=== PATIENT | female | born 1970 | race Caucasian/White ===

== ENCOUNTER → 2020-03-03 09:11 | Outpatient (BNVA) | payer OTHER, SELFPAY | PROVIDERS: PCP Internal Medicine; Referring Provider Internal Medicine; Visit Provider Physician Assistant | DX: K21.9 Gastro-esophageal reflux disease without esophagitis (principal); K76.0 Fatty (change of) liver, not elsewhere classified | CPT/HCPCS: 99213 ==

== ENCOUNTER 2020-03-04 13:16 | Outpatient (REF) | payer OTHER, SELFPAY ==
--- NOTE | 2020-03-04 | US_ITS ---
EXAMINATION: US DIAGNOSTIC ULTRASOUND BREAST, LEFT CLINICAL INFORMATION: Pain. COMPARISON: Mammography of same day and studies dating back to May 16, 2011. TECHNIQUE: Ultrasound of the breast is performed with real-time arevalo scale imaging and color Doppler. FINDINGS: Targeted left breast ultrasound at region of left breast pain did not demonstrate any abnormal cystic or solid mass. No region of abnormal distal sound shadowing was appreciated. Results are discussed with the patient at time of visit. IMPRESSION: No specific mammographic or ultrasound findings to suggest malignancy. Clinical follow-up for pain. ASSESSMENT: BI-RADS 1: Negative RECOMMENDATION: Routine annual mammography screening due in 12 months. This patient's information was entered into a reminder system with a target due date for their next mammogram.
--- NOTE | 2020-03-04 | MM_ITS ---
EXAMINATION: MM DIAGNOSTIC DIGITAL BREAST TOMOSYNTHESIS, BILATERAL Targeted left breast ultrasound. CLINICAL INFORMATION: Left breast pain which comes and goes for 3 months The lifetime risk of breast cancer based on the Tyrer-Cuzick Model is 14.5%. COMPARISON: Mammography: July 16, 2018 and studies dating back to May 16, 2011 TECHNIQUE: Digital breast tomosynthesis is performed in both the craniocaudal and mediolateral oblique views along with computer-aided detection (CAD). Synthesized 2D images are generated from the tomosynthesis. Targeted left breast ultrasound FINDINGS: There are scattered areas of fibroglandular density (ACR BI-RADS breast composition Category b). There are no significant masses, abnormal calcifications, or other abnormalities. Targeted left breast ultrasound at region of left breast pain did not demonstrate any abnormal cystic or solid mass. No region of abnormal distal sound shadowing was appreciated. Results are discussed with the patient at time of visit. IMPRESSION: No specific mammographic or ultrasound findings to suggest malignancy. Clinical follow-up for pain. ASSESSMENT: BI-RADS 1: Negative RECOMMENDATION: Routine annual mammography screening due in 12 months. This patient's information was entered into a reminder system with a target due date for their next mammogram.
== END 2020-03-04 13:17 | disposition home or self-care (01) ==
LOC: HO.MAMMO 13:16
PROVIDERS: Visit Provider Nurse Practitioner Family
DX: N64.4 Mastodynia (principal)
CPT/HCPCS: 76642; 77062; 77066

== ENCOUNTER 2020-03-30 10:15 | Outpatient (REF) | payer OTHER, SELFPAY ==
--- NOTE | 2020-03-30 10:19 | US_ITS ---
EXAMINATION: US COMPLETE ABDOMEN WITH LIVER ELASTOGRAPHY CLINICAL INFORMATION: Fatty liver COMPARISON: 05/28/2018 TECHNIQUE: Real-time imaging of the abdominal viscera. Noninvasive ultrasound liver fibrosis assessment is performed using Ashley ElastPQ point quantification shear wave elastography (pSWE) with a 5 MHz transducer. Multiple elastography samples are obtained. FINDINGS: PANCREAS: Normal. The visualized pancreatic head and body are normal in appearance. The remainder of the pancreas is obscured from visualization by the overlying bowel gas. ABDOMINAL AORTA: The proximal, middle, and distal aortic segments are normal in caliber. INFERIOR VENA CAVA: Visualized portions are normal. LIVER: Diffuse increased echogenicity of the parenchyma. No focal lesion or intrahepatic biliary duct dilatation. The right lobe measures 15.9 cm in length. The left lobe measures 11.1 cm in length. Hepatopedal flow in the main portal vein. Shear wave elastography provides a median stiffness of 1.15 m/s (reference: normal median stiffness is 0.81 - 1.22 m/s). The IQR/median stiffness to assess sampling precision is 0.09 (reference: optimal IQR/median stiffness is under 0.3). GALLBLADDER: Normal. The gallbladder is physiologically distended without evidence of stones, sludge, polyps, wall thickening or pericholecystic fluid. COMMON BILE DUCT: Normal in caliber measuring 0.3 cm in diameter. RIGHT KIDNEY: Normal. No hydronephrosis. No renal calculi or focal parenchymal lesions. The kidney measures 10.3 cm in maximum dimension. LEFT KIDNEY: Normal. No hydronephrosis. No renal calculi or focal parenchymal lesions. The kidney measures 9.9 cm in maximum dimension. SPLEEN: Normal. The spleen measures 10.8 cm in maximum dimension. FREE FLUID: None. US/US abdomen comp w elastography IMPRESSION: 1. . There is generalized increase in hepatic echotexture, consistent with fatty infiltration or hepatocellular disease. Please correlate clinically. No focal hepatic mass or intrahepatic biliary duct dilatation is seen. 2. Elastography: Metavir score F0, within normal range.
== END 2020-03-30 10:16 | disposition home or self-care (01) ==
LOC: HO.US 10:15
PROVIDERS: PCP Internal Medicine; Visit Provider Physician Assistant
DX: K76.0 Fatty (change of) liver, not elsewhere classified (principal)
CPT/HCPCS: 76705; 76981

== ENCOUNTER 2020-04-04 15:40 | Emergency (ER) | payer OTHER, SELFPAY ==
[2020-04-04 15:55] VITALS: BP 152/88; BP 160/90; PULSE 82; PULSE 90; RESP 17; TEMP 36.7; O2SAT 99; BMI 34.2
--- NOTE | 2020-04-04 16:33 | CT_ITS ---
EXAMINATION: CT HEAD WITHOUT CONTRAST CLINICAL INFORMATION: Dizziness. COMPARISON: CT head 07/15/2019 TECHNIQUE: Contiguous axial imaging was performed from the skull base to vertex without intravenous administration of contrast. Coronal and sagittal reformatted images are performed at CT scanner This CT examination was performed using dose optimization techniques as appropriate, variously including the following: *Automated exposure control *Adjustment of mA and/or kV according to patient size (this includes techniques or standardized protocols for targeted exams where dose is matched to indication/reason for exam; i.e. extremities or head) *Use of iterative reconstruction technique DLP: 623 mGy-cm FINDINGS: There is no evidence of acute intracranial hemorrhage or territorial infarction. No abnormal mass effect or midline shift is seen. Koehler to white matter differentiation is well preserved. No extra-axial fluid collections are identified. The ventricles are normal in size. There is no abnormal attenuation within the brain parenchyma. The osseous structures and soft tissues are normal. The mastoid air cells and visualized portions of the paranasal sinuses are well aerated. CT/CT head/brain wo con IMPRESSION: No acute intracranial pathology.
--- NOTE | 2020-04-04 16:36 | ED.DIZZY ---
HPI - Dizziness General Chief Complaint: Dizziness Stated Complaint: dizness Time Seen by Provider: 04/04/20 16:19 Source: patient Mode of arrival: ambulatory Limitations: no limitations History of Present Illness HPI Narrative: With chronic dizziness anxiety stress sleep apnea complaining of dizziness for last 2 months. in the past she been here also for dizziness and had a CT scan of the head on 07/09 which was negative has seen the neurologist 2 months ago for migraine and seen her is her PCP 3 times in last 1 month for same complaint per patient patient gets dizziness more when she sleeps has to wake up from the sleep because of dizziness and she gets better when she walks around patient taking lorazepam for anxiety and says that she is not anxious anymore no nausea no vomiting no palpitation. Patient also complaining of headache which is chronic MD elicited complaint: dizziness Description: sense of movement and room spinning Related Data Home Medications Medication Instructions Recorded Confirmed pantoprazole 40 mg tablet,delayed 40 mg PO DAILY 03/03/20 04/04/20 release cyclobenzaprine 10 mg tablet 10 mg PO TID 03/11/20 04/04/20 pravastatin 20 mg tablet 20 mg PO DAILY 03/11/20 04/04/20 Previous Rx's Medication Instructions Recorded lorazepam 1 mg tablet 1 mg PO BID PRN 90 Days #180 tab 02/22/20 sennosides 8.6 mg capsule 8.6 mg PO BEDTIME PRN #30 cap 03/01/20 Allergies Allergy/AdvReac Type Severity Reaction Status Date / Time oxycodone [From PERCOCET] Allergy Intermediate VOMITING, Unverified 02/04/20 15:33 N/V codeine [Codeine] Allergy Mild HIVES Unverified 02/04/20 15:33 atorvastatin Allergy Unknown Headaches Verified 12/07/19 00:00 bupropion [From WELLBUTRIN] Allergy Unknown PALPITATION Unverified 02/04/20 15:33 S morphine [MORPHINE] Allergy Unknown NIGHTMARES Unverified 02/04/20 15:33 naproxen [NAPROXEN] Allergy Unknown RASH Unverified 02/04/20 15:33 sertraline Allergy Unknown Verified 12/07/19 00:00 simvastatin Allergy Unknown Verified 12/07/19 00:00 zolpidem [ZOLPIDEM] Allergy Unknown PALPITATION Unverified 02/04/20 15:33 S Codeine Phosphate Allergy Unknown rash Uncoded 12/08/19 00:00 Codeine Sulfate Allergy Unknown Rash Uncoded 12/07/19 00:00 Review of Systems Review of Systems: REVIEW OF SYSTEMS: Pertinent positives and negatives are stated above in the history. GEN: no fevers, chills, fatigue HEENT: no nasal congestion, sore throat, ear pain NEURO: no focal weakness PULM: no cough, shortness of breath CV: no chest pain, palpitations, LE edema ABD: no abdominal pain, nausea, vomiting, diarrhea : no dysuria, urgency, frequency SKIN: no rash ROS otherwise negative x 10 Neurologic: Reports Abnormal speech present [facility] Past Medical History Medical History Acid reflux Anxiety and depression NAFLD (nonalcoholic fatty liver disease) Obesity (BMI 30-39.9) Surgical History History of colonoscopy Hx of endoscopy Family History Family History Father Hx of colon cancer, stage III Mother Hx of heat stroke Social History Social History Alcohol intake: never Smoking Status: Never smoker Advance Directives: No Advance Directives Information Provided: Yes Physical Exam Vital Signs: Vital Signs: Last Vital Signs Temp 98.1 F 04/04/20 15:55 Pulse 82 04/04/20 15:55 Resp 17 04/04/20 15:55 BP 152/88 H 04/04/20 15:55 Pulse Ox 99 04/04/20 15:55 Body Mass Index 34.2 Const: General: cooperative, healthy appearing, comfortable, no acute distress and anxious Nutritional Appearance: average body habitus Orientation/consciousness: oriented to person, oriented to place and oriented to time HENMT: Head: Yes normal to inspection Ears: hearing grossly normal bilaterally Mouth: Normal oral and palatal mucosa present Eyes: General: appearance normal, both eyes and all related structures Pupils: Equal, round and reactive pupils present EOM: EOMs intact bilaterally, no movement deficit and No Nystagmus present Resp: Effort & Inspection: normal respiratory effort Auscultation: clear to auscultation bilaterally Cardio: Rate: regular rate Rhythm: regular rhythm Heart sounds: S1 normal heart sound present and S2 normal heart sound present GI: Inspection: Yes normal to inspection Palpation (GI): Soft to palpation, Firmness to palpation present (GI) and nontender Neuro: General: oriented to person, oriented to place and oriented to time Cranial nerves: Yes CN's II-XII intact bilaterally, Yes Equal, round and reactive pupils present and No Nystagmus present Speech: Abnormal speech present Gait exam (Neuro): Normal gait present Motor exam (neuro): 5/5 motor strength present throughout Coordination: [id number] test normal, does not sway with eyes open, Romberg test negative and Normal rapid alternating movements of the distal upper extremity present (Neuro) Romberg Test: Negative Course Course Course Narrative: patient with nonspecific dizziness CT scan negative labs are normal anxiety effect is also related. Patient had a neurologist Dr. More will follow-up with him will continue lorazepam and meclizine for now MDM - Dizziness Lab Data Result diagrams: 04/04/20 16:47 04/04/20 16:47 Labs: Lab Results 04/04/20 04/04/20 Range/Units 16:47 16:47 WBC 8.6 (4.8-10.8) X10*3/uL RBC 4.90 (4.20-5.50) X10*6/uL Hgb 13.3 (12.0-16.0) g/dl Hct 40.6 (37-47) % MCV 82.9 (80-98) fL MCH 27.1 (27.0-33.0) pg MCHC 32.8 (31.0-35.0) g/dl RDW 14.3 (11.0-16.0) % Plt Count 375 (160-400) X10*3/uL MPV 9.0 L (9.4-12.3) fL Immature Gran % (Auto) 0.4 (0.0-0.4) % Neut % (Auto) 53.4 (45-73) % Lymph % (Auto) 34.7 (20-40) % Monona % (Auto) 8.5 (2-11) % Eos % (Auto) 2.5 (0-4) % Baso % (Auto) 0.5 (0-2) % Lymph # (Auto) 3.0 (1.2-4.9) X10*3/uL Monona # (Auto) 0.7 (0.1-1.2) X10*3/uL Eos # (Auto) 0.2 (0.0-0.4) X10*3/uL Baso # (Auto) 0.0 (0.0-0.2) X10*3/uL Abs Immat Gran (auto) 0.03 (0.00-0.03) X10*3/uL Absolute Neuts (auto) 4.6 (2.0-8.3) X10*3/uL Absolute Nucleated RBC 0.000 (0.0-0.012) X10*3/uL Nucleated RBC % (auto) 0.0 (0.0-0.2) /100WBC Sodium 141 (135-145) mmol/L Potassium 3.7 (3.3-5.1) mmol/l Chloride 104 (96-108) mmol/L Carbon Dioxide 27 (22-29) mmol/L Anion Gap 14 (12-20) BUN 12 (9-16) mg/dL Creatinine 0.81 (0.5-1.4) mg/dL Estim Creat Clear Calc 79.8 Estimated GFR > 60 Random Glucose 100 (60-115) mg/dL Calcium 10.0 (8.4-10.2) mg/dL Magnesium 2.1 (1.6-2.6) mg/dL Discharge Plan Discharge Prescriptions: No Action lorazepam 1 mg tablet 1 mg PO BID PRN (Reason: anxiety) 90 Days Qty: 180 RF: 0 senna 8.6 mg capsule 8.6 mg PO BEDTIME PRN (Reason: constipation) Qty: 30 RF: 2 cyclobenzaprine 10 mg tablet 10 mg PO TID RF: 0 pravastatin 20 mg tablet 20 mg PO DAILY RF: 0 pantoprazole 40 mg tablet,delayed release (DR/EC) 40 mg PO DAILY RF: 0
[2020-04-04 16:52] LABS: MANUAL DIFF FLAG NO
[2020-04-04 16:54] LABS: Basophils Percent Auto 0.5 % (0-2); Eosinophils Absolute Auto 0.2 X10*3/uL (0.0-0.4); Eosinophils Percent Auto 2.5 % (0-4); Hematocrit 40.6 % (37-47); Hemoglobin 13.3 g/dl (12.0-16.0); Imm Gran Abs Auto 0.03 X10*3/uL (0.00-0.03); Imm Gran Pct Auto 0.4 % (0.0-0.4); Lymphocytes Percent Auto 34.7 % (20-40); Mean Corpuscular HGB Conc 32.8 g/dl (31.0-35.0); Mean Corpuscular Hemoglobin 27.1 pg (27.0-33.0); Mean Corpuscular Volume 82.9 fL (80-98); Monocytes Absolute Auto 0.7 X10*3/uL (0.1-1.2); Monocytes Percent Auto 8.5 % (2-11); Neutrophils Absolute Auto 4.6 X10*3/uL (2.0-8.3); Neutrophils Percent Auto 53.4 % (45-73); Platelet Count 375 X10*3/uL (160-400); Red Cell Distribution Width 14.3 % (11.0-16.0); White Blood Count 8.6 X10*3/uL (4.8-10.8)
[2020-04-04] MEDS: LORazepam 2 MG/ML VIAL 1 MG IVPUSH (17:09)
[2020-04-04] MEDS: diphenhydrAMINE HCL 50 MG/ML VIAL 25 MG IVPUSH (17:09)
--- NOTE | 2020-04-04 17:13 | PC.NURSE ---
patient medicated per order
[2020-04-04 17:18] LABS: Anion Gap 14 (12-20); Blood Urea Nitrogen 12 mg/dL (9-16); Carbon Dioxide 27 mmol/L (22-29); Chloride 104 mmol/L (96-108); Creatinine Clr Calc Pharmacy 79.8; Estimated Glomerular Filt Rate > 60; Glucose Random 100 mg/dL (60-115); Magnesium 2.1 mg/dL (1.6-2.6); Potassium 3.7 mmol/l (3.3-5.1); Sodium 141 mmol/L (135-145)
[2020-04-04 19:20] VITALS: BP 151/81; PULSE 81
[2020-04-04 19:22] VITALS: BP 149/89; PULSE 77
[2020-04-04 19:23] VITALS: BP 142/88; PULSE 87
[2020-04-04 19:26] VITALS: BP 142/88; PULSE 87; RESP 16; TEMP 36.6; O2SAT 97
== END 2020-04-04 19:55 | disposition home or self-care (01) ==
PROVIDERS: Emergency Provider Internal Medicine; PCP Internal Medicine
DX: R42 Dizziness and giddiness (principal); Z79.899 Other long term (current) drug therapy
CPT/HCPCS: 36415; 70450; 80048; 83735; 85025; 96374; 96375; 99284; J1200; J2060

== ENCOUNTER 2020-04-21 08:02 | Outpatient (RCR) | payer OTHER, SELFPAY ==
--- NOTE | 2020-04-22 16:04 | MHC.PT.EP ---
[facility] [place] Office [place] Office [place] Office [address] Michelle Peterson [address] [phone] F: [phone] F: [phone] F: [phone] F: [phone] Physical Therapy Plan of Care Date of Evaluation: 04/21/20 Date of Surgery: Diagnosis: dizziness Assessment: Pt was positive for right PC -BPPV. Particle repositioning was performed on her and he was negative during reassessment. Pt had increased anxiety during treatment that I managed with increased education and time as needed. Pt felt less dizzy upon standing and she was able to walk without imbalance upon leaving. Frequency and Duration: The patient will be seen 2 Short Term Goals: 1.Pt to be negative for nystagmus in all diagnostic positions for BPPV to facilitate improved functional movements. [employer] Goals: 1. For the patient to be negative for nystagmus or reports of vertigo in all diagnostic positions bilaterally to resolution of BPPV in 4 weeks. 2. For the patient to be able to functionally move in all planes and directions without provocation of dizziness to show return to PLOF. -For the patient to be educated on symptoms and indications to return to therapy when needed in 4 weeks. Treatment Plan: Modalities to reduce pain, spasms and effusion. Manual therapy to restore motion and function. Therapeutic exercise to improve strength and flexibility. Neuromuscular re-education for posture and balance. Therapeutic activities to return to functional activities of daily living. Please sign and return to therapist. Thank you for your referral.
--- NOTE | 2020-06-06 11:34 | MHC.PT.DC ---
[facility] [place] Office [place] Office [place] Office [address] [phone] F: [phone] F: [phone] F: [phone] F: [phone] Physical Therapy Discharge Report Diagnosis: dizziness Date of Surgery: Date of Evaluation: 04/21/20 Date of Discharge: 06/06/20 Treatments to Date: 1 Cancellations to Date: 0 No Shows to Date: 0 Discharge Status: Discharge Summary: Pt was + for right PC-BPPV. CRM x 2 reps for right side. Pt was negative upon reassessment. She did not return for her f/u visits. Electronically signed by: Kassidy Jon PT, DPT Please sign and return to therapist. Thank you for your referral.
== END 2020-06-06 11:35 | disposition other institution (70) ==
LOC: HO.PT 08:02
PROVIDERS: PCP Internal Medicine; Visit Provider Internal Medicine
DX: R42 Dizziness and giddiness (principal)
CPT/HCPCS: 95992; 97162; 97535

== ENCOUNTER 2020-06-13 10:09 | Outpatient (REF) | payer OTHER, SELFPAY | END 2020-06-13 10:10 | disposition home or self-care (01) | LOC: HO.LAB 10:09 | PROVIDERS: Visit Provider Nurse Practitioner Family | DX: J34.89 Other specified disorders of nose and nasal sinuses (principal); J40 Bronchitis, not specified as acute or chronic; Z20.822 Contact with and (suspected) exposure to COVID-19 | CPT/HCPCS: 36415; U0003 ==

== ENCOUNTER → 2020-06-14 11:12 | Outpatient (BNVA) | payer OTHER, SELFPAY | PROVIDERS: PCP Internal Medicine; Visit Provider Physician Assistant ==

== ENCOUNTER 2020-06-27 07:29 | Outpatient (REF) | payer OTHER, SELFPAY ==
[2020-06-27 08:04] LABS: MANUAL DIFF FLAG NO
[2020-06-27 08:14] LABS: Basophils Percent Auto 0.4 % (0-2); Eosinophils Absolute Auto 0.4 X10*3/uL (0.0-0.4); Eosinophils Percent Auto 3.7 % (0-4); Hematocrit 42.5 % (37-47); Hemoglobin 13.6 g/dl (12.0-16.0); Imm Gran Abs Auto 0.05 X10*3/uL (0.00-0.03); Imm Gran Pct Auto 0.5 % (0.0-0.4); Lymphocytes Absolute Auto 3.8 X10*3/uL (1.2-4.9); Lymphocytes Percent Auto 40.4 % (20-40); Mean Corpuscular Hemoglobin 26.4 pg (27.0-33.0); Mean Corpuscular Volume 82.4 fL (80-98); Monocytes Absolute Auto 0.7 X10*3/uL (0.1-1.2); Monocytes Percent Auto 7.1 % (2-11); Neutrophils Absolute Auto 4.5 X10*3/uL (2.0-8.3); Neutrophils Percent Auto 47.9 % (45-73); Platelet Count 404 X10*3/uL (160-400); Red Blood Count 5.16 X10*6/uL (4.20-5.50); Red Cell Distribution Width 13.9 % (11.0-16.0); White Blood Count 9.5 X10*3/uL (4.8-10.8)
[2020-06-27 08:21] LABS: Color Urine YELLOW; Glucose Urine UA NEG (NEG); Leukocyte Esterase Urine 2+ (NEG); Nitrite Urine NEG (NEG); PH 5.5 (5.0-8.0); Specific Gravity - Urine >= 1.030 (1.005-1.025); Urine Blood TRACE (NEG); Urine Ketones NEG (NEG); Urine Protein NEG (NEG-TRACE)
[2020-06-27 08:22] LABS: Appearance Urine HAZY
[2020-06-27 08:44] LABS: Alanine Aminotransferase 75 U/L (0-31); Albumin Level 4.3 g/dL (3.5-5.0); Alkaline Phosphatase 71 U/L (39-117); Anion Gap 14 (12-20); Aspartate Amino Transferase 42 U/L (5-31); Bilirubin Total 0.5 mg/dL (0.0-1.0); Blood Urea Nitrogen 15 mg/dL (9-16); Calcium 9.7 mg/dL (8.4-10.2); Carbon Dioxide 25 mmol/L (22-29); Chloride 106 mmol/L (96-108); Estimated Glomerular Filt Rate > 60; Glucose Random 100 mg/dL (60-115); Potassium 4.4 mmol/L (3.3-5.1); Sodium 141 mmol/L (135-145); Total Protein 7.5 g/dL (6.5-8.0)
[2020-06-27 09:00] LABS: Free T4 (Free Thyroxine) 0.85 ng/dL (0.71-1.85); Thyroid Stimulating Hormone 4.59 uIU/mL (0.32-4.0)
[2020-06-27 09:02] LABS: Bacteria Urine 2+ /LPF; Mucus Urine 1+ /LPF; RBC Urine 0 /HPF (0); Squamous Epithelial Cell Urine 2+ /LPF
== END 2020-06-27 07:30 | disposition home or self-care (01) ==
LOC: HO.LAB 07:29
PROVIDERS: PCP Internal Medicine; Referring Provider Internal Medicine; Visit Provider Physician Assistant
DX: R42 Dizziness and giddiness (principal)
CPT/HCPCS: 36415; 80053; 81001; 84439; 84443; 85025

== ENCOUNTER 2020-10-24 10:36 | Outpatient (REF) | payer MEDICARE, MEDICAID, SELFPAY ==
[2020-10-24 11:20] LABS: MANUAL DIFF FLAG NO
[2020-10-24 11:38] LABS: Basophils Percent Auto 0.5 % (0-2); Eosinophils Absolute Auto 0.3 X10*3/uL (0.0-0.4); Eosinophils Percent Auto 3.7 % (0-4); Hemoglobin 13.4 g/dl (12.0-16.0); Imm Gran Abs Auto 0.02 X10*3/uL (0.00-0.03); Imm Gran Pct Auto 0.2 % (0.0-0.4); Lymphocytes Absolute Auto 2.9 X10*3/uL (1.2-4.9); Mean Corpuscular HGB Conc 31.9 g/dl (31.0-35.0); Mean Corpuscular Hemoglobin 26.4 pg (27.0-33.0); Mean Corpuscular Volume 82.7 fL (80-98); Mean Platelet Volume 9.2 fL (9.4-12.3); Monocytes Absolute Auto 0.6 X10*3/uL (0.1-1.2); Monocytes Percent Auto 6.9 % (2-11); Neutrophils Absolute Auto 4.3 X10*3/uL (2.0-8.3); Neutrophils Percent Auto 52.7 % (45-73); Platelet Count 391 X10*3/uL (160-400); Red Blood Count 5.08 X10*6/uL (4.20-5.50); Red Cell Distribution Width 14.3 % (11.0-16.0); White Blood Count 8.2 X10*3/uL (4.8-10.8)
[2020-10-24 11:49] LABS: Glucose Urine UA NEG (NEG); Leukocyte Esterase Urine NEG (NEG); Nitrite Urine NEG (NEG); Specific Gravity - Urine 1.025 (1.005-1.025); Urine Blood NEG (NEG); Urine Ketones NEG (NEG); Urine Protein NEG (NEG-TRACE)
[2020-10-24 11:56] LABS: Appearance Urine CLEAR; Color Urine YELLOW
[2020-10-24 12:00] LABS: Mucus Urine TRACE /LPF; RBC Urine 0-2 /HPF (0); Squamous Epithelial Cell Urine TRACE /LPF; WBC Urine 0-2 /HPF (0-4)
[2020-10-24 12:07] LABS: Alanine Aminotransferase 33 U/L (0-31); Albumin Level 4.4 g/dL (3.5-5.0); Alkaline Phosphatase 77 U/L (39-117); Anion Gap 13 (12-20); Aspartate Amino Transferase 25 U/L (5-31); Bilirubin Total 0.7 mg/dL (0.0-1.0); Blood Urea Nitrogen 17 mg/dL (9-16); Calcium 9.9 mg/dL (8.4-10.2); Carbon Dioxide 24 mmol/L (22-29); Chloride 106 mmol/L (96-108); Cholesterol 178 mg/dL; Estimated Glomerular Filt Rate > 60; Glucose Random 101 mg/dL (60-115); HDL Cholesterol 40 mg/dL; LDL Cholesterol Calculated 97 mg/dl; Potassium 4.3 mmol/L (3.3-5.1); Sodium 139 mmol/L (135-145); Total Protein 7.5 g/dL (6.5-8.0); Triglycerides 207 mg/dL
[2020-10-24 12:09] LABS: Free T4 (Free Thyroxine) 0.85 ng/dL (0.71-1.85); Thyroid Stimulating Hormone 1.71 uIU/mL (0.32-4.0)
[2020-10-24 13:14] LABS: Estimated Average Glucose 117 mg/dL; Hemoglobin A1c % 5.7 %
[2020-10-25 22:02] LABS: Insulin Level Total 23.2 uIU/mL
== END 2020-10-24 10:37 | disposition home or self-care (01) ==
LOC: HO.LAB 10:36
PROVIDERS: Physician Assistant; PCP Internal Medicine; Visit Provider Internal Medicine
DX: R79.89 Other specified abnormal findings of blood chemistry (principal); R42 Dizziness and giddiness; K76.0 Fatty (change of) liver, not elsewhere classified
CPT/HCPCS: 36415; 80053; 80061; 81001; 83036; 83525; 84439; 84443; 85025

== ENCOUNTER → 2020-11-02 10:42 | Outpatient (BNVA) | payer MEDICARE, MEDICAID, SELFPAY | PROVIDERS: PCP Internal Medicine; Visit Provider Physician Assistant | CPT/HCPCS: Q3014 ==

== ENCOUNTER 2020-12-26 10:56 | Outpatient (REF) | payer MEDICARE, MEDICAID, SELFPAY ==
[2020-12-26 13:32] LABS: Glucose Urine UA NEG (NEG); Leukocyte Esterase Urine 1+ (NEG); Nitrite Urine NEG (NEG); UACC Culture Trigger YES; Urine Blood TRACE (NEG); Urine Ketones NEG (NEG); Urine Protein NEG (NEG-TRACE)
[2020-12-26 13:38] LABS: Appearance Urine CLEAR; Color Urine YELLOW
[2020-12-26 13:59] LABS: RBC Urine 0-2 /HPF (0); Renal Epithelial Cells Urine TRACE /LPF
== END 2020-12-26 10:57 | disposition home or self-care (01) ==
LOC: HO.LAB 10:56
PROVIDERS: PCP Internal Medicine; Visit Provider Internal Medicine
DX: M79.671 Pain in right foot (principal)
CPT/HCPCS: 81001; 87086

== ENCOUNTER → 2021-01-11 09:18 | Outpatient (BNVA) | payer MEDICARE, MEDICAID, SELFPAY | PROVIDERS: PCP Internal Medicine; Visit Provider Physician Assistant | DX: Z13.89 Encounter for screening for other disorder (principal) | CPT/HCPCS: Q3014 ==

== ENCOUNTER 2021-03-02 08:00 | Outpatient (RCR) | payer MEDICARE, MEDICAID, SELFPAY | END 2021-07-17 11:41 | disposition home or self-care (01) | LOC: HO.PT 08:00 | PROVIDERS: PCP Internal Medicine; Visit Provider Internal Medicine | DX: R42 Dizziness and giddiness (principal) | CPT/HCPCS: 97161 ==

== ENCOUNTER 2021-03-20 07:53 | Outpatient (REF) | payer MEDICARE, MEDICAID, SELFPAY ==
--- NOTE | ~2021-03-20 | MM_ITS ---
EXAMINATION: MM SCREENING DIGITAL BREAST TOMOSYNTHESIS, BILATERAL CLINICAL INFORMATION: Screening. Asymptomatic. The lifetime risk of breast cancer based on the Tyrer-Cuzick Model is 16%. COMPARISON: Mammography: 03/04/2020, 07/16/2018, 06/03/2017, 05/30/2016 TECHNIQUE: Digital breast tomosynthesis is performed in both the craniocaudal and mediolateral oblique views along with computer-aided detection (CAD). Synthesized 2D images are generated from the tomosynthesis. FINDINGS: There are scattered areas of fibroglandular density (ACR BI-RADS breast composition Category b). There are no significant masses, abnormal calcifications, or other abnormalities. Parenchymal pattern is similar to prior studies. Minor global parenchymal asymmetry upper outer right breast is stable. Similarly, stromal markings mid outer left breast on CC view are stable from prior study exams. No interval developing density or architectural changes. The axilla and skin contours are unremarkable. MM/MM tomosynthesis screening BI IMPRESSION: No significant changes from prior studies. ASSESSMENT: BI-RADS 2: Benign RECOMMENDATION: Routine annual mammography screening. This patient's information was entered into a reminder system with a target due date for their next mammogram.
== END 2021-03-20 07:54 | disposition home or self-care (01) ==
LOC: HO.MAMMO 07:53
PROVIDERS: Visit Provider Internal Medicine
DX: Z12.31 Encounter for screening mammogram for malignant neoplasm of breast (principal)
CPT/HCPCS: 77063; 77067

== ENCOUNTER 2021-03-24 09:38 | Outpatient (REF) | payer MEDICARE, MEDICAID, SELFPAY ==
[2021-03-24 09:49] LABS: MANUAL DIFF FLAG NO
[2021-03-24 10:07] LABS: Basophils Percent Auto 0.4 % (0-2); Eosinophils Absolute Auto 0.2 X10*3/uL (0.0-0.4); Eosinophils Percent Auto 1.8 % (0-4); Hematocrit 43.4 % (37.0-47.0); Imm Gran Abs Auto 0.05 X10*3/uL (0.00-0.03); Imm Gran Pct Auto 0.5 % (0.0-0.4); Lymphocytes Absolute Auto 3.1 X10*3/uL (1.2-4.9); Lymphocytes Percent Auto 32.4 % (20-40); Mean Corpuscular HGB Conc 32.3 g/dl (31.0-35.0); Mean Corpuscular Hemoglobin 27.2 pg (27.0-33.0); Mean Corpuscular Volume 84.3 fL (80.0-98.0); Mean Platelet Volume 8.8 fL (9.4-12.3); Monocytes Absolute Auto 0.7 X10*3/uL (0.1-1.2); Monocytes Percent Auto 7.2 % (2-11); Neutrophils Absolute Auto 5.4 x10*3/uL (2.0-8.3); Neutrophils Percent Auto 57.7 % (45-73); Platelet Count 390 X10*3/uL (160-400); Red Blood Count 5.15 X10*6/uL (4.20-5.50); Red Cell Distribution Width 14.2 % (11.0-16.0); White Blood Count 9.4 X10*3/uL (4.8-10.8)
[2021-03-24 10:33] LABS: Alanine Aminotransferase 35 U/L (0-31); Albumin Level 4.6 g/dL (3.5-5.0); Alkaline Phosphatase 77 U/L (39-117); Anion Gap 13 (12-20); Aspartate Amino Transferase 23 U/L (5-31); Bilirubin Total 0.7 mg/dL (0.0-1.0); Blood Urea Nitrogen 14 mg/dL (9-16); Calcium 10.5 mg/dL (8.4-10.2); Carbon Dioxide 30 mmol/L (22-29); Chloride 102 mmol/L (96-108); Estimated Glomerular Filt Rate 58; Glucose Fasting 102 mg/dL (60-99); Potassium 4.4 mmol/L (3.3-5.1); Sodium 141 mmol/L (135-145); Total Protein 7.7 g/dL (6.5-8.0)
[2021-03-24 10:35] LABS: Appearance Urine CLEAR; Color Urine YELLOW; Glucose Urine UA NEG (NEG); Leukocyte Esterase Urine NEG (NEG); Nitrite Urine NEG (NEG); Specific Gravity - Urine 1.015 (1.005-1.025); UACC Culture Trigger NO; Urine Blood TRACE (NEG); Urine Ketones NEG (NEG); Urine Protein NEG (NEG-TRACE)
[2021-03-24 10:52] LABS: TSH reflex Free T4 1.87 uIU/mL (0.32-4.0)
[2021-03-24 11:01] LABS: WBC Urine 0 /HPF (0-4)
[2021-03-24 11:02] LABS: Mucus Urine TRACE /LPF; Squamous Epithelial Cell Urine TRACE /LPF
== END 2021-03-24 09:39 | disposition home or self-care (01) ==
LOC: HO.LAB 09:38
PROVIDERS: PCP Internal Medicine; Visit Provider Nurse Practitioner Family
DX: E78.00 Pure hypercholesterolemia, unspecified (principal); I10 Essential (primary) hypertension; R42 Dizziness and giddiness
CPT/HCPCS: 36415; 80053; 81001; 84443; 85025

== ENCOUNTER → 2021-04-20 08:26 | Outpatient (BNVA) | payer MEDICARE, MEDICAID, SELFPAY | PROVIDERS: PCP Internal Medicine; Visit Provider Nurse Practitioner | DX: Z13.89 Encounter for screening for other disorder (principal) | CPT/HCPCS: Q3014 ==

== ENCOUNTER 2021-04-27 14:17 | Outpatient (REF) | payer MEDICARE, MEDICAID, SELFPAY | END 2021-04-27 14:18 | disposition home or self-care (01) | LOC: HO.HMGCX 14:17 | PROVIDERS: Visit Provider Nurse Practitioner | DX: Z13.89 Encounter for screening for other disorder (principal) ==

== ENCOUNTER 2021-05-09 17:49 | Outpatient (REF) | payer MEDICARE, MEDICAID, SELFPAY ==
[2021-05-09 18:45] LABS: Influenza A PCR NEGATIVE (Negative); Influenza B PCR NEGATIVE (Negative); Resp Syncy Virus RNA Qual PCR NEGATIVE (Negative); SARS COV2 PCR INHOUSE POSITIVE (Negative)
== END 2021-05-09 17:50 | disposition home or self-care (01) ==
LOC: HO.LNP 17:49
PROVIDERS: Visit Provider Internal Medicine
DX: Z20.822 Contact with and (suspected) exposure to COVID-19 (principal); R43.9 Unspecified disturbances of smell and taste
CPT/HCPCS: 0241U

== ENCOUNTER 2021-05-31 15:54 | Outpatient (REF) | payer MEDICARE, MEDICAID, SELFPAY ==
--- NOTE | ~2021-05-31 | XR_ITS ---
EXAMINATION: XR CHEST CLINICAL INFORMATION: Covid infection COMPARISON: Previous chest x-ray November 2019 TECHNIQUE: 2 views of the chest were obtained. FINDINGS: The cardiac and mediastinal contours are stable. There is minimal linear scarring or chronic subsegmental atelectasis at the left lung base similar to previous exam. The lungs are otherwise clear. No evidence of pneumonia is seen. There is no pleural effusion or pneumothorax. There are mild degenerative changes of the spine and curvature of the lower thoracic and upper lumbar spine to the right. XR/XR chest 2V IMPRESSION: No evidence for acute disease in the chest.
== END 2021-05-31 15:55 | disposition home or self-care (01) ==
LOC: HO.HMGCX 15:54
PROVIDERS: PCP Internal Medicine; Visit Provider Internal Medicine
DX: U07.1 COVID-19 (principal)
CPT/HCPCS: 71046

== ENCOUNTER 2021-06-27 08:20 | Outpatient (REF) | payer MEDICARE, MEDICAID, SELFPAY ==
[2021-06-27 08:55] LABS: MANUAL DIFF FLAG NO
[2021-06-27 09:35] LABS: Appearance Urine CLEAR; Color Urine YELLOW; Glucose Urine UA NEG (NEG); Leukocyte Esterase Urine NEG (NEG); Nitrite Urine NEG (NEG); PH 5.5 (5.0-8.0); Specific Gravity - Urine >= 1.030 (1.005-1.025); UACC Culture Trigger NO; Urine Blood TRACE (NEG); Urine Ketones NEG (NEG); Urine Protein NEG (NEG-TRACE)
[2021-06-27 09:38] LABS: Basophils Absolute Auto 0.1 X10*3/uL (0.0-0.2); Basophils Percent Auto 0.8 % (0-2); Eosinophils Absolute Auto 0.3 X10*3/uL (0.0-0.4); Eosinophils Percent Auto 3.9 % (0-4); Hemoglobin 13.2 g/dl (12.0-16.0); Imm Gran Abs Auto 0.02 X10*3/uL (0.00-0.03); Imm Gran Pct Auto 0.3 % (0.0-0.4); Lymphocytes Percent Auto 38.1 % (20-40); Mean Corpuscular HGB Conc 32.2 g/dl (31.0-35.0); Mean Corpuscular Hemoglobin 26.6 pg (27.0-33.0); Mean Corpuscular Volume 82.7 fL (80.0-98.0); Mean Platelet Volume 9.2 fL (9.4-12.3); Monocytes Absolute Auto 0.7 X10*3/uL (0.1-1.2); Monocytes Percent Auto 8.6 % (2-11); Neutrophils Absolute Auto 3.8 x10*3/uL (2.0-8.3); Neutrophils Percent Auto 48.3 % (45-73); Platelet Count 385 X10*3/uL (160-400); Red Blood Count 4.96 X10*6/uL (4.20-5.50); Red Cell Distribution Width 14.4 % (11.0-16.0); White Blood Count 7.8 X10*3/uL (4.8-10.8)
[2021-06-27 09:42] LABS: Estimated Average Glucose 114 mg/dL; Hemoglobin A1c % 5.6 %
[2021-06-27 09:56] LABS: RBC Urine 0-2 /HPF (0); WBC Urine 0 /HPF (0-4)
[2021-06-27 09:57] LABS: Mucus Urine TRACE /LPF
[2021-06-27 10:03] LABS: Alanine Aminotransferase 35 U/L (0-31); Albumin Level 4.4 g/dL (3.5-5.0); Alkaline Phosphatase 66 U/L (39-117); Anion Gap 12 (12-20); Aspartate Amino Transferase 24 U/L (5-31); Bilirubin Total 0.6 mg/dL (0.0-1.0); Blood Urea Nitrogen 15 mg/dL (9-16); Calcium 9.8 mg/dL (8.4-10.2); Carbon Dioxide 27 mmol/L (22-29); Chloride 105 mmol/L (96-108); Cholesterol 176 mg/dL; Estimated Glomerular Filt Rate > 60; Glucose Random 97 mg/dL (60-115); HDL Cholesterol 37 mg/dL; LDL Cholesterol Calculated 90 mg/dl; Potassium 4.2 mmol/L (3.3-5.1); Sodium 140 mmol/L (135-145); Total Protein 7.4 g/dL (6.5-8.0); Triglycerides 246 mg/dL
[2021-06-27 10:30] LABS: Free T4 (Free Thyroxine) 0.89 ng/dL (0.71-1.85); Thyroid Stimulating Hormone 2.88 uIU/mL (0.32-4.0); Vitamin D 25-OH Total 26.3 ng/mL (>30)
[2021-06-28 21:08] LABS: Folate 13.2 ng/mL (> or = 4.0); Vitamin B12 330 pg/mL (200-900)
== END 2021-06-27 08:21 | disposition home or self-care (01) ==
LOC: HO.LAB 08:20
PROVIDERS: Absent Provider Nurse Practitioner; PCP Internal Medicine; Visit Provider Internal Medicine
DX: E78.00 Pure hypercholesterolemia, unspecified (principal); R73.01 Impaired fasting glucose; M79.671 Pain in right foot
CPT/HCPCS: 36415; 80053; 80061; 81001; 82306; 82607; 82746; 83036; 84439; 84443; 85025

== ENCOUNTER 2021-07-03 09:17 | Outpatient (REF) | payer MEDICARE, MEDICAID, SELFPAY | END 2021-07-03 09:18 | disposition home or self-care (01) | LOC: HO.LNP 09:17 | PROVIDERS: Visit Provider Nurse Practitioner | DX: Z13.89 Encounter for screening for other disorder (principal) | CPT/HCPCS: 87338 ==

== ENCOUNTER 2021-07-03 09:50 | Outpatient (REF) | payer MEDICARE, MEDICAID, SELFPAY ==
--- NOTE | ~2021-07-03 | XR_ITS ---
EXAMINATION: 1. RADIOGRAPHS LUMBAR SPINE 2. RADIOGRAPHS RIGHT KNEE CLINICAL INFORMATION: Low back and right knee pain COMPARISON: Right knee x-rays 03/07/[address] abdomen pelvis 08/27/2017 TECHNIQUE: 3 views of the lumbar spine and 4 views of the right knee were obtained. FINDINGS: Lumbar spine: 5 nonrib-bearing lumbar vertebral bodies are visualized. There is mild dextroscoliosis of the lumbar spine centered at L3, possibly positional. Also noted is minimal anterolisthesis of L5 on S1. Patient is status post posterior fusion of L5 on S1 with intravertebral disc spacer. There is no evidence of hardware failure. Lumbar vertebral body heights are maintained. Mild narrowing of the T12/L1 and L1/L2 disc space heights. Right knee: No fracture or dislocation. No suprapatellar joint effusion. Joint spaces are relatively well-maintained. No significant degenerative changes. No focal soft tissue swelling of the anterior knee. XR/XR lumbar spine 2-3V IMPRESSION: -Stable postsurgical changes of the lumbar spine. No compression deformity. -Unremarkable radiographs of the right knee.
--- NOTE | ~2021-07-03 | XR_ITS ---
EXAMINATION: 1. RADIOGRAPHS LUMBAR SPINE 2. RADIOGRAPHS RIGHT KNEE CLINICAL INFORMATION: Low back and right knee pain COMPARISON: Right knee x-rays 03/07/[address] abdomen pelvis 08/27/2017 TECHNIQUE: 3 views of the lumbar spine and 4 views of the right knee were obtained. FINDINGS: Lumbar spine: 5 nonrib-bearing lumbar vertebral bodies are visualized. There is mild dextroscoliosis of the lumbar spine centered at L3, possibly positional. Also noted is minimal anterolisthesis of L5 on S1. Patient is status post posterior fusion of L5 on S1 with intravertebral disc spacer. There is no evidence of hardware failure. Lumbar vertebral body heights are maintained. Mild narrowing of the T12/L1 and L1/L2 disc space heights. Right knee: No fracture or dislocation. No suprapatellar joint effusion. Joint spaces are relatively well-maintained. No significant degenerative changes. No focal soft tissue swelling of the anterior knee. XR/XR knee RT 2V IMPRESSION: -Stable postsurgical changes of the lumbar spine. No compression deformity. -Unremarkable radiographs of the right knee.
== END 2021-07-03 09:51 | disposition home or self-care (01) ==
LOC: HO.XRAY 09:50
PROVIDERS: PCP Internal Medicine; Visit Provider Internal Medicine
DX: M25.561 Pain in right knee (principal); M54.50 Low back pain, unspecified
CPT/HCPCS: 72100; 73560; 87338

== ENCOUNTER → 2021-09-12 12:11 | Outpatient (BNVA) | payer MEDICARE, MEDICAID, SELFPAY | PROVIDERS: PCP Internal Medicine; Visit Provider Physician Assistant | DX: Z13.89 Encounter for screening for other disorder (principal) | CPT/HCPCS: Q3014 ==

== ENCOUNTER 2021-10-10 11:26 | Outpatient (REF) | payer MEDICARE, MEDICAID, SELFPAY ==
[2021-10-10 12:03] LABS: MANUAL DIFF FLAG NO
[2021-10-10 12:54] LABS: Basophils Percent Auto 0.4 % (0-2); Eosinophils Absolute Auto 0.1 X10*3/uL (0.0-0.4); Eosinophils Percent Auto 1.8 % (0-4); Hematocrit 43.5 % (37.0-47.0); Hemoglobin 13.8 g/dl (12.0-16.0); Imm Gran Abs Auto 0.03 X10*3/uL (0.00-0.03); Imm Gran Pct Auto 0.4 % (0.0-0.4); Lymphocytes Absolute Auto 2.6 X10*3/uL (1.2-4.9); Lymphocytes Percent Auto 36.3 % (20-40); Mean Corpuscular HGB Conc 31.7 g/dl (31.0-35.0); Mean Corpuscular Hemoglobin 26.9 pg (27.0-33.0); Mean Corpuscular Volume 84.8 fL (80.0-98.0); Monocytes Absolute Auto 0.6 X10*3/uL (0.1-1.2); Monocytes Percent Auto 7.9 % (2-11); Neutrophils Absolute Auto 3.9 x10*3/uL (2.0-8.3); Neutrophils Percent Auto 53.2 % (45-73); Platelet Count 389 X10*3/uL (160-400); Red Blood Count 5.13 X10*6/uL (4.20-5.50); White Blood Count 7.3 X10*3/uL (4.8-10.8)
[2021-10-10 13:14] LABS: Estimated Average Glucose 114 mg/dL; Hemoglobin A1c % 5.6 %
[2021-10-10 13:23] LABS: Appearance Urine CLEAR; Color Urine YELLOW; Glucose Urine UA NEG (NEG); Leukocyte Esterase Urine NEG (NEG); Nitrite Urine NEG (NEG); UACC Culture Trigger NO; Urine Blood TRACE (NEG); Urine Ketones NEG (NEG); Urine Protein NEG (NEG-TRACE)
[2021-10-10 13:48] LABS: RBC Urine 0-2 /HPF (0); WBC Urine 0 /HPF (0-4)
[2021-10-10 13:49] LABS: Thyroid Stimulating Hormone 1.73 uIU/mL (0.32-4.0); Vitamin D 25-OH Total 52.2 ng/mL (>30)
[2021-10-10 13:55] LABS: Vitamin B12 298 pg/mL (200-900)
[2021-10-10 13:57] LABS: Alanine Aminotransferase 33 U/L (0-31); Albumin Level 4.1 g/dL (3.5-5.0); Alkaline Phosphatase 67 U/L (39-117); Anion Gap 14 (12-20); Aspartate Amino Transferase 21 U/L (5-31); Bilirubin Total 0.4 mg/dL (0.0-1.0); Blood Urea Nitrogen 12 mg/dL (9-16); Calcium 9.9 mg/dL (8.4-10.2); Carbon Dioxide 26 mmol/L (22-29); Chloride 107 mmol/L (96-108); Cholesterol 195 mg/dL; Estimated Glomerular Filt Rate > 60; Glucose Random 91 mg/dL (60-115); HDL Cholesterol 47 mg/dL; LDL Cholesterol Calculated 113 mg/dl; Potassium 4.5 mmol/L (3.3-5.1); Sodium 142 mmol/L (135-145); Total Protein 7.3 g/dL (6.5-8.0); Triglycerides 177 mg/dL
== END 2021-10-10 11:27 | disposition home or self-care (01) ==
LOC: HO.LAB 11:26
PROVIDERS: PCP Internal Medicine; Visit Provider Internal Medicine
DX: Z13.89 Encounter for screening for other disorder (principal)
CPT/HCPCS: 36415; 80053; 80061; 81001; 81003; 82306; 82607; 82746; 83036; 84439; 84443; 85025

== ENCOUNTER 2021-10-10 12:12 | Emergency (ER) | payer MEDICARE, MEDICAID, SELFPAY ==
--- NOTE | 2021-10-10 12:20 | ECG_ITS ---
Test Reason : CHEST PAIN Blood Pressure : / mmHG Vent. Rate : 083 BPM Atrial Rate : 083 BPM P-R Int : 144 ms QRS Dur : 074 ms QT Int : 372 ms P-R-T Axes : 035 -08 023 degrees QTc Int : 437 ms Normal sinus rhythm Normal ECG When compared with ECG of 15-JUL-2019 13:00, No significant change was found Referred By: Generic ED Physician Electronically Signed By:Galindo Hdz
== END 2021-10-10 14:34 | disposition left against medical advice (07) ==
PROVIDERS: Emergency Provider Emergency Medicine; PCP Internal Medicine
DX: R07.9 Chest pain, unspecified (principal)
CPT/HCPCS: 36415; 80053; 80061; 81001; 82306; 82607; 82746; 83036; 84439; 84443; 85025; 93005; 99283

== ENCOUNTER 2021-10-11 04:55 | Emergency (ER) | payer MEDICARE, MEDICAID, SELFPAY ==
--- NOTE | ~2021-10-11 | XR_ITS ---
EXAMINATION: XR CHEST CLINICAL INFORMATION: Chest pain COMPARISON: 05/31/2021 TECHNIQUE: Frontal view of the chest was obtained. FINDINGS: Lung volumes are symmetric. Minimal streaky left basilar opacity favors atelectasis. No additional consolidation is seen. No evidence of pneumothorax, pleural effusion, or pulmonary edema. The cardiomediastinal contour is unremarkable. No acute osseous findings are seen. XR/XR chest 1V IMPRESSION: Linear left basilar opacity favoring atelectasis.
[2021-10-11 05:10] VITALS: BP 156/89; PULSE 92; RESP 22; TEMP 36.8; O2SAT 99; BMI 32.1
[2021-10-11] MEDS: LORazepam 1 MG TABLET PO (05:25)
[2021-10-11 05:42] LABS: Basophils Percent Auto 0.4 % (0-2); Eosinophils Absolute Auto 0.2 X10*3/uL (0.0-0.4); Eosinophils Percent Auto 1.7 % (0-4); Hematocrit 42.1 % (37.0-47.0); Hemoglobin 13.5 g/dl (12.0-16.0); Imm Gran Abs Auto 0.03 X10*3/uL (0.00-0.03); Imm Gran Pct Auto 0.3 % (0.0-0.4); Lymphocytes Absolute Auto 4.1 X10*3/uL (1.2-4.9); Lymphocytes Percent Auto 42.7 % (20-40); MANUAL DIFF FLAG SCAN; Mean Corpuscular HGB Conc 32.1 g/dl (31.0-35.0); Mean Corpuscular Hemoglobin 26.7 pg (27.0-33.0); Mean Corpuscular Volume 83.4 fL (80.0-98.0); Mean Platelet Volume 9.6 fL (9.4-12.3); Monocytes Absolute Auto 0.9 X10*3/uL (0.1-1.2); Monocytes Percent Auto 9.7 % (2-11); Neutrophils Absolute Auto 4.3 x10*3/uL (2.0-8.3); Neutrophils Percent Auto 45.2 % (45-73); PLT CLUMP 1; Red Blood Count 5.05 X10*6/uL (4.20-5.50); Red Cell Distribution Width 14.9 % (11.0-16.0); SCAN SMEAR FLAG 1
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
[2021-10-11 05:58] LABS: Troponin-I High Sensitivity < 3.5 ng/L (<3.5-17.0)
[2021-10-11 05:59] LABS: White Blood Count 9.5 X10*3/uL (4.8-10.8)
[2021-10-11 06:00] LABS: Platelet Count 366 X10*3/uL (160-400); SLIDE REVIEW VERIFIED
[2021-10-11 06:20] LABS: Anion Gap 13 (12-20); Blood Urea Nitrogen 17 mg/dL (9-16); Calcium 9.8 mg/dL (8.4-10.2); Carbon Dioxide 26 mmol/L (22-29); Chloride 106 mmol/L (96-108); Creatinine Clr Calc Pharmacy 74.5; Estimated Glomerular Filt Rate > 60; Glucose Random 88 mg/dL (60-115); Potassium 3.8 mmol/L (3.3-5.1); Sodium 141 mmol/L (135-145)
== END 2021-10-11 06:42 | disposition home or self-care (01) ==
PROVIDERS: Emergency Provider Emergency Medicine; PCP Internal Medicine
DX: H83.03 Labyrinthitis, bilateral (principal); G44.209 Tension-type headache, unspecified, not intractable; H92.03 Otalgia, bilateral; R07.89 Other chest pain; F17.210 Nicotine dependence, cigarettes, uncomplicated; Z71.6 Tobacco abuse counseling; Z79.899 Other long term (current) drug therapy; Z73.3 Stress, not elsewhere classified; Z60.9 Problem related to social environment, unspecified
CPT/HCPCS: 36415; 71045; 80048; 83735; 84484; 85025; 99283; 99284

== ENCOUNTER 2021-10-30 15:38 | Outpatient (REF) | payer MEDICARE, MEDICAID, SELFPAY ==
[2021-10-30 16:01] LABS: Appearance Urine CLEAR; Color Urine YELLOW; Glucose Urine UA NEG (NEG); Leukocyte Esterase Urine TRACE (NEG); Nitrite Urine NEG (NEG); PH 5.5 (5.0-8.0); Specific Gravity - Urine >= 1.030 (1.005-1.025); UACC Culture Trigger NO; Urine Blood 1+ (NEG); Urine Ketones 5 MG/DL (NEG); Urine Protein NEG (NEG-TRACE)
[2021-10-30 16:13] LABS: WBC Urine 0-2 /HPF (0-4)
[2021-10-30 16:14] LABS: RBC Urine 0-2 /HPF (0); Squamous Epithelial Cell Urine TRACE /LPF
== END 2021-10-30 15:39 | disposition home or self-care (01) ==
LOC: HO.LAB 15:38
PROVIDERS: PCP Internal Medicine; Visit Provider Internal Medicine
DX: R30.0 Dysuria (principal)
CPT/HCPCS: 81001; 81003

== ENCOUNTER → 2021-12-12 10:33 | Outpatient (BNVA) | payer MEDICARE, MEDICAID, SELFPAY | PROVIDERS: PCP Internal Medicine; Visit Provider Physician Assistant | DX: J35.8 Other chronic diseases of tonsils and adenoids (principal); K58.9 Irritable bowel syndrome, unspecified | CPT/HCPCS: Q3014 ==

== ENCOUNTER 2021-12-18 12:28 | Outpatient (REF) | payer MEDICARE, MEDICAID, SELFPAY ==
[2021-12-18 12:48] LABS: MANUAL DIFF FLAG NO
[2021-12-18 13:25] LABS: Basophils Percent Auto 0.5 % (0-2); Eosinophils Absolute Auto 0.3 X10*3/uL (0.0-0.4); Eosinophils Percent Auto 3.2 % (0-4); Hematocrit 43.4 % (37.0-47.0); Imm Gran Abs Auto 0.01 X10*3/uL (0.00-0.03); Imm Gran Pct Auto 0.1 % (0.0-0.4); Lymphocytes Absolute Auto 2.8 X10*3/uL (1.2-4.9); Lymphocytes Percent Auto 36.1 % (20-40); Mean Corpuscular HGB Conc 32.3 g/dl (31.0-35.0); Mean Corpuscular Hemoglobin 26.8 pg (27.0-33.0); Mean Corpuscular Volume 83.1 fL (80.0-98.0); Mean Platelet Volume 9.3 fL (9.4-12.3); Monocytes Absolute Auto 0.6 X10*3/uL (0.1-1.2); Monocytes Percent Auto 8.3 % (2-11); Neutrophils Percent Auto 51.8 % (45-73); Platelet Count 401 X10*3/uL (160-400); Red Blood Count 5.22 X10*6/uL (4.20-5.50); White Blood Count 7.8 X10*3/uL (4.8-10.8)
[2021-12-18 13:28] LABS: Estimated Average Glucose 111 mg/dL; Hemoglobin A1c % 5.5 %
[2021-12-18 13:39] LABS: Alanine Aminotransferase 46 U/L (0-31); Albumin Level 4.7 g/dL (3.5-5.0); Alkaline Phosphatase 68 U/L (39-117); Anion Gap 16 (12-20); Aspartate Amino Transferase 36 U/L (5-31); Bilirubin Total 0.7 mg/dL (0.0-1.0); Blood Urea Nitrogen 13 mg/dL (9-16); Carbon Dioxide 25 mmol/L (22-29); Chloride 105 mmol/L (96-108); Cholesterol 203 mg/dL; Estimated Glomerular Filt Rate > 60; Glucose Random 104 mg/dL (60-115); HDL Cholesterol 42 mg/dL; LDL Cholesterol Calculated 109 mg/dl; Potassium 4.5 mmol/L (3.3-5.1); Sodium 141 mmol/L (135-145); Triglycerides 260 mg/dL
[2021-12-18 14:04] LABS: Free T4 (Free Thyroxine) 0.89 ng/dL (0.71-1.85); Vitamin D 25-OH Total 50.8 ng/mL (>30)
[2021-12-18 14:13] LABS: Folate 17.7 ng/mL (> or = 4.0); Vitamin B12 438 pg/mL (200-900)
[2021-12-18 14:54] LABS: Appearance Urine HAZY; Color Urine YELLOW; Glucose Urine UA NEG (NEG); Leukocyte Esterase Urine NEG (NEG); Nitrite Urine NEG (NEG); Specific Gravity - Urine >= 1.030 (1.005-1.025); UACC Culture Trigger NO; Urine Blood TRACE (NEG); Urine Ketones NEG (NEG); Urine Protein NEG (NEG-TRACE)
[2021-12-18 15:02] LABS: Bacteria Urine 1+ /LPF; Mucus Urine 1+ /LPF; RBC Urine 0-2 /HPF (0); Squamous Epithelial Cell Urine 1+ /LPF; WBC Urine 0 /HPF (0-4)
== END 2021-12-18 12:29 | disposition home or self-care (01) ==
LOC: HO.LAB 12:28
PROVIDERS: Internal Medicine; PCP Internal Medicine; Visit Provider Internal Medicine
DX: R30.0 Dysuria (principal); E78.00 Pure hypercholesterolemia, unspecified; R79.89 Other specified abnormal findings of blood chemistry; I10 Essential (primary) hypertension; R73.01 Impaired fasting glucose
CPT/HCPCS: 36415; 80053; 80061; 81001; 82306; 82607; 82746; 83036; 84439; 84443; 85025

== ENCOUNTER 2022-01-24 15:53 | Outpatient (REF) | payer MEDICARE, MEDICAID, SELFPAY ==
--- NOTE | ~2022-01-24 | US_ITS ---
EXAMINATION: US RETROPERITONEAL LIMITED (RENAL ONLY) CLINICAL INFORMATION: Hematuria, unspecified. COMPARISON: Ultrasound abdomen with elastography 03/30/2020. Ultrasound abdomen 05/28/2019. CT abdomen and pelvis 08/27/2017. TECHNIQUE: Real-time imaging of the kidneys. FINDINGS: RIGHT KIDNEY: 10.5 x 4.7 x 4.9 cm (SAG x AP x TRV). The kidney is normal in size, contour, and echogenicity. Renal cortical thickness is normal. No calculi or focal parenchymal lesions. No hydronephrosis. LEFT KIDNEY: 10.3 x 5.4 x 4.1 cm (SAG x AP x TRV). The kidney is normal in size, contour, and echogenicity. Renal cortical thickness is normal. No calculi or focal parenchymal lesions. No hydronephrosis. US/US renal BI IMPRESSION: Unremarkable renal ultrasound.
== END 2022-01-24 15:54 | disposition home or self-care (01) ==
LOC: HO.US 15:53
PROVIDERS: Visit Provider Internal Medicine
DX: R31.9 Hematuria, unspecified (principal)
CPT/HCPCS: 76775

== ENCOUNTER 2022-03-22 08:03 | Outpatient (REF) | payer OTHER, SELFPAY ==
--- NOTE | ~2022-03-22 | MM_ITS ---
EXAMINATION: MM SCREENING DIGITAL BREAST TOMOSYNTHESIS, BILATERAL CLINICAL INFORMATION: Screening. Asymptomatic. COMPARISON: Mammography: 03/20/2021, 03/04/2020, 07/16/2018, 06/03/2017 TECHNIQUE: Digital breast tomosynthesis is performed in both the craniocaudal and mediolateral oblique views along with computer-aided detection (CAD). Synthesized 2D images are generated from the tomosynthesis. FINDINGS: There are scattered areas of fibroglandular density (ACR BI-RADS breast composition Category b). Parenchymal pattern is similar to prior exams and there is no developing density or interval significant mass or architectural abnormality or abnormal calcifications. Scattered minor asymmetries are stable. The axilla and skin contours are unremarkable. No significant changes. MM/MM tomosynthesis screening BI IMPRESSION: No mammographic evidence of malignancy. ASSESSMENT: BI-RADS 2: Benign RECOMMENDATION: Routine annual mammography screening. This patient's information was entered into a reminder system with a target due date for their next mammogram.
== END 2022-03-22 08:04 | disposition home or self-care (01) ==
LOC: HO.MAMMO 08:03
PROVIDERS: PCP Internal Medicine; Visit Provider Internal Medicine
DX: Z12.31 Encounter for screening mammogram for malignant neoplasm of breast (principal)
CPT/HCPCS: 77063; 77067

== ENCOUNTER 2022-05-11 10:50 | Emergency (ER) | payer OTHER, SELFPAY ==
--- NOTE | 2022-05-11 | ECG_ITS ---
Test Reason : chest tightness Blood Pressure : / mmHG Vent. Rate : 093 BPM Atrial Rate : 093 BPM P-R Int : 150 ms QRS Dur : 076 ms QT Int : 354 ms P-R-T Axes : 043 017 040 degrees QTc Int : 440 ms Normal sinus rhythm Normal ECG When compared with ECG of 11-OCT-2021 05:01, No significant change was found Referred By: Generic ED Physician Electronically Signed By:Galindo Hdz
[2022-05-11 10:56] VITALS: BP 166/103; PULSE 95; RESP 18; TEMP 36.7; O2SAT 98; BMI 31.7
[2022-05-11 11:17] LABS: MANUAL DIFF FLAG NO
[2022-05-11 11:25] LABS: Basophils Percent Auto 0.4 % (0-2); Eosinophils Absolute Auto 0.2 X10*3/uL (0.0-0.4); Eosinophils Percent Auto 2.2 % (0-4); Hematocrit 42.9 % (37.0-47.0); Hemoglobin 13.6 g/dl (12.0-16.0); Imm Gran Abs Auto 0.03 X10*3/uL (0.00-0.03); Imm Gran Pct Auto 0.3 % (0.0-0.4); Lymphocytes Absolute Auto 2.7 X10*3/uL (1.2-4.9); Lymphocytes Percent Auto 26.7 % (20-40); Mean Corpuscular HGB Conc 31.7 g/dl (31.0-35.0); Mean Corpuscular Hemoglobin 26.1 pg (27.0-33.0); Mean Corpuscular Volume 82.3 fL (80.0-98.0); Mean Platelet Volume 9.1 fL (9.4-12.3); Monocytes Absolute Auto 0.7 X10*3/uL (0.1-1.2); Monocytes Percent Auto 6.6 % (2-11); Neutrophils Absolute Auto 6.3 x10*3/uL (2.0-8.3); Neutrophils Percent Auto 63.8 % (45-73); Platelet Count 382 X10*3/uL (160-400); Red Blood Count 5.21 X10*6/uL (4.20-5.50); Red Cell Distribution Width 14.6 % (11.0-16.0)
--- NOTE | 2022-05-11 11:32 | ED.GENADULT ---
HPI - General Adult General Chief complaint: General Medical Stated complaint: Multiple complaints Time Seen by Provider: 05/11/22 11:32 Source: patient Mode of arrival: ambulatory Limitations: no limitations History of Present Illness HPI narrative: 51-year-old female with history asthma, obesity, JACK, HLD, lumbar degenerative disc disease, HTN, allergic rhinitis, vertigo and constipation who presents to the ER for evaluation of acute onset of dizziness, chest tightness, dry mouth and not feeling right that started about an hour ago when she was in the shower. She states last night she was up worried about her 17 yo son who has multiple behavior issues. Police were involved and he ended up coming home at midnight. This morning he punched holes in the askew before going to school. Patient reports after he went to school she took a shower and started feeling dizzy with sensation the room was spinning. She had rapid breathing, feeling of heaviness in both of her arms and a dry mouth. She states her entire chest was tight. She came to the ER for evaluation and had ongoing symptoms. She took her prescribed meclizine and then vomited shortly after. MD complaint: dizzniess, chest tightness Onset (ago): hour(s) (1) Location: head, mouth, left, right and upper extremity Radiation: non-radiation Severity: severe Relieving factors: rest Exacerbating factors: movement Associated symptoms: chest pain, headaches and nausea/vomiting Treatments prior to arrival: none Related Data Home Medications Medication Instructions Recorded Confirmed lancets 28 gauge #100 ea 05/05/20 02/02/22 blood-glucose meter #1 ea 06/13/20 02/02/22 ondansetron HCl 4 mg tablet 4 mg PO Q6H 09/13/21 02/02/22 budesonide 32 mcg/actuation nasal 2 spray intranasal DAILY 03/01/22 spray Previous Rx's Medication Instructions Recorded blood sugar diagnostic #100 ea 06/13/20 meclizine 25 mg tablet 25 mg PO TID PRN dizziness 10 days 01/25/21 #30 tabs pantoprazole 40 mg tablet,delayed 40 mg PO BID 30 days #60 tabs 04/20/21 release Shower Chair #1 ea 07/03/21 phenazopyridine 100 mg tablet 100 mg PO TID PRN pain 2 days #6 09/21/21 (Pyridium) tabs pravastatin 20 mg tablet 20 mg PO DAILY #90 tabs 10/02/21 sennosides 8.6 mg tablet (senna) 17.2 mg PO BEDTIME for 12/27/21 constipation #60 tabs famotidine 40 mg tablet 40 mg PO DAILY #30 tabs 03/01/22 simethicone 125 mg chewable tablet 125 mg PO TID-QID PRN abdominal 03/01/22 (Gas Relief (simethicone)) distention #90 tabs lorazepam 1 mg tablet 1 mg PO DAILY 30 days #30 tabs 03/12/22 cyclobenzaprine 10 mg tablet 10 mg PO BID #90 tabs 04/01/22 meclizine 25 mg tablet 25 mg PO BID PRN dizziness #30 tabs 05/11/22 Allergies Allergy/AdvReac Type Severity Reaction Status Date / Time oxycodone [From PERCOCET] Allergy Intermediate VOMITING, Verified 03/01/22 11:08 N/V codeine [Codeine] Allergy Mild HIVES Verified 03/01/22 11:08 atorvastatin Allergy Unknown Headaches Verified 03/01/22 11:08 bupropion [From WELLBUTRIN] Allergy Unknown PALPITATION Verified 03/01/22 11:08 S morphine [MORPHINE] Allergy Unknown NIGHTMARES Verified 03/01/22 11:08 naproxen [NAPROXEN] Allergy Unknown RASH Verified 03/01/22 11:08 sertraline Allergy Unknown Unknown Verified 03/01/22 11:08 simvastatin Allergy Unknown Unknown Verified 03/01/22 11:08 zolpidem [ZOLPIDEM] Allergy Unknown PALPITATION Verified 03/01/22 11:08 S Review of Systems Review of Systems: Constitutional: No Fever, No Chills ENT/Mouth: No sore throat, No Rhinorrhea, No Swallowing Difficulty Eyes: No Eye Pain, No Swelling, No Redness Cardiovascular: +Chest Pain, No SOB, No Orthopnea, No Edema Respiratory: No Cough, No Sputum, No Wheezing, No dyspnea Gastrointestinal: + Nausea, + Vomiting, No Diarrhea, No abdominal Pain, No Hematochezia, No Melena Genitourinary: No Dysuria, No Urinary Frequency, No Hematuria Musculoskeletal: No joint pain, No Myalgias Skin: No Skin Lesions, No rash Neuro: No Weakness, No Numbness, + Dizziness, +Headache Psych: + Anxiety/Panic, No Depression Heme/Lymph: No Bruising, No Lymphadenopathy Endocrine: No Polyuria, No Polydipsia [facility] Past Medical History Medical History Abdominal pain Asthma Dysuria Fall Fatty liver Genital herpes GERD (gastroesophageal reflux disease) History of gestational diabetes Hypercholesterolemia Hypertension IBS (irritable bowel syndrome) Insomnia Lumbar degenerative disc disease NAFLD (nonalcoholic fatty liver disease) Nausea and vomiting Obesity (BMI 30-39.9) Obstructive sleep apnea Otitis media Upper respiratory tract infection Uterine cancer Vitamin D deficiency Surgical History History of colonoscopy History of lumbar surgery History of total abdominal hysterectomy and bilateral salpingo-oophorectomy History of tubal ligation Hx of endoscopy Family History Family History Father Hx of colon cancer, stage III Stomach cancer Mother Hx of heat stroke Acute CVA (cerebrovascular accident) Hypertension Diabetes Maternal Grandmother Breast cancer Stroke Maternal Grandfather CVD (cardiovascular disease) Myocardial infarction Son In good health Sister No problems noted. Sister No problems noted. Sister No problems noted. Brother No problems noted. Brother No problems noted. Social History Social History Housing: Apartment Alcohol intake: never Patient Tobacco Use Status: Former Tobacco user Tobacco use type: Cigarette Years Smoked: 2002 quit e-Cigarette/Vaping Use: Never Used Second Hand Smoke Exposure: No Advance Directives: No Advance Directives Information Provided: No service: No Current occupational status: disabled Current occupational exposures/hazards: No Cognitive needs: No Hearing needs: No Vision needs: No Physical Exam ED Vital Signs: Vital Signs - 24 hr 05/11/22 10:56 Temperature 98.1 F Pulse Rate 95 Respiratory Rate 18 Blood Pressure 166/103 H Pulse Oximetry 98 Oxygen Delivery Method Room Air BMI result Body Mass Index 31.7 Appearance: Alert. Oriented X3. No acute distress. Eyes: Pupils equal, round and reactive to light. EOMI, no nystagmus. ENT: Pharynx normal. Neck: Normal inspection. Neck supple. CVS: Normal heart rate and rhythm. Pulses normal. Respiratory: No respiratory distress. Breath sounds normal. Abdomen: Soft and nontender. +BS x4 Skin: Skin warm and dry. Normal skin color. Normal skin turgor. No rashes. Extremities: No lower extremity edema. Neuro: Oriented X 3. No motor deficit. No sensory deficit. Normal speech and cognition. CN II-XII intact. Normal finger to nose and heel to soria bilaterally. Course Course Course Narrative: 51 yo female with history of HLD, HTN, IBS w/ constipation, chronic back pain, vertigo, JACK on CPAP, GERD, asthma and obesity presenting with dizziness, chest tightness, nausea, vomiting - VSS on arrival and exam is unremarkable. Nonfocal neuo exam. She was having a panic attack in triage. Most likely anxiety related but will r/o cardiac etiology and check EKG, labs. Will medicate with zofran, meclizine, ativan and reassess. Reevaluation(s) Reevaluation #1: Patient's lab workup was unremarkable. EKG without ischemic changes. Troponin less than 3.5. Viral swab negative. Chest x-ray clear. Patient awoken from sleep and states she feels 100% back to normal and much better. Her dizziness is resolved. She has no chest pain. This is most likely combination of acute vertigo as well as acute anxiety do to her to her significant life stressors. Comfortable discharge home with meclizine refill. She will follow-up with Dr. Hernandez and her psychiatrist for further management of her anxiety. Stable for discharge home. Patient agrees with plan all questions were answered. Medications Administered Discontinued Medications Generic Name Dose Route Start Last Admin Trade Name Jacqui PRN Reason Stop Dose Admin Lorazepam 1 mg 05/11/22 11:40 05/11/22 12:08 Lorazepam 1 Mg Tablet PO 05/11/22 11:41 1 mg ONCE ONE Administration Meclizine HCl 25 mg 05/11/22 11:40 05/11/22 12:07 Meclizine Hcl 25 Mg Tablet PO 05/11/22 11:41 25 mg ONCE ONE Administration Ondansetron HCl 4 mg 05/11/22 11:40 05/11/22 12:07 Ondansetron Odt 4 Mg Tab.Yi TRANSLINGU 05/11/22 11:41 4 mg ONCE ONE Administration Medical Decision Making Lab Data Result Diagrams: 05/11/22 11:08 05/11/22 11:08 Labs: Lab Results 05/11/22 05/11/22 05/11/22 Range/Units 11:08 11:08 11:08 WBC 10.0 (4.8-10.8) X10*3/uL RBC 5.21 (4.20-5.50) X10*6/uL Hgb 13.6 (12.0-16.0) g/dl Hct 42.9 (37.0-47.0) % MCV 82.3 (80.0-98.0) fL MCH 26.1 L (27.0-33.0) pg MCHC 31.7 (31.0-35.0) g/dl RDW 14.6 (11.0-16.0) % Plt Count 382 (160-400) X10*3/uL MPV 9.1 L (9.4-12.3) fL Immature Gran % (Auto) 0.3 (0.0-0.4) % Neut % (Auto) 63.8 (45-73) % Lymph % (Auto) 26.7 (20-40) % Bollinger % (Auto) 6.6 (2-11) % Eos % (Auto) 2.2 (0-4) % Baso % (Auto) 0.4 (0-2) % Lymph # (Auto) 2.7 (1.2-4.9) X10*3/uL Bollinger # (Auto) 0.7 (0.1-1.2) X10*3/uL Eos # (Auto) 0.2 (0.0-0.4) X10*3/uL Baso # (Auto) 0.0 (0.0-0.2) X10*3/uL Abs Immat Gran (auto) 0.03 (0.00-0.03) X10*3/uL Absolute Neuts (auto) 6.3 (2.0-8.3) x10*3/uL Absolute Nucleated RBC 0.000 (0.0-0.012) X10*3/uL Nucleated RBC % (auto) 0.0 (0.0-0.2) /100WBC Sodium 142 (135-145) mmol/L Potassium 3.9 (3.3-5.1) mmol/L Chloride 106 (96-108) mmol/L Carbon Dioxide 24 (22-29) mmol/L Anion Gap 16 (12-20) BUN 16 (9-16) mg/dL Creatinine 0.85 (0.5-1.4) mg/dL Estim Creat Clear Calc 71.5 Estimated GFR > 60 Random Glucose 130 H (60-115) mg/dL Calcium 10.0 (8.4-10.2) mg/dL Total Bilirubin 0.6 (0.0-1.0) mg/dL AST 34 H (5-31) U/L ALT 49 H (0-31) U/L Alkaline Phosphatase 75 (39-117) U/L Troponin I High Sens < 3.5 (<3.5-17.0) ng/L Total Protein 7.5 (6.5-8.0) g/dL Albumin 4.5 (3.5-5.0) g/dL Influenza Type A (PCR) (Negative) Influenza Type B (PCR) (Negative) RSV RNA Qual (PCR) (Negative) SARS-CoV-2 RNA (RT-PCR) (Negative) 05/11/22 Range/Units 12:16 WBC (4.8-10.8) X10*3/uL RBC (4.20-5.50) X10*6/uL Hgb (12.0-16.0) g/dl Hct (37.0-47.0) % MCV (80.0-98.0) fL MCH (27.0-33.0) pg MCHC (31.0-35.0) g/dl RDW (11.0-16.0) % Plt Count (160-400) X10*3/uL MPV (9.4-12.3) fL Immature Gran % (Auto) (0.0-0.4) % Neut % (Auto) (45-73) % Lymph % (Auto) (20-40) % Bollinger % (Auto) (2-11) % Eos % (Auto) (0-4) % Baso % (Auto) (0-2) % Lymph # (Auto) (1.2-4.9) X10*3/uL Bollinger # (Auto) (0.1-1.2) X10*3/uL Eos # (Auto) (0.0-0.4) X10*3/uL Baso # (Auto) (0.0-0.2) X10*3/uL Abs Immat Gran (auto) (0.00-0.03) X10*3/uL Absolute Neuts (auto) (2.0-8.3) x10*3/uL Absolute Nucleated RBC (0.0-0.012) X10*3/uL Nucleated RBC % (auto) (0.0-0.2) /100WBC Sodium (135-145) mmol/L Potassium (3.3-5.1) mmol/L Chloride (96-108) mmol/L Carbon Dioxide (22-29) mmol/L Anion Gap (12-20) BUN (9-16) mg/dL Creatinine (0.5-1.4) mg/dL Estim Creat Clear Calc Estimated GFR Random Glucose (60-115) mg/dL Calcium (8.4-10.2) mg/dL Total Bilirubin (0.0-1.0) mg/dL AST (5-31) U/L ALT (0-31) U/L Alkaline Phosphatase (39-117) U/L Troponin I High Sens (<3.5-17.0) ng/L Total Protein (6.5-8.0) g/dL Albumin (3.5-5.0) g/dL Influenza Type A (PCR) NEGATIVE (Negative) Influenza Type B (PCR) NEGATIVE (Negative) RSV RNA Qual (PCR) NEGATIVE (Negative) SARS-CoV-2 RNA (RT-PCR) NEGATIVE (Negative) Discharge Plan Discharge Clinical Impression: Vertigo, Acute anxiety Patient Disposition: Home, Self-Care Instructions: Vertigo (ED), Anxiety (ED) Additional Instructions: Your lab workup, EKG and imaging today were normal. Take the prescribed medication as needed for vertigo. Recommend following up with Dr. Hernandez & your psychiatrist for further management of your anxiety. If you develop new or worsening symptoms call 911 or come back to the ER for further evaluation. Prescriptions: New meclizine 25 mg tablet 25 mg PO BID PRN (Reason: dizziness) Qty: 30 0RF No Action (DME) blood sugar diagnostic Strip See Rx Instructions .ROUTE .MEDSUPPLY Qty: 100 0RF Rx Instructions: As directed check BS QD meclizine 25 mg tablet 25 mg PO TID PRN (Reason: dizziness) 10 Days Qty: 30 0RF pravastatin 20 mg tablet 20 mg PO DAILY Qty: 90 2RF sennosides [senna] 8.6 mg tablet 17.2 mg PO BEDTIME Qty: 60 6RF lorazepam 1 mg tablet 1 mg PO DAILY 30 Days Qty: 30 2RF cyclobenzaprine 10 mg tablet 10 mg PO BID Qty: 90 0RF (DME) lancets 28 gauge misc See Rx Instructions topical .MEDSUPPLY Qty: 100 Rx Instructions: As directed (DME) blood-glucose meter Kit See Rx Instructions .ROUTE DAILY Qty: 1 Rx Instructions: As directed (DME) Shower Chair Misc See Rx Instructions .Route Qty: 1 0RF Rx Instructions: As directed ondansetron HCl 4 mg tablet 4 mg PO Q6H phenazopyridine [Pyridium] 100 mg tablet 100 mg PO TID PRN (Reason: pain) 2 Days Qty: 6 0RF budesonide 32 mcg/actuation spray,non-aerosol 2 spray intranasal DAILY simethicone [Gas Relief (simethicone)] 125 mg tablet,chewable 125 mg PO TID-QID PRN (Reason: abdominal distention) Qty: 90 2RF famotidine 40 mg tablet 40 mg PO DAILY Qty: 30 5RF pantoprazole 40 mg tablet,delayed release (DR/EC) 40 mg PO BID 30 Days Qty: 60 11RF Referrals: Po,Coreen Fisher MD [Primary Care Provider] -
[2022-05-11 11:46] LABS: Alanine Aminotransferase 49 U/L (0-31); Albumin Level 4.5 g/dL (3.5-5.0); Alkaline Phosphatase 75 U/L (39-117); Anion Gap 16 (12-20); Aspartate Amino Transferase 34 U/L (5-31); Bilirubin Total 0.6 mg/dL (0.0-1.0); Blood Urea Nitrogen 16 mg/dL (9-16); Carbon Dioxide 24 mmol/L (22-29); Chloride 106 mmol/L (96-108); Creatinine Clr Calc Pharmacy 71.5; Estimated Glomerular Filt Rate > 60; Glucose Random 130 mg/dL (60-115); Potassium 3.9 mmol/L (3.3-5.1); Sodium 142 mmol/L (135-145); Total Protein 7.5 g/dL (6.5-8.0)
[2022-05-11 12:04] LABS: Troponin-I High Sensitivity < 3.5 ng/L (<3.5-17.0)
[2022-05-11] MEDS: Meclizine HCl 25 MG TABLET PO (12:07)
[2022-05-11] MEDS: Ondansetron ODT 4 MG TAB.RAPDIS TRANSLINGU (12:07)
[2022-05-11] MEDS: LORazepam 1 MG TABLET PO (12:08)
[2022-05-11 13:07] LABS: Influenza A PCR NEGATIVE (Negative); Influenza B PCR NEGATIVE (Negative); Resp Syncy Virus RNA Qual PCR NEGATIVE (Negative); SARS COV2 PCR INHOUSE NEGATIVE (Negative)
== END 2022-05-11 13:45 | disposition home or self-care (01) ==
PROVIDERS: Physician Assistant; Emergency Provider Student in an Organized Health Care Education/Training Program; PCP Internal Medicine
DX: R07.89 Other chest pain (principal); F41.1 Generalized anxiety disorder; F43.0 Acute stress reaction; I10 Essential (primary) hypertension; R42 Dizziness and giddiness; R51.9 Headache, unspecified; R11.2 Nausea with vomiting, unspecified; Z20.822 Contact with and (suspected) exposure to COVID-19; Z79.899 Other long term (current) drug therapy; Z87.891 Personal history of nicotine dependence
CPT/HCPCS: 0241U; 36415; 71045; 80053; 84484; 85025; 93005; 99282; 99283

== ENCOUNTER 2022-05-28 06:47 | Outpatient (REF) | payer OTHER, SELFPAY ==
[2022-05-28 07:32] LABS: Urine Cytology See Pathology rpt
[2022-05-28 08:16] LABS: Alanine Aminotransferase 44 U/L (0-31); Albumin Level 4.2 g/dL (3.5-5.0); Alkaline Phosphatase 80 U/L (39-117); Anion Gap 14 (12-20); Aspartate Amino Transferase 32 U/L (5-31); Bilirubin Total 0.4 mg/dL (0.0-1.0); Blood Urea Nitrogen 20 mg/dL (9-16); Calcium 9.7 mg/dL (8.4-10.2); Carbon Dioxide 24 mmol/L (22-29); Chloride 108 mmol/L (96-108); Cholesterol 155 mg/dL; Estimated Glomerular Filt Rate > 60; Glucose Random 103 mg/dL (60-115); HDL Cholesterol 36 mg/dL; LDL Cholesterol Calculated 88 mg/dl; Potassium 4.3 mmol/L (3.3-5.1); Sodium 142 mmol/L (135-145); Total Protein 7.2 g/dL (6.5-8.0); Triglycerides 158 mg/dL
[2022-05-28 08:17] LABS: Estimated Average Glucose 117 mg/dL; Hemoglobin A1C 131.8967 umol/L; Hemoglobin A1c % 5.7 %
[2022-05-28 08:33] LABS: Thyroid Stimulating Hormone 3.79 uIU/mL (0.32-4.0)
== END 2022-05-28 06:48 | disposition home or self-care (01) ==
LOC: HO.LAB 06:47
PROVIDERS: PCP Internal Medicine; Visit Provider Internal Medicine
DX: R30.0 Dysuria (principal); R73.01 Impaired fasting glucose; E78.00 Pure hypercholesterolemia, unspecified
CPT/HCPCS: 36415; 80053; 80061; 83036; 84443; 88112

== ENCOUNTER → 2022-05-31 09:41 | Outpatient (BNVA) | payer OTHER, SELFPAY | PROVIDERS: PCP Internal Medicine; Visit Provider Physician Assistant | DX: K21.9 Gastro-esophageal reflux disease without esophagitis (principal); Z80.0 Family history of malignant neoplasm of digestive organs | CPT/HCPCS: Q3014 ==

== ENCOUNTER 2022-07-23 11:19 | Outpatient (REF) | payer OTHER, SELFPAY ==
[2022-07-23 12:19] LABS: Appearance Urine Clear; Color Urine Yellow; Glucose Urine UA Negative (Negative); Leukocyte Esterase Urine Negative (Negative); Nitrite Urine Negative (Negative); PH 6.5 (5.0-9.0); Specific Gravity - Urine 1.015 (1.005-1.025); Urine Blood Negative (Negative); Urine Ketones Negative (Negative); Urine Protein Negative (Neg-Trace)
== END 2022-07-23 11:20 | disposition home or self-care (01) ==
LOC: HO.LAB 11:19
PROVIDERS: PCP Internal Medicine; Visit Provider Internal Medicine
DX: R31.9 Hematuria, unspecified (principal)
CPT/HCPCS: 81003

== ENCOUNTER → 2022-07-25 07:31 | Outpatient (REF) | payer OTHER, SELFPAY ==
--- NOTE | ~2022-07-25 | NM_ITS ---
EXAMINATION: RADIONUCLIDE SOLID FOOD GASTRIC EMPTYING 4-HOUR STUDY CLINICAL INFORMATION: Gastroesophageal reflux disease without esophagitis. COMPARISON: A previous solid food gastric emptying study dated 08/29/2017 is available for comparison. TECHNIQUE: A standard meal consisting of 4 oz of Egg Beaters brand equivalent tagged with 1.0 mCi Tc-99m Sulfur Colloid, 8 oz water and 2 slices of toast with jelly was administered orally to the patient. Images were obtained using a dual head gamma camera in the anterior and posterior projections over of the stomach immediately post ingestion and at hourly intervals up to 4 hours post ingestion. The anterior and posterior counts at each time interval were averaged using the geometric mean and expressed as percentage of the immediate post ingestion counts. FINDINGS: There is good visualization of activity in the stomach immediately post ingestion. As the study progresses, there is particular clearance of activity from the stomach and visualization of progressively increasing small bowel activity. However, at the end of the study there is mild abnormal retention of activity in the stomach at 4 hours. Retention in the stomach at each time interval was: 1 hour 77% (normal 37%-90%) 2 hours 62% (normal 30%-60%) 3 hours 36% 4 hours 14% (normal 0%-10%) Compared to the previous study dated 08/29/2017, gastric emptying is significantly slower on the current study. Previously the gastric retention cyst were 1 hour-56%, 2 hours-40%, 3 hours-15%, 4 hours-3%. NM/NM gastric emptying study IMPRESSION: Abnormal study. There is mild abnormal retention of solid food in the stomach at 4 hours. Although mild, this is a significant change from the prior study.
== END ==
LOC: HO.NUCMED 07:31
PROVIDERS: PCP Internal Medicine; Visit Provider Physician Assistant
DX: K21.9 Gastro-esophageal reflux disease without esophagitis (principal)
CPT/HCPCS: 78264; A9541

== ENCOUNTER → 2022-08-27 09:12 | Outpatient (REF) | payer OTHER, SELFPAY ==
--- NOTE | 2022-08-27 09:17 | HM_ITS ---
* Total monitoring time 3 days. * Underlying rhythm is sinus. Average ventricular rate 102/Min. Range 78 to 127/Min. * About 54% of the time, rate > 100/Min. * Isolated PVC but otherwise no arrhythmias. * No significant pauses or AV blocks. * Patient marker used twice, in association with sinus. No diary events. MTDD
== END ==
LOC: HO.CARD 09:12
PROVIDERS: Visit Provider Internal Medicine
DX: R00.2 Palpitations (principal)
CPT/HCPCS: 93242

== ENCOUNTER 2022-08-27 11:02 | Outpatient (REF) | payer OTHER, SELFPAY ==
--- NOTE | ~2022-08-27 | XR_ITS ---
EXAMINATION: XR FOOT, RIGHT CLINICAL INFORMATION: Pain status-post fall 2 days prior. COMPARISON: Radiographs dated 06/01/2019. TECHNIQUE: AP, lateral, and oblique views of the right foot. FINDINGS: Bony alignment and mineralization are normal. No fracture, dislocation or left ankle joint effusion is seen. Boehler's angle is normal. There are moderate posterior and large plantar calcaneal spurs. Mild bunion formation is seen of the first metatarsal head. There is no focal soft tissue swelling, gas or foreign body. XR/XR foot RT 2V IMPRESSION: 1. No right ankle fracture, dislocation or joint effusion is seen. 2. There is mild bunion formation. 3. There are calcaneal spurs, as detailed.
== END 2022-08-27 11:03 | disposition home or self-care (01) ==
LOC: HO.XRAY 11:02
PROVIDERS: PCP Internal Medicine; Visit Provider Nurse Practitioner Family
DX: M79.671 Pain in right foot (principal)
CPT/HCPCS: 73620

== ENCOUNTER 2022-11-05 03:48 | Emergency (ER) | payer OTHER, SELFPAY ==
[2022-11-05 03:57] VITALS: BP 148/94; PULSE 85; RESP 16; TEMP 36.8; O2SAT 99; BMI 32.6
[2022-11-05 04:03] VITALS: BP 148/94; PULSE 88; RESP 16; TEMP 36.8; O2SAT 96
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
[2022-11-05] MEDS: Cyclobenzaprine HCl 10 MG TABLET PO (05:47)
[2022-11-05] MEDS: Morphine Sulfate Immed Release 15 MG TABLET PO (05:47)
[2022-11-05] MEDS: Lidocaine HCl 1 % MPF 5 ML VIAL INFILTRATI ×2 (05:48→05:49)
== END 2022-11-05 06:03 | disposition home or self-care (01) ==
PROVIDERS: Emergency Provider Emergency Medicine Emergency Medical Services; PCP Internal Medicine
DX: S13.4XXA Sprain of ligaments of cervical spine, initial encounter (principal); S46.811A Strain of other muscles, fascia and tendons at shoulder and upper arm level, right arm, initial encounter; R51.9 Headache, unspecified; M54.2 Cervicalgia; V49.3XXA Car occupant (driver) (passenger) injured in unspecified nontraffic accident, initial encounter; Y93.9 Activity, unspecified; Y92.410 Unspecified street and highway as the place of occurrence of the external cause; Y99.9 Unspecified external cause status; Z87.891 Personal history of nicotine dependence
CPT/HCPCS: 99284

== ENCOUNTER 2023-01-18 08:48 | Outpatient (AMB) | payer OTHER, SELFPAY ==
--- NOTE | 2023-01-18 08:52 | MHC.OFFWIV ---
Intake Vital Signs 01/18/23 08:54 Height 5 ft 1 in Weight 175 lb BMI 33.1 BP 130/80 Blood Pressure Location Lt brachial Position Sitting Pulse 74 Pulse Source Pulse Oximeter Temp 97.3 F Temp Source Temporal Artery Scan Pulse Oximetry (%) 98 Oxygen Delivery Method Room Air Intake Visit Reasons: EP Face/Ears hurt (masked) Intake Note: Patient here for face and ears hurt. She states this happens every year around january. she has pressure in her face. Patient Tobacco Use Status: Former Tobacco user Allergies oxycodone [From PERCOCET] Allergy (Intermediate, Verified 01/18/23 09:26) VOMITING, N/V codeine [Codeine] Allergy (Mild, Verified 01/18/23 09:26) HIVES atorvastatin Allergy (Unknown, Verified 01/18/23 09:26) Headaches bupropion [From WELLBUTRIN] Allergy (Unknown, Verified 01/18/23 09:26) PALPITATIONS morphine [MORPHINE] Allergy (Unknown, Verified 01/18/23 09:26) NIGHTMARES naproxen [NAPROXEN] Allergy (Unknown, Verified 01/18/23 09:26) RASH sertraline Allergy (Unknown, Verified 01/18/23 09:26) Unknown simvastatin Allergy (Unknown, Verified 01/18/23 09:26) Unknown zolpidem [ZOLPIDEM] Allergy (Unknown, Verified 01/18/23 09:26) PALPITATIONS Medication List - Last Reconciled 01/18/23 by Semaj Sumner MD bisacodyl (Dulcolax (bisacodyl)) 10 mg (2 x 5 mg) PO ONCE 1 day blood sugar diagnostic As directed check BS QD blood-glucose meter As directed cyclobenzaprine 10 mg PO BID hydrocortisone 2.5% (Proctosol HC) 1 appl [place] BEDTIME PRN lancets As directed lorazepam 1 mg PO DAILY 30 days meclizine 25 mg PO BID PRN pantoprazole 40 mg (2 x 20 mg) PO DAILY 30 days polyethylene glycol 3350 (Miralax) 238 grams PO ONCE 1 day polymyxin B sulf-trimethoprim 10,000 unit- 1 mg/mL (Polytrim) 1 drp ophthalmic (eye) Q3H 7 days pravastatin 20 mg PO DAILY sennosides (senna) 17.2 mg (2 x 8.6 mg) PO BEDTIME Shower Chair As directed Do you need a note to return to daycare/school/sports/work: No HPI EP Face/Ears hurt (masked) HPI Details Patient presents for a sick visit. Reporting symptoms of sinus congestion, sore throat and difficulty swallowing. Low-grade fever. No family member is sick. No recent travel. Patient reports symptoms of malaise and fatigue. [facility] Medical History (Updated 01/18/23 @ 09:28 by Semaj Sumner MD) Abdominal pain Asthma Dysuria Fall Fatty liver Genital herpes GERD (gastroesophageal reflux disease) History of gestational diabetes Hypercholesterolemia Hypertension IBS (irritable bowel syndrome) Insomnia Lumbar degenerative disc disease NAFLD (nonalcoholic fatty liver disease) Nausea and vomiting Obesity (BMI 30-39.9) Obstructive sleep apnea Otitis media Upper respiratory tract infection Uterine cancer Vitamin D deficiency Surgical History History of colonoscopy History of lumbar surgery History of total abdominal hysterectomy and bilateral salpingo-oophorectomy History of tubal ligation Hx of endoscopy Family History Father Hx of colon cancer, stage III Stomach cancer Mother Hx of heat stroke Acute CVA (cerebrovascular accident) Hypertension Diabetes Maternal Grandmother Breast cancer Stroke Maternal Grandfather CVD (cardiovascular disease) Myocardial infarction Son In good health Sister No problems noted. Sister No problems noted. Sister No problems noted. Brother No problems noted. Brother No problems noted. Social History Housing: Apartment Alcohol intake: never Patient Tobacco Use Status: Former Tobacco user Tobacco use type: Cigarette Years Smoked: 2002 quit e-Cigarette/Vaping Use: Never Used Second Hand Smoke Exposure: No service: No Current occupational status: disabled Current occupational exposures/hazards: No Cognitive needs: No Hearing needs: No Vision needs: No Physical Exam Vital Signs: Last Vital Signs Temp 97.3 F 01/18/23 08:54 Pulse 74 01/18/23 08:54 BP 130/80 01/18/23 08:54 Pulse Ox 98 01/18/23 08:54 Oxygen Delivery Method Room Air 01/18/23 08:54 BMI result Body Mass Index 33.1 Const General: cooperative and healthy appearing Nutritional Appearance: well nourished Orientation/consciousness: patient oriented x3 Limitations: no limitations HEENT Head: Yes normal to inspection Eyes General: appearance normal, both eyes and all related structures Neck Neck: Yes normal visual inspection Chest Chest palpation & inspection: normal palpation of entire chest wall Resp Effort & Inspection: normal respiratory effort Neuro General: patient oriented x3 Assessment & Plan Assessment & Plan (1) Upper respiratory tract infection: Code(s): J06.9 - Acute upper respiratory infection, unspecified Plan: Antibiotics ordered. Increase fluid intake. Tylenol for aches and pains. If symptoms worsen, follow-up here for a recheck. Coding Level of Care Code Est Pt Level 3 (02817) Diagnoses Upper respiratory tract infection J06.9
[2023-01-18 08:54] VITALS: BP 130/80; PULSE 74; TEMP 36.3; O2SAT 98; BMI 33.1
== END 2023-01-18 09:31 | disposition home or self-care (01) ==
PROVIDERS: PCP Internal Medicine; Visit Provider Internal Medicine
DX: J06.9 Acute upper respiratory infection, unspecified (principal)
CPT/HCPCS: 99213

== ENCOUNTER 2023-02-13 08:09 | Emergency (ER) | payer OTHER, SELFPAY ==
--- NOTE | ~2023-02-13 | CT_ITS ---
EXAMINATION: CT HEAD WITHOUT CONTRAST CLINICAL INFORMATION: Dizziness. COMPARISON: CT head 04/04/2020. TECHNIQUE: Contiguous axial imaging was performed from the skull base to vertex without intravenous administration of contrast. This CT examination was performed using dose optimization techniques as appropriate, variously including the following: *Automated exposure control *Adjustment of mA and/or kV according to patient size (this includes techniques or standardized protocols for targeted exams where dose is matched to indication/reason for exam; i.e. extremities or head) *Use of iterative reconstruction technique DLP: 626 mGy-cm FINDINGS: There is no acute intracranial hemorrhage or abnormal extra-axial collection. No intracranial mass effect or midline shift. Lateral and third ventricles are normal. No hydrocephalus. Koehler-white matter differentiation is grossly preserved and there is no evidence of acute territorial infarct. The calvarium and skull base are intact. Mastoid air cells and middle ear cavities are well-aerated. There are a few retention cysts are partially visualized within both maxillary sinuses. Globes and orbits are grossly symmetric. CT/CT head/brain wo IV con IMPRESSION: Unremarkable CT scan of the head. No evidence of acute territorial infarct or hemorrhage.
--- NOTE | ~2023-02-13 | XR_ITS ---
EXAMINATION: XR CHEST CLINICAL INFORMATION: Dizziness COMPARISON: 05/11/2022 TECHNIQUE: Frontal view of the chest was obtained. FINDINGS: No significant abnormality is noted involving the heart, lungs, mediastinum, bony thorax or soft tissues. A small area of scarring is present at the left lung base, unchanged. XR/XR chest 1V IMPRESSION: No acute intrathoracic disease.
[2023-02-13 08:22] VITALS: BP 139/79; PULSE 75; RESP 16; TEMP 36.8; O2SAT 98; BMI 31.7
--- NOTE | 2023-02-13 09:28 | ECG_ITS ---
Test Reason : dizziness Blood Pressure : / mmHG Vent. Rate : 066 BPM Atrial Rate : 066 BPM P-R Int : 158 ms QRS Dur : 072 ms QT Int : 398 ms P-R-T Axes : 039 004 017 degrees QTc Int : 417 ms Normal sinus rhythm Septal infarct , age undetermined Abnormal ECG When compared with ECG of 11-MAY-2022 11:00, Septal infarct is now Present Referred By: Jorge Pickens Electronically Signed By:CAITLYN MURRAY
--- NOTE | 2023-02-13 09:34 | ED.DIZZY ---
HPI - Dizziness General Chief Complaint: Dizziness Stated Complaint: Woke Up Dizzy Time Seen by Provider: 02/13/23 09:18 Source: patient Mode of arrival: ambulatory Limitations: no limitations History of Present Illness HPI Narrative: 52-year-old female with history of chronic vertigo and dizziness, patient takes medication for peripheral vertigo that it did not work well came in today having severe dizziness and being unsteady on her gait with nausea and vomiting. patient had a previous neurology evaluation for similar symptoms. Declined any weakness, numbness, blurry vision, or speech problem. Related Data Home Medications Medication Instructions Recorded Confirmed lancets 28 gauge #100 ea 05/05/20 11/14/22 blood-glucose meter #1 ea 06/13/20 11/14/22 Previous Rx's Medication Instructions Recorded blood sugar diagnostic #100 ea 06/13/20 Shower Chair #1 ea 07/03/21 meclizine 25 mg tablet 25 mg PO BID PRN dizziness #30 tabs 05/11/22 bisacodyl 5 mg tablet,delayed 10 mg (2 x 5 mg) PO ONCE 05/31/22 release (Dulcolax (bisacodyl)) colonoscopy prep 1 day #2 tabs polyethylene glycol 3350 17 238 g PO ONCE 1 day #238 grams 05/31/22 gram/dose oral powder (Miralax) hydrocortisone 2.5 % topical cream 1 appl NM BEDTIME PRN hemorrhoids 08/13/22 with perineal applicator #30 grams (Proctosol HC) polymyxin B sulfate 10,000 1 drp ophthalmic (eye) Q3H 7 days 08/20/22 unit-trimethoprim 1 mg/mL eye #10 mL drops (Polytrim) sennosides 8.6 mg tablet (senna) 17.2 mg (2 x 8.6 mg) PO BEDTIME 08/31/22 for constipation #60 tabs lorazepam 1 mg tablet 1 mg PO DAILY 30 days #30 tabs 01/04/23 azithromycin 250 mg tablet See Rx Instructions PO .COMPLEX #6 01/18/23 tabs fluticasone propionate 50 1 spray intranasal DAILY #9.9 mL 01/18/23 mcg/actuation nasal spray,suspension (Flonase Allergy Relief) cyclobenzaprine 10 mg tablet 10 mg PO BID #90 tabs 01/31/23 pantoprazole 20 mg tablet,delayed 40 mg (2 x 20 mg) PO DAILY #120 01/31/23 release tabs pravastatin 20 mg tablet 20 mg PO DAILY #90 tabs 01/31/23 Allergies Allergy/AdvReac Type Severity Reaction Status Date / Time oxycodone [From PERCOCET] Allergy Intermediate VOMITING, Verified 02/13/23 08:21 N/V codeine [Codeine] Allergy Mild HIVES Verified 02/13/23 08:21 atorvastatin Allergy Unknown Headaches Verified 02/13/23 08:21 bupropion [From WELLBUTRIN] Allergy Unknown PALPITATION Verified 02/13/23 08:21 S morphine [MORPHINE] Allergy Unknown NIGHTMARES Verified 02/13/23 08:21 naproxen [NAPROXEN] Allergy Unknown RASH Verified 02/13/23 08:21 sertraline Allergy Unknown Unknown Verified 02/13/23 08:21 simvastatin Allergy Unknown Unknown Verified 02/13/23 08:21 zolpidem [ZOLPIDEM] Allergy Unknown PALPITATION Verified 02/13/23 08:21 S Review of Systems Review of Systems: All other systems are reviewed and are negative Constitutional: Reports as per HPI and Reports no additional constitutional complaints Eyes: Reports as per HPI and Reports no additional eye complaints Reports system reviewed and no additional complaints, except as documented Cardiovascular: Reports as per HPI and Reports no additional cardiovascular complaints Respiratory: Reports as per HPI and Reports no additional respiratory complaints Gastrointestinal: Reports as per HPI and Reports no additional gastrointestinal complaints Genitourinary: Reports no additional female genitourinary complaints Musculoskeletal: Reports no additional musculoskeletal complaints Skin/Breast: Reports system reviewed and no additional complaints, except as docu Psychiatric: Reports no additional psychiatric complaints Endocrine: Reports no additional endocrine complaints Hematologic/Lymphatic: Reports no additional hematologic/lymphatic complaints Allergic/Immunologic: Reports no additional allergic/immunologic complaints Reports system reviewed and no additional complaints, except as documented and Reports Abnormal speech present [facility] Past Medical History Medical History Dysuria Upper respiratory tract infection Nausea and vomiting Abdominal pain Fall Otitis media IBS (irritable bowel syndrome) Uterine cancer History of gestational diabetes Genital herpes Hypercholesterolemia Obstructive sleep apnea Vitamin D deficiency Lumbar degenerative disc disease Hypertension Insomnia Fatty liver GERD (gastroesophageal reflux disease) Asthma Obesity (BMI 30-39.9) NAFLD (nonalcoholic fatty liver disease) Surgical History History of lumbar surgery History of total abdominal hysterectomy and bilateral salpingo-oophorectomy History of tubal ligation Hx of endoscopy History of colonoscopy Family History Family History Father Hx of colon cancer, stage III Stomach cancer Mother Hx of heat stroke Acute CVA (cerebrovascular accident) Hypertension Diabetes Maternal Grandmother Breast cancer Stroke Maternal Grandfather CVD (cardiovascular disease) Myocardial infarction Son In good health Sister No problems noted. Sister No problems noted. Sister No problems noted. Brother No problems noted. Brother No problems noted. Social History Social History Housing: Apartment Alcohol intake: never Patient Tobacco Use Status: Former Tobacco user Tobacco use type: Cigarette Years Smoked: 2002 quit Smoked in Last 30 Days: No e-Cigarette/Vaping Use: Never Used Second Hand Smoke Exposure: No Use of substances other than those prescribed or required for medical reasons: No Advance Directives: No Patient : No service: No Current occupational status: disabled Current occupational exposures/hazards: No Cognitive needs: No Hearing needs: No Vision needs: No Physical Exam Vital Signs: Vital Signs: Last Vital Signs Temp 98.2 F 02/13/23 08:22 Pulse 68 02/13/23 10:41 Resp 14 02/13/23 10:00 BP 150/93 H 02/13/23 10:41 Pulse Ox 98 02/13/23 08:22 O2 Del Method Room Air 02/13/23 08:22 BMI result Body Mass Index 31.7 Vital signs have been reviewed and appear to be correct. Blood pressure elevated. Heart rate normal. Respiratory rate normal. Temperature normal. Oxygen saturation normal. Appearance: Alert. Oriented X3. No acute distress. Head: Normal external exam. Normocephalic. Atraumatic. No Vogel signs noted. No raccoon eyes noted Eyes: PERRLA. EOMI. Conjunctiva and sclera normal. Eyelids normal. ENT: TM's Normal. Pharynx normal. Uvula midline. Moist mucous membranes. No trismus noted. No drooling noted. No muffled voice noted. Neck: Normal inspection. Neck supple. FROM. No adenopathy. Thyroid Normal. No meningeal signs. No neck mass noted. CVS: Normal heart rate and rhythm. Heart sound normal. No murmurs noted. Pulses normal throughout. Respiratory: No respiratory distress. Painless inspiration. Breath sounds normal. No wheezes/rales/rhonchi noted. Chest nontender. No accessory muscle usage noted or decreased air movement noted. Abdomen: Soft and nontender. Bowel sounds normal in all 4 quadrants. No distention noted. No organomegaly noted. No visible injury noted. Back: No CVA tenderness. Full range of motion noted. Skin: Skin warm and dry. Normal skin color. Normal skin turgor. No rashes/lesions/lacerations noted. Extremities: No lower extremity edema. Extremities exhibit normal range of motion. Extremities nontender. Neuro: Oriented X 3. Cranial nerve exam: II-XII are grossly intact No motor deficit. No sensory deficit. Reflexes normal. Course Course Course Narrative: A 52-year-old female was chronic peripheral vertigo came in with vertigo and feeling dizzy. patient feels better after was given meclizine/Zofran /Ativan. Will discharge the patient to follow-up with PCP/ neurology. Patient is aware of the elevated LFTs patient has been told she has a fatty liver. Medications Administered Discontinued Medications Generic Name Dose Route Start Last Admin Trade Name Freq PRN Reason Stop Dose Admin Sodium Chloride 1,000 mls @ 999 mls/hr 02/13/23 09:27 02/13/23 10:52 Ns IV 02/13/23 10:27 Infused .Q1H1M ONE Infusion Lorazepam 0.5 mg 02/13/23 09:32 02/13/23 10:00 Lorazepam 0.5 Mg Tablet PO 02/13/23 09:33 0.5 mg ONCE ONE Administration Meclizine HCl 25 mg 02/13/23 09:32 02/13/23 10:08 Meclizine Hcl 25 Mg Tablet PO 02/13/23 09:33 Not Given ONCE ONE Ondansetron HCl 4 mg 02/13/23 10:42 02/13/23 10:49 Ondansetron Hcl 4 Mg/2 Ml Vial IVPUSH 02/13/23 10:43 4 mg ONCE ONE Administration Medical Decision Making Differential Diagnosis Differential Diagnoses: The differential diagnosis associated with the presentation includes ( peripheral vertigo, central vertigo, electrolyte abnormality, severe anemia, dehydration.) Admission/Observation Consideration of admission/observation: Escalation of care including admission/observation considered Lab Data MDM Lab Attestation statement: I reviewed the patient's lab results. 02/13/23 09:54 02/13/23 09:54 Labs: Lab Results 02/13/23 02/13/23 Range/Units 09:54 10:03 WBC 7.3 (4.8-10.8) X10*3/uL RBC 5.47 (4.20-5.50) X10*6/uL Hgb 14.4 (12.0-16.0) g/dl Hct 46.0 (37.0-47.0) % MCV 84.1 (80.0-98.0) fL MCH 26.3 L (27.0-33.0) pg MCHC 31.3 (31.0-35.0) g/dl RDW 13.9 (11.0-16.0) % Plt Count 388 (160-400) X10*3/uL MPV 9.2 L (9.4-12.3) fL Immature Gran % (Auto) 0.5 H (0.0-0.4) % Neut % (Auto) 59.6 (45-73) % Lymph % (Auto) 29.5 (20-40) % Crosby % (Auto) 7.3 (2-11) % Eos % (Auto) 2.3 (0-4) % Baso % (Auto) 0.8 (0-2) % Lymph # (Auto) 2.2 (1.2-4.9) X10*3/uL Crosby # (Auto) 0.5 (0.1-1.2) X10*3/uL Eos # (Auto) 0.2 (0.0-0.4) X10*3/uL Baso # (Auto) 0.1 (0.0-0.2) X10*3/uL Abs Immat Gran (auto) 0.04 H (0.00-0.03) X10*3/uL Absolute Neuts (auto) 4.4 (2.0-8.3) x10*3/uL Absolute Nucleated RBC 0.000 (0.0-0.012) X10*3/uL Nucleated RBC % (auto) 0.0 (0.0-0.2) /100WBC Sodium 140 (135-145) mmol/L Potassium 4.3 (3.3-5.1) mmol/L Chloride 106 (96-108) mmol/L Carbon Dioxide 26 (22-29) mmol/L Anion Gap 12 (12-20) BUN 11 (9-16) mg/dL Creatinine 0.80 (0.5-1.4) mg/dL Estim Creat Clear Calc 75.1 Estimated GFR > 60 Random Glucose 101 (60-115) mg/dL Calcium 10.3 H D (8.4-10.2) mg/dL Total Bilirubin 0.5 (0.0-1.0) mg/dL Direct Bilirubin 0.1 (0.0-0.5) mg/dL AST 57 H (5-31) U/L ALT 76 H (0-31) U/L Alkaline Phosphatase 87 (39-117) U/L Troponin I High Sens < 2.7 (<3.5-17.0) ng/L B-Natriuretic Peptide < 10 (<100) pg/mL Total Protein 8.0 (6.5-8.0) g/dL Albumin 4.4 (3.5-5.0) g/dL Lipase 19 (8-78) U/L Urine Color Yellow Urine Appearance Clear Urine pH 5.5 (5.0-9.0) Ur Specific [place] 1.010 (1.005-1.025) Urine Protein Negative (Neg-Trace) mg/dL Urine Glucose (UA) Negative (Negative) mg/dL Urine Ketones Negative (Negative) mg/dL Urine Blood Negative (Negative) Urine Nitrite Negative (Negative) Ur Leukocyte Esterase Negative (Negative) Independent Interpretation I performed an independent interpretation of an: EKG ( Normal sinus rhythm at 66 beats per minutes, normal axis deviation, normal intervals, no ST-T changes.), Plain X-Ray ( Chest: No acute intrathoracic disease.) and CT Scan ( Head: No acute intracranial bleed.) Radiology Impression Discussion of test interpretation with radiology: I have reviewed the radiologist's reading. Chronic Conditions Patient?s care impacted by: Other ( Chronic vertigo) Discharge Plan Discharge Clinical Impression: Benign paroxysmal positional vertigo, Elevated LFTs Patient Disposition: Home, Self-Care Instructions: Vertigo (ED) Prescriptions: No Action (DME) blood sugar diagnostic Strip See Rx Instructions .ROUTE .MEDSUPPLY Qty: 100 0RF Rx Instructions: As directed check BS QD hydrocortisone [Proctosol HC] 2.5 % cream with perineal applicator 1 appl NM BEDTIME PRN (Reason: hemorrhoids) Qty: 30 3RF polymyxin B sulf-trimethoprim [Polytrim] 10,000 unit- 1 mg/mL drops 1 drp ophthalmic (eye) Q3H 7 Days Qty: 10 0RF Rx Instructions: while awake; do not exceed 6 doses in 24 hours sennosides [senna] 8.6 mg tablet 17.2 mg PO BEDTIME Qty: 60 6RF lorazepam 1 mg tablet 1 mg PO DAILY 30 Days Qty: 30 0RF pantoprazole 20 mg tablet,delayed release (DR/EC) 40 mg PO DAILY Qty: 120 0RF pravastatin 20 mg tablet 20 mg PO DAILY Qty: 90 2RF cyclobenzaprine 10 mg tablet 10 mg PO BID Qty: 90 0RF meclizine 25 mg tablet 25 mg PO BID PRN (Reason: dizziness) Qty: 30 0RF (DME) lancets 28 gauge misc See Rx Instructions topical .MEDSUPPLY Qty: 100 Rx Instructions: As directed (DME) blood-glucose meter Kit See Rx Instructions .ROUTE DAILY Qty: 1 Rx Instructions: As directed (DME) Shower Chair Misc See Rx Instructions .Route Qty: 1 0RF Rx Instructions: As directed azithromycin 250 mg tablet See Rx Instructions PO .COMPLEX Qty: 6 0RF Rx Instructions: take 500 mg today (day 1), then 250 mg for 4 days (days 2-5) PO fluticasone propionate [Flonase Allergy Relief] 50 mcg/actuation spray,suspension 1 spray intranasal DAILY Qty: 9.9 1RF Rx Instructions: administer into each nostril bisacodyl [Dulcolax (bisacodyl)] 5 mg tablet,delayed release (DR/EC) 10 mg PO ONCE 1 Days Qty: 2 0RF Rx Instructions: Take 2 tablets by mouth at 12:00pm the day before your procedure. polyethylene glycol 3350 [Miralax] 17 gram/dose powder 238 g PO ONCE 1 Days Qty: 238 0RF Rx Instructions: Take as directed by mouth the day before your procedure. Referrals: Coreen Hernandez MD [Primary Care Provider] -
[2023-02-13] MEDS: 0.9 % Sodium Chloride 1,000 ML 999 ML IV (09:56)
[2023-02-13 10:00] VITALS: BP 150/93; PULSE 68; RESP 14
[2023-02-13] MEDS: LORazepam 0.5 MG TABLET PO (10:00)
[2023-02-13 10:03] LABS: MANUAL DIFF FLAG NO
[2023-02-13 10:08] LABS: Basophils Absolute Auto 0.1 X10*3/uL (0.0-0.2); Basophils Percent Auto 0.8 % (0-2); Eosinophils Absolute Auto 0.2 X10*3/uL (0.0-0.4); Eosinophils Percent Auto 2.3 % (0-4); Hemoglobin 14.4 g/dl (12.0-16.0); Imm Gran Abs Auto 0.04 X10*3/uL (0.00-0.03); Imm Gran Pct Auto 0.5 % (0.0-0.4); Lymphocytes Absolute Auto 2.2 X10*3/uL (1.2-4.9); Lymphocytes Percent Auto 29.5 % (20-40); Mean Corpuscular HGB Conc 31.3 g/dl (31.0-35.0); Mean Corpuscular Hemoglobin 26.3 pg (27.0-33.0); Mean Corpuscular Volume 84.1 fL (80.0-98.0); Mean Platelet Volume 9.2 fL (9.4-12.3); Monocytes Absolute Auto 0.5 X10*3/uL (0.1-1.2); Monocytes Percent Auto 7.3 % (2-11); Neutrophils Absolute Auto 4.4 x10*3/uL (2.0-8.3); Neutrophils Percent Auto 59.6 % (45-73); Platelet Count 388 X10*3/uL (160-400); Red Blood Count 5.47 X10*6/uL (4.20-5.50); Red Cell Distribution Width 13.9 % (11.0-16.0); White Blood Count 7.3 X10*3/uL (4.8-10.8)
[2023-02-13 10:12] LABS: Appearance Urine Clear; Color Urine Yellow; Glucose Urine UA Negative (Negative); Leukocyte Esterase Urine Negative (Negative); Nitrite Urine Negative (Negative); PH 5.5 (5.0-9.0); Urine Blood Negative (Negative); Urine Ketones Negative (Negative); Urine Protein Negative (Neg-Trace)
[2023-02-13 10:19] LABS: Alanine Aminotransferase 76 U/L (0-31); Albumin Level 4.4 g/dL (3.5-5.0); Alkaline Phosphatase 87 U/L (39-117); Anion Gap 12 (12-20); Aspartate Amino Transferase 57 U/L (5-31); Bilirubin Direct 0.1 mg/dL (0.0-0.5); Bilirubin Total 0.5 mg/dL (0.0-1.0); Blood Urea Nitrogen 11 mg/dL (9-16); Calcium 10.3 mg/dL (8.4-10.2); Carbon Dioxide 26 mmol/L (22-29); Chloride 106 mmol/L (96-108); Creatinine Clr Calc Pharmacy 75.1; Estimated Glomerular Filt Rate > 60; Glucose Random 101 mg/dL (60-115); Lipase 19 U/L (8-78); Potassium 4.3 mmol/L (3.3-5.1); Sodium 140 mmol/L (135-145)
[2023-02-13 10:24] LABS: B Type Natriuretic Peptide < 10 pg/mL (<100)
[2023-02-13 10:37] VITALS: BP 154/96; PULSE 72
[2023-02-13 10:39] VITALS: BP 145/97; PULSE 68
[2023-02-13 10:41] VITALS: BP 150/93; PULSE 68
[2023-02-13 10:41] LABS: Troponin-I High Sensitivity < 2.7 ng/L (<3.5-17.0)
[2023-02-13] MEDS: ondansetron HCL 4 MG/2 ML VIAL IVPUSH (10:49)
[2023-02-13] MEDS: LORazepam 1 MG TABLET PO (12:10)
[2023-02-13] MEDS: Meclizine HCl 25 MG TABLET PO (12:10)
--- NOTE | 2023-02-13 12:12 | PC.NURSE ---
On ambulating to exit pt became dizzy and nearly fell while getting up from toilet. pt brought back to room for re-eval.
--- NOTE | 2023-02-13 13:00 | PC.NURSE ---
Pt able to ambulate safely, educated by regarding changing positions slowly. assisted to vehicle for dc.
== END 2023-02-13 13:01 | disposition home or self-care (01) ==
PROVIDERS: Emergency Provider Emergency Medicine; PCP Internal Medicine
DX: H81.13 Benign paroxysmal vertigo, bilateral (principal); R94.31 Abnormal electrocardiogram [ECG] [EKG]; R11.2 Nausea with vomiting, unspecified; R26.81 Unsteadiness on feet; R79.89 Other specified abnormal findings of blood chemistry; R06.02 Shortness of breath; Z79.899 Other long term (current) drug therapy; Z87.891 Personal history of nicotine dependence
CPT/HCPCS: 36415; 70450; 71045; 80048; 80076; 81003; 83690; 83880; 84484; 85025; 93005; 96361; 96374; 99284; 99285; J2405

== ENCOUNTER 2023-02-20 09:59 | Outpatient (AMB) | payer OTHER, SELFPAY ==
--- NOTE | 2023-02-20 10:05 | A.OFFPC_ITS ---
Vital Signs 02/20/23 10:08 Height 5 ft 1 in Weight 176 lb BMI 33.3 BP 102/68 Blood Pressure Location Lt brachial Position Sitting Pulse 78 Pulse Source Pulse Oximeter Pulse Oximetry (%) 98 Oxygen Delivery Method Room Air Int[place] [facility] [place] Intake Note: Patient is here to follow-up after a visit the [place] [facility]23 Lead [employer] Developer Required: No Toaster Element Repairer: Not Required per policy Accompanied by: Self / Same As Patient Allergies oxycodone [From PERCOCET] Allergy (Intermediate, Verified 02/20/23 10:07) VOMITING, N/V codeine [Codeine] Allergy (Mild, Verified 02/20/23 10:07) HIVES atorvastatin Allergy (Unknown, Verified 02/20/23 10:07) Headaches bupropion [From WELLBUTRIN] Allergy (Unknown, Verified 02/20/23 10:07) PALPITATIONS morphine [MORPHINE] Allergy (Unknown, Verified 02/20/23 10:07) NIGHTMARES naproxen [NAPROXEN] Allergy (Unknown, Verified 02/20/23 10:07) RASH sertraline Allergy (Unknown, Verified 02/20/23 10:07) Unknown simvastatin Allergy (Unknown, Verified 02/20/23 10:07) Unknown zolpidem [ZOLPIDEM] Allergy (Unknown, Verified 02/20/23 10:07) PALPITATIONS Tobacco use date assessed: 02/20/23 Dental Screening Dental Screen Date: 02/20/23 Did you have a dental visit in the last 12 months?: Yes Did you have a dental problem in the last 6 months where you did not have access to dental care?: No Was dental information given to patient?: Patient has dentist [place] [facility] [place] HPI Details 52-year-old obese female with asthma fat ty liver coming in for follow- up. Last seen in October 2022. Patient's colonoscopy is due. Review of the notes patient was in the hospital last month for dizziness CT scan negative. woke up dizzy, colon 04/2023 [facility] Medical History (Updated 02/20/23 @ 10:49 by Coreen Hernandez MD) Vertigo Dysuria Upper respiratory tract infection Nausea and vomiting Abdominal pain Fall Otitis media IBS (irritable bowel syndrome) Uterine cancer History of gestational diabetes Genital herpes Hypercholesterolemia Obstructive sleep apnea Vitamin D deficiency Lumbar degenerative disc disease Hypertension Insomnia Fatty liver GERD (gastroesophageal reflux disease) Asthma Obesity (BMI 30-39.9) NAFLD (nonalcoholic fatty liver disease) Surgical History History of lumbar surgery History of total abdominal hysterectomy and bilateral salpingo-oophorectomy History of tubal ligation Hx of endoscopy History of colonoscopy Family History Father Hx of colon cancer, stage III Stomach cancer Mother Hx of heat stroke Acute CVA (cerebrovascular accident) Hypertension Diabetes Maternal Grandmother Breast cancer Stroke Maternal Grandfather CVD (cardiovascular disease) Myocardial infarction Son In good health Sister No problems noted. Sister No problems noted. Sister No problems noted. Brother No problems noted. Brother No problems noted. Social History Housing: Apartment Alcohol intake: never Patient Tobacco Use Status: Former Tobacco user Tobacco use type: Cigarette Years Smoked: 2002 quit e-Cigarette/Vaping Use: Never Used Second Hand Smoke Exposure: No service: No Current occupational status: disabled Current occupational exposures/hazards: No Cognitive needs: No Hearing needs: No Vision needs: No Questionnaire Thrive Questionnaire Date Thrive assessed: 08/27/22 ELDA-7 AMB Questionnaire ELDA-7 Date ELDA - 7 assessed: 08/27/22 Source: Developed by Drs. Miki Koo, Monica Childers, Chris Watt and colleagues, with an educational adrien from [employer]. Physical exam (Primary Care) Vital Signs: Last Vital Signs Pulse 78 02/20/23 10:08 BP 102/68 02/20/23 10:08 Pulse Ox 98 02/20/23 10:08 Oxygen Delivery Method Room Air 02/20/23 10:08 BMI result Body Mass Index 33.3 Tobacco/Smoking Status: Tobacco use Status Tobacco use date assessed 02/20/23 02/20/23 10:20 Patient Tobacco Use Status Former Tobacco user 02/20/23 10:20 Tobacco use type Cigarette 02/20/23 10:20 e-Cigarette/Vaping Use Never Used 02/20/23 10:20 Thrive Assessment: Date of Thrive Assessment Date Thrive assessed 08/27/22 02/20/23 10:20 Const General: alert; No acute distress Eyes Conjunctivae: conjunctivae normal Resp Auscultation: clear to auscultation bilaterally Cardio Rate: regular rate Rhythm: regular rhythm GI Inspection: Yes normal to inspection Extrem General: Yes normal to inspection and No edema Office Procedures Flu Questionnaire Does the patient have a severe egg allergy?: No Does the patient have severe life threatening allergies?: No Does the patient have a fever or illness today?: No Has the patient ever had Guillain-[place] Syndrome?: No Has the patient ever had any past reaction to a flu shot?: No Immunizations flu vacc [id number] 6mos up(PF) 60 mcg(15 mcgx4)/0.5 mL IM syringe Performing Provider: Coreen Hernandez MD Performing Location[facility] Administered by: BRUNA Astorga on 02/20/23 10:22 Dose Route Admin Location Dispensed Lot Number Expiration Date NDC Compensation And Benefits Analyst 0.5 mL IM Left Deltoid 0.5 mL [id number] 11/17/23 01410-549-15 [employer] VIS Given Date VIS Provided VIS Publication Date 02/20/23 Single Vaccine 20 Eligibility Eligibility Date Funding Source Not [facility] Eligible 02/20/23 Private Assessment and Plan Assessment & Plan (1) Obstructive sleep apnea: Comment: cannot tolerate CPAP 06/2021 Code(s): G47.33 - Obstructive sleep apnea (adult) (pediatric) Plan: Discussed importance of treating obstructive sleep apnea (2) Obesity (BMI 30-39.9): Code(s): E66.9 - Obesity, unspecified Plan: Diet and exercise (3) NAFLD (nonalcoholic fatty liver disease): Comment: avoid weight gain, good cholesterol and glucose control Code(s): K76.0 - Fatty (change of) liver, not elsewhere classified Plan: Low-fat diet and exercise (4) Asthma: Code(s): J45.909 - Unspecified asthma, uncomplicated Qualifiers: Asthma severity: mild Asthma persistence: intermittent Asthma complication type: uncomplicated Qualified Code(s): J45.20 - Mild intermittent asthma, uncomplicated Plan: Stable with no inhalers (5) Hypercholesterolemia: Code(s): E78.00 - Pure hypercholesterolemia, unspecified Plan: Avoid fried foods, chicken skin, eggs, butter margarine, pastries and meat. Be it pork or beef they have a lot of cholesterol LDL goal of less than 130 and triglyceride of less than 150 patient is on pravastatin 20 mg once a day (6) Generalized anxiety disorder: Comment: conselling [place] every Saturday (01/2022) Code(s): F41.1 - Generalized anxiety disorder Plan: Continue with counseling and therapy (7) Family history of colon cancer: Comment: Father colon cancer-age un certain Code(s): Z80.0 - Family history of malignant neoplasm of digestive organs Plan: Reminded about colonoscopy (8) GERD (gastroesophageal reflux disease): Comment: Pantoprazole 40 mg QAM- avoid culprits, dietary modification give trial to sucralfate Code(s): K21.9 - Gastro-esophageal reflux disease without esophagitis Qualifiers: Esophagitis presence: without esophagitis Qualified Code(s): K21.9 - Gastro-esophageal reflux disease without esophagitis Plan: Avoid the foods that causes that usually spicy foods, tomato products, juices, coffee, soda and foods that your sensitive to. After eating do not lie down, allow 3-4 hours before in lie down. And keep the head of bed above 30 degrees to avoid the acid from going up. (9) Vertigo: Code(s): R42 - Dizziness and giddiness (10) Vision changes: Code(s): H53.9 - Unspecified visual disturbance (11) Popping of both ears: Code(s): H93.8X3 - Other specified disorders of ear, bilateral Orders: Orders Influenza [id number] Immunization Today Z23 - Encounter for immunization PT Evaluation and Treatment Today R42 - Dizziness and giddiness Referrals Ear/Nose/Throat Referral H93.8X3 - Other specified disorders of ear, bilateral Ophthalmology Referral H53.9 - Unspecified visual disturbance Sleep Medicine Referral G47.33 - Obstructive sleep apnea (adult) (pediatric) Medications: Discontinued azithromycin Discontinued Reason: Ancillary Entered New Order take 500 mg today (day 1), then 250 mg for 4 days (days 2-5) PO 6 tabs 0RF Coding Level of Care Code Est Pt Level 4 (44273) Diagnoses Obstructive sleep apnea G47.33 Obesity (BMI 30-39.9) E66.9 NAFLD (nonalcoholic fatty liver disease) K76.0 Mild intermittent asthma without complication J45.20 Asthma severity: mild Asthma persistence: intermittent Asthma complication type: uncomplicated Hypercholesterolemia E78.00 Generalized anxiety disorder F41.1 Family history of colon cancer Z80.0 Gastroesophageal reflux disease without esophagitis K21.9 Esophagitis presence: without esophagitis Vertigo R42 Vision changes H53.9 Popping of both ears H93.8X3
[2023-02-20 10:08] VITALS: BP 102/68; PULSE 78; O2SAT 98; BMI 33.3
== END 2023-02-20 11:01 | disposition home or self-care (01) ==
PROVIDERS: PCP Internal Medicine; Visit Provider Internal Medicine
DX: G47.33 Obstructive sleep apnea (adult) (pediatric) (principal); E66.9 Obesity, unspecified; Z68.33 Body mass index [BMI] 33.0-33.9, adult; K76.0 Fatty (change of) liver, not elsewhere classified; Z23 Encounter for immunization; J45.20 Mild intermittent asthma, uncomplicated; E78.00 Pure hypercholesterolemia, unspecified; F41.1 Generalized anxiety disorder; Z80.0 Family history of malignant neoplasm of digestive organs; K21.9 Gastro-esophageal reflux disease without esophagitis; R42 Dizziness and giddiness; H93.8X3 Other specified disorders of ear, bilateral
CPT/HCPCS: 90471; 90686; 99214

== ENCOUNTER 2023-03-28 07:45 | Outpatient (REF) | payer OTHER, SELFPAY | END 2023-03-28 07:46 | disposition home or self-care (01) | LOC: HO.MAMMO 07:45 | PROVIDERS: PCP Internal Medicine; Visit Provider Internal Medicine | DX: Z12.31 Encounter for screening mammogram for malignant neoplasm of breast (principal) | CPT/HCPCS: 77063; 77067 ==

== ENCOUNTER → 2023-03-28 08:00 | Outpatient (BNV) | payer OTHER, SELFPAY | PROVIDERS: PCP Internal Medicine; Visit Provider Radiology Diagnostic Radiology | DX: Z12.31 Encounter for screening mammogram for malignant neoplasm of breast (principal) | CPT/HCPCS: 77063; 77067 ==

== ENCOUNTER 2023-04-05 06:21 | Outpatient (REF) | payer OTHER, SELFPAY ==
[2023-04-05 06:34] LABS: MANUAL DIFF FLAG NO
[2023-04-05 07:30] LABS: Basophils Absolute Auto 0.1 X10*3/uL (0.0-0.2); Basophils Percent Auto 0.5 % (0-2); Eosinophils Absolute Auto 0.3 X10*3/uL (0.0-0.4); Eosinophils Percent Auto 3.4 % (0-4); Hemoglobin 13.9 g/dl (12.0-16.0); Imm Gran Abs Auto 0.05 X10*3/uL (0.00-0.03); Imm Gran Pct Auto 0.5 % (0.0-0.4); Lymphocytes Absolute Auto 3.4 X10*3/uL (1.2-4.9); Lymphocytes Percent Auto 36.4 % (20-40); Mean Corpuscular HGB Conc 32.3 g/dl (31.0-35.0); Mean Corpuscular Hemoglobin 26.6 pg (27.0-33.0); Mean Corpuscular Volume 82.2 fL (80.0-98.0); Monocytes Absolute Auto 0.8 X10*3/uL (0.1-1.2); Monocytes Percent Auto 8.9 % (2-11); Neutrophils Absolute Auto 4.8 x10*3/uL (2.0-8.3); Neutrophils Percent Auto 50.3 % (45-73); Platelet Count 370 X10*3/uL (160-400); Red Blood Count 5.23 X10*6/uL (4.20-5.50); Red Cell Distribution Width 14.2 % (11.0-16.0); White Blood Count 9.5 X10*3/uL (4.8-10.8)
[2023-04-05 07:53] LABS: Estimated Average Glucose 120 mg/dL; Hemoglobin A1c % 5.8 % (<6.0)
[2023-04-05 08:09] LABS: Alanine Aminotransferase 73 U/L (0-31); Albumin Level 4.3 g/dL (3.5-5.0); Alkaline Phosphatase 83 U/L (39-117); Anion Gap 10 (12-20); Aspartate Amino Transferase 46 U/L (5-31); Bilirubin Total 0.5 mg/dL (0.0-1.0); Blood Urea Nitrogen 17 mg/dL (9-16); Calcium 9.8 mg/dL (8.4-10.2); Carbon Dioxide 29 mmol/L (22-29); Chloride 105 mmol/L (96-108); Cholesterol 189 mg/dL (<200); Estimated Glomerular Filt Rate > 60; Glucose Random 101 mg/dL (60-115); HDL Cholesterol 37 mg/dL (>40); LDL Cholesterol Calculated 115 mg/dL (<100); Potassium 3.8 mmol/L (3.3-5.1); Sodium 140 mmol/L (135-145); Total Protein 7.8 g/dL (6.5-8.0); Triglycerides 188 mg/dL (<150)
[2023-04-05 08:26] LABS: Free T4 (Free Thyroxine) 0.81 ng/dL (0.71-1.85); Thyroid Stimulating Hormone 3.65 uIU/mL (0.32-4.0); Vitamin D 25-OH Total 41.9 ng/mL (>30)
[2023-04-05 08:31] LABS: Folate 12.5 ng/mL (> or = 4.0); Vitamin B12 397 pg/mL (200-900)
== END 2023-04-05 06:22 | disposition home or self-care (01) ==
LOC: HO.LAB 06:21
PROVIDERS: PCP Internal Medicine; Visit Provider Internal Medicine
DX: R73.01 Impaired fasting glucose (principal); E78.00 Pure hypercholesterolemia, unspecified; E55.9 Vitamin D deficiency, unspecified
CPT/HCPCS: 36415; 80053; 80061; 82306; 82607; 82746; 83036; 84439; 84443; 85025

== ENCOUNTER 2023-04-19 07:56 | Day surgery (SDC) | payer OTHER, SELFPAY ==
--- NOTE | 2023-04-18 09:57 | HO.ANESPROP2 ---
Documented by User: Shalonda Xiong NP 04/18/23 10:04 HPI - Anesthesia Eval Consult details Narrative: 52yo F for Upper Endoscopy and Colonoscopy [facility] Active Problems Active Problems: All Active Problems (Updated 02/20/23 @ 10:49 by Coreen Hernandez MD) Popping of both ears (Acute) Vision changes (Acute) Upper respiratory tract infection (Acute) Nasal congestion (Acute) Palpitations (Acute) Family history of colon cancer (Acute) Hematuria (Acute) Sinusitis (Acute) Dysuria (Acute) Tonsillar calculus (Acute) Gastroenteritis and colitis, viral (Acute) Knee pain, right (Acute) Low back pain (Acute) Fall (Acute) Annual physical exam (Acute) COVID-19 virus infection (Acute) IBS (irritable bowel syndrome) (Acute) Constipation (Acute) Generalized anxiety disorder (Acute) Dizziness (Acute) Allergic rhinitis (Acute) Impaired fasting glucose (Acute) COVID-19 virus infection (Acute) TSH elevation (Acute) Lumbar degenerative disc disease (Acute) Hypercholesterolemia (Acute) Obstructive sleep apnea (Acute) Hypertension (Acute) GERD (gastroesophageal reflux disease) (Acute) Asthma (Acute) Obesity (BMI 30-39.9) (Acute) NAFLD (nonalcoholic fatty liver disease) (Acute) Past Medical History Medical History Vertigo Dysuria Upper respiratory tract infection Nausea and vomiting Abdominal pain Fall Otitis media IBS (irritable bowel syndrome) Uterine cancer History of gestational diabetes Genital herpes Hypercholesterolemia Obstructive sleep apnea Vitamin D deficiency Lumbar degenerative disc disease Hypertension Insomnia Fatty liver GERD (gastroesophageal reflux disease) Asthma Obesity (BMI 30-39.9) NAFLD (nonalcoholic fatty liver disease) Family History Family History Father Hx of colon cancer, stage III Stomach cancer Mother Hx of heat stroke Acute CVA (cerebrovascular accident) Hypertension Diabetes Maternal Grandmother Breast cancer Stroke Maternal Grandfather CVD (cardiovascular disease) Myocardial infarction Son In good health Sister No problems noted. Sister No problems noted. Sister No problems noted. Brother No problems noted. Brother No problems noted. Surgical History Surgical History History of lumbar surgery History of total abdominal hysterectomy and bilateral salpingo-oophorectomy History of tubal ligation Hx of endoscopy History of colonoscopy Social History Social History Housing: Apartment Alcohol intake: never Patient Tobacco Use Status: Former Tobacco user Quit Date: 20 years ago Tobacco use type: Cigarette Years Smoked: 2002 quit e-Cigarette/Vaping Use: Never Used Second Hand Smoke Exposure: No Use of substances other than those prescribed or required for medical reasons: No Are you DNR?: No Advance Directives: No Advance Directives Information Provided: Yes service: No Current occupational status: disabled Current occupational exposures/hazards: No Cognitive needs: No Hearing needs: No Vision needs: No Meds Allergies Allergy/AdvReac Type Severity Reaction Status Date / Time oxycodone [From PERCOCET] Allergy Intermediate VOMITING, Verified 04/19/23 08:20 N/V codeine [Codeine] Allergy Mild HIVES Verified 04/19/23 08:20 atorvastatin Allergy Unknown Headaches Verified 04/19/23 08:20 bupropion [From WELLBUTRIN] Allergy Unknown PALPITATION Verified 04/19/23 08:20 S morphine [MORPHINE] Allergy Unknown NIGHTMARES Verified 04/19/23 08:20 naproxen [NAPROXEN] Allergy Unknown RASH Verified 04/19/23 08:20 sertraline Allergy Unknown Unknown Verified 04/19/23 08:20 simvastatin Allergy Unknown Unknown Verified 04/19/23 08:20 zolpidem [ZOLPIDEM] Allergy Unknown PALPITATION Verified 04/19/23 08:20 S Home Medications Medication Instructions Recorded Confirmed Last Taken Type lancets 28 gauge #100 ea 05/05/20 11/14/22 Unknown History blood-glucose meter #1 ea 06/13/20 11/14/22 Unknown History Exam Pertinent Lab Results Pertinent Lab Results: Laboratory Tests 04/05/23 06:33 WBC 9.5 Hgb 13.9 Hct 43.0 Plt Count 370 Sodium 140 Potassium 3.8 Chloride 105 Carbon Dioxide 29 BUN 17 H Creatinine 0.82 Assessment and Plan Assessment Anesthesia Assessment: Chart Reviewed Documented by User: Tere Bradshaw MD 04/19/23 08:28 [facility] Past Medical History Medical History Vertigo Dysuria Upper respiratory tract infection Nausea and vomiting Abdominal pain Fall Otitis media IBS (irritable bowel syndrome) Uterine cancer History of gestational diabetes Genital herpes Hypercholesterolemia Obstructive sleep apnea Vitamin D deficiency Lumbar degenerative disc disease Hypertension Insomnia Fatty liver GERD (gastroesophageal reflux disease) Asthma Obesity (BMI 30-39.9) NAFLD (nonalcoholic fatty liver disease) Family History Family History Father Hx of colon cancer, stage III Stomach cancer Mother Hx of heat stroke Acute CVA (cerebrovascular accident) Hypertension Diabetes Maternal Grandmother Breast cancer Stroke Maternal Grandfather CVD (cardiovascular disease) Myocardial infarction Son In good health Sister No problems noted. Sister No problems noted. Sister No problems noted. Brother No problems noted. Brother No problems noted. Family history of problems with anesthesia: No Surgical History Surgical History History of lumbar surgery History of total abdominal hysterectomy and bilateral salpingo-oophorectomy History of tubal ligation Hx of endoscopy History of colonoscopy History of Problems with Anesthesia: No Social History Social History Housing: Apartment Alcohol intake: never Patient Tobacco Use Status: Former Tobacco user Quit Date: 20 years ago Tobacco use type: Cigarette Years Smoked: 2002 quit e-Cigarette/Vaping Use: Never Used Second Hand Smoke Exposure: No Use of substances other than those prescribed or required for medical reasons: No Are you DNR?: No Advance Directives: No Advance Directives Information Provided: Yes service: No Current occupational status: disabled Current occupational exposures/hazards: No Cognitive needs: No Hearing needs: No Vision needs: No Meds Allergies Allergy/AdvReac Type Severity Reaction Status Date / Time oxycodone [From PERCOCET] Allergy Intermediate VOMITING, Verified 04/19/23 08:20 N/V codeine [Codeine] Allergy Mild HIVES Verified 04/19/23 08:20 atorvastatin Allergy Unknown Headaches Verified 04/19/23 08:20 bupropion [From WELLBUTRIN] Allergy Unknown PALPITATION Verified 04/19/23 08:20 S morphine [MORPHINE] Allergy Unknown NIGHTMARES Verified 04/19/23 08:20 naproxen [NAPROXEN] Allergy Unknown RASH Verified 04/19/23 08:20 sertraline Allergy Unknown Unknown Verified 04/19/23 08:20 simvastatin Allergy Unknown Unknown Verified 04/19/23 08:20 zolpidem [ZOLPIDEM] Allergy Unknown PALPITATION Verified 04/19/23 08:20 S Home Medications Medication Instructions Recorded Confirmed Last Taken Type lancets 28 gauge #100 ea 05/05/20 11/14/22 Unknown History blood-glucose meter #1 ea 06/13/20 11/14/22 Unknown History Exam Airway Mallampati Class: II TM Dist: >3cm Neck ROM: Full Heart: rrr Lungs: cta Assessment and Plan Assessment Anesthesia Assessment: Anesthesia Plan Discussed Final Anesthetic Review Family History of Problems with Anesthesia: No History of Problems with Anesthesia: No NPO: Yes ASA Class: II Final Preanesthetic Review: No Changes in Pt Med Stat, Meds/Allgs Chart Reviewed and Consent Obtained/Reviewed Patient Risk: Intermediate Procedure Risk: Intermediate Anesthetic Plan Anesthetic Plan: MAC: Disposition: Standard PACU
--- NOTE | 2023-04-19 07:49 | MHC.SHP ---
Pre-Procedural Eval Section A Date of Service: 04/19/23 The patient is an INPATIENT: No The History & Physical has been completed within 30 days and I have reviewed it.: No Section B Chief Complaint: GERD, Family history of malignant neoplasm Relevant Family History (Specify if Yes): Yes Relevant Social History: Tobacco Use (Former smoker) Present Medications: see Short Stay Collaborative assessment Medical History: Significant History (Asthma Dysuria Fall Fatty liver Genital herpes GERD (gastroesophageal reflux disease) History of gestational diabetes Hypercholesterolemia Hypertension IBS (irritable bowel syndrome) Insomnia Lumbar degenerative disc disease NAFLD (nonalcoholic fatty liver disease) Nausea and vomiting Obesity (BMI 3) History of Previous Operations: Relevant previous surgery/procedure and date(s) (History of colonoscopy History of lumbar surgery History of total abdominal hysterectomy and bilateral salpingo-oophorectomy History of tubal ligation Hx of endoscopy) Allergies: Allergies Allergy/AdvReac Type Severity Reaction Status Date / Time oxycodone [From PERCOCET] Allergy Intermediate VOMITING, Verified 02/20/23 10:07 N/V codeine [Codeine] Allergy Mild HIVES Verified 02/20/23 10:07 atorvastatin Allergy Unknown Headaches Verified 02/20/23 10:07 bupropion [From WELLBUTRIN] Allergy Unknown PALPITATION Verified 02/20/23 10:07 S morphine [MORPHINE] Allergy Unknown NIGHTMARES Verified 02/20/23 10:07 naproxen [NAPROXEN] Allergy Unknown RASH Verified 02/20/23 10:07 sertraline Allergy Unknown Unknown Verified 02/20/23 10:07 simvastatin Allergy Unknown Unknown Verified 02/20/23 10:07 zolpidem [ZOLPIDEM] Allergy Unknown PALPITATION Verified 02/20/23 10:07 S Review of Systems Sugical H&P ROS: Negative: Constitution, Cardiovascular, Respiratory and Gastrointestinal Exam Surgical H&P Exam: Normal: Heart, Normal: Lungs, Normal: Extremities and Normal: Abdomen Plan Diagnosis/Plan: Unchanged I have reviewed the history and physical and performed a pertinent physical examination on my patient. No changes have occurred unless specified. Time Spent With Patient Time: Total time managing care of this patient today ____ minutes.
[2023-04-19 08:04] VITALS: BMI 33.5
[2023-04-19 08:28] VITALS: BP 151/99; PULSE 90; RESP 16; TEMP 35.8; O2SAT 96
[2023-04-19] MEDS: Lactated Ringers 1,000 ML 100 ML IVCONT (08:30)
[2023-04-19] MEDS: Scopolamine 1.5 MG PATCH.TD.3 EAR-BEHIND (08:32)
--- NOTE | 2023-04-19 09:28 | W.PM.OPN ---
Operative Note Operative Note Date of Service: 04/19/23 Narrative: FLEXIBLE TRANSORAL UPPER GASTROINTESTINAL ENDOSCOPY WITH BIOPSIES AND COLONOSCOPY TILL CECUM WITH BIOPSIES Pre-op diagnosis: screening, family hx of colon cancer, GERD, nausea Post-op diagnosis: GERD, hiatal hernia, gastric polyps, gastritis? melanosis coli, diverticulosis and hemorrhoids Endoscopist:? Aurora Cruz MD Anesthesia:?MAC UPPER ENDOSCOPY Consent: Indications for the procedure and potential complications of bleeding, perforation, reaction to medications and missed diagnosis were discussed with the patient and informed consent was obtained. Instrument: Olympus GIF H 190 mid size upper endoscope Monitoring: Vital signs and clinical assessment, continuous EKG monitoring, Pulse oximetry, Carbon Dioxide monitoring and blood pressure monitoring were done throughout the procedure. Procedure: The patient was placed in the left lateral decubitis position and pre-procedure medications were administered and a bite block was placed. The endoscope was inserted into the mouth and advanced under direct vision to the third part of duodenum. A careful inspection was made as the upper endoscope was withdrawn including a retroflexed examination of the proximal stomach; Findings and interventions are described below. Findings: Larynx: Normal Esophagus: GE junction at 33 cms, small hiatal hernia 33 to 35 cms. No esophagitis or Mahmood's. Stomach: Multiple 1-2 cms benign appearing polyps in the gastric body - biopsied. Mild gastric erythema. Biopsies were obtained. Grade 3 flap valve on retroflexed examination of the cardia. Duodenum: Normal bulb and descending duodenum. Biopsies were obtained from 3rd part of duodenum to check for celiac sprue Intervention: Biopsies as noted above COLONOSCOPY PROCEDURE NOTE Consent: Indications for the procedure and potential complications of bleeding, perforation, reaction to medications and missed diagnosis were discussed with the patient and informed consent was obtained. Instrument: Olympus PCF H 190 L variable stiffness pediatric colonoscope Monitoring: Vital signs and clinical assessment, intermittent blood pressure monitoring, continuous EKG monitoring, Pulse oximetry and Carbon Dioxide monitoring were done throughout the procedure. Colon withdrawl time was 15 minutes. Procedure: The patient was placed in the left lateral decubitis position and pre-procedure medications were administered. After a digital rectal examination of the ano-rectum, the video colonoscope was inserted into the rectum and advanced through the colon to the cecum. The colonoscope was slowly withdrawn in a retrograde panoramic fashion and the colon mucosa was carefully examined including a retroflexed view of the rectum. Findings and interventions are described below. Procedure Difficulty: : Without difficulty Findings: Terminal Ileum: Not evaluated Cecum: Normal Ascending Colon: A 12-15 mm non bleeding AVM in the proximal AC. Mild melanosis coli throughout the entire colon - random biopsies obtained from the right colon Transverse Colon: Mild melanosis coli throughout the entire colon Descending Colon: Mild melanosis coli throughout the entire colon Sigmoid Colon: Mild melanosis coli throughout the entire colon. Moderate diverticulosis Rectum: Normal Ano-rectum: Moderate internal hemorrhoids Colon preparation: Good after some irrigation Impression and Post Procedure Diagnosis: Endoscopy Findings: ESOPHAGUS: Small hiatal hernia STOMACH: Gastritis and multiple gastric polyps DUODENUM: Normal - biopsies were obtained to check for celiac sprue Colonoscopy Findings: No polyps were detected Moderate diverticulosis seen in the sigmoid colon Moderate hemorrhoids on retroflexed exam. Plan: Await pathology results Patient has an appointment on 04/29/23 in the GI Clinic with JUNITO Hand. Repeat Colonoscopy in 5 years due to positive family history. Above findings were reviewed with the patient and Hiatal hernia, Gastric Polyps and diverticulosis handouts were given in the discharge area
[2023-04-19 10:20] VITALS: BP 129/81; PULSE 84; RESP 16; TEMP 36.3; O2SAT 97
[2023-04-19 10:35] VITALS: BP 132/85; PULSE 70; RESP 18; O2SAT 96
[2023-04-19 10:50] VITALS: BP 140/83; PULSE 63; RESP 19; TEMP 36.3; O2SAT 99
== END 2023-04-19 11:20 | disposition home or self-care (01) ==
PROVIDERS: PCP Internal Medicine; Visit Provider Internal Medicine Gastroenterology
PROC: (CPT 45380; principal; 2023-04-19 09:30)
DX: Z12.11 Encounter for screening for malignant neoplasm of colon (principal); Z80.0 Family history of malignant neoplasm of digestive organs; K63.89 Other specified diseases of intestine; K57.30 Diverticulosis of large intestine without perforation or abscess without bleeding; K64.8 Other hemorrhoids; K55.20 Angiodysplasia of colon without hemorrhage; K58.9 Irritable bowel syndrome, unspecified; K21.9 Gastro-esophageal reflux disease without esophagitis; K31.7 Polyp of stomach and duodenum; K29.70 Gastritis, unspecified, without bleeding; K44.9 Diaphragmatic hernia without obstruction or gangrene; K76.0 Fatty (change of) liver, not elsewhere classified; J45.909 Unspecified asthma, uncomplicated; R30.0 Dysuria; A60.00 Herpesviral infection of urogenital system, unspecified; Z85.42 Personal history of malignant neoplasm of other parts of uterus; I10 Essential (primary) hypertension; Z79.899 Other long term (current) drug therapy; E78.00 Pure hypercholesterolemia, unspecified; Z88.5 Allergy status to narcotic agent; Z88.8 Allergy status to other drugs, medicaments and biological substances; Z87.891 Personal history of nicotine dependence
CPT/HCPCS: 45380; 43239; 88305; 88342; J2405; J2704

== ENCOUNTER → 2023-04-19 07:56 | Outpatient (BNV) | payer OTHER, SELFPAY | PROVIDERS: PCP Internal Medicine; Visit Provider Internal Medicine Gastroenterology | DX: Z12.11 Encounter for screening for malignant neoplasm of colon (principal); Z80.0 Family history of malignant neoplasm of digestive organs; K63.89 Other specified diseases of intestine; K57.30 Diverticulosis of large intestine without perforation or abscess without bleeding; K21.9 Gastro-esophageal reflux disease without esophagitis; K31.7 Polyp of stomach and duodenum; K29.70 Gastritis, unspecified, without bleeding | CPT/HCPCS: 43239; 45380 ==

== ENCOUNTER 2023-04-30 09:03 | Outpatient (AMB) | payer OTHER, SELFPAY ==
--- NOTE | 2023-04-30 10:06 | AM.OFFWIN_ITS ---
Intake Vital Signs 04/30/23 10:14 Height 5 ft 1 in Weight 78.018 kg BMI 32.5 BP 142/80 H Blood Pressure Location Rt brachial Position Sitting Pulse 100 Pulse Source Pulse Oximeter Temp 97.9 F Temp Source Temporal Artery Scan Pulse Oximetry (%) 98 Oxygen Delivery Method Room Air Intake Visit Reasons: EST/fevers and congestion [phone] Intake Note: Pt is here today c/o fever, chest congestion x1day Patient Tobacco Use Status: Former Tobacco user Quit Date: 20 years ago Allergies oxycodone [From PERCOCET] Allergy (Intermediate, Verified 04/30/23 10:06) VOMITING, N/V codeine [Codeine] Allergy (Mild, Verified 04/30/23 10:06) HIVES atorvastatin Allergy (Unknown, Verified 04/30/23 10:06) Headaches bupropion [From WELLBUTRIN] Allergy (Unknown, Verified 04/30/23 10:06) PALPITATIONS morphine [MORPHINE] Allergy (Unknown, Verified 04/30/23 10:06) NIGHTMARES naproxen [NAPROXEN] Allergy (Unknown, Verified 04/30/23 10:06) RASH sertraline Allergy (Unknown, Verified 04/30/23 10:06) Unknown simvastatin Allergy (Unknown, Verified 04/30/23 10:06) Unknown zolpidem [ZOLPIDEM] Allergy (Unknown, Verified 04/30/23 10:06) PALPITATIONS Do you need a note to return to daycare/school/sports/work: No HPI HPI Comments History of Present Illness Details 52 -year-old female who presents with f atigue, malaise, myalgias, cough, subjective fevers and chills that started saturday .? No known sick contacts.? Denies chest pain, shortness of breath, nausea, vomiting, abdominal pain, headache vision change, dizziness, weakness, changes in bowel or urinary habits Physical exam benign History and physical exam concerning for viral illness versus bronchitis versus flu versus COVID versus RSV.? Unlikely pneumonia, ACS, dissection, pulmonary embolism, acute respiratory distress Plan at this time viral testing will discharge patient home with supportive measures.? Educated patient on diagnosis and treatment plan, answered all question, patient verbalizes understanding.? At this time patient will be discharged home, advised to return with new or worsening symptoms.? Educated on worrisome signs and symptoms and when to return.? At this time I feel comfortable discharge home. [facility] Medical History Vertigo Dysuria Upper respiratory tract infection Nausea and vomiting Abdominal pain Fall Otitis media IBS (irritable bowel syndrome) Uterine cancer History of gestational diabetes Genital herpes Hypercholesterolemia Obstructive sleep apnea Vitamin D deficiency Lumbar degenerative disc disease Hypertension Insomnia Fatty liver GERD (gastroesophageal reflux disease) Asthma Obesity (BMI 30-39.9) NAFLD (nonalcoholic fatty liver disease) Surgical History History of esophagogastroduodenoscopy (EGD) History of lumbar surgery History of total abdominal hysterectomy and bilateral salpingo-oophorectomy History of tubal ligation Hx of endoscopy History of colonoscopy Family History Father Hx of colon cancer, stage III Stomach cancer Mother Hx of heat stroke Acute CVA (cerebrovascular accident) Hypertension Diabetes Maternal Grandmother Breast cancer Stroke Maternal Grandfather CVD (cardiovascular disease) Myocardial infarction Son In good health Sister No problems noted. Sister No problems noted. Sister No problems noted. Brother No problems noted. Brother No problems noted. Social History Housing: Apartment Alcohol intake: never Patient Tobacco Use Status: Former Tobacco user Quit Date: 20 years ago Tobacco use type: Cigarette Years Smoked: 2002 quit e-Cigarette/Vaping Use: Never Used Second Hand Smoke Exposure: No service: No Current occupational status: disabled Current occupational exposures/hazards: No Cognitive needs: No Hearing needs: No Vision needs: No Review of Systems Const Details: Constitutional : No Weight loss, + Fever, + Chills, + Fatigue, + Malaise ENT/Mouth : No sore throat, No Rhinorrhea Eyes: No Eye Pain, No Swelling, No Redness Cardiovascular : No Chest Pain, No SOB, No Dyspnea on Exertion, No Orthopnea, No Edema, No Palpitations Respiratory : + Cough, No Sputum, No Wheezing Gastrointestinal : No Nausea, No Vomiting, No Diarrhea, No Constipation, No abdominal Pain, No Hematochezia, No Melena Genitourinary : No Dysuria, No Urinary Frequency, No Hematuria, Musculoskeletal : No joint pain, + Myalgias, No Joint Swelling Skin : No Skin Lesions, No rash Neuro : No Weakness, No Numbness, No Dizziness, No Headache Psych : No Anxiety/Panic, No Depression All other systems reviewed and are negative All systems reviewed & are unremarkable except as noted in HPI and below Physical Exam Vital Signs: Last Vital Signs Temp 97.9 F 04/30/23 10:14 Pulse 100 04/30/23 10:14 BP 142/80 H 04/30/23 10:14 Pulse Ox 98 04/30/23 10:14 Oxygen Delivery Method Room Air 04/30/23 10:14 BMI result Body Mass Index 32.5 vss Appearance: Alert.? Oriented X3.? No acute distress.? Head: Normocephalic, atraumatic, no step-offs or deformities Eyes: Pupils equal, round and reactive to light.? Neck: Normal inspection.? Neck supple.? CVS: Normal heart rate and rhythm.? Pulses normal.? Respiratory: No respiratory distress.? Breath sounds normal.? Abdomen: Soft and nontender.? Skin: Skin warm and dry.? Normal skin color.? Normal skin turgor.? Extremities: No lower extremity edema.? No calf ttp. 5/5 strength to bilateral upper and lower extremities Neuro: Oriented X 3.? No motor deficit.? No sensory deficit. CN 2-12 intact Assessment & Plan Assessment & Plan (1) Viral illness: Code(s): B34.9 - Viral infection, unspecified Plan Take your medications as prescribed. If you were prescribed antibiotics today, it is important that you take your medication to their entirety, do not skip any doses, do not finish them early. Follow-up with your primary care provider this week. Return to the emergency department with new or worsening symptoms. Such as fevers, chills, chest pain, shortness of breath, nausea, vomiting, dizziness, headache, vision changes, lethargy In case of emergency call 911 Orders: Orders SARS-CoV2/FLU/RSV Today B34.9 - Viral infection, unspecified Medications: New albuterol sulfate 2.5 mg (0.5 mL) inhalation Q6H PRN 20 mL 0RF shortness of breath or wheezing albuterol sulfate 90 mcg/actuation 2 puffs inhalation Q6H PRN 6.7 grams 0RF shortness of breath or wheezing prednisone 40 mg (2 x 20 mg) PO DAILY 10 tabs 0RF 5 days Coding Level of Care Code Est Pt Level 3 (83486) Diagnoses Viral illness B34.9
[2023-04-30 10:14] VITALS: BP 142/80; PULSE 100; TEMP 36.6; O2SAT 98; BMI 32.5
== END 2023-04-30 10:39 | disposition home or self-care (01) ==
PROVIDERS: PCP Internal Medicine; Visit Provider Physician Assistant
DX: B34.9 Viral infection, unspecified (principal)
CPT/HCPCS: 99213

== ENCOUNTER 2023-04-30 10:45 | Outpatient (REF) | payer OTHER, SELFPAY ==
[2023-04-30 16:11] LABS: Influenza A PCR NEGATIVE (Negative); Influenza B PCR NEGATIVE (Negative); Resp Syncy Virus RNA Qual PCR NEGATIVE (Negative); SARS COV2 PCR INHOUSE NEGATIVE (Negative)
== END 2023-04-30 10:46 | disposition home or self-care (01) ==
LOC: HO.LAB 10:45
PROVIDERS: Visit Provider Physician Assistant
DX: B34.9 Viral infection, unspecified (principal); Z20.822 Contact with and (suspected) exposure to COVID-19
CPT/HCPCS: 0241U

== ENCOUNTER 2023-05-08 11:52 | Outpatient (AMB) | payer OTHER, SELFPAY ==
--- NOTE | 2023-05-08 13:06 | AM.OFFWIN_ITS ---
Intake Vital Signs 05/08/23 13:14 Height 5 ft 1 in Weight 182 lb 6 oz BMI 34.5 BP 130/80 Blood Pressure Location Lt brachial Position Sitting Pulse 82 Pulse Source Pulse Oximeter Temp 97.2 F Temp Source Temporal Artery Scan Pulse Oximetry (%) 98 Oxygen Delivery Method Room Air Intake Visit Reasons: EP sinus pain cough not sleeping [id number] Intake Note: Pt is here c/o sinus congestion, bad cough and trouble sleeping. Pt states she was evaluated one week ago and has only gotten worse. Patient Tobacco Use Status: Former Tobacco user Quit Date: 20 years ago Allergies oxycodone [From PERCOCET] Allergy (Intermediate, Verified 05/08/23 13:15) VOMITING, N/V codeine [Codeine] Allergy (Mild, Verified 05/08/23 13:15) HIVES atorvastatin Allergy (Unknown, Verified 05/08/23 13:15) Headaches bupropion [From WELLBUTRIN] Allergy (Unknown, Verified 05/08/23 13:15) PALPITATIONS morphine [MORPHINE] Allergy (Unknown, Verified 05/08/23 13:15) NIGHTMARES naproxen [NAPROXEN] Allergy (Unknown, Verified 05/08/23 13:15) RASH sertraline Allergy (Unknown, Verified 05/08/23 13:15) Unknown simvastatin Allergy (Unknown, Verified 05/08/23 13:15) Unknown zolpidem [ZOLPIDEM] Allergy (Unknown, Verified 05/08/23 13:15) PALPITATIONS Do you need a note to return to daycare/school/sports/work: No HPI HPI Comments History of Present Illness Details Patient is a 52-year-old female in today for sick visit. She reports symptoms of bilateral ear pain, sinus tenderness, cough, and headache. She was last seen in the walk-in 8 days prior to arrival. She had similar symptoms was given prednisone and albuterol inhaler but states that her ear pain and sinus tenderness only got worse. Denies dizziness, chest pain, shortness a breath, nausea, vomiting, or diarrhea. [facility] Medical History Vertigo Dysuria Upper respiratory tract infection Nausea and vomiting Abdominal pain Fall Otitis media IBS (irritable bowel syndrome) Uterine cancer History of gestational diabetes Genital herpes Hypercholesterolemia Obstructive sleep apnea Vitamin D deficiency Lumbar degenerative disc disease Hypertension Insomnia Fatty liver GERD (gastroesophageal reflux disease) Asthma Obesity (BMI 30-39.9) NAFLD (nonalcoholic fatty liver disease) Surgical History History of esophagogastroduodenoscopy (EGD) History of lumbar surgery History of total abdominal hysterectomy and bilateral salpingo-oophorectomy History of tubal ligation Hx of endoscopy History of colonoscopy Family History Father Hx of colon cancer, stage III Stomach cancer Mother Hx of heat stroke Acute CVA (cerebrovascular accident) Hypertension Diabetes Maternal Grandmother Breast cancer Stroke Maternal Grandfather CVD (cardiovascular disease) Myocardial infarction Son In good health Sister No problems noted. Sister No problems noted. Sister No problems noted. Brother No problems noted. Brother No problems noted. Social History Housing: Apartment Alcohol intake: never Patient Tobacco Use Status: Former Tobacco user Quit Date: 20 years ago Tobacco use type: Cigarette Years Smoked: 2002 quit e-Cigarette/Vaping Use: Never Used Second Hand Smoke Exposure: No service: No Current occupational status: disabled Current occupational exposures/hazards: No Cognitive needs: No Hearing needs: No Vision needs: No Review of Systems Const Details: Constitutional : No Weight loss, No Fever, No Chills, No Fatigue, No Malaise ENT/Mouth : Admits bilateral ear pain. Admits sinus tenderness. Eyes: No Eye Pain, No Swelling, No Redness Cardiovascular : No Chest Pain, No SOB, No Dyspnea on Exertion, No Orthopnea, No Edema, No Palpitations Respiratory : Admits Cough, Admits green Sputum, No Wheezing Gastrointestinal : No Nausea, No Vomiting, No Diarrhea, No Constipation, No abdominal Pain, No Hematochezia, No Melena Neuro : No Weakness, No Numbness, No Dizziness, No Headache Psych : No Anxiety/Panic, No Depression All other systems reviewed and are negative Physical Exam Vital Signs: Last Vital Signs Temp 97.2 F 05/08/23 13:14 Pulse 82 05/08/23 13:14 BP 130/80 05/08/23 13:14 Pulse Ox 98 05/08/23 13:14 Oxygen Delivery Method Room Air 05/08/23 13:14 BMI result Body Mass Index 34.5 Vital signs have been reviewed and are stable. Const Other: Appearance: Alert.? Oriented X3.? No acute distress.? Head: Normocephalic, atraumatic, no step-offs or deformities Eyes: Pupils equal, round and reactive to light.? ENT: Sinus tenderness. Erythema and effusion of the right TM. Left TM clear, intact, and pearly arevalo. No mastoid tenderness. Neck: Normal inspection.? Neck supple.?Full ROM CVS: Normal heart rate and rhythm.? Pulses normal.? Respiratory: No respiratory distress.? Breath sounds normal.? Neuro: Oriented X 3.? No motor deficit.? No sensory deficit. CN 2-12 intact Results Reviewed Results Reviewed: Will call patient with swab results. Assessment & Plan Assessment & Plan (1) Otitis media of left ear: Comment: Patient will be given Augmentin to be take as directed. Patient has been educated on the side effects of this medication how to take it properly. Patient has been educated on signs of worsening symptoms and when to report back to the walk-in or when to report back to the emergency room. Patient states she is agreeable to this plan Code(s): H66.92 - Otitis media, unspecified, left ear Qualifiers: Otitis media type: unspecified Qualified Code(s): H66.92 - Otitis media, unspecified, left ear Plan Patient will be given Augmentin to be taken as directed. Orders: Orders SARS-CoV2/FLU/RSV Today J06.9 - Acute upper respiratory infection, unspecified Medications: New amoxicillin-pot clavulanate 875-125 mg 1 tab PO Q12H 20 tabs 0RF Patient Instructions: Take your medications as prescribed. If you were prescribed antibiotics today, it is important that you take your medication to their entirety, do not skip any doses, do not finish them early. Follow-up with your primary care provider this week. Return to the emergency department with new or worsening symptoms. Such as fevers, chills, chest pain, shortness of breath, nausea, vomiting, dizziness, headache, vision changes, lethargy In case of emergency call 911 Coding Level of Care Code Est Pt Level 3 (97362) Diagnoses Left otitis media, unspecified otitis media type H66.92 Otitis media type: unspecified Time Spent (min) 20
[2023-05-08 13:14] VITALS: BP 130/80; PULSE 82; TEMP 36.2; O2SAT 98; BMI 34.5
== END 2023-05-08 14:16 | disposition home or self-care (01) ==
PROVIDERS: PCP Internal Medicine; Visit Provider Nurse Practitioner Primary Care
DX: H66.92 Otitis media, unspecified, left ear (principal)
CPT/HCPCS: 99213

== ENCOUNTER 2023-05-08 18:32 | Outpatient (REF) | payer OTHER, SELFPAY ==
[2023-05-08 19:29] LABS: Influenza A PCR NEGATIVE (Negative); Influenza B PCR NEGATIVE (Negative); Resp Syncy Virus RNA Qual PCR NEGATIVE (Negative); SARS COV2 PCR INHOUSE NEGATIVE (Negative)
== END 2023-05-08 18:33 | disposition home or self-care (01) ==
LOC: HO.HMGCLNP 18:32
PROVIDERS: Visit Provider Nurse Practitioner Primary Care
DX: J06.9 Acute upper respiratory infection, unspecified (principal); Z11.52 Encounter for screening for COVID-19
CPT/HCPCS: 0241U

== ENCOUNTER 2023-05-30 10:06 | Outpatient (AMB) | payer OTHER, SELFPAY ==
--- NOTE | 2023-05-30 10:13 | MHC.OFFVIS ---
Intake Vital Signs 05/30/23 10:15 Height 5 ft Weight 183 lb BMI 35.7 BP 138/68 Blood Pressure Location Lt brachial Pulse 72 Pulse Source Pulse Oximeter Pulse Oximetry (%) 98 Oxygen Delivery Method Room Air Intake Visit Reasons: [id number] Allergies oxycodone [From PERCOCET] Allergy (Intermediate, Verified 05/30/23 10:17) VOMITING, N/V codeine [Codeine] Allergy (Mild, Verified 05/30/23 10:17) HIVES atorvastatin Allergy (Unknown, Verified 05/30/23 10:17) Headaches bupropion [From WELLBUTRIN] Allergy (Unknown, Verified 05/30/23 10:17) PALPITATIONS morphine [MORPHINE] Allergy (Unknown, Verified 05/30/23 10:17) NIGHTMARES naproxen [NAPROXEN] Allergy (Unknown, Verified 05/30/23 10:17) RASH sertraline Allergy (Unknown, Verified 05/30/23 10:17) Unknown simvastatin Allergy (Unknown, Verified 05/30/23 10:17) Unknown zolpidem [ZOLPIDEM] Allergy (Unknown, Verified 05/30/23 10:17) PALPITATIONS HPI HPI Comments History of Present Illness Details 52 y/o female patient for new in-person visit for sleep consultation. 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 She tried CPAP but had anxiety and could not use it consistently. She tired different mask, but not tolerated. Pt reports non refreshing sleep, tosses and turns, and wake up daily AM headache. Pt report being tired all day and dozing off. Pt wants to try CPAP again. Sleep questionnaire: Have you ever been diagnosed with a sleep disorder? Yes, JACK. Have you ever had a sleep study in the past? Yes, in lab sleep study. Have you ever been treated for a sleep disorder? Yes with CPAP. Do you take medications for a sleep disorder? Ativan. Do you snore? Yes. Do you wake up gasping at night? No. Do you have episodes of apneas? Yes. If yes, are they witnessed? Yes. Do you have episodes of nocturnal chest pain or dyspnea? Yes. Do you have difficulty initiating sleep? Yes. Do you have difficulty maintaining sleep? Yes. Do you wake up tired? Yes. Do you have headaches upon awakening? Yes. Do you wake up with dry mouth or throat? Yes. Do you have GERD? Yes. Do you have nocturia? Yes. Do you have nocturnal leg cramps? No. Do you have symptoms of restless legs? No. Do you act out your dreams? No. Sleep hygiene questionnaire: What is your usual sleep routine? Usual bedtime is at 11:30 pm; Usual wake up time is at 6 am. Do you take naps? No.Yes. Is your sleep environment cool, dark, and quiet? Yes. Do you exercise? Yes, twice a week. PT. Do you take caffeine or other stimulants? Sometimes. Do you use electronics in bed? Yes. What is your work schedule? N/A. Hypersomnolence questionnaire: Do you have daytime tiredness or fatigue? Yes. Do you easily fall asleep when inactive? Yes. Have you ever had episodes of sudden weakness? No. Have you ever had episodes of sudden weakness associated with strong emotions? No. PFSH Medical History Vertigo Dysuria Upper respiratory tract infection Nausea and vomiting Abdominal pain Fall Otitis media IBS (irritable bowel syndrome) Uterine cancer History of gestational diabetes Genital herpes Hypercholesterolemia Obstructive sleep apnea Vitamin D deficiency Lumbar degenerative disc disease Hypertension Insomnia Fatty liver GERD (gastroesophageal reflux disease) Asthma Obesity (BMI 30-39.9) NAFLD (nonalcoholic fatty liver disease) Surgical History History of esophagogastroduodenoscopy (EGD) History of lumbar surgery History of total abdominal hysterectomy and bilateral salpingo-oophorectomy History of tubal ligation Hx of endoscopy History of colonoscopy Family History Father Hx of colon cancer, stage III Stomach cancer Mother Hx of heat stroke Acute CVA (cerebrovascular accident) Hypertension Diabetes Maternal Grandmother Breast cancer Stroke Maternal Grandfather CVD (cardiovascular disease) Myocardial infarction Son In good health Sister No problems noted. Sister No problems noted. Sister No problems noted. Brother No problems noted. Brother No problems noted. Social History Housing: Apartment Alcohol intake: never Patient Tobacco Use Status: Former Tobacco user Quit Date: 20 years ago Tobacco use type: Cigarette Years Smoked: 2002 quit e-Cigarette/Vaping Use: Never Used Second Hand Smoke Exposure: No service: No Current occupational status: disabled Current occupational exposures/hazards: No Cognitive needs: No Hearing needs: No Vision needs: No Review of Systems Const All systems reviewed & are unremarkable except as noted in HPI and below Physical Exam Vital Signs: Last Vital Signs Pulse 72 05/30/23 10:15 BP 138/68 05/30/23 10:15 Pulse Ox 98 05/30/23 10:15 Oxygen Delivery Method Room Air 05/30/23 10:15 BMI result Body Mass Index 35.7 Const General: cooperative and tired appearing Nutritional Appearance: obese Orientation/consciousness: patient oriented x3 Neck Neck: Yes full ROM and Yes supple Resp Effort & Inspection: normal respiratory effort and able to speak in complete sentences Neuro General: patient oriented x3, gait normal and moves all extremities Cranial nerves: Yes CN's II-XII intact bilaterally Cognition (Neuro): normal cognition Motor exam (neuro): 5/5 motor strength present throughout Psych Appearance: grossly normal Mental Status: mental status grossly normal Speech and movement: Normal speech and movement present Affect: Anxious affect present Attitude: cooperative Assessment & Plan Assessment & Plan (1) Obstructive sleep apnea: Comment: cannot tolerate CPAP 06/2021 Code(s): G47.33 - Obstructive sleep apnea (adult) (pediatric) (2) Obesity (BMI 30-39.9): Code(s): E66.9 - Obesity, unspecified (3) Snoring: Code(s): R06.83 - Snoring Plan Pt is advised to undergo in lab sleep study to assess for sleep apnea. Pt had several home sleep study done, but they were inconclusive. Will f/u with pt after study to discuss results and appropriate treatment options. Wt reduction advised. Pt to call with any worsening concerns or questions. Orders: Orders RT PSG in-lab sleep study 05/30/23 E66.9 - Obesity, unspecified, G47.33 - Obstructive sleep apnea (adult) (pediatric), I10 - Essential (primary) hypertension Coding Level of Care Code New Pt Level 3 (49768) Diagnoses Obstructive sleep apnea G47.33 Obesity (BMI 30-39.9) E66.9 Snoring R06.83
[2023-05-30 10:15] VITALS: BP 138/68; PULSE 72; O2SAT 98; BMI 35.7
== END 2023-05-30 11:23 | disposition home or self-care (01) ==
PROVIDERS: PCP Internal Medicine; Visit Provider Nurse Practitioner Family
DX: G47.33 Obstructive sleep apnea (adult) (pediatric) (principal); E66.9 Obesity, unspecified; R06.83 Snoring
CPT/HCPCS: 99203

== ENCOUNTER → 2023-05-30 10:06 | Outpatient (BNVA) | payer OTHER, SELFPAY | PROVIDERS: PCP Internal Medicine; Visit Provider Nurse Practitioner Family | DX: G47.33 Obstructive sleep apnea (adult) (pediatric) (principal); R06.83 Snoring; E66.9 Obesity, unspecified; Z68.35 Body mass index [BMI] 35.0-35.9, adult | CPT/HCPCS: 99202 ==

== ENCOUNTER → 2023-06-23 20:30 | Outpatient (REF) | payer OTHER, SELFPAY | LOC: HO.SL 20:30 | PROVIDERS: PCP Internal Medicine; Visit Provider Nurse Practitioner Family | DX: G47.33 Obstructive sleep apnea (adult) (pediatric) (principal); E66.9 Obesity, unspecified | CPT/HCPCS: 95810 ==

== ENCOUNTER → 2023-06-23 22:03 | Outpatient (BNV) | payer OTHER, SELFPAY | PROVIDERS: PCP Internal Medicine; Visit Provider Internal Medicine | DX: G47.33 Obstructive sleep apnea (adult) (pediatric) (principal) | CPT/HCPCS: 95810 ==

== ENCOUNTER 2023-07-16 11:35 | Outpatient (REF) | payer OTHER, SELFPAY ==
[2023-07-16 12:11] LABS: Basophils Percent Auto 0.5 % (0-2); Eosinophils Absolute Auto 0.1 X10*3/uL (0.0-0.4); Eosinophils Percent Auto 1.6 % (0-4); Hematocrit 43.6 % (37.0-47.0); Hemoglobin 14.1 g/dl (12.0-16.0); Imm Gran Abs Auto 0.04 X10*3/uL (0.00-0.03); Imm Gran Pct Auto 0.5 % (0.0-0.4); Lymphocytes Absolute Auto 2.7 X10*3/uL (1.2-4.9); Lymphocytes Percent Auto 32.5 % (20-40); MANUAL DIFF FLAG NO; Mean Corpuscular HGB Conc 32.3 g/dl (31.0-35.0); Mean Corpuscular Hemoglobin 26.3 pg (27.0-33.0); Mean Corpuscular Volume 81.3 fL (80.0-98.0); Mean Platelet Volume 8.9 fL (9.4-12.3); Monocytes Absolute Auto 0.8 X10*3/uL (0.1-1.2); Monocytes Percent Auto 9.3 % (2-11); Neutrophils Absolute Auto 4.5 x10*3/uL (2.0-8.3); Neutrophils Percent Auto 55.6 % (45-73); Platelet Count 360 X10*3/uL (160-400); Red Blood Count 5.36 X10*6/uL (4.20-5.50); Red Cell Distribution Width 14.5 % (11.0-16.0); White Blood Count 8.2 X10*3/uL (4.8-10.8)
[2023-07-16 12:57] LABS: Alanine Aminotransferase 94 U/L (0-31); Albumin Level 4.6 g/dL (3.5-5.0); Alkaline Phosphatase 90 U/L (39-117); Anion Gap 10 (12-20); Aspartate Amino Transferase 68 U/L (5-31); Bilirubin Total 0.6 mg/dL (0.0-1.0); Blood Urea Nitrogen 15 mg/dL (9-16); Calcium 10.2 mg/dL (8.4-10.2); Carbon Dioxide 28 mmol/L (22-29); Chloride 106 mmol/L (96-108); Cholesterol 182 mg/dL (<200); Estimated Glomerular Filt Rate > 60; Glucose Random 102 mg/dL (60-115); HDL Cholesterol 41 mg/dL (>40); LDL Cholesterol Calculated 116 mg/dL (<100); Potassium 4.2 mmol/L (3.3-5.1); Sodium 140 mmol/L (135-145); Total Protein 8.1 g/dL (6.5-8.0); Triglycerides 125 mg/dL (<150)
[2023-07-16 13:12] LABS: Thyroid Stimulating Hormone 1.52 uIU/mL (0.32-4.0)
== END 2023-07-16 11:36 | disposition home or self-care (01) ==
LOC: HO.LAB 11:35
PROVIDERS: PCP Internal Medicine; Visit Provider Internal Medicine
DX: E78.00 Pure hypercholesterolemia, unspecified (principal)
CPT/HCPCS: 36415; 80053; 80061; 84443; 85025

== ENCOUNTER 2023-07-23 08:31 | Outpatient (AMB) | payer OTHER, SELFPAY ==
[2023-07-23 08:32] VITALS: BP 132/78; PULSE 83; O2SAT 100; BMI 35.5
--- NOTE | 2023-07-23 08:32 | A.OFFPC_ITS ---
Vital Signs 07/23/23 08:32 Height 5 ft Weight 182 lb BMI 35.5 BP 132/78 Blood Pressure Location Lt brachial Position Sitting Pulse 83 Pulse Source Pulse Oximeter Temp Source Skin Pulse Oximetry (%) 100 Oxygen Delivery Method Room Air Intake Visit Reasons: PE Intake Note: Patient is here today for a physical. 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 Allergies oxycodone [From PERCOCET] Allergy (Intermediate, Verified 07/23/23 08:32) VOMITING, N/V codeine [Codeine] Allergy (Mild, Verified 07/23/23 08:32) HIVES atorvastatin Allergy (Unknown, Verified 07/23/23 08:32) Headaches bupropion [From WELLBUTRIN] Allergy (Unknown, Verified 07/23/23 08:32) PALPITATIONS morphine [MORPHINE] Allergy (Unknown, Verified 07/23/23 08:32) NIGHTMARES naproxen [NAPROXEN] Allergy (Unknown, Verified 07/23/23 08:32) RASH sertraline Allergy (Unknown, Verified 07/23/23 08:32) Unknown simvastatin Allergy (Unknown, Verified 07/23/23 08:32) Unknown zolpidem [ZOLPIDEM] Allergy (Unknown, Verified 07/23/23 08:32) PALPITATIONS Medication List - Last Reconciled 07/23/23 by Coreen Hernandez MD albuterol sulfate 2.5 mg (0.5 mL) inhalation Q6H PRN albuterol sulfate 90 mcg/actuation 2 puffs inhalation Q6H PRN blood sugar diagnostic As directed check BS QD blood-glucose meter As directed cyclobenzaprine 10 mg PO BID fluticasone propionate 50 mcg/actuation (Flonase Allergy Relief) 1 spray intranasal DAILY lancets As directed lorazepam 1 mg PO DAILY 30 days nebulizers (Aeroneb Go Nebulizer) As directed pantoprazole 40 mg PO BID pravastatin 20 mg PO DAILY sennosides (senna) 17.2 mg (2 x 8.6 mg) PO BEDTIME Shower Chair As directed Tobacco use date assessed: 07/23/23 Dental Screening Dental Screen Date: 07/23/23 Did you have a dental visit in the last 12 months?: Yes Did you have a dental problem in the last 6 months where you did not have access to dental care?: No Was dental information given to patient?: Patient has dentist HPI PE HPI Details 52-year-old obese female with multiple m edical problems obstructive sleep apnea fatty liver asthma hypercholesterolemia generalized anxiety disorder GERD last seen in February 2023. Patient is here for physical exam for EGD and colonoscopy(5 years) patient is up-to-date April 2023 mammogram is up-to-date March 2023. Patient has been follow-up with Neurology for the sleep apnea testing showing mild obstructive sleep apnea 06/23/2023 AHI of 6.2. Patient was also seen in the [facility]gent [facility] for sinus pain diagnosis of otitis media left ear. April 2023 fevers and congestion diagnosis of viral illness [facility] Medical History Vertigo Dysuria Upper respiratory tract infection Nausea and vomiting Abdominal pain Fall Otitis media IBS (irritable bowel syndrome) Uterine cancer History of gestational diabetes Genital herpes Hypercholesterolemia Obstructive sleep apnea Vitamin D deficiency Lumbar degenerative disc disease Hypertension Insomnia Fatty liver GERD (gastroesophageal reflux disease) Asthma Obesity (BMI 30-39.9) NAFLD (nonalcoholic fatty liver disease) Surgical History History of esophagogastroduodenoscopy (EGD) History of lumbar surgery History of total abdominal hysterectomy and bilateral salpingo-oophorectomy History of tubal ligation Hx of endoscopy History of colonoscopy Family History Father Hx of colon cancer, stage III Stomach cancer Mother Hx of heat stroke Acute CVA (cerebrovascular accident) Hypertension Diabetes Maternal Grandmother Breast cancer Stroke Maternal Grandfather CVD (cardiovascular disease) Myocardial infarction Son In good health Sister No problems noted. Sister No problems noted. Sister No problems noted. Brother No problems noted. Brother No problems noted. Social History (Updated 07/23/23 @ 09:17 by Coreen Hernandez MD) Housing: Apartment Alcohol intake: never Patient Tobacco Use Status: Former Tobacco user Quit Date: 20 years ago Tobacco use type: Cigarette Years Smoked: 2002 quit CBD oil e-Cigarette/Vaping Use: Never Used Second Hand Smoke Exposure: No service: No Current occupational status: disabled Current occupational exposures/hazards: No Cognitive needs: No Hearing needs: No Vision needs: No Questionnaire PHQ-9 Over the last 2 weeks, how often have you been bothered by any of the following problems? 1. Little interest or pleasure in doing things: nearly every day 2. Feeling down, depressed, or hopeless: nearly every day 3. Trouble falling or staying asleep, or sleeping too much: nearly every day 4. Feeling tired or having little energy: nearly every day 5. Poor appetite or overeating: nearly every day 6. Feeling bad about yourself - or that you are a failure or have let yourself or your family down: several days 7. Trouble concentrating on things, such as reading the newspaper or watching television: not at all 8. Moving or speaking so slowly that other people could have noticed. Or the opposite - being so fidgety or restless that you have been moving around a lot more than usual: several days 9. Thoughts that you would be better off or of hurting yourself in some way: not at all Total score: 17 Depression Screening Interpretation: Positive Depression Screening Done: Yes Source: Developed by Drs. Miki Koo, Monica Childers, Chris Watt and colleagues, with an educational adrien from [employer]. Thrive Questionnaire Date Thrive assessed: 08/27/22 AUDIT C Alcohol Use Questionnaire (AUDIT-C) 1. How often do you have a drink containing alcohol?: Never Total Score: 0 ELDA-7 AMB Questionnaire ELDA-7 Date ELDA - 7 assessed: 07/23/23 Feeling nervous, anxious, or on edge: 1 = Several days Not being able to stop or control worryin = Several days Worrying too much about different things: 1 = Several days Trouble relaxin = Several days Being so restless that it is hard to sit still: 1 = Several days Becoming easily annoyed or irritable: 1 = Several days Feeling afraid as if something awful might happen: 0 = Not at all Total ELDA-7 score (0-4 normal; 5-9 mild; 10-14 moderate; 15-21 severe): 6 Source: Developed by Drs. Miki Koo, Monica Childers, Chris Watt and colleagues, with an educational adiren from [employer]. Review of Systems Const Denies poor appetite and Denies weakness Eyes Denies no additional complaints ENT Reports Normal hearing present, Denies dizziness, Denies nasal congestion, Denies tinnitus and Denies sore throat Card Denies chest pain, Denies syncope, Denies rapid heart rate and Denies dyspnea Resp Denies cough and Denies dyspnea GI Denies change in stool character, Reports constipation, Denies diarrhea, Denies nausea and Denies vomiting Denies urinary frequency, Denies difficulty voiding and Denies dysuria Neuro Reports Normal hearing present, Denies confusion, Denies dizziness, Denies syncope and Denies weakness Psych Denies confusion Physical exam (Primary Care) Vital Signs: Last Vital Signs Pulse 83 07/23/23 08:32 BP 132/78 07/23/23 08:32 Pulse Ox 100 07/23/23 08:32 Oxygen Delivery Method Room Air 07/23/23 08:32 BMI result Body Mass Index 35.5 Tobacco/Smoking Status: Tobacco use Status Tobacco use date assessed 07/23/23 07/23/23 08:33 Patient Tobacco Use Status Former Tobacco user 07/23/23 08:32 Tobacco use type Cigarette 07/23/23 08:32 e-Cigarette/Vaping Use Never Used 07/23/23 08:32 PHQ-9: PHQ-9 Score PHQ-9: Total score 17 07/23/23 08:52 Depression Screening Interpretation: Positive Thrive Assessment: Date of Thrive Assessment Date Thrive assessed 08/27/22 07/23/23 08:32 Const General: No confusion Orientation/consciousness: No confusion HENMT Head: Yes normocephalic Ears: external ears normal and TM's normal bilaterally Face and sinus: Yes normal facial exam Mouth: moist mucous membranes Throat: Yes tonsils normal Eyes Conjunctivae: conjunctivae normal Pupils: Equal, round and reactive pupils present and Pupil accommodation reflex normal Direct Ophthalmoscopy: normal light reflex Neck Neck: No lymphadenopathy Thyroid: Thyroid normal Chest Chest palpation & inspection: normal inspection of the chest Resp Effort & Inspection: normal respiratory effort and no audible wheezes Auscultation: clear to auscultation bilaterally, no crackles, no wheezes and lung sounds not diminished Cardio Rate: regular rate Rhythm: regular rhythm Peripheral pulses: radial pulses present and dorsalis pedis present GI Palpation (GI): no masses Auscultation: normal bowel sounds and normoactive bowel sounds Rectal Exam - Female: deferred Skin General skin exam: no rashes or lesions noted Rashes: no rashes Neuro General: No confusion Cranial nerves: Yes Equal, round and reactive pupils present and Yes Normal hearing present Cognition (Neuro): normal cognition Gait exam (Neuro): Normal gait present Motor exam (neuro): 5/5 motor strength present throughout Deep tendon reflexes (DTR's): Right brachioradialis reflex intensity grade: 2+, Left brachioradialis reflex intensity grade: 2+, Right patellar reflex intensity grade: 2+ and Left patellar reflex intensity grade: 2+ Extrem General: No edema Assessment and Plan Assessment & Plan (1) Annual physical exam: Code(s): Z00.00 - Encounter for general adult medical examination without abnormal findings (2) GERD (gastroesophageal reflux disease): Comment: Pantoprazole 40 mg QAM- avoid culprits, dietary modification give trial to sucralfate Code(s): K21.9 - Gastro-esophageal reflux disease without esophagitis Qualifiers: Esophagitis presence: without esophagitis Qualified Code(s): K21.9 - Gastro-esophageal reflux disease without esophagitis Plan: Avoid the foods that causes that usually spicy foods, tomato products, juices, coffee, soda and foods that your sensitive to. After eating do not lie down, allow 3-4 hours before in lie down. And keep the head of bed above 30 degrees to avoid the acid from going up. (3) NAFLD (nonalcoholic fatty liver disease): Comment: avoid weight gain, good cholesterol and glucose control Code(s): K76.0 - Fatty (change of) liver, not elsewhere classified Plan: Low-fat diet and exercise (4) Obesity (BMI 30-39.9): Code(s): E66.9 - Obesity, unspecified Plan: Diet and exercise (5) Asthma: Code(s): J45.909 - Unspecified asthma, uncomplicated Qualifiers: Asthma severity: mild Asthma persistence: intermittent Asthma complication type: uncomplicated Qualified Code(s): J45.20 - Mild intermittent asthma, uncomplicated Plan: Continue with the inhaler as needed (6) Lumbar degenerative disc disease: Code(s): M51.36 - Other intervertebral disc degeneration, lumbar region Plan: Keep active (7) Generalized anxiety disorder: Comment: conselling [place] every Saturday (01/2022) Code(s): F41.1 - Generalized anxiety disorder Plan: Continue with counseling and therapy (8) Impaired fasting glucose: Code(s): R73.01 - Impaired fasting glucose Plan: Decrease the amount of carbohydrate intake, pasta, bread, rice and potatoes are all sugar and that is aside from all the sweet stuff, remember that fruits are good but they are Sweet also. (9) Skin tag: Comment: neck, L axilla, abdomen Code(s): L91.8 - Other hypertrophic disorders of the skin Plan: Multiple areas left axilla right chest neck area, upper abdominal area. Referral to dermatology done. Discussed also with the patient an [id number] product from Dr. Lopez's Orders: Orders Comprehensive Met. Panel 6 Months K21.9 - Gastro-esophageal reflux disease without esophagitis Hemoglobin A1c 6 Months K21.9 - Gastro-esophageal reflux disease without esophagitis Referrals Dermatology Referral L91.8 - Other hypertrophic disorders of the skin Coding Level of Care Code Est Pt Prev Care 40-64y(81880) Diagnoses Annual physical exam Z00.00 Gastroesophageal reflux disease without esophagitis K21.9 Esophagitis presence: without esophagitis NAFLD (nonalcoholic fatty liver disease) K76.0 Obesity (BMI 30-39.9) E66.9 Mild intermittent asthma without complication J45.20 Asthma severity: mild Asthma persistence: intermittent Asthma complication type: uncomplicated Lumbar degenerative disc disease M51.36 Generalized anxiety disorder F41.1 Impaired fasting glucose R73.01 Skin tag L91.8
== END 2023-07-23 09:36 | disposition home or self-care (01) ==
PROVIDERS: Visit Provider Internal Medicine
DX: Z00.00 Encounter for general adult medical examination without abnormal findings (principal); K21.9 Gastro-esophageal reflux disease without esophagitis; E66.9 Obesity, unspecified; Z68.35 Body mass index [BMI] 35.0-35.9, adult; K76.0 Fatty (change of) liver, not elsewhere classified; J45.20 Mild intermittent asthma, uncomplicated; M51.36 Other intervertebral disc degeneration, lumbar region; F41.1 Generalized anxiety disorder; R73.01 Impaired fasting glucose; L91.8 Other hypertrophic disorders of the skin
CPT/HCPCS: 99396

== ENCOUNTER 2023-07-30 04:51 | Emergency (ER) | payer OTHER, SELFPAY ==
[2023-07-30 05:12] VITALS: BP 147/97; PULSE 90; RESP 20; TEMP 36.6; O2SAT 96; BMI 34.0
--- NOTE | 2023-07-30 06:35 | ED.BACK ---
HPI - Back Pain/Injury General Chief Complaint: Back Pain/Injury Stated Complaint: back pain Time Seen by Provider: 07/30/23 05:31 Source: patient Mode of arrival: ambulatory History of Present Illness HPI Narrative: 52-year-old female who presents with chronic back pain that is worsened since she moved her mattress but denies any saddle anesthesia or bowel or bladder dysfunction and denies any weakness into either lower extremity. She also denies any history of IVDA and denies any fevers or chills. Related Data Home Medications Medication Instructions Recorded Confirmed lancets 28 gauge #100 ea 05/05/20 07/23/23 blood-glucose meter #1 ea 06/13/20 07/23/23 pantoprazole 20 mg tablet,delayed 40 mg PO BID 07/23/23 release Previous Rx's Medication Instructions Recorded blood sugar diagnostic #100 ea 06/13/20 Shower Chair #1 ea 07/03/21 fluticasone propionate 50 1 spray intranasal DAILY #9.9 mL 01/18/23 mcg/actuation nasal spray,suspension (Flonase Allergy Relief) pravastatin 20 mg tablet 20 mg PO DAILY #90 tabs 01/31/23 sennosides 8.6 mg tablet (senna) 17.2 mg (2 x 8.6 mg) PO BEDTIME 03/21/23 for constipation #60 tabs albuterol sulfate 5 mg/mL(0.5 %) 2.5 mg (0.5 mL) inhalation Q6H PRN 04/30/23 solution for nebulization shortness of breath or wheezing #20 mL albuterol sulfate 90 mcg/actuation 2 puff inhalation Q6H PRN 04/30/23 aerosol inhaler shortness of breath or wheezing #6.7 grams nebulizers (Aeroneb Go Nebulizer) #1 ea 04/30/23 lorazepam 1 mg tablet 1 mg PO DAILY 30 days #30 tabs 06/04/23 cyclobenzaprine 10 mg tablet 10 mg PO BID #90 tabs 06/10/23 Allergies Allergy/AdvReac Type Severity Reaction Status Date / Time oxycodone [From PERCOCET] Allergy Intermediate VOMITING, Verified 07/30/23 05:12 N/V codeine [Codeine] Allergy Mild HIVES Verified 07/30/23 05:12 atorvastatin Allergy Unknown Headaches Verified 07/30/23 05:12 bupropion [From WELLBUTRIN] Allergy Unknown PALPITATION Verified 07/30/23 05:12 S morphine [MORPHINE] Allergy Unknown NIGHTMARES Verified 07/30/23 05:12 naproxen [NAPROXEN] Allergy Unknown RASH Verified 07/30/23 05:12 sertraline Allergy Unknown Unknown Verified 07/30/23 05:12 simvastatin Allergy Unknown Unknown Verified 07/30/23 05:12 zolpidem [ZOLPIDEM] Allergy Unknown PALPITATION Verified 07/30/23 05:12 S Review of Systems Review of Systems: Pertinent positives and negatives as stated in HPI [facility] Past Medical History Source: nursing notes reviewed Medical History Vertigo Dysuria Upper respiratory tract infection Nausea and vomiting Abdominal pain Fall Otitis media IBS (irritable bowel syndrome) Uterine cancer History of gestational diabetes Genital herpes Hypercholesterolemia Obstructive sleep apnea Vitamin D deficiency Lumbar degenerative disc disease Hypertension Insomnia Fatty liver GERD (gastroesophageal reflux disease) Asthma Obesity (BMI 30-39.9) NAFLD (nonalcoholic fatty liver disease) Surgical History History of esophagogastroduodenoscopy (EGD) History of lumbar surgery History of total abdominal hysterectomy and bilateral salpingo-oophorectomy History of tubal ligation Hx of endoscopy History of colonoscopy Family History Family History Father Hx of colon cancer, stage III Stomach cancer Mother Hx of heat stroke Acute CVA (cerebrovascular accident) Hypertension Diabetes Maternal Grandmother Breast cancer Stroke Maternal Grandfather CVD (cardiovascular disease) Myocardial infarction Son In good health Sister No problems noted. Sister No problems noted. Sister No problems noted. Brother No problems noted. Brother No problems noted. Social History Social History Housing: Apartment Alcohol intake: never Patient Tobacco Use Status: Former Tobacco user Quit Date: 20 years ago Tobacco use type: Cigarette Years Smoked: 2002 quit CBD oil e-Cigarette/Vaping Use: Never Used Second Hand Smoke Exposure: No Advance Directives: No Advance Directives Information Provided: No service: No Current occupational status: disabled Current occupational exposures/hazards: No Cognitive needs: No Hearing needs: No Vision needs: No Physical Exam Vital Signs: Vital Signs: Last Vital Signs Temp 97.9 F 07/30/23 05:12 Pulse 90 07/30/23 05:12 Resp 20 07/30/23 05:12 BP 147/97 H 07/30/23 05:12 Pulse Ox 96 07/30/23 05:12 O2 Del Method Room Air 07/30/23 05:12 BMI result Body Mass Index 34.0 VITAL SIGNS: Reviewed. GENERAL: Well developed, well nourished, in no acute distress. HEAD: Normocephalic/atraumatic EYES: PERRLA, EOMI LUNGS: Normal breath sounds. No adventitious sounds or accessory muscle use. SpO2<96> CARDIOVASCULAR: Regular rate and rhythm without noted murmurs ABDOMEN: Soft, non-tender, non-distended with bowel sounds. MUSCULOSKELETAL: No tenderness, deformities, or effusions noted on gross inspection. EXTREMITIES: No cyanosis, clubbing or edema. SKIN: Inspection of the skin reveals no rashes NEUROLOGIC: Alert and oriented x 4. Strength and sensation to light touch were grossly intact x 4. Medical Decision Making Medical Decision Making MDM Narrative: 52-year-old female with chronic back pain and likely exacerbation, there are no current concerns for urinary tract infection/spinal infection/cauda equina. Patient provided with combination analgesics as well as lidocaine patch, she understands that she will need to follow-up with her primary care doctor to discuss Differential Diagnosis Differential Diagnoses: The differential diagnosis associated with the presentation includes Please see the discussion above Admission/Observation Consideration of admission/observation: Escalation of care including admission/observation considered Please see the discussion above Discharge Plan Discharge Clinical Impression: Acute exacerbation of chronic low back pain Patient Disposition: Home, Self-Care Instructions: Back Pain (ED), Lower Back Exercises (ED), Non-pharmacological Pain Management Therapies for Adults (ED) Additional Instructions: 1. Resume all home medications as prescribed. 2. Tylenol 1000 mg, orally, every 6 hours as needed for pain control. Do not exceed 4000 mg within 24 hours. 3. Ibuprofen 400 mg, orally with milk or food, every 6 hours as needed for pain control. 4. I recommend either lidocaine patch to the area of maximal tenderness or possibly topical Voltaren (diclofenac 0.5%). Return to the ER for any worsening symptoms. Prescriptions: No Action (DME) blood sugar diagnostic Strip See Rx Instructions .ROUTE .MEDSUPPLY Qty: 100 0RF Rx Instructions: As directed check BS QD pravastatin 20 mg tablet 20 mg PO DAILY Qty: 90 2RF sennosides [senna] 8.6 mg tablet 17.2 mg PO BEDTIME Qty: 60 6RF (DME) nebulizers [Aeroneb Go Nebulizer] Misc See Rx Instructions .Route Qty: 1 0RF Rx Instructions: As directed lorazepam 1 mg tablet 1 mg PO DAILY 30 Days Qty: 30 1RF cyclobenzaprine 10 mg tablet 10 mg PO BID Qty: 90 0RF (DME) lancets 28 gauge misc See Rx Instructions topical .MEDSUPPLY Qty: 100 Rx Instructions: As directed (DME) blood-glucose meter Kit See Rx Instructions .ROUTE DAILY Qty: 1 Rx Instructions: As directed (DME) Shower Chair Misc See Rx Instructions .Route Qty: 1 0RF Rx Instructions: As directed pantoprazole 20 mg tablet,delayed release (DR/EC) 40 mg PO BID fluticasone propionate [Flonase Allergy Relief] 50 mcg/actuation spray,suspension 1 spray intranasal DAILY Qty: 9.9 1RF Rx Instructions: administer into each nostril albuterol sulfate 90 mcg/actuation HFA aerosol inhaler 2 puff inhalation Q6H PRN (Reason: shortness of breath or wheezing) Qty: 6.7 0RF albuterol sulfate 5 mg/mL solution for nebulization 2.5 mg inhalation Q6H PRN (Reason: shortness of breath or wheezing) Qty: 20 0RF Referrals: Po,Coreen Fisher MD [Primary Care Provider] -
[2023-07-30 06:49] VITALS: BP 138/96; PULSE 93; RESP 14; TEMP 36.4; O2SAT 97
[2023-07-30 06:49] LABS: Appearance Urine Clear; Color Urine Yellow; Glucose Urine UA Negative (Negative); Leukocyte Esterase Urine Negative (Negative); Nitrite Urine Negative (Negative); PH 5.5 (5.0-9.0); Specific Gravity - Urine 1.025 (1.005-1.025); Urine Blood Negative (Negative); Urine Ketones Negative (Negative); Urine Protein Negative (Neg-Trace)
[2023-07-30] MEDS: Acetaminophen 325 MG TABLET 975 MG PO (06:50)
[2023-07-30] MEDS: Lidocaine 4 % Patch ADH..PATCH 1 PATCH TRANSDERMA (06:50)
[2023-07-30] MEDS: Ibuprofen 400 MG TABLET PO (06:50)
== END 2023-07-30 06:54 | disposition home or self-care (01) ==
PROVIDERS: Emergency Provider Student in an Organized Health Care Education/Training Program; PCP Internal Medicine
DX: M54.50 Low back pain, unspecified (principal); Z79.899 Other long term (current) drug therapy; Z87.891 Personal history of nicotine dependence
CPT/HCPCS: 81003; 99283; 99284

== ENCOUNTER 2023-07-31 13:54 | Emergency (ER) | payer OTHER, SELFPAY ==
--- NOTE | ~2023-07-31 | CT_ITS ---
EXAMINATION: CT LUMBAR SPINE WITHOUT CONTRAST CLINICAL INFORMATION: Pain. Injury. COMPARISON: Previous x-ray June 2021. TECHNIQUE: Axial images through the lumbar spine without contrast. Sagittal and coronal reconstructions on the technologist's workstation were performed. This CT examination was performed using dose optimization techniques as appropriate, variously including the following: *Automated exposure control. *Adjustment of mA and/or kV according to patient size (this includes techniques or standardized protocols for targeted exams where dose is matched to indication/reason for exam; i.e. extremities or head). *Use of iterative reconstruction technique. DLP; 527 mGy-cm FINDINGS: There are postsurgical changes at L5-S1 with posterior fusion hardware and interbody disc spacer. Surgical hardware appears unchanged and intact. There is mild 5 mm anterior subluxation of L5 with respect to S1 that is stable. No fracture or dislocation. Mild degenerative spondylosis and disc space narrowing at T12-L1 and L1-L2. At T12-L1 and L1-L2, there is no disc herniation, protrusion or bulge. At L2-L3, there is mild diffuse disc bulge. No disc herniation. At L3-L4, there is diffuse disc bulge. No disc herniation. At L4-L5, there is diffuse disc bulge. No disc herniation. Paraspinal soft tissues are unremarkable. CT/CT lumbar spine wo IV con IMPRESSION: No fracture is seen. Stable postsurgical changes at L5-S1.
[2023-07-31 14:23] VITALS: BP 186/116; PULSE 119; RESP 18; TEMP 35.8; O2SAT 96; BMI 34.0
--- NOTE | 2023-07-31 14:27 | ED_ITS ---
HPI - Back Pain/Injury General Chief Complaint: Back Pain/Injury Stated Complaint: Back Pain No Injury Time Seen by Provider: 07/31/23 14:58 Source: patient Mode of arrival: ambulatory Limitations: no limitations History of Present Illness HPI Narrative: Patient is a 52 year old assigned female at with a history of chronic back pain presenting to the emergency department today with back pain. Patient states that on 07/30/2023 she was moving going down her stairs when she almost stepped on her cat, tried to move and slipped, grabbing on to the rail and crashing onto her buttocks. Patient states the twisting motion has caused her back to spasm significantly. Patient denies any head strike, loss of consciousness, dizziness, lightheadedness, abdominal pain, nausea, vomiting, fever, chills, blurry vision, double vision, loss of vision, chest pain, difficulty breathing, shortness of breath, night sweats, pain with urination, increased urinary frequency, increased urinary urgency, blood in her urine or stool, syncope or a near syncopal episode, bowel incontinence, bladder incontinence, bowel retention, bladder retention, or any other complaints at this time. MD elicited complaint: back pain Pertinent past history: prior back pain and back surgery Onset (ago): day(s) (1) Timing: constant Similar Symptoms Previously: Yes Quality: spasming Location: lumbar spine and sacrum Exacerbating factors: movement Relieving factors: immobilization Context: turning/twisting and fall Associated symptoms: denies other symptoms Work related injury: No Related Data Home Medications Medication Instructions Recorded Confirmed lancets 28 gauge #100 ea 05/05/20 07/23/23 blood-glucose meter #1 ea 06/13/20 07/23/23 pantoprazole 20 mg tablet,delayed 40 mg PO BID 07/23/23 release Previous Rx's Medication Instructions Recorded blood sugar diagnostic #100 ea 06/13/20 Shower Chair #1 ea 07/03/21 fluticasone propionate 50 1 spray intranasal DAILY #9.9 mL 01/18/23 mcg/actuation nasal spray,suspension (Flonase Allergy Relief) pravastatin 20 mg tablet 20 mg PO DAILY #90 tabs 01/31/23 sennosides 8.6 mg tablet (senna) 17.2 mg (2 x 8.6 mg) PO BEDTIME 03/21/23 for constipation #60 tabs albuterol sulfate 5 mg/mL(0.5 %) 2.5 mg (0.5 mL) inhalation Q6H PRN 04/30/23 solution for nebulization shortness of breath or wheezing #20 mL albuterol sulfate 90 mcg/actuation 2 puff inhalation Q6H PRN 04/30/23 aerosol inhaler shortness of breath or wheezing #6.7 grams nebulizers (Aeroneb Go Nebulizer) #1 ea 04/30/23 lorazepam 1 mg tablet 1 mg PO DAILY 30 days #30 tabs 06/04/23 cyclobenzaprine 10 mg tablet 10 mg PO BID #90 tabs 06/10/23 cyclobenzaprine 5 mg tablet 5 mg PO TID PRN muscle spasm 7 07/31/23 days #21 tabs Allergies Allergy/AdvReac Type Severity Reaction Status Date / Time oxycodone [From PERCOCET] Allergy Intermediate VOMITING, Verified 07/30/23 05:12 N/V codeine [Codeine] Allergy Mild HIVES Verified 07/30/23 05:12 atorvastatin Allergy Unknown Headaches Verified 07/30/23 05:12 bupropion [From WELLBUTRIN] Allergy Unknown PALPITATION Verified 07/30/23 05:12 S morphine [MORPHINE] Allergy Unknown NIGHTMARES Verified 07/30/23 05:12 naproxen [NAPROXEN] Allergy Unknown RASH Verified 07/30/23 05:12 sertraline Allergy Unknown Unknown Verified 07/30/23 05:12 simvastatin Allergy Unknown Unknown Verified 07/30/23 05:12 zolpidem [ZOLPIDEM] Allergy Unknown PALPITATION Verified 07/30/23 05:12 S Review of Systems 2 Constitutional: Constitutional: Reports no additional constitutional complaints, Denies chills, Denies fever(s) and Denies night sweats Eyes: Eyes: Reports no additional eye complaints, Denies blurry vision, Denies change in vision, Denies diplopia, Denies eye discharge, Denies loss of vision and Denies eye pain ENT: Denies dizziness Cardiovascular: Cardiovascular: Reports no additional cardiovascular complaints, Denies chest pain, Denies lightheadedness, Denies Loss of Consciousness and Denies dyspnea Respiratory: Respiratory: Reports no additional respiratory complaints and Denies dyspnea Gastrointestinal: Gastrointestinal: Reports no additional gastrointestinal complaints, Denies abdominal pain, Denies melena, Denies hematochezia, Denies change in bowel habits and Denies change in stool character Genitourinary: Genitourinary: Denies hematuria, Denies urinary frequency, Denies dysuria, Denies urinary incontinence, Denies urinary hesitancy and Denies urinary urgency Musculoskeletal: Musculoskeletal: Reports no additional musculoskeletal complaints, Reports back pain, Denies numbness and Denies tingling Neurologic: Denies dizziness, Denies loss of vision, Denies numbness and Denies tingling Psychiatric: Psychiatric: Reports no additional psychiatric complaints Endocrine: Endocrine: Reports no additional endocrine complaints Hematologic/Lymphatic: Hematologic/Lymphatic: Reports no additional hematologic/lymphatic complaints Allergic/Immunologic: Allergic/Immunologic: Reports no additional allergic/immunologic complaints FOR[facility]LY [facility] Past Medical History Attestation statement: The following information was validated with the patient. Source: old records reviewed and nursing notes reviewed Medical History Vertigo Dysuria Upper respiratory tract infection Nausea and vomiting Abdominal pain Fall Otitis media IBS (irritable bowel syndrome) Uterine cancer History of gestational diabetes Genital herpes Hypercholesterolemia Obstructive sleep apnea Vitamin D deficiency Lumbar degenerative disc disease Hypertension Insomnia Fatty liver GERD (gastroesophageal reflux disease) Asthma Obesity (BMI 30-39.9) NAFLD (nonalcoholic fatty liver disease) Surgical History History of esophagogastroduodenoscopy (EGD) History of lumbar surgery History of total abdominal hysterectomy and bilateral salpingo-oophorectomy History of tubal ligation Hx of endoscopy History of colonoscopy Family History Family History Father Hx of colon cancer, stage III Stomach cancer Mother Hx of heat stroke Acute CVA (cerebrovascular accident) Hypertension Diabetes Maternal Grandmother Breast cancer Stroke Maternal Grandfather CVD (cardiovascular disease) Myocardial infarction Son In good health Sister No problems noted. Sister No problems noted. Sister No problems noted. Brother No problems noted. Brother No problems noted. Social History Social History Housing: Apartment Alcohol intake: never Patient Tobacco Use Status: Former Tobacco user Quit Date: 20 years ago Tobacco use type: Cigarette Years Smoked: 2002 quit CBD oil Smoked in Last 30 Days: No e-Cigarette/Vaping Use: Never Used Second Hand Smoke Exposure: No Use of substances other than those prescribed or required for medical reasons: No Advance Directives: No Advance Directives Information Provided: No Patient : No service: No Current occupational status: disabled Current occupational exposures/hazards: No Cognitive needs: No Hearing needs: No Vision needs: No Physical Exam 2 Vital Signs: Vital Signs: Last Vital Signs Temp 96.4 F L 07/31/23 14:23 Pulse 94 07/31/23 20:34 Resp 17 07/31/23 20:34 BP 151/89 H 07/31/23 20:34 Pulse Ox 100 07/31/23 20:34 O2 Del Method Room Air 07/31/23 20:34 BMI result Body Mass Index 34.0 Const: General: cooperative, no acute distress, alert and awake Nutritional Appearance: well nourished Orientation/consciousness: patient oriented x3 Limitations: no limitations HEENT: Head: Yes normal to inspection and Yes atraumatic Ears: hearing grossly normal bilaterally and external ears normal General nose exam: Normal external nose present, no nasal discharge noted and no epistaxis Face and sinus: Yes normal facial exam, No abrasion and No laceration Mouth: Normal oral and palatal mucosa present, no drooling and no muffled voice Eyes: General: appearance normal, both eyes and all related structures P eriorbital: periorbital findings normal Eyelids: Yes eyelids normal C onjunctivae: conjunctivae normal Pupils: Equal, round and reactive pupils present EOM: EOMs intact bilaterally Neck: Neck: Yes normal visual inspection, Yes full ROM and Yes no lymphadenopathy Chest: Chest palpation & inspection: normal inspection of the chest Resp: Effort & Inspection: normal respiratory effort and able to speak in complete sentences GI: Inspection: Yes normal to inspection : General: Yes no CVA tenderness Back/Spine/Pelvis: Back: no CVA tenderness Cervical Spine: normal cervical lordosis and cervical ROM normal Thoracic/Lumbar Spine: thoraco-lumbar ROM normal Neuro: General: patient oriented x3 and moves all extremities Cranial nerves: Yes Equal, round and reactive pupils present Cognition (Neuro): n ormal cognition Motor exam (neuro): 5/5 motor strength present throughout Sensory Exam: Normal double simultaneous stimulation for sensation C oordination: [id number] test normal Extrem: General: Yes normal to inspection, Yes full ROM and Yes capillary refill normal Psych: Appearance: grossly normal Mental Status: mental status grossly normal Affect: normal affect Attitude: cooperative Thought process: N ormal thought process present Thought content: Normal thought content present Insight: Good insight present (Psych) Course Course Course Narrative: Patient was going down stairs yesterday and slipped and had a near fall and caught the railing and twisted her back and has mid back pain She was seen yesterday and was diagnosed with a strain of the back She says today she has tingling in her legs and is having trouble urinating Postvoid residual and urinalysis are ordered This is rapid medical exam done in triage pending full evaluation and dispo by ER provider Medications Administered Discontinued Medications Generic Name Dose Route Start Last Admin Trade Name Clayq PRN Reason Stop Dose Admin Hydromorphone HCl 0.5 mg 07/31/23 15:02 07/31/23 15:33 Hydromorphone Hcl 0.5 Mg/0.5 Ml Syringe IVPUSH 07/31/23 15:03 0.5 mg ONCE ONE Administration Protocol Lorazepam 2 mg 07/31/23 17:14 07/31/23 17:24 Lorazepam 2 Mg/Ml Vial IVPUSH 07/31/23 17:15 2 mg ONCE ONE Administration Metoclopramide HCl 10 mg 07/31/23 16:08 07/31/23 16:16 Metoclopramide Hcl 10 Mg/2 Ml Vial IVPUSH 07/31/23 16:09 10 mg ONCE ONE Administration Ondansetron HCl 4 mg 07/31/23 15:01 07/31/23 15:33 Ondansetron Hcl 4 Mg/2 Ml Vial IVPUSH 07/31/23 15:02 4 mg ONCE ONE Administration Medical Decision Making Medical Decision Making [facility] Narrative: Patient is a 52 year old assigned female at with a history of back pain presenting to the emergency department today with acute back pain. Patient's physical exam was unremarkable. Patient's blood work was unremarkable. Patient's urine showed no acute process. Patient's lumbar CT showed no acute process. I explained my physical exam findings as well as all test results to the patient. I answered all questions asked by the patient. Patient received IV pain medication which she stated helped her symptoms significantly. I stressed the importance of the patient taking her medication as prescribed. I stressed the importance of the patient following up with her primary care provider. I stressed the importance of the patient returning to the emergency department immediately if her symptoms were to worsen or if she were to develop any dizziness, shortness of breath, difficulty breathing, chest pain, blurry vision, loss of vision, nausea, vomiting, abdominal pain, fever, chills, back pain, or any other complaints. Patient verbalized agreement and understanding with this treatment plan and discharge. Differential Diagnosis Differential Diagnoses: The differential diagnosis associated with the presentation includes Lumbar strain Lumbar pain Compression fracture Back strain Back sprain Admission/Observation Consideration of admission/observation: Escalation of care including admission/observation considered Patient would have been admitted to the hospital had her work up had any findings where hospital admission was appropriate and her clinical presentation warranted hospital admission. Lab Data MDM Lab Attestation statement: I reviewed the patient's lab results. My interpretation of these studies and their corresponding values is that they are grossly normal. 07/31/23 15:29 07/31/23 15:28 Labs: Lab Results 07/31/23 07/31/23 07/31/23 Range/Units 15:28 15:29 18:12 WBC 8.0 (4.8-10.8) X10*3/uL RBC 5.49 (4.20-5.50) X10*6/uL Hgb 14.8 (12.0-16.0) g/dl Hct 44.9 (37.0-47.0) % MCV 81.8 (80.0-98.0) fL MCH 27.0 (27.0-33.0) pg MCHC 33.0 (31.0-35.0) g/dl RDW 14.2 (11.0-16.0) % Plt Count 369 (160-400) X10*3/uL MPV 9.1 L (9.4-12.3) fL Immature Gran % (Auto) 0.5 H (0.0-0.4) % Neut % (Auto) 64.2 (45-73) % Lymph % (Auto) 24.4 (20-40) % Warren % (Auto) 8.4 (2-11) % Eos % (Auto) 2.1 (0-4) % Baso % (Auto) 0.4 (0-2) % Lymph # (Auto) 1.9 (1.2-4.9) X10*3/uL Warren # (Auto) 0.7 (0.1-1.2) X10*3/uL Eos # (Auto) 0.2 (0.0-0.4) X10*3/uL Baso # (Auto) 0.0 (0.0-0.2) X10*3/uL Abs Immat Gran (auto) 0.04 H (0.00-0.03) X10*3/uL Absolute Neuts (auto) 5.1 (2.0-8.3) x10*3/uL Absolute Nucleated RBC 0.000 (0.0-0.012) X10*3/uL Nucleated RBC % (auto) 0.0 (0.0-0.2) /100WBC Sodium 140 (135-145) mmol/L Potassium 3.9 (3.3-5.1) mmol/L Chloride 107 (96-108) mmol/L Carbon Dioxide 26 (22-29) mmol/L Anion Gap 11 L (12-20) BUN 14 (9-16) mg/dL Creatinine 0.79 (0.5-1.4) mg/dL Estim Creat Clear Calc 78.8 Estimated GFR > 60 Random Glucose 155 H (60-115) mg/dL Calcium 10.1 (8.4-10.2) mg/dL Total Bilirubin 0.5 (0.0-1.0) mg/dL AST 66 H (5-31) U/L ALT 92 H (0-31) U/L Alkaline Phosphatase 93 (39-117) U/L Total Protein 8.0 (6.5-8.0) g/dL Albumin 4.4 (3.5-5.0) g/dL Urine Color Yellow Urine Appearance Clear Urine pH 5.5 (5.0-9.0) Ur Specific [place] 1.020 (1.005-1.025) Urine Protein Negative (Neg-Trace) mg/dL Urine Glucose (UA) Negative (Negative) mg/dL Urine Ketones Negative (Negative) mg/dL Urine Blood Negative (Negative) Urine Nitrite Negative (Negative) Ur Leukocyte Esterase Negative (Negative) Urine Test NEGATIVE (NEGATIVE) Independent Interpretation I performed an independent interpretation of an: CT Scan Interpretation: My interpretation is in agreement with the radiologist's impression of this imaging study. - EXAMINATION: CT LUMBAR SPINE WITHOUT CONTRAST CLINICAL INFORMATION: Pain. Injury. COMPARISON: Previous x-ray June 2021. TECHNIQUE: Axial images through the lumbar spine without contrast. Sagittal and coronal reconstructions on the technologist's workstation were performed. This CT examination was performed using dose optimization techniques as appropriate, variously including the following: *Automated exposure control. *Adjustment of mA and/or kV according to patient size (this includes techniques or standardized protocols for targeted exams where dose is matched to indication/reason for exam; i.e. extremities or head). *Use of iterative reconstruction technique. DLP; 527 mGy-cm FINDINGS: There are postsurgical changes at L5-S1 with posterior fusion hardware and interbody disc spacer. Surgical hardware appears unchanged and intact. There is mild 5 mm anterior subluxation of L5 with respect to S1 that is stable. No fracture or dislocation. Mild degenerative spondylosis and disc space narrowing at T12-L1 and L1-L2. At T12-L1 and L1-L2, there is no disc herniation, protrusion or bulge. At L2-L3, there is mild diffuse disc bulge. No disc herniation. At L3-L4, there is diffuse disc bulge. No disc herniation. At L4-L5, there is diffuse disc bulge. No disc herniation. Paraspinal soft tissues are unremarkable. CT/CT lumbar spine wo IV con IMPRESSION: No fracture is seen. Stable postsurgical changes at L5-S1. Dictated By: Sydnee Rodriguez MD Signed By: Electronically signed by Sydnee Rodriguez MD 07/31/231950 Radiology Impression Discussion of test interpretation with radiology: I have reviewed the radiologist's reading. Prescription Management I considered prescription management with: Pain Medication (patient prescribed pain medication) Critical Care Time Critical Care Time Critical Care Time: Yes Total Critical Care Time: 126 Attestation: I spent 126 minutes of Critical Care Time with this patient. This does not include time spent on separately reported billable procedures. Discharge Plan Discharge Clinical Impression: Back pain Patient Disposition: Home, Self-Care Instructions: Acute Low Back Pain (ED) Additional Instructions: Follow up with your primary care provider. Return to the emergency department immediately if your symptoms worsen or if you develop any dizziness, shortness of breath, difficulty breathing, chest pain, blurry vision, loss of vision, nausea, vomiting, abdominal pain, fever, chills, back pain, or any other complaints. Prescriptions: New cyclobenzaprine 5 mg tablet 5 mg PO TID PRN (Reason: muscle spasm) 7 Days Qty: 21 0RF No Action (DME) blood sugar diagnostic Strip See Rx Instructions .ROUTE .MEDSUPPLY Qty: 100 0RF Rx Instructions: As directed check BS QD pravastatin 20 mg tablet 20 mg PO DAILY Qty: 90 2RF sennosides [senna] 8.6 mg tablet 17.2 mg PO BEDTIME Qty: 60 6RF (DME) nebulizers [Aeroneb Go Nebulizer] Misc See Rx Instructions .Route Qty: 1 0RF Rx Instructions: As directed lorazepam 1 mg tablet 1 mg PO DAILY 30 Days Qty: 30 1RF cyclobenzaprine 10 mg tablet 10 mg PO BID Qty: 90 0RF (DME) lancets 28 gauge misc See Rx Instructions topical .MEDSUPPLY Qty: 100 Rx Instructions: As directed (DME) blood-glucose meter Kit See Rx Instructions .ROUTE DAILY Qty: 1 Rx Instructions: As directed (DME) Shower Chair Misc See Rx Instructions .Route Qty: 1 0RF Rx Instructions: As directed pantoprazole 20 mg tablet,delayed release (DR/EC) 40 mg PO BID fluticasone propionate [Flonase Allergy Relief] 50 mcg/actuation spray,suspension 1 spray intranasal DAILY Qty: 9.9 1RF Rx Instructions: administer into each nostril albuterol sulfate 90 mcg/actuation HFA aerosol inhaler 2 puff inhalation Q6H PRN (Reason: shortness of breath or wheezing) Qty: 6.7 0RF albuterol sulfate 5 mg/mL solution for nebulization 2.5 mg inhalation Q6H PRN (Reason: shortness of breath or wheezing) Qty: 20 0RF Referrals: [facility] [Provider Group] (Call to establish and follow up with a pain specialist.) Croeen Hernandez MD [Primary Care Provider] - Interventions: ED Discharge Assessment Last Done: 07/31/23 20:36 Discharge Date/Time: 07/31/23 20:37 Print Language: Macedonian
[2023-07-31] MEDS: HYDROmorphone HCl 0.5 MG/0.5 ML SYRINGE IVPUSH (15:33)
[2023-07-31] MEDS: ondansetron HCL 4 MG/2 ML VIAL IVPUSH (15:33)
[2023-07-31 15:36] LABS: MANUAL DIFF FLAG NO
[2023-07-31 15:38] LABS: Basophils Percent Auto 0.4 % (0-2); Eosinophils Absolute Auto 0.2 X10*3/uL (0.0-0.4); Eosinophils Percent Auto 2.1 % (0-4); Hematocrit 44.9 % (37.0-47.0); Hemoglobin 14.8 g/dl (12.0-16.0); Imm Gran Abs Auto 0.04 X10*3/uL (0.00-0.03); Imm Gran Pct Auto 0.5 % (0.0-0.4); Lymphocytes Absolute Auto 1.9 X10*3/uL (1.2-4.9); Lymphocytes Percent Auto 24.4 % (20-40); Mean Corpuscular Volume 81.8 fL (80.0-98.0); Mean Platelet Volume 9.1 fL (9.4-12.3); Monocytes Absolute Auto 0.7 X10*3/uL (0.1-1.2); Monocytes Percent Auto 8.4 % (2-11); Neutrophils Absolute Auto 5.1 x10*3/uL (2.0-8.3); Neutrophils Percent Auto 64.2 % (45-73); Platelet Count 369 X10*3/uL (160-400); Red Blood Count 5.49 X10*6/uL (4.20-5.50); Red Cell Distribution Width 14.2 % (11.0-16.0)
[2023-07-31 15:54] LABS: Alanine Aminotransferase 92 U/L (0-31); Albumin Level 4.4 g/dL (3.5-5.0); Alkaline Phosphatase 93 U/L (39-117); Anion Gap 11 (12-20); Aspartate Amino Transferase 66 U/L (5-31); Bilirubin Total 0.5 mg/dL (0.0-1.0); Blood Urea Nitrogen 14 mg/dL (9-16); Calcium 10.1 mg/dL (8.4-10.2); Carbon Dioxide 26 mmol/L (22-29); Chloride 107 mmol/L (96-108); Creatinine Clr Calc Pharmacy 78.8; Estimated Glomerular Filt Rate > 60; Glucose Random 155 mg/dL (60-115); Potassium 3.9 mmol/L (3.3-5.1); Sodium 140 mmol/L (135-145)
--- NOTE | 2023-07-31 16:08 | PC.NURSE ---
Patient vomited x1 after pain medication administration, provider aware
[2023-07-31] MEDS: Metoclopramide HCl 10 MG/2 ML VIAL IVPUSH (16:16)
[2023-07-31] MEDS: LORazepam 2 MG/ML VIAL IVPUSH (17:24)
[2023-07-31 18:22] LABS: Appearance Urine Clear; Color Urine Yellow; Glucose Urine UA Negative (Negative); Leukocyte Esterase Urine Negative (Negative); Nitrite Urine Negative (Negative); PH 5.5 (5.0-9.0); Urine Blood Negative (Negative); Urine Ketones Negative (Negative); Urine Protein Negative (Neg-Trace)
[2023-07-31 18:25] LABS: UPreg QC Valid YES; Urine Pregnancy NEGATIVE (NEGATIVE)
[2023-07-31 20:34] VITALS: BP 151/89; PULSE 94; RESP 17; O2SAT 100
== END 2023-07-31 20:37 | disposition home or self-care (01) ==
PROVIDERS: Physician Assistant Medical; Emergency Provider Emergency Medicine Emergency Medical Services; PCP Internal Medicine
DX: S39.92XA Unspecified injury of lower back, initial encounter (principal); M54.50 Low back pain, unspecified; R30.0 Dysuria; W10.9XXA Fall (on) (from) unspecified stairs and steps, initial encounter; Y93.9 Activity, unspecified; Y92.9 Unspecified place or not applicable; Y99.8 Other external cause status; Z79.899 Other long term (current) drug therapy
CPT/HCPCS: 36415; 51798; 72132; 80053; 81003; 81025; 85025; 96374; 96375; 99284; J1170; J2060; J2405; J2765

== ENCOUNTER 2023-09-23 21:28 | Emergency (ER) | payer OTHER, SELFPAY ==
--- NOTE | 2023-09-23 | ECG_ITS ---
Test Reason : CHEST PAIN Blood Pressure : / mmHG Vent. Rate : 087 BPM Atrial Rate : 087 BPM P-R Int : 154 ms QRS Dur : 074 ms QT Int : 358 ms P-R-T Axes : 033 -06 017 degrees QTc Int : 430 ms Normal sinus rhythm Normal ECG When compared with ECG of 13-FEB-2023 10:32, Criteria for Septal infarct are no longer Present Referred By: Generic ED Physician Electronically Signed By:Galindo Hdz
--- NOTE | ~2023-09-23 | CT_ITS ---
EXAMINATION: CT HEAD WITHOUT CONTRAST CLINICAL INFORMATION: Headache. COMPARISON: CT head 02/13/2023. TECHNIQUE: Contiguous axial imaging was performed from the skull base to vertex without intravenous administration of contrast. This CT examination was performed using dose optimization techniques as appropriate, variously including the following: *Automated exposure control *Adjustment of mA and/or kV according to patient size (this includes techniques or standardized protocols for targeted exams where dose is matched to indication/reason for exam; i.e. extremities or head) *Use of iterative reconstruction technique DLP: 556 mGy-cm FINDINGS: There is no evidence of acute intracranial hemorrhage or edematous territorial infarction. A few foci of hypoattenuation in the periventricular and deep white matter are consistent with mild microangiopathy. Koehler-white matter differentiation is preserved. The ventricles are normal in size and configuration. No evidence for obstructive hydrocephalus. No abnormal mass effect or midline shift. No extra-axial fluid collections. No acute soft tissue or osseous abnormalities. The mastoid air cells and paranasal sinuses are clear. CT/CT head/brain wo IV con IMPRESSION: No evidence of acute intracranial hemorrhage or edematous territorial infarction.
--- NOTE | ~2023-09-23 | XR_ITS ---
EXAMINATION: XR CHEST CLINICAL INFORMATION: Pain. COMPARISON: Chest x-ray February 13, 2023 TECHNIQUE: Frontal view of the chest was obtained. 2218 hours FINDINGS: Small peripheral linear scarring at left lung base unchanged since prior study. No acute airspace disease. No pulmonary vascular congestion. No pleural effusion. Heart size is normal. Cardiac and mediastinal contours are normal XR/XR chest 1V IMPRESSION: No acute abnormality of chest.
[2023-09-23 21:41] VITALS: BP 147/97; PULSE 88; RESP 20; TEMP 37.1; O2SAT 95
[2023-09-23 21:42] VITALS: BP 134/82; PULSE 96; O2SAT 96
[2023-09-23 21:44] VITALS: BMI 30.6
--- NOTE | 2023-09-23 21:59 | ED_ITS ---
HPI - Chest Pain General Chief Complaint: Chest Pain Stated Complaint: cp/ 1 nitro 324 aspirin Time Seen by Provider: 09/23/23 21:50 Source: patient, EMS and old records reviewed Mode of arrival: EMS Limitations: no limitations History of Present Illness HPI narrative: 53 yo female with PMH of palpitations, IBS, HLD, HTN, GERD, JACK, obesity here with c/o having increased stress and anxiety all day today woke up with headache on R side of head no trauma no thinners associated n/v and photophobia headache worsened throughout the day with peak pain at 2pm it now does feel better. At 2pm developed chest pain after the vomiting and then started to feel dizzy and anxious with palpitations. EMS gave aspirin and nitro did not fully relieve symptoms MD complaint: chest pain (headache) Onset (ago): hour(s) (several woke up around 8am) Timing of current episode: other (improving) Prior episodes: Yes Onset: during rest Pain location: substernal Pain radiation: none Severity: moderate Quality: tightness Relieving factors: nothing Exacerbating factors: stress Context: other (started after headache and vomiting) Associated symptoms: nausea and vomiting Treatment prior to arrival: aspirin and nitroglycerin Related Data Home Medications ?Medication ?Instructions ?Recorded ?Confirmed lancets 28 gauge #100 ea 05/05/20 07/23/23 blood-glucose meter #1 ea 06/13/20 07/23/23 pantoprazole 20 mg tablet,delayed 40 mg PO BID 07/23/23 release Previous Rx's ?Medication ?Instructions ?Recorded blood sugar diagnostic #100 ea 06/13/20 Shower Chair #1 ea 07/03/21 fluticasone propionate 50 1 spray intranasal DAILY #9.9 mL 01/18/23 mcg/actuation nasal spray,suspension (Flonase Allergy Relief) pravastatin 20 mg tablet 20 mg PO DAILY #90 tabs 01/31/23 sennosides 8.6 mg tablet (senna) 17.2 mg (2 x 8.6 mg) PO BEDTIME 03/21/23 for constipation #60 tabs albuterol sulfate 5 mg/mL(0.5 %) 2.5 mg (0.5 mL) inhalation Q6H PRN 04/30/23 solution for nebulization shortness of breath or wheezing #20 mL albuterol sulfate 90 mcg/actuation 2 puff inhalation Q6H PRN 04/30/23 aerosol inhaler shortness of breath or wheezing #6.7 grams nebulizers (Aeroneb Go Nebulizer) #1 ea 04/30/23 cyclobenzaprine 5 mg tablet 5 mg PO TID PRN muscle spasm 7 07/31/23 days #21 tabs cyclobenzaprine 10 mg tablet 10 mg PO BID #90 tabs 08/26/23 lorazepam 1 mg tablet 1 mg PO DAILY 30 days #30 tabs 08/26/23 Allergies Allergy/AdvReac Type Severity Reaction Status Date / Time oxycodone [From PERCOCET] Allergy Intermediate VOMITING, Verified 09/23/23 21:48 N/V codeine [Codeine] Allergy Mild HIVES Verified 09/23/23 21:48 atorvastatin Allergy Unknown Headaches Verified 09/23/23 21:48 bupropion [From WELLBUTRIN] Allergy Unknown PALPITATION Verified 09/23/23 21:48 S morphine [MORPHINE] Allergy Unknown NIGHTMARES Verified 09/23/23 21:48 naproxen [NAPROXEN] Allergy Unknown RASH Verified 09/23/23 21:48 sertraline Allergy Unknown Unknown Verified 09/23/23 21:48 simvastatin Allergy Unknown Unknown Verified 09/23/23 21:48 zolpidem [ZOLPIDEM] Allergy Unknown PALPITATION Verified 09/23/23 21:48 S Review of Systems 2 Review of Systems: Constitutional : No Fever, No Chills, No Fatigue ENT/Mouth : No sore throat, No Rhinorrhea Eyes: No Eye Pain, No Swelling, No Redness Cardiovascular : pos Chest Pain, No SOB, No Dyspnea on Exertion Respiratory : No Cough, No Sputum Gastrointestinal : pos Nausea, pos Vomiting, No Diarrhea, No abdominal Pain Genitourinary : No Dysuria, No Urinary Frequency, No Hematuria, Musculoskeletal : No joint pain, No Myalgias, No Joint Swelling Skin : No Skin Lesions, No rash Neuro : No Weakness, No Numbness, pos Dizziness, positive Headache Psych : pos Anxiety/Panic, No Depression Heme/Lymph: No Bruising, No Bleeding,No Lymphadenopathy Endocrine : No Polyuria, No Polydipsia All other systems reviewed and are negative [facility] Past Medical History Attestation statement: The following information was validated with the patient. Source: old records reviewed Medical History Vertigo Dysuria Upper respiratory tract infection Nausea and vomiting Abdominal pain Fall Otitis media IBS (irritable bowel syndrome) Uterine cancer History of gestational diabetes Genital herpes Hypercholesterolemia Obstructive sleep apnea Vitamin D deficiency Lumbar degenerative disc disease Hypertension Insomnia Fatty liver GERD (gastroesophageal reflux disease) Asthma Obesity (BMI 30-39.9) NAFLD (nonalcoholic fatty liver disease) Surgical History History of esophagogastroduodenoscopy (EGD) History of lumbar surgery History of total abdominal hysterectomy and bilateral salpingo-oophorectomy History of tubal ligation Hx of endoscopy History of colonoscopy Family History Family History Father Hx of colon cancer, stage III Stomach cancer Mother Hx of heat stroke Acute CVA (cerebrovascular accident) Hypertension Diabetes Maternal Grandmother Breast cancer Stroke Maternal Grandfather CVD (cardiovascular disease) Myocardial infarction Son In good health Sister No problems noted. Sister No problems noted. Sister No problems noted. Brother No problems noted. Brother No problems noted. Social History Social History Housing: Apartment Alcohol intake: never Patient Tobacco Use Status: Former Tobacco user Quit Date: 20 years ago Tobacco use type: Cigarette Years Smoked: 2002 quit CBD oil e-Cigarette/Vaping Use: Never Used Second Hand Smoke Exposure: No Advance Directives: No Advance Directives Information Provided: No service: No Current occupational status: disabled Current occupational exposures/hazards: No Cognitive needs: No Hearing needs: No Vision needs: No Physical Exam 2 Vital Signs: Vital Signs: Last Vital Signs Temp 98.7 F 09/23/23 21:41 Pulse 88 09/23/23 21:41 Resp 20 09/23/23 21:41 BP 147/97 H 09/23/23 21:41 Pulse Ox 95 09/23/23 21:41 O2 Del Method Room Air 09/23/23 21:41 BMI result Body Mass Index 30.6 Appearance: Alert. Oriented X3. No acute distress. Eyes: Pupils equal, round and reactive to light. ENT: Pharynx normal. Neck: Normal inspection. Neck supple. no meningeal signs CVS: Normal heart rate and rhythm. Pulses normal. Respiratory: No respiratory distress. Breath sounds normal. Abdomen: Soft and nontender. Skin: Skin warm and dry. Normal skin color. Normal skin turgor. Extremities: No lower extremity edema. No calf ttp Neuro: Oriented X 3. No motor deficit. No sensory deficit. no deficits. Medications Administered Discontinued Medications Generic Name Dose Route Start Last Admin Trade Name Jacqui PRN Reason Stop Dose Admin Sodium Chloride 1,000 mls @ 999 mls/hr 09/23/23 22:07 09/23/23 22:30 Ns IV 09/23/23 23:07 999 mls/hr .Q1H1M ONE Administration Lorazepam 1 mg 09/23/23 22:07 09/23/23 22:30 Lorazepam 2 Mg/Ml Vial IVPUSH 09/23/23 22:08 1 mg STAT STA Administration Medical Decision Making Medical Decision Making [facility] Narrative: 53 yo female with PMH of palpitations, IBS, HLD, HTN, GERD, JACK, obesity here with c/o headache that was gradual in onset and took 6 hours to maximal intensity without focal deficits but had associated n/v and photophobia doubt SAH or [employer] infection no fevers or meningeal signs. Also c/o chest pain after vomiting - at this time labs, trop x 1 as pain present x 6 hours, CT head for mass, IVF and IV ativan for anxiety/symptoms seems atypical for ACS started after vomiting. Seems possibly migraine and stress induced symptoms along with MSK pain. Hsa no hypoxia, tachycardia, signs of DVT to suggest VTE - no travel or procedures Differential Diagnosis Differential Diagnoses: The differential diagnosis associated with the presentation includes atypical chest pain, headaches, migraine Admission/Observation Consideration of admission/observation: Escalation of care including admission/observation considered work up negative EKG nonischemic trop flat, feels better stable for DC Lab Data [facility] Lab Attestation statement: I reviewed the patient's lab results. 09/23/23 22:04 09/23/23 22:04 Labs: Lab Results 09/23/23 Range/Units 22:04 WBC 10.7 (4.8-10.8) X10*3/uL RBC 5.04 (4.20-5.50) X10*6/uL Hgb 13.7 (12.0-16.0) g/dl Hct 41.0 (37.0-47.0) % MCV 81.3 (80.0-98.0) fL MCH 27.2 (27.0-33.0) pg MCHC 33.4 (31.0-35.0) g/dl RDW 14.4 (11.0-16.0) % Plt Count 357 (160-400) X10*3/uL MPV 8.9 L (9.4-12.3) fL Immature Gran % (Auto) 0.3 (0.0-0.4) % Neut % (Auto) 51.7 (45-73) % Lymph % (Auto) 36.7 (20-40) % [place] % (Auto) 8.0 (2-11) % Eos % (Auto) 2.7 (0-4) % Baso % (Auto) 0.6 (0-2) % Lymph # (Auto) 3.9 (1.2-4.9) X10*3/uL [place] # (Auto) 0.9 (0.1-1.2) X10*3/uL Eos # (Auto) 0.3 (0.0-0.4) X10*3/uL Baso # (Auto) 0.1 (0.0-0.2) X10*3/uL Abs Immat Gran (auto) 0.03 (0.00-0.03) X10*3/uL Absolute Neuts (auto) 5.5 (2.0-8.3) x10*3/uL Absolute Nucleated RBC 0.000 (0.0-0.012) X10*3/uL Nucleated RBC % (auto) 0.0 (0.0-0.2) /100WBC Sodium 142 (135-145) mmol/L Potassium 3.8 (3.3-5.1) mmol/L Chloride 105 (96-108) mmol/L Carbon Dioxide 25 (22-29) mmol/L Anion Gap 16 (12-20) BUN 15 (9-16) mg/dL Creatinine 0.80 (0.5-1.4) mg/dL Estim Creat Clear Calc 72.8 Estimated GFR > 60 Random Glucose 104 (60-115) mg/dL Calcium 10.1 (8.4-10.2) mg/dL Troponin I High Sens < 2.7 (<3.5-17.0) ng/L Independent Interpretation I performed an independent interpretation of an: EKG, Plain X-Ray (normal ) and CT Scan (no mass, no ICH) Interpretation: Rate: 87 Rhythm: NSR Saxe: left Normal P waves. Normal FRIDA. Normal QRS complex. ST T wave : no MARICRUZ, inverted t waves V1-V2 qTC: 430 prior studies: no acute ischemia The study has been interpreted contemporaneously by me. . Radiology Impression Discussion of test interpretation with radiology: I have reviewed the radiologist's reading. Independent Historian Clinical information obtained from an independent historian. History obtained from or confirmed by: EMS External Record Review External record reviewed: Office record Prescription Management I considered prescription management with: Other Discharge Plan Discharge Clinical Impression: Atypical chest pain, Acute headache Patient Disposition: Home, Self-Care Instructions: Acute Headache (ED), Chest Pain (ED) Additional Instructions: chest xray normal, CT head normal labs reassuring - EKG reassuring take it easy tomorrow, rest and stay hydrated return for any worsening symptoms or concerns follow up with your doctor Prescriptions: No Action (DME) blood sugar diagnostic Strip See Rx Instructions .ROUTE .MEDSUPPLY Qty: 100 0RF Rx Instructions: As directed check BS QD pravastatin 20 mg tablet 20 mg PO DAILY Qty: 90 2RF sennosides [senna] 8.6 mg tablet 17.2 mg PO BEDTIME Qty: 60 6RF (DME) nebulizers [Aeroneb Go Nebulizer] Misc See Rx Instructions .Route Qty: 1 0RF Rx Instructions: As directed lorazepam 1 mg tablet 1 mg PO DAILY 30 Days Qty: 30 0RF cyclobenzaprine 10 mg tablet 10 mg PO BID Qty: 90 0RF cyclobenzaprine 5 mg tablet 5 mg PO TID PRN (Reason: muscle spasm) 7 Days Qty: 21 0RF (DME) lancets 28 gauge misc See Rx Instructions topical .MEDSUPPLY Qty: 100 Rx Instructions: As directed (DME) blood-glucose meter Kit See Rx Instructions .ROUTE DAILY Qty: 1 Rx Instructions: As directed (DME) Shower Chair Misc See Rx Instructions .Route Qty: 1 0RF Rx Instructions: As directed pantoprazole 20 mg tablet,delayed release (DR/EC) 40 mg PO BID fluticasone propionate [Flonase Allergy Relief] 50 mcg/actuation spray,suspension 1 spray intranasal DAILY Qty: 9.9 1RF Rx Instructions: administer into each nostril albuterol sulfate 90 mcg/actuation HFA aerosol inhaler 2 puff inhalation Q6H PRN (Reason: shortness of breath or wheezing) Qty: 6.7 0RF albuterol sulfate 5 mg/mL solution for nebulization 2.5 mg inhalation Q6H PRN (Reason: shortness of breath or wheezing) Qty: 20 0RF Stand Alone Forms: Work/School Release Print Language: Greek
[2023-09-23 22:00] VITALS: BP 140/95; PULSE 87; RESP 20; TEMP 37.1; O2SAT 98
[2023-09-23 22:11] LABS: MANUAL DIFF FLAG NO
[2023-09-23 22:13] LABS: Basophils Absolute Auto 0.1 X10*3/uL (0.0-0.2); Basophils Percent Auto 0.6 % (0-2); Eosinophils Absolute Auto 0.3 X10*3/uL (0.0-0.4); Eosinophils Percent Auto 2.7 % (0-4); Hemoglobin 13.7 g/dl (12.0-16.0); Imm Gran Abs Auto 0.03 X10*3/uL (0.00-0.03); Imm Gran Pct Auto 0.3 % (0.0-0.4); Lymphocytes Absolute Auto 3.9 X10*3/uL (1.2-4.9); Lymphocytes Percent Auto 36.7 % (20-40); Mean Corpuscular HGB Conc 33.4 g/dl (31.0-35.0); Mean Corpuscular Hemoglobin 27.2 pg (27.0-33.0); Mean Corpuscular Volume 81.3 fL (80.0-98.0); Mean Platelet Volume 8.9 fL (9.4-12.3); Monocytes Absolute Auto 0.9 X10*3/uL (0.1-1.2); Neutrophils Absolute Auto 5.5 x10*3/uL (2.0-8.3); Neutrophils Percent Auto 51.7 % (45-73); Platelet Count 357 X10*3/uL (160-400); Red Blood Count 5.04 X10*6/uL (4.20-5.50); Red Cell Distribution Width 14.4 % (11.0-16.0); White Blood Count 10.7 X10*3/uL (4.8-10.8)
[2023-09-23 22:24] LABS: Anion Gap 16 (12-20); Blood Urea Nitrogen 15 mg/dL (9-16); Calcium 10.1 mg/dL (8.4-10.2); Carbon Dioxide 25 mmol/L (22-29); Chloride 105 mmol/L (96-108); Creatinine Clr Calc Pharmacy 72.8; Estimated Glomerular Filt Rate > 60; Glucose Random 104 mg/dL (60-115); Potassium 3.8 mmol/L (3.3-5.1); Sodium 142 mmol/L (135-145)
[2023-09-23] MEDS: 0.9 % Sodium Chloride 1,000 ML 999 ML IV (22:30)
[2023-09-23] MEDS: LORazepam 2 MG/ML VIAL 1 MG IVPUSH (22:30)
[2023-09-23 22:33] LABS: Troponin-I High Sensitivity < 2.7 ng/L (<3.5-17.0)
[2023-09-24] VITALS: BP 142/90; PULSE 87; RESP 20; TEMP 37.1; O2SAT 98
[2023-09-24 00:26] VITALS: BP 142/90; PULSE 87; RESP 20; TEMP 37.1; O2SAT 98
== END 2023-09-24 00:27 | disposition home or self-care (01) ==
PROVIDERS: Emergency Provider Emergency Medicine; PCP Internal Medicine
DX: R51.9 Headache, unspecified (principal); R07.89 Other chest pain; F41.9 Anxiety disorder, unspecified; F43.9 Reaction to severe stress, unspecified; I10 Essential (primary) hypertension; R11.10 Vomiting, unspecified; R42 Dizziness and giddiness; R00.2 Palpitations; K21.9 Gastro-esophageal reflux disease without esophagitis; Z79.899 Other long term (current) drug therapy
CPT/HCPCS: 36415; 70450; 71045; 80048; 84484; 85025; 93005; 96361; 96374; 99284; 99285; J2060

== ENCOUNTER → 2023-09-23 21:34 | Outpatient (BNV) | payer OTHER, SELFPAY | PROVIDERS: Emergency Provider Emergency Medicine; PCP Internal Medicine; Visit Provider Internal Medicine Cardiovascular Disease | DX: R07.9 Chest pain, unspecified (principal) | CPT/HCPCS: 93010 ==

== ENCOUNTER 2023-09-26 13:12 | Outpatient (AMB) | payer OTHER, SELFPAY ==
--- NOTE | 2023-09-26 13:12 | MHC.PC.OV ---
Intake Visit Reasons: High BP Allergies oxycodone [From PERCOCET] Allergy (Intermediate, Verified 09/26/23 13:13) VOMITING, N/V codeine [Codeine] Allergy (Mild, Verified 09/26/23 13:13) HIVES atorvastatin Allergy (Unknown, Verified 09/26/23 13:13) Headaches bupropion [From WELLBUTRIN] Allergy (Unknown, Verified 09/26/23 13:13) PALPITATIONS morphine [MORPHINE] Allergy (Unknown, Verified 09/26/23 13:13) NIGHTMARES naproxen [NAPROXEN] Allergy (Unknown, Verified 09/26/23 13:13) RASH sertraline Allergy (Unknown, Verified 09/26/23 13:13) Unknown simvastatin Allergy (Unknown, Verified 09/26/23 13:13) Unknown zolpidem [ZOLPIDEM] Allergy (Unknown, Verified 09/26/23 13:13) PALPITATIONS Tobacco use date assessed: 07/23/23 Dental Screening Dental Screen Date: 07/23/23 HPI High BP HPI Details 53-year-old obese female with fatty liver asthma lumbar degenerative disc disease generalized anxiety disorder impaired glucose tolerance coming in for follow-up through Telehealth last seen in July 2023. Recently in the ER September 2023 having headaches noted to have an elevated blood pressure advised to follow-up. [facility]LY [facility] Medical History Vertigo Dysuria Upper respiratory tract infection Nausea and vomiting Abdominal pain Fall Otitis media IBS (irritable bowel syndrome) Uterine cancer History of gestational diabetes Genital herpes Hypercholesterolemia Obstructive sleep apnea Vitamin D deficiency Lumbar degenerative disc disease Hypertension Insomnia Fatty liver GERD (gastroesophageal reflux disease) Asthma Obesity (BMI 30-39.9) NAFLD (nonalcoholic fatty liver disease) Surgical History History of esophagogastroduodenoscopy (EGD) History of lumbar surgery History of total abdominal hysterectomy and bilateral salpingo-oophorectomy History of tubal ligation Hx of endoscopy History of colonoscopy Family History Father Hx of colon cancer, stage III Stomach cancer Mother Hx of heat stroke Acute CVA (cerebrovascular accident) Hypertension Diabetes Maternal Grandmother Breast cancer Stroke Maternal Grandfather CVD (cardiovascular disease) Myocardial infarction Son In good health Sister No problems noted. Sister No problems noted. Sister No problems noted. Brother No problems noted. Brother No problems noted. Social History Housing: Apartment Alcohol intake: never Patient Tobacco Use Status: Former Tobacco user Quit Date: 20 years ago Tobacco use type: Cigarette Years Smoked: 2002 quit CBD oil e-Cigarette/Vaping Use: Never Used Second Hand Smoke Exposure: No service: No Current occupational status: disabled Current occupational exposures/hazards: No Cognitive needs: No Hearing needs: No Vision needs: No Questionnaire PHQ-9 Over the last 2 weeks, how often have you been bothered by any of the following problems? 1. Little interest or pleasure in doing things: nearly every day 2. Feeling down, depressed, or hopeless: nearly every day 3. Trouble falling or staying asleep, or sleeping too much: nearly every day 4. Feeling tired or having little energy: nearly every day 5. Poor appetite or overeating: nearly every day 6. Feeling bad about yourself - or that you are a failure or have let yourself or your family down: several days 7. Trouble concentrating on things, such as reading the newspaper or watching television: not at all 8. Moving or speaking so slowly that other people could have noticed. Or the opposite - being so fidgety or restless that you have been moving around a lot more than usual: several days 9. Thoughts that you would be better off or of hurting yourself in some way: not at all Total score: 17 Depression Screening Interpretation: Positive Depression Screening Done: Yes Source: Developed by Drs. Miki Koo, Monica Childers, Chris Watt and colleagues, with an educational adrien from [employer]. Thrive Questionnaire Date Thrive assessed: 09/26/23 I am a: Patient What is your living situation today?: I have a steady place to live Within the past 12 months, did the food you bought not last and you didn't have the money to get more?: Never true Within the past 12 months, did you worry whether your food would run out before you got money to buy more?: Never true Do you have trouble paying for medicines?: No Do you have trouble getting transportation to medical appointments?: No Do you have trouble paying your heating and electricity bill?: No Do you have trouble taking care of your child, family member or friend?: No Do you have trouble with day-to-day activities such as bathing, preparing meals, shopping, managing finances, etc.?: No Are you currently unemployed and looking for a job?: No Are you interested in more education?: No Currently or been in a relationship where the following occur: no concerns reported THRIVE Score: 0 AUDIT C Alcohol Use Questionnaire (AUDIT-C) 1. How often do you have a drink containing alcohol?: Never Total Score: 0 ELDA-7 AMB Questionnaire ELDA-7 Date ELDA - 7 assessed: 09/26/23 Feeling nervous, anxious, or on edge: 3 = Nearly every day Not being able to stop or control worryin = Nearly every day Worrying too much about different things: 3 = Nearly every day Trouble relaxin = Nearly every day Being so restless that it is hard to sit still: 3 = Nearly every day Becoming easily annoyed or irritable: 3 = Nearly every day Feeling afraid as if something awful might happen: 3 = Nearly every day Total ELDA-7 score (0-4 normal; 5-9 mild; 10-14 moderate; 15-21 severe): 21 Source: Developed by Drs. Miki Koo, Monica Childers, Chris Watt and colleagues, with an educational adrien from [employer]. Physical exam (Primary Care) Tobacco/Smoking Status: Tobacco use Status Tobacco use date assessed 07/23/23 09/26/23 13:14 Patient Tobacco Use Status Former Tobacco user 09/26/23 13:14 Tobacco use type Cigarette 09/26/23 13:14 e-Cigarette/Vaping Use Never Used 09/26/23 13:14 PHQ-9: PHQ-9 Score PHQ-9: Total score 17 09/26/23 13:14 Depression Screening Interpretation: Positive Thrive Assessment: Date of Thrive Assessment Date Thrive assessed 09/26/23 09/26/23 13:14 Currently or been in a relationship where the following occur: no concerns reported Telehealth Telehealth Location of provider rendering services: practice address Location of patient: address on file Patient Identification confirmed using: Name, : Yes Telehealth method: voice only Patient verbally consented to treatment: Yes Patient verbally consented to billing insurance company: Yes Patient informed of any privacy concerns related to visit: Yes Minutes spent on Phone/Video with Pt.: 20 Assessment and Plan Assessment & Plan (1) Hypertension: Code(s): I10 - Essential (primary) hypertension Plan: Advised patient to monitor the blood pressure 2 to 3 times a week and each time to sit down for about 3-5 minutes before getting the blood pressure and record this. Advised low-salt diet/low-sodium diet try her best to lose the weight eat healthy and keep active. Bring the list to the scheduled appointment and decide on treatment or not. (2) Generalized anxiety disorder: Comment: conselling [place] every Saturday (01/2022) Code(s): F41.1 - Generalized anxiety disorder Plan: Patient is having counseling and therapy presently Coding Level of Care Code Tele Est Pt Level 3 (53361) Diagnoses Hypertension I10 Generalized anxiety disorder F41.1
== END 2023-09-26 16:11 | disposition home or self-care (01) ==
LOC: HO.HMGH 13:12
PROVIDERS: PCP Internal Medicine; Visit Provider Internal Medicine
DX: I10 Essential (primary) hypertension (principal); F41.1 Generalized anxiety disorder
CPT/HCPCS: 99442

== ENCOUNTER 2023-10-25 09:06 | Outpatient (REF) | payer OTHER, SELFPAY ==
[2023-10-25 09:57] LABS: Estimated Average Glucose 123 mg/dL; Hemoglobin A1c % 5.9 % (<6.0)
[2023-10-25 10:27] LABS: Alanine Aminotransferase 74 U/L (0-31); Albumin Level 3.8 g/dL (3.5-5.0); Alkaline Phosphatase 67 U/L (39-117); Anion Gap 11 (12-20); Aspartate Amino Transferase 58 U/L (5-31); Bilirubin Total 0.5 mg/dL (0.0-1.0); Blood Urea Nitrogen 13 mg/dL (9-16); Calcium 9.5 mg/dL (8.4-10.2); Carbon Dioxide 26 mmol/L (22-29); Chloride 109 mmol/L (96-108); Estimated Glomerular Filt Rate > 60; Glucose Random 124 mg/dL (60-115); Potassium 3.9 mmol/L (3.3-5.1); Sodium 142 mmol/L (135-145); Total Protein 6.6 g/dL (6.5-8.0)
== END 2023-10-25 09:07 | disposition home or self-care (01) ==
LOC: HO.LAB 09:06
PROVIDERS: PCP Internal Medicine; Visit Provider Internal Medicine
DX: K21.9 Gastro-esophageal reflux disease without esophagitis (principal)
CPT/HCPCS: 36415; 80053; 83036

== ENCOUNTER 2023-10-25 09:27 | Outpatient (AMB) | payer OTHER, SELFPAY ==
--- NOTE | 2023-10-25 09:35 | MHC.PC.OV ---
Vital Signs 10/25/23 09:36 Height 5 ft 1 in Weight 183 lb BMI 34.6 BP 130/78 Blood Pressure Location Lt brachial Position Sitting Pulse 83 Pulse Source Pulse Oximeter Pulse Oximetry (%) 82 L Oxygen Delivery Method Room Air Intake Visit Reasons: [facility] [place] [place] High Blood Pressure Allergies oxycodone [From PERCOCET] Allergy (Intermediate, Verified 10/25/23 09:36) VOMITING, N/V codeine [Codeine] Allergy (Mild, Verified 10/25/23 09:36) HIVES atorvastatin Allergy (Unknown, Verified 10/25/23 09:36) Headaches bupropion [From WELLBUTRIN] Allergy (Unknown, Verified 10/25/23 09:36) PALPITATIONS morphine [MORPHINE] Allergy (Unknown, Verified 10/25/23 09:36) NIGHTMARES naproxen [NAPROXEN] Allergy (Unknown, Verified 10/25/23 09:36) RASH sertraline Allergy (Unknown, Verified 10/25/23 09:36) Unknown simvastatin Allergy (Unknown, Verified 10/25/23 09:36) Unknown zolpidem [ZOLPIDEM] Allergy (Unknown, Verified 10/25/23 09:36) PALPITATIONS Tobacco use date assessed: 07/23/23 Dental Screening Dental Screen Date: 07/23/23 HPI [facility] [place] [place] High Blood Pressure HPI Details 53-year-old obese female with a history of fatty liver GERD hypertension obstructive sleep apnea hypercholesterolemia impaired glucose tolerance generalized anxiety disorder lumbar degenerative disc disease coming in for follow-up. Last seen last month coming in for follow-up.. fall 3 weeks and had R 3rd finger locking up O2 sat 98 PFSH Medical History (Updated 10/25/23 @ 09:54 by Coreen Hernandez MD) Hypertension Vertigo Dysuria Upper respiratory tract infection Nausea and vomiting Abdominal pain Fall Otitis media IBS (irritable bowel syndrome) Uterine cancer History of gestational diabetes Genital herpes Hypercholesterolemia Obstructive sleep apnea Vitamin D deficiency Lumbar degenerative disc disease Hypertension Insomnia Fatty liver GERD (gastroesophageal reflux disease) Asthma Obesity (BMI 30-39.9) NAFLD (nonalcoholic fatty liver disease) Surgical History History of esophagogastroduodenoscopy (EGD) History of lumbar surgery History of total abdominal hysterectomy and bilateral salpingo-oophorectomy History of tubal ligation Hx of endoscopy History of colonoscopy Family History Father Hx of colon cancer, stage III Stomach cancer Mother Hx of heat stroke Acute CVA (cerebrovascular accident) Hypertension Diabetes Maternal Grandmother Breast cancer Stroke Maternal Grandfather CVD (cardiovascular disease) Myocardial infarction Son In good health Sister No problems noted. Sister No problems noted. Sister No problems noted. Brother No problems noted. Brother No problems noted. Social History Housing: Apartment Alcohol intake: never Patient Tobacco Use Status: Former Tobacco user Tobacco use type: Cigarette Years Smoked: 2002 quit CBD oil e-Cigarette/Vaping Use: Never Used Second Hand Smoke Exposure: No service: No Current occupational status: disabled Current occupational exposures/hazards: No Cognitive needs: No Hearing needs: No Vision needs: No Questionnaire PHQ-9 Over the last 2 weeks, how often have you been bothered by any of the following problems? 1. Little interest or pleasure in doing things: nearly every day 2. Feeling down, depressed, or hopeless: nearly every day 3. Trouble falling or staying asleep, or sleeping too much: nearly every day 4. Feeling tired or having little energy: nearly every day 5. Poor appetite or overeating: nearly every day 6. Feeling bad about yourself - or that you are a failure or have let yourself or your family down: several days 7. Trouble concentrating on things, such as reading the newspaper or watching television: not at all 8. Moving or speaking so slowly that other people could have noticed. Or the opposite - being so fidgety or restless that you have been moving around a lot more than usual: several days 9. Thoughts that you would be better off or of hurting yourself in some way: not at all Total score: 17 Depression Screening Interpretation: Positive Depression Screening Done: Yes Source: Developed by Drs. Miki Koo, Monica Childers, Chris Watt and colleagues, with an educational adrien from [employer]. Thrive Questionnaire Date Thrive assessed: 09/26/23 AUDIT C Alcohol Use Questionnaire (AUDIT-C) 1. How often do you have a drink containing alcohol?: Never Total Score: 0 ELDA-7 AMB Questionnaire ELDA-7 Date ELDA - 7 assessed: 09/26/23 Source: Developed by DrsXimena Koo, Monica Childers, Chris Watt and colleagues, with an educational adrien from [employer]. Physical exam (Primary Care) Vital Signs: Last Vital Signs Pulse 83 10/25/23 09:36 BP 130/78 10/25/23 09:36 Pulse Ox 82 L 10/25/23 09:36 Oxygen Delivery Method Room Air 10/25/23 09:36 BMI result Body Mass Index 34.6 Tobacco/Smoking Status: Tobacco use Status Tobacco use date assessed 07/23/23 10/25/23 09:43 Patient Tobacco Use Status Former Tobacco user 10/25/23 09:43 Tobacco use type Cigarette 10/25/23 09:43 e-Cigarette/Vaping Use Never Used 10/25/23 09:43 PHQ-9: PHQ-9 Score PHQ-9: Total score 17 10/25/23 09:50 Depression Screening Interpretation: Positive Thrive Assessment: Date of Thrive Assessment Date Thrive assessed 09/26/23 10/25/23 09:43 Const General: alert; No acute distress Eyes Conjunctivae: conjunctivae normal Resp Auscultation: clear to auscultation bilaterally Cardio Rate: regular rate Rhythm: regular rhythm GI Inspection: Yes normal to inspection Extrem General: Yes normal to inspection and No edema Assessment and Plan Assessment & Plan (1) Obesity (BMI 30-39.9): Code(s): E66.9 - Obesity, unspecified Plan: Diet and exercise (2) Hypertension: Comment: Echocardiogram normal 65-70% January 2019 Code(s): I10 - Essential (primary) hypertension Qualifiers: Hypertension type: essential hypertension Qualified Code(s): I10 - Essential (primary) hypertension Plan: Patient has been monitoring blood pressure at home. BP hjas been good at home with no med (3) Obstructive sleep apnea: Comment: cannot tolerate CPAP 06/2021 Code(s): G47.33 - Obstructive sleep apnea (adult) (pediatric) Plan: Discussed importance of having sleep apnea treated referral to sleep Medicine (4) Trigger finger of right hand: Code(s): M65.30 - Trigger finger, unspecified finger Plan: referral to ortho and splint placed (5) Impaired fasting glucose: Code(s): R73.01 - Impaired fasting glucose Plan: Decrease the amount of carbohydrate intake, pasta, bread, rice and potatoes are all sugar and that is aside from all the sweet stuff, remember that fruits are good but they are Sweet also. Noted hemoglobin A1c to be rising Orders: Referrals Orthopedics Referral M65.30 - Trigger finger, unspecified finger Sleep Medicine Referral G47.33 - Obstructive sleep apnea (adult) (pediatric) Coding Level of Care Code Est Pt Level 4 (31323) Complex EM visit Add On G2211 Diagnoses Obesity (BMI 30-39.9) E66.9 Essential hypertension I10 Hypertension type: essential hypertension Obstructive sleep apnea G47.33 Trigger finger of right hand M65.30 Impaired fasting glucose R73.01
[2023-10-25 09:36] VITALS: BP 130/78; PULSE 83; O2SAT 82; BMI 34.6
== END 2023-10-25 10:05 | disposition home or self-care (01) ==
PROVIDERS: PCP Internal Medicine; Visit Provider Internal Medicine
DX: I10 Essential (primary) hypertension (principal); E66.9 Obesity, unspecified; Z68.34 Body mass index [BMI] 34.0-34.9, adult; G47.33 Obstructive sleep apnea (adult) (pediatric); R73.01 Impaired fasting glucose
CPT/HCPCS: 99214; G2211

== ENCOUNTER 2023-12-07 20:06 | Emergency (ER) | payer OTHER, SELFPAY ==
--- NOTE | 2023-12-07 20:09 | ED_ITS ---
HPI - General Adult General Chief complaint: General Medical Stated complaint: sore throat/fever Time Seen by Provider: 12/07/23 20:41 Source: patient Mode of arrival: ambulatory Limitations: no limitations History of Present Illness ED Provider: Yael Remy PA-C HPI narrative: Patient is a 53 year old assigned female at with a history of ELDA and IBS presenting to the emergency department today with a sore throat, fever, bilateral ear pain, and headaches. Patient states that over the last 2 days she has felt generally unwell with a sore throat, bilateral ear pain, fevers, and headaches. Patient denies any dizziness, lightheadedness, abdominal pain, nausea, vomiting, chills, blurry vision, double vision, loss of vision, chest pain, difficulty breathing, shortness of breath, back pain, night sweats, pain with urination, increased urinary frequency, increased urinary urgency, blood in her urine or stool, syncope or a near syncopal episode, recent trauma or falls, bowel incontinence, bladder incontinence, or any other complaints at this time. Onset (ago): day(s) (2) Location: head Severity: mild Severity scale (1-10): 4 Relieving factors: none Exacerbating factors: none Associated symptoms: fever/chills and headaches Treatments prior to arrival: none Related Data Home Medications ?Medication ?Instructions ?Recorded ?Confirmed lancets 28 gauge #100 ea 05/05/20 12/18/23 blood-glucose meter #1 ea 06/13/20 12/18/23 pantoprazole 20 mg tablet,delayed 40 mg PO BID 07/23/23 12/18/23 release Previous Rx's ?Medication ?Instructions ?Recorded blood sugar diagnostic #100 ea 06/13/20 Shower Chair #1 ea 07/03/21 fluticasone propionate 50 1 spray intranasal DAILY #9.9 mL 01/18/23 mcg/actuation nasal spray,suspension (Flonase Allergy Relief) albuterol sulfate 5 mg/mL(0.5 %) 2.5 mg (0.5 mL) inhalation Q6H PRN 04/30/23 solution for nebulization shortness of breath or wheezing #20 mL nebulizers (Aeroneb Go Nebulizer) #1 ea 04/30/23 cyclobenzaprine 5 mg tablet 5 mg PO TID PRN muscle spasm 7 07/31/23 days #21 tabs cyclobenzaprine 10 mg tablet 10 mg PO BID #90 tabs 10/02/23 pravastatin 20 mg tablet 20 mg PO DAILY #90 tabs 10/02/23 sennosides 8.6 mg tablet (senna) 17.2 mg (2 x 8.6 mg) PO BEDTIME 10/03/23 for constipation #60 tabs blood pressure monitor (Blood #1 ea 10/09/23 Pressure Kit) lorazepam 1 mg tablet 1 mg PO DAILY 30 days #30 tabs 12/10/23 albuterol sulfate 90 mcg/actuation 2 puff inhalation Q6H PRN 12/18/23 aerosol inhaler shortness of breath or wheezing #6.7 grams cetirizine 10 mg tablet 10 mg PO DAILY #30 tabs 12/18/23 Allergies Allergy/AdvReac Type Severity Reaction Status Date / Time oxycodone [From PERCOCET] Allergy Intermediate VOMITING, Verified 12/07/23 20:13 N/V codeine [Codeine] Allergy Mild HIVES Verified 12/07/23 20:13 atorvastatin Allergy Unknown Headaches Verified 12/07/23 20:13 bupropion [From WELLBUTRIN] Allergy Unknown PALPITATION Verified 12/07/23 20:13 S morphine [MORPHINE] Allergy Unknown NIGHTMARES Verified 12/07/23 20:13 naproxen [NAPROXEN] Allergy Unknown RASH Verified 12/07/23 20:13 sertraline Allergy Unknown Unknown Verified 12/07/23 20:13 simvastatin Allergy Unknown Unknown Verified 12/07/23 20:13 zolpidem [ZOLPIDEM] Allergy Unknown PALPITATION Verified 12/07/23 20:13 S Review of Systems Constitutional: Constitutional: Reports no additional constitutional complaints, Denies chills, Reports fever(s), Reports headache(s) and Denies night sweats Eyes: Eyes: Reports no additional eye complaints, Denies blurry vision, Denies change in vision, Denies diplopia, Denies eye discharge, Denies loss of vision and Denies eye pain ENT: Denies dizziness, Reports headache(s) and Reports sore throat Cardiovascular: Cardiovascular: Reports no additional cardiovascular complaints, Denies chest pain, Denies lightheadedness, Denies Loss of Consciousness and Denies dyspnea Respiratory: Respiratory: Reports no additional respiratory complaints and Denies dyspnea Gastrointestinal: Gastrointestinal: Reports no additional gastrointestinal complaints, Denies abdominal pain, Denies melena, Denies hematochezia, Denies change in bowel habits and Denies change in stool character Genitourinary: Genitourinary: Denies hematuria, Denies urinary frequency, Denies dysuria, Denies urinary incontinence, Denies urinary hesitancy and Denies urinary urgency Musculoskeletal: Musculoskeletal: Reports no additional musculoskeletal complaints, Denies numbness and Denies tingling Neurologic: Denies dizziness, Reports headache(s), Denies loss of vision, Denies numbness and Denies tingling Psychiatric: Psychiatric: Reports no additional psychiatric complaints Endocrine: Endocrine: Reports no additional endocrine complaints Hematologic/Lymphatic: Hematologic/Lymphatic: Reports no additional hematologic/lymphatic complaints Allergic/Immunologic: Allergic/Immunologic: Reports no additional allergic/immunologic complaints [facility] Past Medical History Attestation statement: The following information was validated with the patient. Source: old records reviewed and nursing notes reviewed Medical History Hypertension Vertigo Dysuria Upper respiratory tract infection Nausea and vomiting Abdominal pain Fall Otitis media IBS (irritable bowel syndrome) Uterine cancer History of gestational diabetes Genital herpes Hypercholesterolemia Obstructive sleep apnea Vitamin D deficiency Lumbar degenerative disc disease Hypertension Insomnia Fatty liver GERD (gastroesophageal reflux disease) Asthma Obesity (BMI 30-39.9) NAFLD (nonalcoholic fatty liver disease) Surgical History History of esophagogastroduodenoscopy (EGD) History of lumbar surgery History of total abdominal hysterectomy and bilateral salpingo-oophorectomy History of tubal ligation Hx of endoscopy History of colonoscopy Family History Family History Father Hx of colon cancer, stage III Stomach cancer Mother Hx of heat stroke Acute CVA (cerebrovascular accident) Hypertension Diabetes Maternal Grandmother Breast cancer Stroke Maternal Grandfather CVD (cardiovascular disease) Myocardial infarction Son In good health Sister No problems noted. Sister No problems noted. Sister No problems noted. Brother No problems noted. Brother No problems noted. Social History Social History Housing: Apartment Alcohol intake: never Patient Tobacco Use Status: Former Tobacco user Tobacco use type: Cigarette Years Smoked: 2002 quit CBD oil e-Cigarette/Vaping Use: Never Used Second Hand Smoke Exposure: No service: No Current occupational status: disabled Current occupational exposures/hazards: No Cognitive needs: No Hearing needs: No Vision needs: No Physical Exam ED Vital Signs: Vital Signs - 24 hr 12/07/23 20:10 Temperature 98.8 F Pulse Rate 114 H Respiratory Rate 18 Blood Pressure 152/93 H Pulse Oximetry 99 Oxygen Delivery Method Room Air BMI result Body Mass Index 34.2 Const General: cooperative, no acute distress, alert and awake Nutritional Appearance: well nourished Orientation/consciousness: patient oriented x3 Limitations: no limitations HENMT Head: Yes normal to inspection and Yes atraumatic Ears: hearing grossly normal bilaterally and external ears normal General nose exam: Normal external nose present, no nasal discharge noted and no epistaxis Face and sinus: Yes normal facial exam, No abrasion and No laceration Mouth: Normal oral and palatal mucosa present, no drooling and no muffled voice Eyes General: appearance normal, both eyes and all related structures Periorbital: periorbital findings normal Eyelids: Yes eyelids normal Conjunctivae: conjunctivae normal Pupils: Equal, round and reactive pupils present EOM: EOMs intact bilaterally Neck Neck: Yes normal visual inspection, Yes full ROM and Yes no lymphadenopathy Chest Chest palpation & inspection: normal inspection of the chest Resp Effort & Inspection: normal respiratory effort and able to speak in complete sentences GI Inspection: Yes normal to inspection Neuro General: patient oriented x3 and moves all extremities Cranial nerves: Yes Equal, round and reactive pupils present Cognition (Neuro): normal cognition Extrem General: Yes normal to inspection, Yes full ROM and Yes capillary refill normal Psych Appearance: grossly normal Mental Status: mental status grossly normal Affect: normal affect Attitude: cooperative Thought process: Normal thought process present Thought content: Normal thought content present Insight: Good insight present (Psych) Course Course Course Narrative: RME performed by Yael Remy PA-C. Patient is a 53 year old assigned female at presenting to the emergency department with a sore throat. Detailed physical exam and review of systems are deferred to the welt edge rounder. Swabs ordered. Patient placed back in the waiting room pending room availability and results. Medical Decision Making Medical Decision Making MDM Narrative: Patient is a 53 year old assigned female at with a history of ELDA and IBS presenting to the emergency department today with a sore throat, fevers, headache, and bilateral ear pain. Patient's physical exam was unremarkable. Patient's strep test was positive. I explained my physical exam findings as well as all test results to the patient. I answered all questions asked by the patient. I stressed the importance of the patient taking her medication as directed (either prescribed or as the over the counter packaging recommends). I stressed the importance of the patient following up with her primary care provider. I stressed the importance of the patient returning to the emergency department immediately if her symptoms were to worsen or if she were to develop any dizziness, shortness of breath, difficulty breathing, chest pain, blurry vision, loss of vision, nausea, vomiting, abdominal pain, fever, chills, back pain, or any other complaints. Patient verbalized agreement and understanding with this treatment plan and discharge. Differential Diagnosis Differential Diagnoses: The differential diagnosis associated with the presentation includes Strep pharyngitis COVID-19 Influenza RSV Admission/Observation Consideration of admission/observation: Escalation of care including admission/observation considered Patient would have been admitted to the hospital had her work up had any findings where hospital admission was appropriate and her clinical presentation warranted hospital admission. Lab Data [facility] Lab Attestation statement: I reviewed the patient's lab results. My interpretation of these results are in the [facility] Rationale portion of this note. Labs: Lab Results 12/07/23 Range/Units 20:19 Influenza Type A (PCR) NEGATIVE (Negative) Influenza Type B (PCR) NEGATIVE (Negative) RSV RNA Qual (PCR) NEGATIVE (Negative) SARS-CoV-2 RNA (RT-PCR) NEGATIVE (Negative) S. pyogenes GrpA LAKISHA Positive A (Negative) Prescription Management I considered prescription management with: Antibiotic (patient prescribed an antibiotic for strep pharyngitis) Discharge Plan Discharge Clinical Impression: Strep pharyngitis Patient Disposition: Home, Self-Care Instructions: Strep Throat (DC) Additional Instructions: Follow up with your primary care provider. Return to the emergency department immediately if your symptoms worsen or if you develop any dizziness, shortness of breath, difficulty breathing, chest pain, blurry vision, loss of vision, nausea, vomiting, abdominal pain, fever, chills, back pain, or any other complaints. Please see the information below about our Patient Portal. If you are not yet enrolled in the [facility] Patient Portal, you will receive an enrollment email invitation following your visit to any [facility] care setting. You may also self-enroll in the Patient Portal by visiting our website: [email or web address] The following information is required to access the Patient Portal: - Your [facility] Medical Record Number - Your personal home email address (must match what is in your electronic medical record, Registration staff can assist with this) - Name - Date of Capabilities of the Patient Portal: - Message some providers - View upcoming appointments - Access your health summary, medical history, and visit history - View current conditions and allergies - View procedure and lab results - View your medications, including guidelines, side effects, and precautions - Complete pre-appointment questionnaires requested by your provider - Ready summary reports of your office visits and procedures To access the Patient Portal Mobile [employer], follow these directions: - Search Interactive [employer] Software in the [employer] Store or [employer] Store - Download the [employer] - Search for [facility] - Enter your login/password Prescriptions: No Action (DME) blood sugar diagnostic Strip See Rx Instructions .ROUTE .MEDSUPPLY Qty: 100 0RF Rx Instructions: As directed check BS QD (DME) nebulizers [Aeroneb Go Nebulizer] Misc See Rx Instructions .Route Qty: 1 0RF Rx Instructions: As directed pravastatin 20 mg tablet 20 mg PO DAILY Qty: 90 2RF cyclobenzaprine 10 mg tablet 10 mg PO BID Qty: 90 0RF sennosides [senna] 8.6 mg tablet 17.2 mg PO BEDTIME Qty: 60 6RF (DME) blood pressure monitor [Blood Pressure Kit] Kit See Rx Instructions .ROUTE .MEDSUPPLY Qty: 1 0RF Rx Instructions: As directed lorazepam 1 mg tablet 1 mg PO DAILY 30 Days Qty: 30 0RF cyclobenzaprine 5 mg tablet 5 mg PO TID PRN (Reason: muscle spasm) 7 Days Qty: 21 0RF (DME) lancets 28 gauge misc See Rx Instructions topical .MEDSUPPLY Qty: 100 Rx Instructions: As directed (DME) blood-glucose meter Kit See Rx Instructions .ROUTE DAILY Qty: 1 Rx Instructions: As directed (DME) Shower Chair Misc See Rx Instructions .Route Qty: 1 0RF Rx Instructions: As directed cetirizine 10 mg tablet 10 mg PO DAILY Qty: 30 2RF albuterol sulfate 90 mcg/actuation HFA aerosol inhaler 2 puff inhalation Q6H PRN (Reason: shortness of breath or wheezing) Qty: 6.7 0RF pantoprazole 20 mg tablet,delayed release (DR/EC) 40 mg PO BID fluticasone propionate [Flonase Allergy Relief] 50 mcg/actuation spray,suspension 1 spray intranasal DAILY Qty: 9.9 1RF Rx Instructions: administer into each nostril albuterol sulfate 5 mg/mL solution for nebulization 2.5 mg inhalation Q6H PRN (Reason: shortness of breath or wheezing) Qty: 20 0RF Referrals: Po,Coreen Fisher MD [Primary Care Provider] - Stand Alone Forms: Work/School Release Interventions: ED Discharge Assessment Last Done: 12/07/23 20:48 Discharge Date/Time: 12/07/23 20:49 Print Language: Lithuanian
[2023-12-07 20:10] VITALS: BP 152/93; PULSE 114; RESP 18; TEMP 37.1; O2SAT 99; BMI 34.2
[2023-12-07 20:29] LABS: IDNOW Serial# 58CA691E; Strep A Nucleic Acid Positive (Negative)
[2023-12-07 20:47] VITALS: BP 154/94; PULSE 121; RESP 16; TEMP 36.7; O2SAT 97
[2023-12-07 20:48] VITALS: BP 154/94; PULSE 121; RESP 16; TEMP 36.7; O2SAT 97
[2023-12-07 21:06] LABS: Influenza A PCR NEGATIVE (Negative); Influenza B PCR NEGATIVE (Negative); Resp Syncy Virus RNA Qual PCR NEGATIVE (Negative); SARS COV2 PCR INHOUSE NEGATIVE (Negative)
== END 2023-12-07 20:49 | disposition home or self-care (01) ==
PROVIDERS: Physician Assistant Medical; Emergency Provider Emergency Medicine; PCP Internal Medicine
DX: J02.0 Streptococcal pharyngitis (principal); Z03.818 Encounter for observation for suspected exposure to other biological agents ruled out; J45.909 Unspecified asthma, uncomplicated; I10 Essential (primary) hypertension; E78.00 Pure hypercholesterolemia, unspecified; Z79.02 Long term (current) use of antithrombotics/antiplatelets; Z79.899 Other long term (current) drug therapy
CPT/HCPCS: 0241U; 87651; 99283

== ENCOUNTER 2023-12-17 14:28 | Outpatient (REF) | payer OTHER, SELFPAY ==
--- NOTE | ~2023-12-17 | XR_ITS ---
EXAMINATION: XR CHEST CLINICAL INFORMATION: Cough. COMPARISON: 09/23/2023, 05/31/2021. TECHNIQUE: 2 views of the chest were obtained. FINDINGS: There is no gross pneumothorax. Lung volumes are low. Heart size is normal. Redemonstration of linear left basilar opacities likely representing scar/subsegmental atelectasis. No pleural effusion. No new focal consolidation to suggest pneumonia. XR/XR chest 2V IMPRESSION: Redemonstration of linear left basilar opacities likely representing scar/subsegmental atelectasis. No new focal consolidation to suggest pneumonia.
== END 2023-12-17 14:29 | disposition home or self-care (01) ==
LOC: HO.XRAY 14:28
PROVIDERS: PCP Internal Medicine
DX: R05.9 Cough, unspecified (principal)
CPT/HCPCS: 71046

== ENCOUNTER 2023-12-18 14:34 | Outpatient (AMB) | payer OTHER, SELFPAY ==
--- NOTE | 2023-12-18 14:37 | A.OFFPC_ITS ---
Vital Signs 12/18/23 14:38 Height 5 ft 1 in Weight 179 lb 0.8 oz BMI 33.8 BP 124/76 Blood Pressure Location Lt brachial Position Sitting Pulse 89 Pulse Source Pulse Oximeter Pulse Oximetry (%) 97 Oxygen Delivery Method Room Air Intake Visit Reasons: [facility] 7.21 Migraines Intake Note: Patient is here for hospital discharge follow up. Patient was discharged from [facility] on 12/08/23 Allergies oxycodone [From PERCOCET] Allergy (Intermediate, Verified 12/07/23 20:13) VOMITING, N/V codeine [Codeine] Allergy (Mild, Verified 12/07/23 20:13) HIVES atorvastatin Allergy (Unknown, Verified 12/07/23 20:13) Headaches bupropion [From WELLBUTRIN] Allergy (Unknown, Verified 12/07/23 20:13) PALPITATIONS morphine [MORPHINE] Allergy (Unknown, Verified 12/07/23 20:13) NIGHTMARES naproxen [NAPROXEN] Allergy (Unknown, Verified 12/07/23 20:13) RASH sertraline Allergy (Unknown, Verified 12/07/23 20:13) Unknown simvastatin Allergy (Unknown, Verified 12/07/23 20:13) Unknown zolpidem [ZOLPIDEM] Allergy (Unknown, Verified 12/07/23 20:13) PALPITATIONS Medication List - Last Reconciled 12/18/23 by Louise Rico PA-C albuterol sulfate 2.5 mg (0.5 mL) inhalation Q6H PRN albuterol sulfate 90 mcg/actuation 2 puffs inhalation Q6H PRN blood pressure monitor (Blood Pressure Kit) As directed blood sugar diagnostic As directed check BS QD blood-glucose meter As directed cyclobenzaprine 5 mg PO TID PRN 7 days cyclobenzaprine 10 mg PO BID fluticasone propionate 50 mcg/actuation (Flonase Allergy Relief) 1 spray intranasal DAILY lancets As directed lorazepam 1 mg PO DAILY 30 days nebulizers (Aeroneb Go Nebulizer) As directed pantoprazole 40 mg PO BID pravastatin 20 mg PO DAILY sennosides (senna) 17.2 mg (2 x 8.6 mg) PO BEDTIME Shower Chair As directed Tobacco use date assessed: 07/23/23 Dental Screening Dental Screen Date: 07/23/23 HPI [facility] 7.21 Migraines HPI Details 53-year-old female with past medical his tory of nonalcoholic fatty liver disease, asthma, GERD, hypertension, obstructive sleep apnea, hypercholesterolemia, impaired glucose tolerance, generalized anxiety disorder, and IBS last seen by Dr. Hernandez 10/2023 coming in for hospital follow up.? In review of the notes, patient was seen in [facility] ED 12/07/2023 for sore throat was found to have strep and treated with antibiotics. Patient recently tested positive for COVID and more recently for strep and treated with penicillin antibiotics outpatient. The patient states her symptoms have resolved at this time however she is still having intermittent shortness of breath, head pressure, and generalized joint pains. [facility] Medical History (Updated 12/16/23 @ 12:22 by Louise Rico PA-C) Hypertension Vertigo Dysuria Upper respiratory tract infection Nausea and vomiting Abdominal pain Fall Otitis media IBS (irritable bowel syndrome) Uterine cancer History of gestational diabetes Genital herpes Hypercholesterolemia Obstructive sleep apnea Vitamin D deficiency Lumbar degenerative disc disease Hypertension Insomnia Fatty liver GERD (gastroesophageal reflux disease) Asthma Obesity (BMI 30-39.9) NAFLD (nonalcoholic fatty liver disease) Surgical History History of esophagogastroduodenoscopy (EGD) History of lumbar surgery History of total abdominal hysterectomy and bilateral salpingo-oophorectomy History of tubal ligation Hx of endoscopy History of colonoscopy Family History Father Hx of colon cancer, stage III Stomach cancer Mother Hx of heat stroke Acute CVA (cerebrovascular accident) Hypertension Diabetes Maternal Grandmother Breast cancer Stroke Maternal Grandfather CVD (cardiovascular disease) Myocardial infarction Son In good health Sister No problems noted. Sister No problems noted. Sister No problems noted. Brother No problems noted. Brother No problems noted. Social History Housing: Apartment Alcohol intake: never Patient Tobacco Use Status: Former Tobacco user Tobacco use type: Cigarette Years Smoked: 2002 quit CBD oil e-Cigarette/Vaping Use: Never Used Second Hand Smoke Exposure: No service: No Current occupational status: disabled Current occupational exposures/hazards: No Cognitive needs: No Hearing needs: No Vision needs: No Questionnaire Thrive Questionnaire Date Thrive assessed: 09/26/23 ELDA-7 AMB Questionnaire ELDA-7 Date ELDA - 7 assessed: 09/26/23 Source: Developed by Drs. Miki Koo, Monica Childers, Chris Watt and colleagues, with an educational adrien from [employer]. Review of Systems Const Denies body aches, Denies chills, Denies fever(s), Denies headache(s) and Denies poor appetite Eyes Reports no additional complaints ENT Reports as per HPI, Denies dysphagia, Denies dizziness, Denies headache(s) and Denies odynophagia Card Denies chest pain, Denies syncope, Denies edema, Denies irregular heart rhythm, Denies lightheadedness and Denies dyspnea Resp Denies cough and Denies dyspnea GI Denies abdominal pain, Denies constipation, Denies dysphagia, Denies diarrhea, Denies nausea, Denies odynophagia and Denies vomiting Reports no additional complaints Musc Reports as per HPI and Denies abnormal gait Skin/Breast Reports system reviewed and no additional complaints, except as documented Neuro Denies abnormal gait, Denies dizziness, Denies syncope and Denies headache(s) Psych Reports no additional complaints Physical exam (Primary Care) Vital Signs: Last Vital Signs Pulse 89 12/18/23 14:38 BP 124/76 12/18/23 14:38 Pulse Ox 97 12/18/23 14:38 Oxygen Delivery Method Room Air 12/18/23 14:38 BMI result Body Mass Index 33.8 Tobacco/Smoking Status: Tobacco use Status Tobacco use date assessed 07/23/23 12/18/23 14:37 Patient Tobacco Use Status Former Tobacco user 12/18/23 14:37 Tobacco use type Cigarette 12/18/23 14:37 e-Cigarette/Vaping Use Never Used 12/18/23 14:37 Thrive Assessment: Date of Thrive Assessment Date Thrive assessed 09/26/23 12/18/23 14:37 Const General: cooperative, healthy appearing, comfortable and no acute distress Orientation/consciousness: patient oriented x3 HENMT Other: Clear drainage back of the throat consistent with postnasal drip Head: Yes normocephalic Ears: hearing grossly normal bilaterally, TM's normal bilaterally and EAC's normal General nose exam: Normal external nose present Face and sinus: Yes normal facial exam and Yes sinuses nontender Mouth: Normal oral and palatal mucosa present Throat: Yes tonsils normal Eyes General: appearance normal, both eyes and all related structures Conjunctivae: conjunctivae normal Neck Neck: Yes full ROM and Yes no lymphadenopathy Resp Effort & Inspection: normal respiratory effort Auscultation: clear to auscultation bilaterally, no crackles, no rales, no rhonchi and no wheezes Cardio Rate: regular rate Rhythm: regular rhythm Skin General skin exam: no rashes or lesions noted Neuro General: patient oriented x3 Gait exam (Neuro): Normal gait present Extrem General: Yes normal to inspection, Yes full ROM and No edema Psych Affect: normal affect Attitude: cooperative Insight: Good insight present (Psych) Judgement: Good judgement present (Psych) Assessment and Plan Assessment & Plan (1) Upper respiratory tract infection: Code(s): J06.9 - Acute upper respiratory infection, unspecified Plan: Patient recently was diagnosed COVID and is continuing to have intermittent shortness of breath. I have personally reviewed the chest x-ray and in my opinion does not look like there is any acute processes. We will wait for Radiology over-read for official diagnosis. At this time remaining symptoms appear allergic in origin. Begin taking Zyrtec daily, Flonase daily, and continue with albuterol inhaler as needed. Follow up if symptoms persist or worsen. (2) Strep pharyngitis: Code(s): J02.0 - Streptococcal pharyngitis Plan: Patient was treated with penicillin outpatient successfully with resolution of symptoms. No evidence of acute infection on exam today. Plan This note was constructed using voice recognition software. While every effort has been made to ensure accuracy and real estate firm manager, still areas may have been included sometimes these areas may affect the content or meeting of the given symptoms. Total time spent caring for the patient today was 30 minutes. This includes time spent before the visit reviewing the chart, time spent during the visit, and time spent after the visit and documentation. Medications: New cetirizine 10 mg PO DAILY 30 tabs 2RF Refilled albuterol sulfate 90 mcg/actuation 2 puffs inhalation Q6H PRN 6.7 grams 0RF shortness of breath or wheezing Coding Level of Care Code Est Pt Level 4 (76164) Diagnoses Upper respiratory tract infection J06.9 Strep pharyngitis J02.0
[2023-12-18 14:38] VITALS: BP 124/76; PULSE 89; O2SAT 97; BMI 33.8
== END 2023-12-18 15:08 | disposition home or self-care (01) ==
PROVIDERS: PCP Internal Medicine
DX: J06.9 Acute upper respiratory infection, unspecified (principal)
CPT/HCPCS: 99214

== ENCOUNTER 2023-12-24 09:49 | Outpatient (AMB) | payer OTHER, SELFPAY ==
--- NOTE | 2023-12-24 09:52 | A.OFFVIS_ITS ---
Vital Signs 12/24/23 09:57 Height 5 ft 1 in Weight 179 lb BMI 33.8 Handedness Right Intake Visit Reasons: N/P RT MF locking Intake Note: Shante is a 53 year old right hand dominant female who presents today as a new patient for a evaluation of her right MF locking, DOI 2 months ago. Patient reports reports she almost stepped on her cat but she feel down the stairs, she tried to grab for a railing but wasn't able to. No EMG done. Patient reports symptoms has been going on for about 2 months. She states that her finger locks all the time through out the day. Her symptoms are worse when she is griping her cup or her broom. Denies numbness and tingling. Allergies oxycodone [From PERCOCET] Allergy (Intermediate, Verified 12/24/23 09:56) VOMITING, N/V codeine [Codeine] Allergy (Mild, Verified 12/24/23 09:56) HIVES atorvastatin Allergy (Unknown, Verified 12/24/23 09:56) Headaches bupropion [From WELLBUTRIN] Allergy (Unknown, Verified 12/24/23 09:56) PALPITATIONS morphine [MORPHINE] Allergy (Unknown, Verified 12/24/23 09:56) NIGHTMARES naproxen [NAPROXEN] Allergy (Unknown, Verified 12/24/23 09:56) RASH sertraline Allergy (Unknown, Verified 12/24/23 09:56) Unknown simvastatin Allergy (Unknown, Verified 12/24/23 09:56) Unknown zolpidem [ZOLPIDEM] Allergy (Unknown, Verified 12/24/23 09:56) PALPITATIONS HPI HPI N/P RT MF locking: Details: 53-year-old right hand dominant female who presents in the office today, as a new patient, for an evaluation of right middle finger locking. ? ? While in the office today, the patient reports injuring her right middle finger two months ago, in 11/10. She reports she injured herself when she almost stepped on her cat and fell going down the stairs. She states she tried to grab the rail but was unable too. She claims her right middle finger locks throughout the day and her symptoms worsen when gripping a cup or broom. She denies numbness or tingling. ? ? Patient has an allergy history, as follows:? -Oxycodone; vomiting? -Codeine; hives? -Atorvastatin; headaches? -Bupropion; palpitations? -Morphine; nightmares? -Naproxen; rash? -Sertraline; unknown? -Simvastatin; unknown? -Zolpidem; palpitations? ? Patient is currently taking, as follows:? -Albuterol sulfate 90 mcg-actuation 2 puffs inhalation Q6H PRN? -Cetirizine 10 mg PO daily? -Cyclobenzaprine 10 mg PO BID? -Fluticasone propionate 50 mcg/actuation 1 spray intranasal daily? -Lorazepam 1 mg PO daily? -Pantoprazole 40 mg PO BID? -Pravastatin 20 mg PO daily? -Sennosides 17.2 mg PO bedtime? ? Patient has a medical history, as follows:? -IBS? -Generalized anxiety disorder? -Hypercholesterolemia? -JACK? -Hypertension? -GERD? -Asthma? -NAFLD (nonalcoholic fatty liver disease)? -Veritgo? -Dysuria? -Uterine cancer; Dr. White 2011? -Insomnia? ? Patient has a surgical history, as follows:? -Hx of esophagogastroduodenoscopy (EGD); 03/2023 [facility]? -Hx?of lumbar surgery; 08/2016 spondylolisthesis with lumbar decompression ? -Hx?of total abdominal hysterectomy and bilateral salpingo-oophorectomy; 05/05/2012 for uterine cancer? -Hx of tubal ligation; 2009? -Hx of endoscopy? -Hx?of colonoscopy; @[facility] [place]? ? Patient has a social history, as follows:? -Former smoker? PFSH Medical History Hypertension Vertigo Dysuria Upper respiratory tract infection Nausea and vomiting Abdominal pain Fall Otitis media IBS (irritable bowel syndrome) Uterine cancer History of gestational diabetes Genital herpes Hypercholesterolemia Obstructive sleep apnea Vitamin D deficiency Lumbar degenerative disc disease Hypertension Insomnia Fatty liver GERD (gastroesophageal reflux disease) Asthma Obesity (BMI 30-39.9) NAFLD (nonalcoholic fatty liver disease) Surgical History History of esophagogastroduodenoscopy (EGD) History of lumbar surgery History of total abdominal hysterectomy and bilateral salpingo-oophorectomy History of tubal ligation Hx of endoscopy History of colonoscopy Family History Father Hx of colon cancer, stage III Stomach cancer Mother Hx of heat stroke Acute CVA (cerebrovascular accident) Hypertension Diabetes Maternal Grandmother Breast cancer Stroke Maternal Grandfather CVD (cardiovascular disease) Myocardial infarction Son In good health Sister No problems noted. Sister No problems noted. Sister No problems noted. Brother No problems noted. Brother No problems noted. Social History Housing: Apartment Alcohol intake: never Patient Tobacco Use Status: Former Tobacco user Tobacco use type: Cigarette Years Smoked: 2002 quit CBD oil e-Cigarette/Vaping Use: Never Used Second Hand Smoke Exposure: No service: No Current occupational status: disabled Current occupational exposures/hazards: No Cognitive needs: No Hearing needs: No Vision needs: No Review of Systems Const All systems reviewed & are unremarkable except as noted in HPI and below Physical Exam Vital Signs: BMI result Body Mass Index 33.8 Const General: cooperative and no acute distress Orientation/consciousness: patient oriented x3 HEENT Head: Yes normal to inspection, Yes normocephalic and Yes atraumatic Eyes General: appearance normal, both eyes and all related structures Neck Neck: Yes normal visual inspection and Yes no lymphadenopathy Resp Effort & Inspection: normal respiratory effort and able to speak in complete sentences Cardio Rate: regular rate Peripheral pulses: Peripheral pulses 2+ throughout GI Inspection: Yes normal to inspection Palpation (GI): Soft to palpation Skin General skin exam: no rashes or lesions noted Neuro General: patient oriented x3 Extrem Other: Right hand: Normal to inspection. No ecchymosis, erythema, or edema. Tenderness to palpation over the A1 brittny. Able to perform full finger flexion, extension, abduction, adduction, finger cross, okay sign, and thumbs up without deficit. Able to make a closed fist. Active catching of the right middle finger. Sensation intact. Capillary refill is brisk. Radial pulse intact.?? Psych Mental Status: mental status grossly normal Assessment & Plan Assessment & Plan (1) Trigger finger, right middle finger: Code(s): M65.331 - Trigger finger, right middle finger Category: Medical Plan Ms. Rashid is a 53-year-old right hand dominant female who presents in the office today, as a new patient, for an evaluation of right middle finger locking. ? ? While in the office today, the patient reports injuring her right middle finger two months ago, in 11/10. She reports she injured herself when she almost stepped on her cat and fell going down the stairs. She states she tried to grab the rail but was unable too. She claims her right middle finger locks throughout the day and her symptoms worsen when gripping a cup or broom. She denies numbness or tingling. ? ? Patient has an allergy history, as follows:? -Oxycodone; vomiting? -Codeine; hives? -Atorvastatin; headaches? -Bupropion; palpitations? -Morphine; nightmares? -Naproxen; rash? -Sertraline; unknown? -Simvastatin; unknown? -Zolpidem; palpitations? ? Patient is currently taking, as follows:? -Albuterol sulfate 90 mcg-actuation 2 puffs inhalation Q6H PRN? -Cetirizine 10 mg PO daily? -Cyclobenzaprine 10 mg PO BID? -Fluticasone propionate 50 mcg/actuation 1 spray intranasal daily? -Lorazepam 1 mg PO daily? -Pantoprazole 40 mg PO BID? -Pravastatin 20 mg PO daily? -Sennosides 17.2 mg PO bedtime? ? Patient has a medical history, as follows:? -IBS? -Generalized anxiety disorder? -Hypercholesterolemia? -JACK? -Hypertension? -GERD? -Asthma? -NAFLD (nonalcoholic fatty liver disease)? -Veritgo? -Dysuria? -Uterine cancer; Dr. White 2011? -Insomnia? ? Patient has a surgical history, as follows:? -Hx of esophagogastroduodenoscopy (EGD); 03/2023 [facility]? -Hx?of lumbar surgery; 08/2016 spondylolisthesis with lumbar decompression ? -Hx?of total abdominal hysterectomy and bilateral salpingo-oophorectomy; 05/05/2012 for uterine cancer? -Hx of tubal ligation; 2009? -Hx of endoscopy? -Hx?of colonoscopy; @[facility] 20[place]? ? Patient has a social history, as follows:? -Former smoker? ? The patient?s information was given to the director medical surgical while in the office today. ? ? I discussed in detail the procedure and what to expect pre and post operatively. We discussed the risks, benefits, alternatives to the surgery and the rehabilitation course. The risks include infection, bleeding, nerve injury, ongoing pain, swelling, and stiffness, perioperative risk of injury to bones and soft tissues, and blood clots.?? ? I have answered all questions and with their understanding they have consented to move forward with a right middle finger, trigger finger release to be performed by Dr. Venus Mcintyre.? ? Follow-up will be at the post operative appointment, or sooner if needed.? Patient Instructions: Scribed by Mari Alba medical billing coder, for Marycruz Nguyen PA-C on 12/24/2023 at 10:06 am, EST.? Coding Level of Care Code New Pt Level 4 (88816) Diagnoses Trigger finger, right middle finger M65.331
[2023-12-24 09:57] VITALS: BMI 33.8
== END 2023-12-24 10:14 | disposition home or self-care (01) ==
PROVIDERS: PCP Internal Medicine; Visit Provider Physician Assistant
DX: M65.331 Trigger finger, right middle finger (principal)
CPT/HCPCS: 99204

== ENCOUNTER → 2023-12-24 09:49 | Outpatient (BNVA) | payer OTHER, SELFPAY | PROVIDERS: PCP Internal Medicine; Visit Provider Physician Assistant | DX: M65.331 Trigger finger, right middle finger (principal) | CPT/HCPCS: 99202 ==

== ENCOUNTER 2024-01-14 14:16 | Outpatient (AMB) | payer OTHER, MEDICAID, SELFPAY ==
[2024-01-14 14:23] VITALS: BP 144/84; PULSE 99; O2SAT 95; BMI 33.8
--- NOTE | 2024-01-14 14:23 | A.OFFPC_ITS ---
Vital Signs 01/14/24 14:23 Height 5 ft 1 in Weight 179 lb BMI 33.8 BP 144/84 H Blood Pressure Location Lt brachial Position Sitting Pulse 99 Pulse Source Pulse Oximeter Pulse Oximetry (%) 95 Oxygen Delivery Method Room Air Intake Visit Reasons: [facility] 12/30 kidney stone Spectral Scientist Required: No Accompanied by: Self / Same As Patient Allergies oxycodone [From PERCOCET] Allergy (Intermediate, Verified 01/14/24 14:25) VOMITING, N/V codeine [Codeine] Allergy (Mild, Verified 01/14/24 14:25) HIVES atorvastatin Allergy (Unknown, Verified 01/14/24 14:25) Headaches bupropion [From WELLBUTRIN] Allergy (Unknown, Verified 01/14/24 14:25) PALPITATIONS morphine [MORPHINE] Allergy (Unknown, Verified 01/14/24 14:25) NIGHTMARES naproxen [NAPROXEN] Allergy (Unknown, Verified 01/14/24 14:25) RASH sertraline Allergy (Unknown, Verified 01/14/24 14:25) Unknown simvastatin Allergy (Unknown, Verified 01/14/24 14:25) Unknown zolpidem [ZOLPIDEM] Allergy (Unknown, Verified 01/14/24 14:25) PALPITATIONS Medication List - Last Reconciled 01/14/24 by Louise Rico PA-C albuterol sulfate 2.5 mg (0.5 mL) inhalation Q6H PRN albuterol sulfate 90 mcg/actuation 2 puffs inhalation Q6H PRN blood pressure monitor (Blood Pressure Kit) As directed blood sugar diagnostic As directed check BS QD blood-glucose meter As directed cetirizine 10 mg PO DAILY cyclobenzaprine 5 mg PO TID PRN 7 days cyclobenzaprine 10 mg PO BID fluticasone propionate 50 mcg/actuation (Flonase Allergy Relief) 1 spray intranasal DAILY lancets As directed lorazepam 1 mg PO DAILY 30 days nebulizers (Aeroneb Go Nebulizer) As directed pantoprazole 40 mg PO BID pravastatin 20 mg PO DAILY sennosides (senna) 17.2 mg (2 x 8.6 mg) PO BEDTIME Shower Chair As directed Tobacco use date assessed: 07/23/23 Dental Screening Dental Screen Date: 07/23/23 HPI [facility] 12/30 kidney stone HPI Details 53-year-old female with past medical his tory of nonalcoholic fatty liver disease, asthma, GERD, hypertension, obstructive sleep apnea, hypercholesterolemia, impaired glucose tolerance, generalized anxiety disorder, and IBS coming in for hospital follow up. In review of the notes, patient was seen in [facility] 12/31/2023 for kidney stones. Patient did not bring in discharge paperwork today but does mentioned that the paperwork recommends a referral to urologist for further evaluation and monitoring of large amount of kidney stones. She also mentioned she has been having diffuse back pain and rib pain since returning from her trip. She does mentioned she was very tense on her trip and was uncomfortable on the airplane ride back and forth. Lastly she mentioned she has been having low blood sugars at night that do cause her to feel dizzy she does keep glucose tabs on her as well as juice but has not identified a reason why her sugar has been low. She does not skip meals and denies any syncopal episodes. [facility] Medical History Hypertension Vertigo Dysuria Upper respiratory tract infection Nausea and vomiting Abdominal pain Fall Otitis media IBS (irritable bowel syndrome) Uterine cancer History of gestational diabetes Genital herpes Hypercholesterolemia Obstructive sleep apnea Vitamin D deficiency Lumbar degenerative disc disease Hypertension Insomnia Fatty liver GERD (gastroesophageal reflux disease) Asthma Obesity (BMI 30-39.9) NAFLD (nonalcoholic fatty liver disease) Surgical History History of esophagogastroduodenoscopy (EGD) History of lumbar surgery History of total abdominal hysterectomy and bilateral salpingo-oophorectomy History of tubal ligation Hx of endoscopy History of colonoscopy Family History Father Hx of colon cancer, stage III Stomach cancer Mother Hx of heat stroke Acute CVA (cerebrovascular accident) Hypertension Diabetes Maternal Grandmother Breast cancer Stroke Maternal Grandfather CVD (cardiovascular disease) Myocardial infarction Son In good health Sister No problems noted. Sister No problems noted. Sister No problems noted. Brother No problems noted. Brother No problems noted. Social History Housing: Apartment Alcohol intake: never Patient Tobacco Use Status: Former Tobacco user Tobacco use type: Cigarette Years Smoked: 2002 quit CBD oil e-Cigarette/Vaping Use: Never Used Second Hand Smoke Exposure: No service: No Current occupational status: disabled Current occupational exposures/hazards: No Cognitive needs: No Hearing needs: No Vision needs: No Questionnaire PHQ-9 Over the last 2 weeks, how often have you been bothered by any of the following problems? 1. Little interest or pleasure in doing things: nearly every day 2. Feeling down, depressed, or hopeless: nearly every day 3. Trouble falling or staying asleep, or sleeping too much: nearly every day 4. Feeling tired or having little energy: nearly every day 5. Poor appetite or overeating: nearly every day 6. Feeling bad about yourself - or that you are a failure or have let yourself or your family down: several days 7. Trouble concentrating on things, such as reading the newspaper or watching television: not at all 8. Moving or speaking so slowly that other people could have noticed. Or the opposite - being so fidgety or restless that you have been moving around a lot more than usual: several days 9. Thoughts that you would be better off or of hurting yourself in some way: not at all Total score: 17 Depression Screening Interpretation: Positive Depression Screening Done: Yes Source: Developed by Drs. Miki Koo, Chris Mendez and colleagues, with an educational adrien from [employer]. Thrive Questionnaire Date Thrive assessed: 09/26/23 AUDIT C Alcohol Use Questionnaire (AUDIT-C) 1. How often do you have a drink containing alcohol?: Never Total Score: 0 ELDA-7 AMB Questionnaire ELDA-7 Date ELDA - 7 assessed: 09/26/23 Source: Developed by Monica Emanuel Kurt Kroenke and colleagues, with an educational adrien from [employer]. Review of Systems Const Denies body aches, Denies chills and Denies fever(s) Eyes Reports no additional complaints ENT Reports no additional complaints Card Denies chest pain, Denies chest pain at rest, Denies edema, Denies leg edema, Denies lightheadedness and Denies dyspnea Resp Denies cough and Denies dyspnea GI Reports no additional complaints Reports no additional complaints Musc Details: Back and rib pain. Physical exam (Primary Care) Vital Signs: Last Vital Signs Pulse 99 01/14/24 14:23 BP 144/84 H 01/14/24 14:23 Pulse Ox 95 01/14/24 14:23 Oxygen Delivery Method Room Air 01/14/24 14:23 BMI result Body Mass Index 33.8 Tobacco/Smoking Status: Tobacco use Status Tobacco use date assessed 07/23/23 01/14/24 14:25 Patient Tobacco Use Status Former Tobacco user 01/14/24 14:25 Tobacco use type Cigarette 01/14/24 14:25 e-Cigarette/Vaping Use Never Used 01/14/24 14:25 PHQ-9: PHQ-9 Score PHQ-9: Total score 17 01/14/24 14:35 Depression Screening Interpretation: Positive Thrive Assessment: Date of Thrive Assessment Date Thrive assessed 09/26/23 01/14/24 14:25 Const General: cooperative, healthy appearing, comfortable and no acute distress Orientation/consciousness: patient oriented x3 HENMT Head: Yes normocephalic Ears: hearing grossly normal bilaterally General nose exam: Normal external nose present Eyes General: appearance normal, both eyes and all related structures Conjunctivae: conjunctivae normal Neck Neck: Yes full ROM and Yes no lymphadenopathy Resp Effort & Inspection: normal respiratory effort Auscultation: clear to auscultation bilaterally, no crackles, no rales, no rhonchi and no wheezes Cardio Rate: regular rate Rhythm: regular rhythm Back/Spine/Pelvis Other: Diffuse tenderness to palpation over lower upper and mid back and along the anterior and posterior ribs. Skin General skin exam: no rashes or lesions noted Neuro General: patient oriented x3 Gait exam (Neuro): Normal gait present Extrem General: Yes normal to inspection, Yes full ROM and No edema Psych Affect: normal affect Attitude: cooperative Insight: Good insight present (Psych) Judgement: Good judgement present (Psych) Assessment and Plan Assessment & Plan (1) Nephrolithiasis: Code(s): N20.0 - Calculus of kidney Plan: Referral to urology placed. Advised patient to bring in paperwork as soon as possible with CT results. Continue with good water intake. (2) Impaired fasting glucose: Code(s): R73.01 - Impaired fasting glucose Plan: We will order for repeat labs and A1c prior to next appointment. Follow up next week at next appointment. (3) Hypoglycemia: Code(s): E16.2 - Hypoglycemia, unspecified Plan: Patient has been having overnight episodes of hypoglycemia that primarily affects her while she is going to the bathroom in the middle of the night and she feels dizzy on her feet. She does not skip meals. Unclear why she is hypoglycemic we will order for blood work and refer to endocrinology. (4) Low back pain: Code(s): M54.50 - Low back pain, unspecified Plan: Diffuse tenderness to palpation of back and rib area. Advised patient to continue with gentle stretching and muscle relaxer as it appears muscular in nature. If symptoms worsen or persist follow up for further evaluation. Plan This note was constructed using voice recognition software. While every effort has been made to ensure accuracy and wringer machine operator, still areas may have been included sometimes these areas may affect the content or meeting of the given symptoms. Total time spent caring for the patient today was 30 minutes. This includes time spent before the visit reviewing the chart, time spent during the visit, and time spent after the visit and documentation. Orders: Orders Comprehensive Met. Panel Today Z00.00 - Encounter for general adult medical examination without abnormal findings Lipid Panel Today Z00.00 - Encounter for general adult medical examination without abnormal findings Free T4 (Free Thyroxine) Today Z00.00 - Encounter for general adult medical examination without abnormal findings TSH reflex Free T4 Today Z00.00 - Encounter for general adult medical examination without abnormal findings Complete Blood Count Auto Diff Today Z00.00 - Encounter for general adult medical examination without abnormal findings Vitamin B12 and Folate Today Z00.00 - Encounter for general adult medical examination without abnormal findings Vitamin D 25-OH (D2 and D3) Today Z00.00 - Encounter for general adult medical examination without abnormal findings Microalbumin, Random (w Creat) Today Z00.00 - Encounter for general adult medical examination without abnormal findings Creatinine Urine Today Z00.00 - Encounter for general adult medical examination without abnormal findings Hemoglobin A1c Today R73.01 - Impaired fasting glucose UA CC w/rflx Micro + Cult Today N20.0 - Calculus of kidney Referrals Urology Referral N20.0 - Calculus of kidney Endocrinology Referral E16.2 - Hypoglycemia, unspecified, R73.01 - Impaired fasting glucose Coding Level of Care Code Est Pt Level 4 (21106) Diagnoses Nephrolithiasis N20.0 Impaired fasting glucose R73.01 Hypoglycemia E16.2 Low back pain M54.50
== END 2024-01-14 15:30 | disposition home or self-care (01) ==
PROVIDERS: PCP Internal Medicine
DX: N20.0 Calculus of kidney (principal); R73.01 Impaired fasting glucose; M54.50 Low back pain, unspecified
CPT/HCPCS: 99214

== ENCOUNTER 2024-01-16 10:07 | Outpatient (REF) | payer OTHER, SELFPAY ==
[2024-01-16 10:26] LABS: MANUAL DIFF FLAG NO
[2024-01-16 10:34] LABS: Basophils Absolute Auto 0.1 X10*3/uL (0.0-0.2); Basophils Percent Auto 0.7 % (0-2); Eosinophils Absolute Auto 0.4 X10*3/uL (0.0-0.4); Eosinophils Percent Auto 3.9 % (0-4); Hematocrit 43.1 % (37.0-47.0); Imm Gran Abs Auto 0.05 X10*3/uL (0.00-0.03); Imm Gran Pct Auto 0.6 % (0.0-0.4); Lymphocytes Absolute Auto 3.5 X10*3/uL (1.2-4.9); Lymphocytes Percent Auto 38.4 % (20-40); Mean Corpuscular HGB Conc 32.5 g/dl (31.0-35.0); Mean Corpuscular Hemoglobin 26.5 pg (27.0-33.0); Mean Corpuscular Volume 81.5 fL (80.0-98.0); Monocytes Absolute Auto 0.8 X10*3/uL (0.1-1.2); Monocytes Percent Auto 9.2 % (2-11); Neutrophils Absolute Auto 4.3 x10*3/uL (2.0-8.3); Neutrophils Percent Auto 47.2 % (45-73); Platelet Count 382 X10*3/uL (160-400); Red Blood Count 5.29 X10*6/uL (4.20-5.50); Red Cell Distribution Width 14.5 % (11.0-16.0); White Blood Count 9.1 X10*3/uL (4.8-10.8)
[2024-01-16 10:36] LABS: Appearance Urine Cloudy; Color Urine Dark Yellow; Glucose Urine UA Negative (Negative); Leukocyte Esterase Urine Moderate (2+) (Negative); Nitrite Urine Negative (Negative); PH 5.5 (5.0-9.0); Specific Gravity - Urine >= 1.030 (1.005-1.025); UMIC TRIGGER UACC YES; Urine Blood Negative (Negative); Urine Ketones Trace mg/dL (Negative); Urine Protein 30 (1+) mg/dL (Neg-Trace)
[2024-01-16 10:53] LABS: Bacteria Urine None Seen (None Seen); Hyaline Casts Urine 0-2 /LPF (0-2); RBC Urine 0-2 /HPF (0-2); UACC Culture Trigger YES; WBC Urine 21-50 /HPF (0-5)
[2024-01-16 10:55] LABS: Estimated Average Glucose 117 mg/dL; Hemoglobin A1c % 5.7 % (<6.0)
[2024-01-16 11:19] LABS: Alanine Aminotransferase 88 U/L (0-31); Albumin Level 4.4 g/dL (3.5-5.0); Alkaline Phosphatase 93 U/L (39-117); Anion Gap 13 (12-20); Aspartate Amino Transferase 72 U/L (5-31); Bilirubin Total 0.5 mg/dL (0.0-1.0); Blood Urea Nitrogen 16 mg/dL (9-16); Calcium 10.6 mg/dL (8.4-10.2); Carbon Dioxide 25 mmol/L (22-29); Chloride 109 mmol/L (96-108); Cholesterol 194 mg/dL (<200); Estimated Glomerular Filt Rate > 60; Glucose Random 109 mg/dL (60-115); HDL Cholesterol 40 mg/dL (>40); LDL Cholesterol Calculated 121 mg/dL (<100); Potassium 3.8 mmol/L (3.3-5.1); Sodium 143 mmol/L (135-145); Total Protein 8.1 g/dL (6.5-8.0); Triglycerides 167 mg/dL (<150)
[2024-01-16 11:21] LABS: Microalbum/Creatinine Ratio Ur 5.6 ug/mg cr (<30)
[2024-01-16 11:36] LABS: Folate 14.8 ng/mL (> or = 4.0); Vitamin B12 518 pg/mL (200-900)
[2024-01-22 15:13] LABS: Vitamin D 25-OH, D2 <4 ng/mL; Vitamin D 25-OH, D3 58 ng/mL; Vitamin D 25-OH, Total 58 ng/mL (30-100)
== END 2024-01-16 10:08 | disposition home or self-care (01) ==
LOC: HO.LAB 10:07
DX: Z00.00 Encounter for general adult medical examination without abnormal findings (principal); E11.649 Type 2 diabetes mellitus with hypoglycemia without coma; E83.52 Hypercalcemia; R82.90 Unspecified abnormal findings in urine
CPT/HCPCS: 36415; 80053; 80061; 81001; 82043; 82306; 82570; 82607; 82746; 82947; 83036; 84439; 84443; 85025; 87086; 99202

== ENCOUNTER 2024-01-16 10:38 | Outpatient (AMB) | payer OTHER, MEDICAID, SELFPAY ==
--- NOTE | 2024-01-16 10:42 | A.OFFVIS_ITS ---
Vital Signs 01/16/24 10:43 Height 5 ft 1 in Weight 178 lb 9.191 oz BMI 33.7 BP 118/78 Blood Pressure Location Rt brachial Position Sitting Pulse 75 Pulse Source Pulse Oximeter Intake Visit Reasons: Hypoglycemia Intake Note: Patient presents today to re-establish treatment for Diabetes Mellitus: Last Diabetic eye exam was on: A year ago Last Podiatry exam was on: Does not see a Life Underwriter Most recent HbA1c: 5.9%, 10/25/2023 Random Glucose- 95 mg/dL, Today Forensic Technician Required: No Accompanied by: Self / Same As Patient Allergies oxycodone [From PERCOCET] Allergy (Intermediate, Verified 01/16/24 10:43) VOMITING, N/V codeine [Codeine] Allergy (Mild, Verified 01/16/24 10:43) HIVES atorvastatin Allergy (Unknown, Verified 01/16/24 10:43) Headaches bupropion [From WELLBUTRIN] Allergy (Unknown, Verified 01/16/24 10:43) PALPITATIONS morphine [MORPHINE] Allergy (Unknown, Verified 01/16/24 10:43) NIGHTMARES naproxen [NAPROXEN] Allergy (Unknown, Verified 01/16/24 10:43) RASH sertraline Allergy (Unknown, Verified 01/16/24 10:43) Unknown simvastatin Allergy (Unknown, Verified 01/16/24 10:43) Unknown zolpidem [ZOLPIDEM] Allergy (Unknown, Verified 01/16/24 10:43) PALPITATIONS HPI Comments Details: The patient is a 53 year old female with a past medical history of impaired glucose, anxiety, back pain, GERD, hyperlipidemia, kidney stones presenting for symptomatic hypoglycemia She reports for the past ~ 1 year has been waking from sleep with heart racing, tremulousness, anxiety and dizziness. She has checked fingerstick glucose at the time and seen readings in 50s, 60s. Recently she has become quite anxious during the periods making it hard for her to check the glucose but last week during an episode her glucose was 65. She drinks a glass of orange juice and symptoms subside. In November she had COVID, then later in the month had strep throat, then this month had kidney stones and today may have a UTI however she reports that symptoms predated these infections by months. During her ER visit in [facility] Jan [address] [place] [address] with punctate kidney stone and mild hydronephrosis of the right kidney No ETOH use. Denies GLP, insulin use. Eating dinner at 6 pm, now eating 2 so crackers at bedtime. Had sleep testing (said she didnt sleep) consistent with JACK. Intolerant of CPAP. Labs by PCP today with leuk esterase 2+. She continues to have some bladder discomfort and mild flank pain. No chills, rigors or fevers. Calcium elevated at 10.6. Mild elevated LFTs. ROS see HPI PHYSICAL EXAM: GENERAL: Alert and oriented x 3. NAD EYES: EOMI. Anicteric. HENT: Moist mucous membranes. No scleral icterus. No cervical lymphadenopathy. LUNGS: Clear to auscultation bilaterally. CARDIOVASCULAR: Regular rate and rhythm. No murmur. No JVD. ABDOMEN: Soft, non-tender +bs EXTREMITIES: No edema. Non-tender. SKIN: No rashes or lesions. Warm. NEUROLOGIC: No focal neurological deficits. CN II-XII grossly intact PSYCHIATRIC: Cooperative. Appropriate mood and affect [facility] Medical History Hypertension Vertigo Dysuria Upper respiratory tract infection Nausea and vomiting Abdominal pain Fall Otitis media IBS (irritable bowel syndrome) Uterine cancer History of gestational diabetes Genital herpes Hypercholesterolemia Obstructive sleep apnea Vitamin D deficiency Lumbar degenerative disc disease Hypertension Insomnia Fatty liver GERD (gastroesophageal reflux disease) Asthma Obesity (BMI 30-39.9) NAFLD (nonalcoholic fatty liver disease) Surgical History History of esophagogastroduodenoscopy (EGD) History of lumbar surgery History of total abdominal hysterectomy and bilateral salpingo-oophorectomy History of tubal ligation Hx of endoscopy History of colonoscopy Family History Father Hx of colon cancer, stage III Stomach cancer Mother Hx of heat stroke Acute CVA (cerebrovascular accident) Hypertension Diabetes Maternal Grandmother Breast cancer Stroke Maternal Grandfather CVD (cardiovascular disease) Myocardial infarction Son In good health Sister No problems noted. Sister No problems noted. Sister No problems noted. Brother No problems noted. Brother No problems noted. Social History Housing: Apartment Alcohol intake: never Patient Tobacco Use Status: Former Tobacco user Tobacco use type: Cigarette Years Smoked: 2002 quit CBD oil e-Cigarette/Vaping Use: Never Used Second Hand Smoke Exposure: No service: No Current occupational status: disabled Current occupational exposures/hazards: No Cognitive needs: No Hearing needs: No Vision needs: No Physical Exam Vital Signs: Last Vital Signs Pulse 75 01/16/24 10:43 BP 118/78 01/16/24 10:43 BMI result Body Mass Index 33.7 Assessment & Plan Assessment & Plan (1) Hypoglycemia: Code(s): E16.2 - Hypoglycemia, unspecified Category: Medical Plan: Nighttime hypoglycemia. Need CGM to capture more data points Check cortisol. Check IGF1&IGF 2. Insulin, proinsulin, c-peptide testing-during episode. Hospitalization may need to occur to incite She will return in 2 weeks with more date. Labs for hypercalcemia Orders: Orders Protein Electrophoresis, Serum Today E83.52 - Hypercalcemia Parathyroid Hormone Intact Today E83.52 - Hypercalcemia Cortisol Random Today E16.2 - Hypoglycemia, unspecified IGF Binding Protein 2 Today E16.2 - Hypoglycemia, unspecified IGF-1 ([place] C) Today E16.2 - Hypoglycemia, unspecified Protein Electrophoresis,Ran Ur Today E83.52 - Hypercalcemia Medications: New FreeStyle [place] 3 [place] (blood-glucose meter,continuous) As directed 1 ea 0RF NS E16.2 - Hypoglycemia, unspecified FreeStyle [place]ortun[place] 3 Sensor (blood-glucose sensor) every 14 days 6 ea 3RF NS E16.2 - Hypoglycemia, unspecified ciprofloxacin HCl 500 mg PO BID 7 days 14 tabs 0RF Coding Level of Care Code New Pt Level 5 (67701) Diagnoses Hypoglycemia E16.2
[2024-01-16 10:43] VITALS: BP 118/78; PULSE 75; BMI 33.7
[2024-01-16 11:04] LABS: Glucose, Whole Blood 95 mg/dL (60-115)
== END 2024-01-16 11:27 | disposition home or self-care (01) ==
PROVIDERS: PCP Internal Medicine; Visit Provider Internal Medicine
DX: E16.2 Hypoglycemia, unspecified (principal)
CPT/HCPCS: 99204

== ENCOUNTER 2024-01-17 08:19 | Outpatient (REF) | payer OTHER, SELFPAY ==
[2024-01-17 10:03] LABS: Parathyroid Hormone Intact 49.4 pg/mL (8.7-77.1)
[2024-01-21 12:49] LABS: Prot Elec - Alpha1 0.3 g/dL (0.2-0.3); Prot Elec - Alpha2 0.8 g/dL (0.5-0.9); Prot Elec - Beta 1 0.5 g/dL (0.4-0.6); Prot Elec - Beta 2 0.6 g/dL (0.2-0.5); Prot Elec - Gamma 1.2 g/dL (0.8-1.7); Prot Elec - Total Protein 7.3 g/dL (6.1-8.1)
[2024-01-28 10:49] LABS: IGF-1 (Somatomedin C) 76 ng/mL (50-317); IGF-1 Z Score (Female) -1.2 SD (-2.0 - +2.0)
[2024-01-31 22:22] LABS: IGF Binding Protein 2 70 ng/mL (47-350)
== END 2024-01-17 08:20 | disposition home or self-care (01) ==
LOC: HO.LAB 08:19
PROVIDERS: PCP Internal Medicine; Visit Provider Internal Medicine
DX: E16.2 Hypoglycemia, unspecified (principal); E83.52 Hypercalcemia
CPT/HCPCS: 82533; 83519; 83970; 84165; 84305

== ENCOUNTER 2024-01-21 11:35 | Outpatient (REF) | payer OTHER, SELFPAY ==
[2024-01-21 11:53] LABS: Appearance Urine Cloudy; Color Urine Yellow; Glucose Urine UA Negative (Negative); Leukocyte Esterase Urine Negative (Negative); Nitrite Urine Negative (Negative); PH 5.5 (5.0-9.0); Specific Gravity - Urine 1.025 (1.005-1.025); Urine Blood Negative (Negative); Urine Ketones Negative (Negative); Urine Protein Negative (Neg-Trace)
[2024-01-21 12:43] LABS: Creatinine Urine 218.13 mg/dL
[2024-01-24 08:44] LABS: PEU-Protein Creat Ratio Rand 0.045 (0.024-0.184); PEU-Rand. Prot/Creat Ratio 45 mg/g creat (24-184); PEU-Random Ur. Gamma Globulin 0 %; PEU-Random Urine A1 Globulin 0 %; PEU-Random Urine A2 Globulin 0 %; PEU-Random Urine Albumin 100 %; PEU-Random Urine Beta Globulin 0 %; PEU-Random Urine Creatinine 198 mg/dL (20-275); PEU-Random Urine Protein 9 mg/dL (5-24)
== END 2024-01-21 11:36 | disposition home or self-care (01) ==
LOC: HO.LNP 11:35
PROVIDERS: Internal Medicine
DX: Z00.00 Encounter for general adult medical examination without abnormal findings (principal); N20.0 Calculus of kidney; E83.52 Hypercalcemia
CPT/HCPCS: 81003; 82570; 84156; 84166

== ENCOUNTER 2024-01-23 08:18 | Outpatient (AMB) | payer OTHER, SELFPAY ==
[2024-01-23 08:24] VITALS: BP 118/72; PULSE 94; O2SAT 98; BMI 34.0
--- NOTE | 2024-01-23 08:24 | MHC.PC.OV ---
Vital Signs 01/23/24 08:24 Height 5 ft 1 in Weight 180 lb BMI 34.0 BP 118/72 Blood Pressure Location Lt brachial Position Sitting Pulse 94 Pulse Source Pulse Oximeter Pulse Oximetry (%) 98 Oxygen Delivery Method Room Air Intake Visit Reasons: IGT Web Site Specialist Required: No Allergies oxycodone [From PERCOCET] Allergy (Intermediate, Verified 01/23/24 08:24) VOMITING, N/V codeine [Codeine] Allergy (Mild, Verified 01/23/24 08:24) HIVES atorvastatin Allergy (Unknown, Verified 01/23/24 08:24) Headaches bupropion [From WELLBUTRIN] Allergy (Unknown, Verified 01/23/24 08:24) PALPITATIONS morphine [MORPHINE] Allergy (Unknown, Verified 01/23/24 08:24) NIGHTMARES naproxen [NAPROXEN] Allergy (Unknown, Verified 01/23/24 08:24) RASH sertraline Allergy (Unknown, Verified 01/23/24 08:24) Unknown simvastatin Allergy (Unknown, Verified 01/23/24 08:24) Unknown zolpidem [ZOLPIDEM] Allergy (Unknown, Verified 01/23/24 08:24) PALPITATIONS Medication List - Last Reconciled 01/23/24 by Coreen Hernandez MD albuterol sulfate 2.5 mg (0.5 mL) inhalation Q6H PRN albuterol sulfate 90 mcg/actuation 2 puffs inhalation Q6H PRN aspirin (Adult Low Dose Aspirin) 81 mg PO DAILY blood pressure monitor (Blood Pressure Kit) As directed blood sugar diagnostic As directed check BS QD blood-glucose meter As directed cetirizine 10 mg PO DAILY ciprofloxacin HCl 500 mg PO BID 7 days cyclobenzaprine 10 mg PO BID escitalopram oxalate (Lexapro) 5 mg PO DAILY fluticasone propionate 50 mcg/actuation (Flonase Allergy Relief) 1 spray intranasal DAILY FreeStyle [place]ortun[place] 3 [place] (blood-glucose meter,continuous) As directed NS FreeStyle Fortunato 3 Sensor (blood-glucose sensor) every 14 days NS lancets As directed lorazepam 1 mg PO DAILY 30 days meclizine 25 mg PO BID PRN nebulizers (Aeroneb Go Nebulizer) As directed pantoprazole 40 mg PO BID pravastatin 20 mg PO DAILY sennosides (senna) 17.2 mg (2 x 8.6 mg) PO BEDTIME Shower Chair As directed trazodone 25 mg PO DAILY Tobacco use date assessed: 07/23/23 Dental Screening Dental Screen Date: 07/23/23 HPI IGT HPI Details 53-year-old obese female with nephrolithiasis impaired glucose tolerance chronic low back pain coming in for follow-up. Last seen in the office last month. Patient's colonoscopy is up-to-date 05/08/2023 mammogram is up-to-date. Patient had concerns of hypoglycemia and was sent to endocrinology. Patient was prescribed continuous glucose monitor checking for cortisol IGF insulin proinsulin C-peptide. Review of the notes also had December 30 notes from [facility] due to right renal calculi. Patient has also seen Orthopedics for trigger finger right middle finger patient has been advised surgery. On entering the exam room patient started shouting and swearing about getting to see Endocrinology who she states of not getting back to her standing up from the chair complaining about not being responded to when she calls, complaining of nobody listening to her. Patient continued to swear. I went out of the exam room and called the chief science officer to discuss with the patient. Patient then calm down on entering the 2nd time. Patient states the problem this time without the swearing. Went through her medications 1 x 1 and discussed on what it is for and what she should be taking. [facility] Medical History Hypertension Vertigo Dysuria Upper respiratory tract infection Nausea and vomiting Abdominal pain Fall Otitis media IBS (irritable bowel syndrome) Uterine cancer History of gestational diabetes Genital herpes Hypercholesterolemia Obstructive sleep apnea Vitamin D deficiency Lumbar degenerative disc disease Hypertension Insomnia Fatty liver GERD (gastroesophageal reflux disease) Asthma Obesity (BMI 30-39.9) NAFLD (nonalcoholic fatty liver disease) Surgical History History of esophagogastroduodenoscopy (EGD) History of lumbar surgery History of total abdominal hysterectomy and bilateral salpingo-oophorectomy History of tubal ligation Hx of endoscopy History of colonoscopy Family History Father Hx of colon cancer, stage III Stomach cancer Mother Hx of heat stroke Acute CVA (cerebrovascular accident) Hypertension Diabetes Maternal Grandmother Breast cancer Stroke Maternal Grandfather CVD (cardiovascular disease) Myocardial infarction Son In good health Sister No problems noted. Sister No problems noted. Sister No problems noted. Brother No problems noted. Brother No problems noted. Social History Housing: Apartment Alcohol intake: never Patient Tobacco Use Status: Former Tobacco user Tobacco use type: Cigarette Years Smoked: 2002 quit CBD oil e-Cigarette/Vaping Use: Never Used Second Hand Smoke Exposure: No service: No Current occupational status: disabled Current occupational exposures/hazards: No Cognitive needs: No Hearing needs: No Vision needs: No Questionnaire Thrive Questionnaire Date Thrive assessed: 09/26/23 AUDIT C Alcohol Use Questionnaire (AUDIT-C) 1. How often do you have a drink containing alcohol?: Never 3. How often do you have six or more drinks on one occasion?: Never Total Score: 0 ELDA-7 AMB Questionnaire EDLA-7 Date ELDA - 7 assessed: 09/26/23 Source: Developed by Drs. Miki Koo, Monica Childers, Chris Watt and colleagues, with an educational adrien from [employer]. Physical exam (Primary Care) Vital Signs: Last Vital Signs Pulse 94 01/23/24 08:24 BP 118/72 01/23/24 08:24 Pulse Ox 98 01/23/24 08:24 Oxygen Delivery Method Room Air 01/23/24 08:24 BMI result Body Mass Index 34.0 Tobacco/Smoking Status: Tobacco use Status Tobacco use date assessed 07/23/23 01/23/24 08:31 Patient Tobacco Use Status Former Tobacco user 01/23/24 08:31 Tobacco use type Cigarette 01/23/24 08:31 e-Cigarette/Vaping Use Never Used 01/23/24 08:31 Thrive Assessment: Date of Thrive Assessment Date Thrive assessed 09/26/23 01/23/24 08:31 Const General: alert; No acute distress Eyes Conjunctivae: conjunctivae normal Resp Auscultation: clear to auscultation bilaterally Cardio Rate: regular rate Rhythm: regular rhythm GI Inspection: Yes normal to inspection Extrem General: Yes normal to inspection and No edema Assessment and Plan Assessment & Plan (1) Hypoglycemia: Code(s): E16.2 - Hypoglycemia, unspecified Plan: Patient is being followed up by Endocrinology presently and workup pending (2) Nephrolithiasis: Code(s): N20.0 - Calculus of kidney Plan: Increase oral fluids discussed about following up with renal calculi and Urology. (3) Generalized anxiety disorder: Comment: conselling [place] every Saturday (01/2022) Code(s): F41.1 - Generalized anxiety disorder Plan: Continue with counseling and therapy (4) Hypercholesterolemia: Code(s): E78.00 - Pure hypercholesterolemia, unspecified Plan: Avoid fried foods, chicken skin, eggs, butter margarine, pastries and meat. Be it pork or beef they have a lot of cholesterol LDL goal of less than 130 and triglyceride of less than 150. On pravastatin 20 mg once a day (5) Obstructive sleep apnea: Comment: cannot tolerate CPAP 06/2021 Code(s): G47.33 - Obstructive sleep apnea (adult) (pediatric) Plan: Discussed about sleep apnea problem (6) GERD (gastroesophageal reflux disease): Comment: Pantoprazole 40 mg QAM- avoid culprits, dietary modification give trial to sucralfate Code(s): K21.9 - Gastro-esophageal reflux disease without esophagitis Qualifiers: Esophagitis presence: without esophagitis Qualified Code(s): K21.9 - Gastro-esophageal reflux disease without esophagitis Plan: Avoid the foods that causes that usually spicy foods, tomato products, juices, coffee, soda and foods that your sensitive to. After eating do not lie down, allow 3-4 hours before in lie down. And keep the head of bed above 30 degrees to avoid the acid from going up. (7) Obesity (BMI 30-39.9): Code(s): E66.9 - Obesity, unspecified Plan: Diet and exercise Coding Level of Care Code Est Pt Level 4 ([id number]) Complex EM visit Add On G2211 Diagnoses Hypoglycemia E16.2 Nephrolithiasis N20.0 Generalized anxiety disorder F41.1 Hypercholesterolemia E78.00 Obstructive sleep apnea G47.33 Gastroesophageal reflux disease without esophagitis K21.9 Esophagitis presence: without esophagitis Obesity (BMI 30-39.9) E66.9
== END 2024-01-23 09:18 | disposition home or self-care (01) ==
PROVIDERS: PCP Internal Medicine; Visit Provider Internal Medicine
DX: E16.2 Hypoglycemia, unspecified (principal); N20.0 Calculus of kidney; F41.1 Generalized anxiety disorder; E78.00 Pure hypercholesterolemia, unspecified; G47.33 Obstructive sleep apnea (adult) (pediatric); K21.9 Gastro-esophageal reflux disease without esophagitis
CPT/HCPCS: 99214; G2211

== ENCOUNTER 2024-02-20 06:31 | Emergency (ER) | payer OTHER, SELFPAY ==
--- NOTE | ~2024-02-20 | US_ITS ---
EXAMINATION: US RETROPERITONEAL LIMITED (RENAL ONLY) CLINICAL INFORMATION: Flank pain, possible stones. COMPARISON: Ultrasound 01/24/2022 TECHNIQUE: Ultrasound bilateral kidneys FINDINGS: RIGHT KIDNEY: 10.4 x 4.2 x 5.7 cm (SAG x AP x TRV). The kidney is normal in size, contour, and echogenicity. Renal cortical thickness is normal. No calculi or focal parenchymal lesions. No hydronephrosis. LEFT KIDNEY: 10.1 x 5 x 4.7 cm (SAG x AP x TRV). The kidney is normal in size, contour, and echogenicity. Renal cortical thickness is normal. No calculi or focal parenchymal lesions. No hydronephrosis. US/US renal BI IMPRESSION: Unremarkable renal ultrasound. Electronically signed by: Michael Reddy MD 02/20/2024 09:36 AM EDT
[2024-02-20 06:40] VITALS: BP 124/85; PULSE 88; RESP 18; TEMP 36.8; O2SAT 96; BMI 31.8
--- NOTE | 2024-02-20 06:52 | ED.FEMALEGU ---
HPI - Female Genitourinary General Chief complaint: Urogenital-Female Stated complaint: UTI? Sharp abd pain Time Seen by Provider: 02/20/24 06:52 Source: patient Mode of arrival: ambulatory Limitations: no limitations History of Present Illness ED Provider: Yael Remy PA-C HPI Narrative: Patient is a 53 year old assigned female at with a history of ELDA and IBS presenting to the emergency department today with vaginal discharge and painful urination. Patient states that over the last 2 days she has had yellowish vaginal discharge, painful urination, and flank pain. Patient denies any dizziness, lightheadedness, abdominal pain, nausea, vomiting, fever, chills, blurry vision, double vision, loss of vision, chest pain, difficulty breathing, shortness of breath, back pain, night sweats, increased urinary frequency, increased urinary urgency, blood in her urine or stool, syncope or a near syncopal episode, recent trauma or falls, bowel incontinence, bladder incontinence, or any other complaints at this time. Urinary symptoms: Dysuria and Flank Pain Related Data Home Medications ?Medication ?Instructions ?Recorded ?Confirmed lancets 28 gauge #100 ea 05/05/20 01/23/24 blood-glucose meter #1 ea 06/13/20 01/23/24 pantoprazole 20 mg tablet,delayed 40 mg PO BID 07/23/23 01/23/24 release aspirin 81 mg tablet,delayed 81 mg PO DAILY 01/23/24 01/23/24 release (Adult Low Dose Aspirin) escitalopram oxalate 5 mg tablet 5 mg PO DAILY 01/23/24 01/23/24 (Lexapro) meclizine 25 mg tablet 25 mg PO BID PRN 01/23/24 01/23/24 trazodone 50 mg tablet 25 mg PO DAILY 01/23/24 01/23/24 Previous Rx's ?Medication ?Instructions ?Recorded blood sugar diagnostic #100 ea 06/13/20 Shower Chair #1 ea 07/03/21 fluticasone propionate 50 1 spray intranasal DAILY #9.9 mL 01/18/23 mcg/actuation nasal spray,suspension (Flonase Allergy Relief) albuterol sulfate 5 mg/mL(0.5 %) 2.5 mg (0.5 mL) inhalation Q6H PRN 04/30/23 solution for nebulization shortness of breath or wheezing #20 mL nebulizers (Aeroneb Go Nebulizer) #1 ea 04/30/23 pravastatin 20 mg tablet 20 mg PO DAILY #90 tabs 10/02/23 sennosides 8.6 mg tablet (senna) 17.2 mg (2 x 8.6 mg) PO BEDTIME 10/03/23 for constipation #60 tabs blood pressure monitor (Blood #1 ea 10/09/23 Pressure Kit) albuterol sulfate 90 mcg/actuation 2 puff inhalation Q6H PRN 12/18/23 aerosol inhaler shortness of breath or wheezing #6.7 grams cetirizine 10 mg tablet 10 mg PO DAILY #30 tabs 12/18/23 lorazepam 1 mg tablet 1 mg PO DAILY 30 days #30 tabs 01/10/24 FreeStyle Fortunato 3 Roberts #1 ea 01/16/24 (blood-glucose meter,continuous) FreeStyle Fortunato 3 Sensor #6 ea 01/16/24 (blood-glucose sensor) ciprofloxacin HCl 500 mg tablet 500 mg PO BID 7 days #14 tabs 01/16/24 cyclobenzaprine 10 mg tablet 10 mg PO BID #90 tabs 01/21/24 Dexcom G7 Nitrating Acid Mixer (blood-glucose #1 ea 01/23/24 meter,continuous) Dexcom G7 Sensor (blood-glucose #9 ea 01/23/24 sensor) Dex4 Glucose 15 gram/33 gram oral 33 g PO .every 15 minutes PRN 01/31/24 gel packet (dextrose) BG<70 #198 grams cefuroxime axetil 250 mg tablet 250 mg PO BID 7 days #14 tabs 02/20/24 Allergies Allergy/AdvReac Type Severity Reaction Status Date / Time oxycodone [From PERCOCET] Allergy Intermediate VOMITING, Verified 02/20/24 06:41 N/V codeine [Codeine] Allergy Mild HIVES Verified 02/20/24 06:41 atorvastatin Allergy Unknown Headaches Verified 02/20/24 06:41 bupropion [From WELLBUTRIN] Allergy Unknown PALPITATION Verified 02/20/24 06:41 S morphine [MORPHINE] Allergy Unknown NIGHTMARES Verified 02/20/24 06:41 naproxen [NAPROXEN] Allergy Unknown RASH Verified 02/20/24 06:41 sertraline Allergy Unknown Unknown Verified 02/20/24 06:41 simvastatin Allergy Unknown Unknown Verified 02/20/24 06:41 zolpidem [ZOLPIDEM] Allergy Unknown PALPITATION Verified 02/20/24 06:41 S Review of Systems Constitutional: Constitutional: Reports no additional constitutional complaints, Denies chills, Denies fever(s) and Denies night sweats Eyes: Eyes: Reports no additional eye complaints, Denies blurry vision, Denies change in vision, Denies diplopia, Denies eye discharge, Denies loss of vision and Denies eye pain ENT: Denies dizziness Cardiovascular: Cardiovascular: Reports no additional cardiovascular complaints, Denies chest pain, Denies lightheadedness, Denies Loss of Consciousness and Denies dyspnea Respiratory: Respiratory: Reports no additional respiratory complaints and Denies dyspnea Gastrointestinal: Gastrointestinal: Reports no additional gastrointestinal complaints, Denies abdominal pain, Denies melena, Denies hematochezia, Denies change in bowel habits and Denies change in stool character Genitourinary: Genitourinary: Denies hematuria, Denies urinary frequency, Reports dysuria, Reports flank pain, Denies urinary incontinence, Denies urinary hesitancy and Denies urinary urgency Comments: vaginal discharge Musculoskeletal: Musculoskeletal: Reports no additional musculoskeletal complaints, Denies numbness and Denies tingling Neurologic: Denies dizziness, Denies loss of vision, Denies numbness and Denies tingling Psychiatric: Psychiatric: Reports no additional psychiatric complaints Endocrine: Endocrine: Reports no additional endocrine complaints Hematologic/Lymphatic: Hematologic/Lymphatic: Reports no additional hematologic/lymphatic complaints Allergic/Immunologic: Allergic/Immunologic: Reports no additional allergic/immunologic complaints [facility] Past Medical History Attestation statement: The following information was validated with the patient. Source: old records reviewed and nursing notes reviewed Medical History Hypertension Vertigo Dysuria Upper respiratory tract infection Nausea and vomiting Abdominal pain Fall Otitis media IBS (irritable bowel syndrome) Uterine cancer History of gestational diabetes Genital herpes Hypercholesterolemia Obstructive sleep apnea Vitamin D deficiency Lumbar degenerative disc disease Hypertension Insomnia Fatty liver GERD (gastroesophageal reflux disease) Asthma Obesity (BMI 30-39.9) NAFLD (nonalcoholic fatty liver disease) Surgical History History of esophagogastroduodenoscopy (EGD) History of lumbar surgery History of total abdominal hysterectomy and bilateral salpingo-oophorectomy History of tubal ligation Hx of endoscopy History of colonoscopy Family History Family History Father Hx of colon cancer, stage III Stomach cancer Mother Hx of heat stroke Acute CVA (cerebrovascular accident) Hypertension Diabetes Maternal Grandmother Breast cancer Stroke Maternal Grandfather CVD (cardiovascular disease) Myocardial infarction Son In good health Sister No problems noted. Sister No problems noted. Sister No problems noted. Brother No problems noted. Brother No problems noted. Social History Social History Housing: Apartment Alcohol intake: never Patient Tobacco Use Status: Former Tobacco user Tobacco use type: Cigarette Years Smoked: 2002 quit CBD oil e-Cigarette/Vaping Use: Never Used Second Hand Smoke Exposure: No Advance Directives: No Advance Directives Information Provided: No service: No Current occupational status: disabled Current occupational exposures/hazards: No Cognitive needs: No Hearing needs: No Vision needs: No Physical Exam Vital Signs: Vital Signs: Last Vital Signs Temp 98.2 F 02/20/24 11:02 Pulse 81 02/20/24 11:02 Resp 17 02/20/24 11:02 BP 129/84 02/20/24 11:02 Pulse Ox 98 02/20/24 11:02 O2 Del Method Room Air 02/20/24 11:02 BMI result Body Mass Index 31.8 Const: General: cooperative, no acute distress, alert and awake Nutritional Appearance: well nourished Orientation/consciousness: patient oriented x3 Limitations: no limitations HEENT: Head: Yes normal to inspection and Yes atraumatic Ears: hearing grossly normal bilaterally and external ears normal General nose exam: Normal external nose present, no nasal discharge noted and no epistaxis Face and sinus: Yes normal facial exam, No abrasion and No laceration Mouth: Normal oral and palatal mucosa present, no drooling and no muffled voice Eyes: General: appearance normal, both eyes and all related structures Periorbital: periorbital findings normal Eyelids: Yes eyelids normal Conjunctivae: conjunctivae normal Pupils: Equal, round and reactive pupils present EOM: EOMs intact bilaterally Neck: Neck: Yes normal visual inspection, Yes full ROM and Yes no lymphadenopathy Chest: Chest palpation & inspection: normal inspection of the chest Resp: Effort & Inspection: normal respiratory effort and able to speak in complete sentences GI: Inspection: Yes normal to inspection Neuro: General: patient oriented x3 and moves all extremities Cranial nerves: Yes Equal, round and reactive pupils present Cognition (Neuro): normal cognition Extrem: General: Yes normal to inspection, Yes full ROM and Yes capillary refill normal Psych: Appearance: grossly normal Mental Status: mental status grossly normal Affect: normal affect Attitude: cooperative Thought process: Normal thought process present Thought content: Normal thought content present Insight: Good insight present (Psych) Medical Decision Making Medical Decision Making MDM Narrative: Patient is a 53 year old assigned female at with a history of ELDA and IBS presenting to the emergency department today with vaginal discharge and painful urination. Patient's physical exam was as noted in the physical exam portion of this note. Patient's blood work was unremarkable. Patient's urine showed an acute UTI. Patient's renal US showed no acute process. I explained my physical exam findings as well as all test results to the patient. I answered all questions asked by the patient. I stressed the importance of the patient taking her medication as directed (either prescribed or as the over the counter packaging recommends). I stressed the importance of the patient following up with her primary care provider. I stressed the importance of the patient returning to the emergency department immediately if her symptoms were to worsen or if she were to develop any dizziness, shortness of breath, difficulty breathing, chest pain, blurry vision, loss of vision, nausea, vomiting, abdominal pain, fever, chills, back pain, or any other complaints. Patient verbalized agreement and understanding with this treatment plan and discharge. Differential Diagnosis Differential Diagnoses: The differential diagnosis associated with the presentation includes Abdominal pain Kidney stone Flank pain UTI Pyelonephritis Admission/Observation Consideration of admission/observation: Escalation of care including admission/observation considered Patient would have been admitted to the hospital had her work up had any findings where hospital admission was appropriate and her clinical presentation warranted hospital admission. Lab Data [facility] Lab Attestation statement: I reviewed the patient's lab results. My interpretation of these results are in the [facility] Rationale portion of this note. 02/20/24 07:56 02/20/24 07:56 Labs: Lab Results 02/20/24 02/20/24 02/20/24 Range/Units 07:31 07:56 07:57 WBC 11.9 H (4.8-10.8) X10*3/uL RBC 4.60 (4.20-5.50) X10*6/uL Hgb 12.5 (12.0-16.0) g/dl Hct 37.6 (37.0-47.0) % MCV 81.7 (80.0-98.0) fL MCH 27.2 (27.0-33.0) pg MCHC 33.2 (31.0-35.0) g/dl RDW 14.5 (11.0-16.0) % Plt Count 328 (160-400) X10*3/uL MPV 9.3 L (9.4-12.3) fL Immature Gran % (Auto) 0.4 (0.0-0.4) % Neut % (Auto) 57.5 (45-73) % Lymph % (Auto) 31.0 (20-40) % Lawrence % (Auto) 8.0 (2-11) % Eos % (Auto) 2.8 (0-4) % Baso % (Auto) 0.3 (0-2) % Lymph # (Auto) 3.7 (1.2-4.9) X10*3/uL Lawrence # (Auto) 1.0 (0.1-1.2) X10*3/uL Eos # (Auto) 0.3 (0.0-0.4) X10*3/uL Baso # (Auto) 0.0 (0.0-0.2) X10*3/uL Abs Immat Gran (auto) 0.05 H (0.00-0.03) X10*3/uL Absolute Neuts (auto) 6.8 (2.0-8.3) x10*3/uL Absolute Nucleated RBC 0.000 (0.0-0.012) X10*3/uL Nucleated RBC % (auto) 0.0 (0.0-0.2) /100WBC Sodium 141 (135-145) mmol/L Potassium 3.9 (3.3-5.1) mmol/L Chloride 108 (96-108) mmol/L Carbon Dioxide 24 (22-29) mmol/L Anion Gap 13 (12-20) BUN 18 H (9-16) mg/dL Creatinine 0.80 (0.5-1.4) mg/dL Estim Creat Clear Calc 74.3 Estimated GFR > 60 POC Glucose (60-115) mg/dL Random Glucose 105 (60-115) mg/dL Calcium 9.7 D (8.4-10.2) mg/dL Total Bilirubin 0.4 (0.0-1.0) mg/dL AST 54 H (5-31) U/L ALT 83 H (0-31) U/L Alkaline Phosphatase 83 (39-117) U/L Total Protein 7.4 (6.5-8.0) g/dL Albumin 4.0 (3.5-5.0) g/dL Urine Color Yellow Urine Appearance Clear Urine pH 5.5 (5.0-9.0) Ur Specific [place] >= 1.030 H (1.005-1.025) Urine Protein Negative (Neg-Trace) mg/dL Urine Glucose (UA) Negative (Negative) mg/dL Urine Ketones Negative (Negative) mg/dL Urine Blood Trace (Negative) Urine Nitrite Negative (Negative) Ur Leukocyte Esterase Negative (Negative) Urine RBC 3-5 H (0-2) /HPF Urine WBC 21-50 H (0-5) /HPF Ur Squamous Epith Cells 0-2 (0-2) /HPF Urine Bacteria None Seen (None Seen) Hyaline Casts 0-2 (0-2) /LPF Chlam trachomat DNA PCR (Not Detect.) N.gonorrhoeae DNA (PCR) (Not Detect.) T. vaginalis (PCR) NOT DETECTED (Not Detect) Bact Vaginosis (PCR) NEGATIVE (Negative) C. krusei/glabrata (PCR) NOT DETECTED (Not Detect) Saba group (PCR) NOT DETECTED (Not Detect) 02/20/24 02/20/24 Range/Units 08:33 Unknown WBC (4.8-10.8) X10*3/uL RBC (4.20-5.50) X10*6/uL Hgb (12.0-16.0) g/dl Hct (37.0-47.0) % MCV (80.0-98.0) fL MCH (27.0-33.0) pg MCHC (31.0-35.0) g/dl RDW (11.0-16.0) % Plt Count (160-400) X10*3/uL MPV (9.4-12.3) fL Immature Gran % (Auto) (0.0-0.4) % Neut % (Auto) (45-73) % Lymph % (Auto) (20-40) % Lawrence % (Auto) (2-11) % Eos % (Auto) (0-4) % Baso % (Auto) (0-2) % Lymph # (Auto) (1.2-4.9) X10*3/uL Lawrence # (Auto) (0.1-1.2) X10*3/uL Eos # (Auto) (0.0-0.4) X10*3/uL Baso # (Auto) (0.0-0.2) X10*3/uL Abs Immat Gran (auto) (0.00-0.03) X10*3/uL Absolute Neuts (auto) (2.0-8.3) x10*3/uL Absolute Nucleated RBC (0.0-0.012) X10*3/uL Nucleated RBC % (auto) (0.0-0.2) /100WBC Sodium (135-145) mmol/L Potassium (3.3-5.1) mmol/L Chloride (96-108) mmol/L Carbon Dioxide (22-29) mmol/L Anion Gap (12-20) BUN (9-16) mg/dL Creatinine (0.5-1.4) mg/dL Estim Creat Clear Calc Estimated GFR POC Glucose 109 (60-115) mg/dL Random Glucose (60-115) mg/dL Calcium (8.4-10.2) mg/dL Total Bilirubin (0.0-1.0) mg/dL AST (5-31) U/L ALT (0-31) U/L Alkaline Phosphatase (39-117) U/L Total Protein (6.5-8.0) g/dL Albumin (3.5-5.0) g/dL Urine Color Urine Appearance Urine pH (5.0-9.0) Ur Specific [place] (1.005-1.025) Urine Protein (Neg-Trace) mg/dL Urine Glucose (UA) (Negative) mg/dL Urine Ketones (Negative) mg/dL Urine Blood (Negative) Urine Nitrite (Negative) Ur Leukocyte Esterase (Negative) Urine RBC (0-2) /HPF Urine WBC (0-5) /HPF Ur Squamous Epith Cells (0-2) /HPF Urine Bacteria (None Seen) Hyaline Casts (0-2) /LPF Chlam trachomat DNA PCR NOT DETECTED (Not Detect.) N.gonorrhoeae DNA (PCR) NOT DETECTED (Not Detect.) T. vaginalis (PCR) (Not Detect) Bact Vaginosis (PCR) (Negative) C. krusei/glabrata (PCR) (Not Detect) Saba group (PCR) (Not Detect) Independent Interpretation I performed an independent interpretation of an: Ultrasound Interpretation: My interpretation is in agreement with the radiologist's impression of this imaging study. EXAMINATION: US RETROPERITONEAL LIMITED (RENAL ONLY) CLINICAL INFORMATION: Flank pain, possible stones. COMPARISON: Ultrasound 01/24/2022 TECHNIQUE: Ultrasound bilateral kidneys FINDINGS: RIGHT KIDNEY: 10.4 x 4.2 x 5.7 cm (SAG x AP x TRV). The kidney is normal in size, contour, and echogenicity. Renal cortical thickness is normal. No calculi or focal parenchymal lesions. No hydronephrosis. LEFT KIDNEY: 10.1 x 5 x 4.7 cm (SAG x AP x TRV). The kidney is normal in size, contour, and echogenicity. Renal cortical thickness is normal. No calculi or focal parenchymal lesions. No hydronephrosis. US/US renal BI IMPRESSION: Unremarkable renal ultrasound. Electronically signed by: Michael Reddy MD 02/20/2024 09:36 AM EDT Dictated By: Michael Reddy MD Signed By: Electronically signed by Michael Reddy MD 02/20/24 0936 Radiology Impression Discussion of test interpretation with radiology: I have reviewed the radiologist's reading. Prescription Management I considered prescription management with: Antibiotic (patient prescribed an antibiotic for UTI) Discharge Plan Discharge Clinical Impression: UTI (urinary tract infection), Dysuria, Flank pain, Vaginal discharge Patient Disposition: Home, Self-Care Instructions: Urinary Tract Infection in Women (DC) Additional Instructions: Take your antibiotic as prescribed. Follow up with your primary care provider. Return to the emergency department immediately if your symptoms worsen or if you develop any dizziness, shortness of breath, difficulty breathing, chest pain, blurry vision, loss of vision, nausea, vomiting, abdominal pain, fever, chills, back pain, or any other complaints. Prescriptions: New cefuroxime axetil 250 mg tablet 250 mg PO BID 7 Days Qty: 14 0RF No Action (DME) blood sugar diagnostic Strip See Rx Instructions .ROUTE .MEDSUPPLY Qty: 100 0RF Rx Instructions: As directed check BS QD (DME) nebulizers [Aeroneb Go Nebulizer] Misc See Rx Instructions .Route Qty: 1 0RF Rx Instructions: As directed pravastatin 20 mg tablet 20 mg PO DAILY Qty: 90 2RF sennosides [senna] 8.6 mg tablet 17.2 mg PO BEDTIME Qty: 60 6RF (DME) blood pressure monitor [Blood Pressure Kit] Kit See Rx Instructions .ROUTE .MEDSUPPLY Qty: 1 0RF Rx Instructions: As directed lorazepam 1 mg tablet 1 mg PO DAILY 30 Days Qty: 30 0RF cyclobenzaprine 10 mg tablet 10 mg PO BID Qty: 90 0RF (DME) Dexcom G7 Nitrating Acid Mixer [facility] See Rx Instructions .Route Qty: 1 0RF Rx Instructions: As directed (DME) Dexcom G7 Sensor Device See Rx Instructions .Route Qty: 9 3RF Rx Instructions: every 10 days dextrose [Dex4 Glucose] 15 gram/33 gram gel in packet 33 g PO .every 15 minutes PRN (Reason: BG<70) Qty: 198 3RF (DME) lancets 28 gauge [facility] See Rx Instructions topical .MEDSUPPLY Qty: 100 Rx Instructions: As directed (DME) blood-glucose meter Kit See Rx Instructions .ROUTE DAILY Qty: 1 Rx Instructions: As directed (DME) Shower Chair Mis See Rx Instructions .Route Qty: 1 0RF Rx Instructions: As directed cetirizine 10 mg tablet 10 mg PO DAILY Qty: 30 2RF albuterol sulfate 90 mcg/actuation HFA aerosol inhaler 2 puff inhalation Q6H PRN (Reason: shortness of breath or wheezing) Qty: 6.7 0RF pantoprazole 20 mg tablet,delayed release (DR/EC) 40 mg PO BID fluticasone propionate [Flonase Allergy Relief] 50 mcg/actuation spray,suspension 1 spray intranasal DAILY Qty: 9.9 1RF Rx Instructions: administer into each nostril albuterol sulfate 5 mg/mL solution for nebulization 2.5 mg inhalation Q6H PRN (Reason: shortness of breath or wheezing) Qty: 20 0RF escitalopram oxalate [Lexapro] 5 mg tablet 5 mg PO DAILY Rx Instructions: Dr. Rollins meclizine 25 mg tablet 25 mg PO BID PRN Rx Instructions: Marianela psych trazodone 50 mg tablet 25 mg PO DAILY aspirin [Adult Low Dose Aspirin] 81 mg tablet,delayed release (DR/EC) 81 mg PO DAILY ciprofloxacin HCl 500 mg tablet 500 mg PO BID 7 Days Qty: 14 0RF (DME) FreeStyle Fortunato 3 Roberts Misc See Rx Instructions .Route Qty: 1 0RF Rx Instructions: As directed (DME) FreeStyle Fortunato 3 Sensor Device See Rx Instructions .Route Qty: 6 3RF Rx Instructions: every 14 days Referrals: Po,Coreen Fisher MD [Primary Care Provider] - Stand Alone Forms: Work/School Release Interventions: ED Discharge Assessment Last Done: 02/20/24 11:02 Discharge Date/Time: 02/20/24 11:06 Print Language: Upper Sorbian
[2024-02-20 07:43] LABS: Appearance Urine Clear; Color Urine Yellow; Glucose Urine UA Negative (Negative); Leukocyte Esterase Urine Negative (Negative); Nitrite Urine Negative (Negative); PH 5.5 (5.0-9.0); Specific Gravity - Urine >= 1.030 (1.005-1.025); UMIC TRIGGER UACC YES; Urine Blood Trace (Negative); Urine Ketones Negative (Negative); Urine Protein Negative (Neg-Trace)
[2024-02-20 07:49] LABS: Bacteria Urine None Seen (None Seen); Hyaline Casts Urine 0-2 /LPF (0-2); Squamous Epithelial Cell Urine 0-2 /HPF (0-2); UACC Culture Trigger YES; WBC Urine 21-50 /HPF (0-5)
[2024-02-20 08:08] LABS: MANUAL DIFF FLAG NO
[2024-02-20 08:22] LABS: Basophils Percent Auto 0.3 % (0-2); Eosinophils Absolute Auto 0.3 X10*3/uL (0.0-0.4); Eosinophils Percent Auto 2.8 % (0-4); Hematocrit 37.6 % (37.0-47.0); Hemoglobin 12.5 g/dl (12.0-16.0); Imm Gran Abs Auto 0.05 X10*3/uL (0.00-0.03); Imm Gran Pct Auto 0.4 % (0.0-0.4); Lymphocytes Absolute Auto 3.7 X10*3/uL (1.2-4.9); Mean Corpuscular HGB Conc 33.2 g/dl (31.0-35.0); Mean Corpuscular Hemoglobin 27.2 pg (27.0-33.0); Mean Corpuscular Volume 81.7 fL (80.0-98.0); Mean Platelet Volume 9.3 fL (9.4-12.3); Neutrophils Absolute Auto 6.8 x10*3/uL (2.0-8.3); Neutrophils Percent Auto 57.5 % (45-73); Platelet Count 328 X10*3/uL (160-400); Red Cell Distribution Width 14.5 % (11.0-16.0); White Blood Count 11.9 X10*3/uL (4.8-10.8)
[2024-02-20 08:23] LABS: Alanine Aminotransferase 83 U/L (0-31); Alkaline Phosphatase 83 U/L (39-117); Anion Gap 13 (12-20); Aspartate Amino Transferase 54 U/L (5-31); Bilirubin Total 0.4 mg/dL (0.0-1.0); Blood Urea Nitrogen 18 mg/dL (9-16); Calcium 9.7 mg/dL (8.4-10.2); Carbon Dioxide 24 mmol/L (22-29); Chloride 108 mmol/L (96-108); Creatinine Clr Calc Pharmacy 74.3; Estimated Glomerular Filt Rate > 60; Glucose Random 105 mg/dL (60-115); Potassium 3.9 mmol/L (3.3-5.1); Sodium 141 mmol/L (135-145); Total Protein 7.4 g/dL (6.5-8.0)
[2024-02-20 08:28] VITALS: BP 103/62; PULSE 75; RESP 17; TEMP 36.8; O2SAT 98
[2024-02-20 08:37] LABS: Glucose, Whole Blood 109 mg/dL (60-115)
[2024-02-20 09:18] LABS: Bacterial Vaginosis PCR NEGATIVE (Negative); Candida Group PCR NOT DETECTED (Not Detect); Candida glab krusei PCR NOT DETECTED (Not Detect); Trichomonas vaginalis PCR NOT DETECTED (Not Detect)
[2024-02-20 09:40] LABS: CT PCR NOT DETECTED (Not Detect.); NG PCR NOT DETECTED (Not Detect.)
[2024-02-20 10:09] VITALS: BP 129/84; PULSE 81; RESP 17; TEMP 36.8; O2SAT 98
[2024-02-20 11:02] VITALS: BP 129/84; PULSE 81; RESP 17; TEMP 36.8; O2SAT 98
== END 2024-02-20 11:06 | disposition home or self-care (01) ==
PROVIDERS: Physician Assistant Medical; Emergency Provider Student in an Organized Health Care Education/Training Program; PCP Internal Medicine
DX: N39.0 Urinary tract infection, site not specified (principal); R30.0 Dysuria; N89.8 Other specified noninflammatory disorders of vagina; R10.9 Unspecified abdominal pain; Z87.891 Personal history of nicotine dependence; Z79.899 Other long term (current) drug therapy
CPT/HCPCS: 0352U; 36415; 51798; 76775; 80053; 81001; 82947; 85025; 87086; 87491; 87591; 99283; 99284

== ENCOUNTER 2024-02-25 08:36 | Outpatient (AMB) | payer OTHER, SELFPAY ==
--- NOTE | 2024-02-25 08:43 | A.OFFVIS_ITS ---
Intake Visit Reasons: nephrolithiasis/Dysuria Intake Note: New patient is present for Kidney stones/Dysuria Patient was treated at our [facility] for Stones and patient had currently had a UTI and was treated with Antibiotics Patient states that she recently had Stones in December when she went to travel to [place] was seen at the ER and was treated. Patient states she is still having symptoms and feel discomfort Blood Thinner: Aspirin Baseball Winder Required: No Accompanied by: Self / Same As Patient Allergies oxycodone [From PERCOCET] Allergy (Intermediate, Verified 02/25/24 08:55) VOMITING, N/V codeine [Codeine] Allergy (Mild, Verified 02/25/24 08:55) HIVES atorvastatin Allergy (Unknown, Verified 02/25/24 08:55) Headaches bupropion [From WELLBUTRIN] Allergy (Unknown, Verified 02/25/24 08:55) PALPITATIONS morphine [MORPHINE] Allergy (Unknown, Verified 02/25/24 08:55) NIGHTMARES naproxen [NAPROXEN] Allergy (Unknown, Verified 02/25/24 08:55) RASH sertraline Allergy (Unknown, Verified 02/25/24 08:55) Unknown simvastatin Allergy (Unknown, Verified 02/25/24 08:55) Unknown zolpidem [ZOLPIDEM] Allergy (Unknown, Verified 02/25/24 08:55) PALPITATIONS HPI Comments Details: Shante is a pleasant female. She is a patient of Dr. Hernandez. 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 [facility] Medical History Hypertension Vertigo Dysuria Upper respiratory tract infection Nausea and vomiting Abdominal pain Fall Otitis media IBS (irritable bowel syndrome) Uterine cancer History of gestational diabetes Genital herpes Hypercholesterolemia Obstructive sleep apnea Vitamin D deficiency Lumbar degenerative disc disease Hypertension Insomnia Fatty liver GERD (gastroesophageal reflux disease) Asthma Obesity (BMI 30-39.9) NAFLD (nonalcoholic fatty liver disease) Surgical History History of esophagogastroduodenoscopy (EGD) History of lumbar surgery History of total abdominal hysterectomy and bilateral salpingo-oophorectomy History of tubal ligation Hx of endoscopy History of colonoscopy Family History Father Hx of colon cancer, stage III Stomach cancer Mother Hx of heat stroke Acute CVA (cerebrovascular accident) Hypertension Diabetes Maternal Grandmother Breast cancer Stroke Maternal Grandfather CVD (cardiovascular disease) Myocardial infarction Son In good health Sister No problems noted. Sister No problems noted. Sister No problems noted. Brother No problems noted. Brother No problems noted. Social History Housing: Apartment Alcohol intake: never Patient Tobacco Use Status: Former Tobacco user Tobacco use type: Cigarette Years Smoked: 2002 quit CBD oil e-Cigarette/Vaping Use: Never Used Second Hand Smoke Exposure: No service: No Current occupational status: disabled Current occupational exposures/hazards: No Cognitive needs: No Hearing needs: No Vision needs: No Review of Systems Const Denies chills and Denies fever(s) Card Reports no additional complaints and Denies syncope Resp Denies cough GI Denies abdominal pain and Denies heartburn Reports as per HPI and Denies change in libido Neuro Denies syncope Psych Denies change in libido Endo Denies change in libido Physical Exam Const General: cooperative, healthy appearing, comfortable and no acute distress Orientation/consciousness: patient oriented x3 HEENT Face and sinus: Yes normal facial exam Mouth: moist mucous membranes Neck Neck: Yes normal visual inspection, Yes full ROM and Yes trachea midline Chest Chest palpation & inspection: normal inspection of the chest Resp Effort & Inspection: normal respiratory effort, able to speak in complete sentences and no respiratory distress GI Inspection: Yes normal to inspection Back/Spine/Pelvis Cervical Spine: normal cervical lordosis Thoracic/Lumbar Spine: thoracic and lumbar spine normal to inspection Skin General skin exam: no rashes or lesions noted Neuro General: patient oriented x3, gait normal, tone normal and moves all extremities Extrem General: Yes normal to inspection and Yes capillary refill normal Results AMB Urinalysis, Automated UA Leukoctes 15 Clifford/uL Last Edit by LINDA Mitchell on 02/25/24 09:03 UA Nitrite Negative Last Edit by LINDA Mitchell on 02/25/24 09:03 UA Urobilinogen 0.2 mg/dL Last Edit by Eliane Rodriguez, RMA on 02/25/24 09:0 3 UA Protein 15 mg/dL Last Edit by Elianeparmjit Rodriguez, RMA on 02/25/24 09:03 UA pH 5.5 Last Edit by Elianeparmjit Rodriguez, RMA on 02/25/24 09:03 UA Blood 10 Adams/uL Last Edit by Eliane Rodriguez, RMA on 02/25/24 09:03 UA Specific [place] 1.025 Last Edit by Eliane Rodriguez, RMA on 02/25/24 09: 03 UA Ketone Negative Last Edit by Eliane Rodriguez, RMA on 02/25/24 09:03 UA Bilirubin 0 mg/dL Last Edit by Eliane Rodriguez, A on 02/25/24 09:03 UA Glucose 0 mg/dL Last Edit by Elianeparmjit Rodriguez, A on 02/25/24 09:03 Assessment & Plan Assessment & Plan (1) Nephrolithiasis: Code(s): N20.0 - Calculus of kidney Category: Medical (2) Hypoglycemia: Code(s): E16.2 - Hypoglycemia, unspecified Category: Medical Plan Six-month follow-up renal ultrasound office Orders: Orders AMB Urinalysis Automated Today Z13.9 - Encounter for screening, unspecified US renal BI 6 Months N20.0 - Calculus of kidney Medications: New flash glucose sensor (FreeStyle Fortunato 14 Day Sensor kit) interiano patient - 1 ea 0RF E16.2 - Hypoglycemia, unspecified Patient Instructions: Imaging studies, laboratory and physical exam results were discussed and reviewed in detail. No major barriers to patient understanding were identified. An opportunity to ask questions regarding the treatment plan was provided. All questions were answered. The patient expressed understanding and agreement with the above treatment plan. The patient is aware they should contact our office by phone for worsening of their current condition or the appearance of new urologic symptoms. Compliance is encouraged with any medications and followup testing that is ordered. It is a privilege to participate in the urologic care of your patient. If you have any questions or concerns regarding treatment for the above conditions, or other urologic issues, please do not hesitate to contact me. The office telephone contact is [phone]. This note is constructed using voice recognition software. While every effort has been made to ensure accuracy steel post installer supervisor errors may have been included. Yours sincerely, Dr Ventura Beltre MD, [facility] - Urology Providers of Expert, Compassionate Care for the Genitourinary System Coding Level of Care Code New Pt Level 3 (57787) Diagnoses Nephrolithiasis N20.0 Hypoglycemia E16.2
== END 2024-02-25 09:23 | disposition home or self-care (01) ==
PROVIDERS: PCP Internal Medicine; Visit Provider Urology
DX: N20.0 Calculus of kidney (principal); E16.2 Hypoglycemia, unspecified; Z13.9 Encounter for screening, unspecified
CPT/HCPCS: 99203

== ENCOUNTER → 2024-02-25 08:36 | Outpatient (BNVA) | payer OTHER, SELFPAY | PROVIDERS: PCP Internal Medicine; Visit Provider Urology | DX: N20.0 Calculus of kidney (principal); E16.2 Hypoglycemia, unspecified | CPT/HCPCS: 81003; 99202 ==

== ENCOUNTER 2024-02-26 10:28 | Outpatient (AMB) | payer OTHER, SELFPAY ==
--- NOTE | 2024-02-26 10:30 | A.OFFVIS_ITS ---
Vital Signs 02/26/24 10:34 Height 5 ft 1 in Weight 182 lb 15.739 oz BMI 34.6 BP 118/86 Blood Pressure Location Rt brachial Position Sitting Pulse 76 Pulse Source Pulse Oximeter Intake Visit Reasons: hypoglycemia/CONFIRMED Intake Note: Patient presents today for a follow-up on Hypoglycemia: Last Diabetic eye exam was on: A year ago Last Podiatry exam was on: Does not see a Bicycle I Assembler Most recent HbA1c: 5.7%, 01/16/2024 Random Glucose- 185 mg/dL, Today Antique Dealer Required: No Accompanied by: Self / Same As Patient Allergies oxycodone [From PERCOCET] Allergy (Intermediate, Verified 02/26/24 10:31) VOMITING, N/V codeine [Codeine] Allergy (Mild, Verified 02/26/24 10:31) HIVES atorvastatin Allergy (Unknown, Verified 02/26/24 10:31) Headaches bupropion [From WELLBUTRIN] Allergy (Unknown, Verified 02/26/24 10:31) PALPITATIONS morphine [MORPHINE] Allergy (Unknown, Verified 02/26/24 10:31) NIGHTMARES naproxen [NAPROXEN] Allergy (Unknown, Verified 02/26/24 10:31) RASH sertraline Allergy (Unknown, Verified 02/26/24 10:31) Unknown simvastatin Allergy (Unknown, Verified 02/26/24 10:31) Unknown zolpidem [ZOLPIDEM] Allergy (Unknown, Verified 02/26/24 10:31) PALPITATIONS HPI Comments Details: The patient is a 53 year old female with a past medical history of impaired glucose, anxiety, back pain, GERD, hyperlipidemia, kidney stones presenting for symptomatic hypoglycemia She is just getting set up with pay out of pocket CGM. We have not been able to capture any significant hypoglycemia at the lab. She notes a 43 recently in [place]. Doesnt have glucometer today. Still getting frequent UTIs-seeing urology She reports for the past ~ 1 year has been waking from sleep with heart racing, tremulousness, anxiety and dizziness. She has checked fingerstick glucose at the time and seen readings in 50s, 60s. Recently she has become quite anxious during the periods making it hard for her to check the glucose but last week during an episode her glucose was 65. She drinks a glass of orange juice and symptoms subside. In November she had COVID, then later in the month had strep throat, then this month had kidney stones and today may have a UTI however she reports that symptoms predated these infections by months. During her ER visit in [facility] Jan [address] [place] [address] with punctate kidney stone and mild hydronephrosis of the right kidney No ETOH use. Denies GLP, insulin use. Eating dinner at 6 pm, now eating 2 so crackers at bedtime. Had sleep testing (said she didnt sleep) consistent with JACK. Intolerant of CPAP. Labs by PCP today with leuk esterase 2+. She continues to have some bladder discomfort and mild flank pain. No chills, rigors or fevers. Calcium elevated at 10.6. Mild elevated LFTs. ROS see HPI PHYSICAL EXAM: GENERAL: Alert and oriented x 3. NAD EYES: EOMI. Anicteric. HENT: Moist mucous membranes. No scleral icterus. No cervical lymphadenopathy. LUNGS: Clear to auscultation bilaterally. CARDIOVASCULAR: Regular rate and rhythm. ABDOMEN: Soft, non-tender +bs EXTREMITIES: No edema. Non-tender. SKIN: No rashes or lesions. Warm. NEUROLOGIC: No focal neurological deficits. CN II-XII grossly intact PSYCHIATRIC: Cooperative. Appropriate mood and affect [facility] Medical History Hypertension Vertigo Dysuria Upper respiratory tract infection Nausea and vomiting Abdominal pain Fall Otitis media IBS (irritable bowel syndrome) Uterine cancer History of gestational diabetes Genital herpes Hypercholesterolemia Obstructive sleep apnea Vitamin D deficiency Lumbar degenerative disc disease Hypertension Insomnia Fatty liver GERD (gastroesophageal reflux disease) Asthma Obesity (BMI 30-39.9) NAFLD (nonalcoholic fatty liver disease) Surgical History History of esophagogastroduodenoscopy (EGD) History of lumbar surgery History of total abdominal hysterectomy and bilateral salpingo-oophorectomy History of tubal ligation Hx of endoscopy History of colonoscopy Family History Father Hx of colon cancer, stage III Stomach cancer Mother Hx of heat stroke Acute CVA (cerebrovascular accident) Hypertension Diabetes Maternal Grandmother Breast cancer Stroke Maternal Grandfather CVD (cardiovascular disease) Myocardial infarction Son In good health Sister No problems noted. Sister No problems noted. Sister No problems noted. Brother No problems noted. Brother No problems noted. Social History Housing: Apartment Alcohol intake: never Patient Tobacco Use Status: Former Tobacco user Tobacco use type: Cigarette Years Smoked: 2002 quit CBD oil e-Cigarette/Vaping Use: Never Used Second Hand Smoke Exposure: No service: No Current occupational status: disabled Current occupational exposures/hazards: No Cognitive needs: No Hearing needs: No Vision needs: No Physical Exam Vital Signs: Last Vital Signs Pulse 76 02/26/24 10:34 BP 118/86 02/26/24 10:34 BMI result Body Mass Index 34.6 Results Reviewed Results Reviewed: Laboratory Last Values Glucose (Clinic) 185 mg/dL (60-115) H 02/26/24 10:37 Assessment & Plan Assessment & Plan (1) Hypoglycemia: Code(s): E16.2 - Hypoglycemia, unspecified Category: Medical Plan: Need to establish hypoglycemia. Will try to better capture this with CGM. If frequent then will refer to hypoglycemia at [place]. She is aware of hypoglycemia and treatment. Coding Level of Care Code Est Pt Level 4 (08816) Diagnoses Hypoglycemia E16.2
[2024-02-26 10:34] VITALS: BP 118/86; PULSE 76; BMI 34.6
[2024-02-26 10:43] LABS: Glucose, Whole Blood 185 mg/dL (60-115)
== END 2024-02-26 11:01 | disposition home or self-care (01) ==
PROVIDERS: PCP Internal Medicine; Visit Provider Internal Medicine
DX: E16.2 Hypoglycemia, unspecified (principal)

== ENCOUNTER → 2024-02-26 10:28 | Outpatient (BNVA) | payer OTHER, SELFPAY | PROVIDERS: PCP Internal Medicine; Visit Provider Internal Medicine | DX: E16.2 Hypoglycemia, unspecified (principal) | CPT/HCPCS: 82947; 99212 ==

== ENCOUNTER 2024-04-02 07:42 | Outpatient (REF) | payer OTHER, SELFPAY | END 2024-04-02 07:43 | disposition home or self-care (01) | LOC: HO.MAMMO 07:42 | PROVIDERS: PCP Internal Medicine; Visit Provider Internal Medicine | DX: Z13.89 Encounter for screening for other disorder (principal) ==

== ENCOUNTER 2024-04-06 15:16 | Outpatient (AMB) | payer OTHER, SELFPAY ==
--- NOTE | 2024-04-06 15:50 | MHC.PC.OV ---
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: No Accompanied by: Self / Same As Patient Allergies oxycodone [From PERCOCET] Allergy (Intermediate, Verified 04/06/24 15:59) VOMITING, N/V codeine [Codeine] Allergy (Mild, Verified 04/06/24 15:59) HIVES atorvastatin Allergy (Unknown, Verified 04/06/24 15:59) Headaches bupropion [From WELLBUTRIN] Allergy (Unknown, Verified 04/06/24 15:59) PALPITATIONS morphine [MORPHINE] Allergy (Unknown, Verified 04/06/24 15:59) NIGHTMARES naproxen [NAPROXEN] Allergy (Unknown, Verified 04/06/24 15:59) RASH sertraline Allergy (Unknown, Verified 04/06/24 15:59) Unknown simvastatin Allergy (Unknown, Verified 04/06/24 15:59) Unknown zolpidem [ZOLPIDEM] Allergy (Unknown, Verified 04/06/24 15:59) PALPITATIONS Medication List - Last Reconciled 04/06/24 by Wiliam Martin PA-C albuterol sulfate 2.5 mg (0.5 mL) inhalation Q6H PRN albuterol sulfate 90 mcg/actuation 2 puffs inhalation Q6H PRN aspirin (Adult Low Dose Aspirin) 81 mg PO DAILY blood pressure monitor (Blood Pressure Kit) As directed blood sugar diagnostic As directed check BS QD blood-glucose meter As directed cefuroxime axetil 250 mg PO BID 7 days cetirizine 10 mg PO DAILY cyclobenzaprine 10 mg PO BID Dex4 Glucose (dextrose) 33 grams PO .every 15 minutes PRN NS Dexcom G7 Carpet Inspector Finished (blood-glucose meter,continuous) As directed NS Dexcom G7 Sensor (blood-glucose sensor) every 10 days NS escitalopram oxalate (Lexapro) 5 mg PO DAILY flash glucose sensor (FreeStyle Fortunato 14 Day Sensor kit) interiano patient - fluticasone propionate 50 mcg/actuation (Flonase Allergy Relief) 1 spray intranasal DAILY FreeStyle Fortunato 3 [place] (blood-glucose meter,continuous) As directed NS FreeStyle Fortunato 3 Sensor (blood-glucose sensor) every 14 days NS lancets As directed lorazepam 1 mg PO DAILY 30 days meclizine 25 mg PO BID PRN nebulizers (Aeroneb Go Nebulizer) As directed pantoprazole 40 mg (2 x 20 mg) PO DAILY pravastatin 20 mg PO DAILY sennosides (senna) 17.2 mg (2 x 8.6 mg) PO BEDTIME Shower Chair As directed trazodone 25 mg PO DAILY Tobacco use date assessed: 07/23/23 Dental Screening Dental Screen Date: 07/23/23 HPI Lump on left breast HPI Details Patient is a 48 I fear old female here today for a problem visit. First time I am meeting this 53-year-old female.. She is due for screening mammogram though did feel a lump over the axillary region of her left and right breasts over the last 2 months. She reports these lumps are tender to palpation. She is concerned as she does have a maternal grandmother and a cousin whom had breast cancer. Of note has not recent vaccines done in both arms. [facility] Medical History Hypertension Vertigo Dysuria Upper respiratory tract infection Nausea and vomiting Abdominal pain Fall Otitis media IBS (irritable bowel syndrome) Uterine cancer History of gestational diabetes Genital herpes Hypercholesterolemia Obstructive sleep apnea Vitamin D deficiency Lumbar degenerative disc disease Hypertension Insomnia Fatty liver GERD (gastroesophageal reflux disease) Asthma Obesity (BMI 30-39.9) NAFLD (nonalcoholic fatty liver disease) Surgical History History of esophagogastroduodenoscopy (EGD) History of lumbar surgery History of total abdominal hysterectomy and bilateral salpingo-oophorectomy History of tubal ligation Hx of endoscopy History of colonoscopy Family History Father Hx of colon cancer, stage III Stomach cancer Mother Hx of heat stroke Acute CVA (cerebrovascular accident) Hypertension Diabetes Maternal Grandmother Breast cancer Stroke Maternal Grandfather CVD (cardiovascular disease) Myocardial infarction Son In good health Sister No problems noted. Sister No problems noted. Sister No problems noted. Brother No problems noted. Brother No problems noted. Social History Housing: Apartment Alcohol intake: never Patient Tobacco Use Status: Former Tobacco user Tobacco use type: Cigarette Years Smoked: 2002 quit CBD oil e-Cigarette/Vaping Use: Never Used Second Hand Smoke Exposure: No service: No Current occupational status: disabled Current occupational exposures/hazards: No Cognitive needs: No Hearing needs: No Vision needs: No Questionnaire Thrive Questionnaire Date Thrive assessed: 09/26/23 ELDA-7 AMB Questionnaire ELDA-7 Date ELDA - 7 assessed: 09/26/23 Source: Developed by Drs. Miki Koo, Monica Childers, Chris Watt and colleagues, with an educational adrien from [employer]. Review of Systems Const Denies headache(s) Eyes Denies loss of vision ENT Denies vertigo, Denies dizziness, Denies headache(s) and Denies sore throat Card Denies chest pain, Denies leg edema and Denies lightheadedness Resp Denies cough, Denies hemoptysis and Denies wheezing GI Denies abdominal pain, Denies melena, Denies constipation, Denies diarrhea and Denies vomiting Denies urinary frequency, Denies dysuria and Denies urinary urgency Musc Denies arthralgias, Denies joint swelling, Denies numbness and Denies tingling Neuro Denies Abnormal speech present, Denies behavioral changes, Denies vertigo, Denies dizziness, Denies headache(s), Denies loss of vision, Denies memory loss, Denies numbness and Denies tingling Psych Denies anxiety, Denies behavioral changes, Denies depression, Denies memory loss and Denies panic attacks Chucho/Lymph Denies easy bleeding and Denies easy bruising Aller/Immun Denies wheezing Physical exam (Primary Care) Vital Signs: Last Vital Signs Pulse 98 04/06/24 15:58 BP 124/76 04/06/24 15:58 Pulse Ox 95 04/06/24 15:58 Oxygen Delivery Method Room Air 04/06/24 15:58 BMI result Body Mass Index 35.2 Tobacco/Smoking Status: Tobacco use Status Tobacco use date assessed 07/23/23 04/06/24 15:51 Patient Tobacco Use Status Former Tobacco user 04/06/24 15:51 Tobacco use type Cigarette 04/06/24 15:51 e-Cigarette/Vaping Use Never Used 04/06/24 15:51 Thrive Assessment: Date of Thrive Assessment Date Thrive assessed 09/26/23 04/06/24 15:51 Const General: healthy appearing, no acute distress, alert and awake Nutritional Appearance: well nourished Orientation/consciousness: oriented to person, oriented to place and oriented to time HENMT Ears: TM's normal bilaterally General nose exam: Normal nasal mucous membranes and turbinates present Eyes Conjunctivae: conjunctivae normal Sclerae: sclerae normal Pupils: Equal, round and reactive pupils present Neck Neck: Yes no lymphadenopathy and Yes no JVD Thyroid: Thyroid normal Carotids: no bruits Chest Chest/axillae images: 1. Palpable soft mobile subcutaneous mass 2. Palpable soft mobile subcutaneous mass Resp Effort & Inspection: normal respiratory effort and not tachypneic Auscultation: no crackles, no rales, no rhonchi and no wheezes Cardio Rate: regular rate Rhythm: regular rhythm Heart sounds: no murmurs and normal S1 and S2 GI Palpation (GI): Soft to palpation, nontender, no hepatomegaly and no splenomegaly Auscultation: normal bowel sounds Skin General skin exam: no rashes or lesions noted and dry skin Neuro General: oriented to person, oriented to place and oriented to time Cranial nerves: Yes Equal, round and reactive pupils present Speech: No Abnormal speech present Gait exam (Neuro): Normal gait present Motor exam (neuro): no tremor noted Extrem Right upper extremity: full ROM Left upper extremity: full ROM Right lower extremity: full ROM; no edema Left lower extremity: full ROM; no edema Psych Mental Status: mental status grossly normal Speech and movement: Normal speech and movement present Affect: normal affect Attitude: cooperative Thought process: Normal thought process present Coding Level of Care Code Est Pt Level 3 (93409) Diagnoses Mass of axillary tail of left breast N63.32 Breast mass location: axillary tail Mass of axillary tail of right breast N63.31 Breast mass location: axillary tail Assessment & Plan Assessment & Plan (1) Left breast mass: Code(s): N63.20 - Unspecified lump in the left breast, unspecified quadrant Category: Medical Qualifiers: Breast mass location: axillary tail Qualified Code(s): N63.32 - Unspecified lump in axillary tail of the left breast Plan: Noted palpable mass in the left axillary region. Masses soft mobile somewhat tender and rope-like. Likely a cyst. Will send for ultrasound to confirm due to patient's family history. (2) Breast mass, right: Code(s): N63.10 - Unspecified lump in the right breast, unspecified quadrant Category: Medical Qualifiers: Breast mass location: axillary tail Qualified Code(s): N63.31 - Unspecified lump in axillary tail of the right breast Plan: As above though on right side. Orders: Orders US breast RT limited 04/06/24 N63.31 - Unspecified lump in axillary tail of the right breast US breast LT limited 04/06/24 N63.32 - Unspecified lump in axillary tail of the left breast
[2024-04-06 15:58] VITALS: BP 124/76; PULSE 98; O2SAT 95; BMI 35.2
== END 2024-04-06 16:15 | disposition home or self-care (01) ==
PROVIDERS: PCP Internal Medicine; Visit Provider Physician Assistant
DX: N63.32 Unspecified lump in axillary tail of the left breast (principal); N63.31 Unspecified lump in axillary tail of the right breast

== ENCOUNTER → 2024-04-06 15:16 | Outpatient (BNVA) | payer OTHER, SELFPAY | PROVIDERS: PCP Internal Medicine; Visit Provider Physician Assistant | DX: N63.32 Unspecified lump in axillary tail of the left breast (principal); N63.31 Unspecified lump in axillary tail of the right breast | CPT/HCPCS: 99212 ==

== ENCOUNTER 2024-06-04 13:16 | Outpatient (REF) | payer OTHER, SELFPAY ==
--- NOTE | ~2024-06-04 | US_ITS ---
EXAMINATION: MM DIAGNOSTIC DIGITAL BREAST TOMOSYNTHESIS, BILATERAL Limited bilateral ultrasound. CLINICAL INFORMATION: Bilateral axillary lumps and tenderness. COMPARISON: Mammography: Comparison is made with relevant prior exams. TECHNIQUE: Digital breast mammography with tomosynthesis is performed in both the craniocaudal and mediolateral oblique views along with computer-aided detection (CAD). Limited bilateral ultrasound. FINDINGS: There are scattered areas of fibroglandular density (ACR BI-RADS breast composition Category b). There are no significant masses, abnormal calcifications, or other abnormalities. Targeted color Doppler ultrasound scanning in the right upper outer quadrant and axilla demonstrates normal fibroglandular breast tissue and normal axillary lymph nodes. Targeted color Doppler ultrasound scanning in the left axilla and left upper outer quadrant demonstrates normal fibroglandular breast tissue in the normal axillary lymph nodes. Results are provided to the patient at time of visit by the technologist. US/US breast BI limited mamm only IMPRESSION: Bilateral breast: Negative. No mammographic or sonographic abnormality to account for the bilateral axillary and upper outer quadrant pain. Recommend clinical evaluation and follow-up. ASSESSMENT: BI-RADS BI-RADS 1 - Negative RECOMMENDATION: 1 year F/U This patient's information was entered into a reminder system with a target due date for their next mammogram. Electronically signed by: Kera Christian DO 06/04/2024 02:45 PM DAI
== END 2024-06-04 13:17 | disposition home or self-care (01) ==
LOC: HO.MAMMO 13:16
PROVIDERS: PCP Physician Assistant; Visit Provider Physician Assistant
DX: N63.31 Unspecified lump in axillary tail of the right breast (principal); N63.32 Unspecified lump in axillary tail of the left breast; R92.323 Mammographic fibroglandular density, bilateral breasts
CPT/HCPCS: 76642; 77062; 77066

== ENCOUNTER → 2024-06-04 13:30 | Outpatient (BNV) | payer OTHER, SELFPAY | PROVIDERS: PCP Physician Assistant; Visit Provider Internal Medicine | DX: N63.0 Unspecified lump in unspecified breast (principal) | CPT/HCPCS: 76642; 77066; G0279 ==

== ENCOUNTER 2024-06-10 05:34 | Emergency (ER) | payer OTHER, SELFPAY ==
--- NOTE | ~2024-06-10 | XR_ITS ---
EXAMINATION: XR CHEST CLINICAL INFORMATION: cough, fever,chest pain COMPARISON: None available. TECHNIQUE: 2 views of the chest were obtained. FINDINGS: No significant abnormality is noted involving the heart, lungs, mediastinum, bony thorax or soft tissues. XR/XR chest 2V IMPRESSION: Unremarkable chest examination. Electronically signed by: Herman Bradshaw MD 06/10/2024 07:19 AM [facility]
[2024-06-10 05:35] VITALS: BP 135/93; PULSE 86; RESP 20; TEMP 36.9; O2SAT 98; BMI 26.4
[2024-06-10 07:16] LABS: Influenza A PCR POSITIVE (Negative); Influenza B PCR NEGATIVE (Negative); Resp Syncy Virus RNA Qual PCR NEGATIVE (Negative); SARS COV2 PCR INHOUSE NEGATIVE (Negative)
[2024-06-10 09:05] VITALS: BP 169/97; PULSE 111; RESP 20; TEMP 36.9; O2SAT 98
[2024-06-10] MEDS: Acetaminophen 325 MG TABLET 650 MG PO (09:17)
--- NOTE | 2024-06-10 09:29 | ED_ITS ---
HPI - General Adult General Chief complaint: General Medical Stated complaint: fever, cp Time Seen by Provider: 06/10/24 09:08 Source: patient and RN notes reviewed Mode of arrival: ambulatory Limitations: no limitations History of Present Illness ED Provider: Lizzy Thorne PA-C HPI narrative: This is a 53-year-old female, with a history of hypertension, hyperlipidemia, asthma, IBS, who presents emergency department with concerns for cough, body aches, subjective fevers and chills and facial pain for the last 3 days. Patient reports that she recently just flew back from [place] three days ago developed her symptoms. Denies any severe chest pain, shortness of breath, abdominal pain, nausea, vomiting or diarrhea. She has been taking [id number] medications with minimal relief. No other complaints or concerns at this time. MD complaint: Cough, congestion Onset (ago): day(s) Radiation: non-radiation Quality: aching Pain Consistency: constant Relieving factors: none Exacerbating factors: none Associated symptoms: denies other symptoms Treatments prior to arrival: none Related Data Home Medications ?Medication ?Instructions ?Recorded ?Confirmed lancets 28 gauge #100 ea 05/05/20 04/06/24 blood-glucose meter #1 ea 06/13/20 04/06/24 aspirin 81 mg tablet,delayed 81 mg PO DAILY 01/23/24 04/06/24 release (Adult Low Dose Aspirin) escitalopram oxalate 5 mg tablet 5 mg PO DAILY 01/23/24 04/06/24 (Lexapro) meclizine 25 mg tablet 25 mg PO BID PRN 01/23/24 04/06/24 trazodone 50 mg tablet 25 mg PO DAILY 01/23/24 04/06/24 Previous Rx's ?Medication ?Instructions ?Recorded blood sugar diagnostic #100 ea 06/13/20 Shower Chair #1 ea 07/03/21 fluticasone propionate 50 1 spray intranasal DAILY #9.9 mL 01/18/23 mcg/actuation nasal spray,suspension (Flonase Allergy Relief) albuterol sulfate 5 mg/mL(0.5 %) 2.5 mg (0.5 mL) inhalation Q6H PRN 04/30/23 solution for nebulization shortness of breath or wheezing #20 mL nebulizers (Aeroneb Go Nebulizer) #1 ea 04/30/23 pravastatin 20 mg tablet 20 mg PO DAILY #90 tabs 10/02/23 sennosides 8.6 mg tablet (senna) 17.2 mg (2 x 8.6 mg) PO BEDTIME 10/03/23 for constipation #60 tabs blood pressure monitor (Blood #1 ea 10/09/23 Pressure Kit) albuterol sulfate 90 mcg/actuation 2 puff inhalation Q6H PRN 12/18/23 aerosol inhaler shortness of breath or wheezing #6.7 grams FreeStyle Fortunato 3 [place] #1 ea 01/16/24 (blood-glucose meter,continuous) FreeStyle Fortunato 3 Sensor #6 ea 01/16/24 (blood-glucose sensor) Dexcom G7 Supervisor Smoke Control (blood-glucose #1 ea 01/23/24 meter,continuous) Dexcom G7 Sensor (blood-glucose #9 ea 01/23/24 sensor) Dex4 Glucose 15 gram/33 gram oral 33 g PO .every 15 minutes PRN 01/31/24 gel packet (dextrose) BG<70 #198 grams cefuroxime axetil 250 mg tablet 250 mg PO BID 7 days #14 tabs 02/20/24 flash glucose sensor (FreeStyle #1 ea 02/25/24 Fortunato 14 Day Sensor kit) pantoprazole 20 mg tablet,delayed 40 mg (2 x 20 mg) PO DAILY #180 03/18/24 release tabs lorazepam 1 mg tablet 1 mg PO DAILY 30 days #30 tabs 04/02/24 cetirizine 10 mg tablet 10 mg PO DAILY #90 tabs 05/12/24 cyclobenzaprine 10 mg tablet 10 mg PO BID #90 tabs 05/12/24 Allergies Allergy/AdvReac Type Severity Reaction Status Date / Time oxycodone [From PERCOCET] Allergy Intermediate VOMITING, Verified 06/10/24 05:40 N/V codeine [Codeine] Allergy Mild HIVES Verified 06/10/24 05:40 atorvastatin Allergy Unknown Headaches Verified 06/10/24 05:40 bupropion [From WELLBUTRIN] Allergy Unknown PALPITATION Verified 06/10/24 05:40 S morphine [MORPHINE] Allergy Unknown NIGHTMARES Verified 06/10/24 05:40 naproxen [NAPROXEN] Allergy Unknown RASH Verified 06/10/24 05:40 sertraline Allergy Unknown Unknown Verified 06/10/24 05:40 simvastatin Allergy Unknown Unknown Verified 06/10/24 05:40 zolpidem [ZOLPIDEM] Allergy Unknown PALPITATION Verified 04/06/24 15:59 S Review of Systems Review of Systems: Yes all other systems are reviewed and are negative Constitutional: Constitutional: Reports as per [facility] Past Medical History Attestation statement: The following information was validated with the patient. Medical History Hypertension Vertigo Dysuria Upper respiratory tract infection Nausea and vomiting Abdominal pain Fall Otitis media IBS (irritable bowel syndrome) Uterine cancer History of gestational diabetes Genital herpes Hypercholesterolemia Obstructive sleep apnea Vitamin D deficiency Lumbar degenerative disc disease Hypertension Insomnia Fatty liver GERD (gastroesophageal reflux disease) Asthma Obesity (BMI 30-39.9) NAFLD (nonalcoholic fatty liver disease) Surgical History History of esophagogastroduodenoscopy (EGD) History of lumbar surgery History of total abdominal hysterectomy and bilateral salpingo-oophorectomy History of tubal ligation Hx of endoscopy History of colonoscopy Family History Family History Father Hx of colon cancer, stage III Stomach cancer Mother Hx of heat stroke Acute CVA (cerebrovascular accident) Hypertension Diabetes Maternal Grandmother Breast cancer Stroke Maternal Grandfather CVD (cardiovascular disease) Myocardial infarction Son In good health Sister No problems noted. Sister No problems noted. Sister No problems noted. Brother No problems noted. Brother No problems noted. Social History Social History Housing: Apartment Alcohol intake: never Patient Tobacco Use Status: Former Tobacco user Tobacco use type: Cigarette Years Smoked: 2002 quit CBD oil e-Cigarette/Vaping Use: Never Used Second Hand Smoke Exposure: No Advance Directives: No Advance Directives Information Provided: Yes Do you have a plan to hurt others: No Plan service: No Current occupational status: disabled Current occupational exposures/hazards: No Cognitive needs: No Hearing needs: No Vision needs: No Physical Exam ED Vital Signs: Vital Signs - 24 hr 06/10/24 05:35 06/10/24 09:05 Temperature 98.4 F 98.5 F Pulse Rate 86 111 H Respiratory Rate 20 20 Blood Pressure 135/93 H 169/97 H Pulse Oximetry 98 98 Oxygen Delivery Method Room Air Room Air BMI result Body Mass Index 26.4 Const General: cooperative, comfortable and no acute distress Orientation/consciousness: patient oriented x3 Limitations: no limitations HENMT Head: Yes normal to inspection, Yes normocephalic and Yes atraumatic Ears: hearing grossly normal bilaterally General nose exam: Normal external nose present Face and sinus: Yes normal facial exam Mouth: Normal oral and palatal mucosa present, oropharynx normal and moist mucous membranes Throat: Yes posterior oropharynx normal Eyes General: appearance normal, both eyes and all related structures Eyelids: Yes eyelids normal Conjunctivae: conjunctivae normal Sclerae: sclerae normal Pupils: Equal, round and reactive pupils present EOM: EOMs intact bilaterally Neck Neck: Yes normal visual inspection, Yes full ROM and Yes no lymphadenopathy Lymphatic: no lymphadenopathy noted Chest Chest palpation & inspection: normal inspection of the chest Resp Effort & Inspection: normal respiratory effort and able to speak in complete sentences Auscultation: clear to auscultation bilaterally, no crackles, no rales, no rhonchi and no wheezes Cardio Rate: regular rate Rhythm: regular rhythm Heart sounds: S1 normal heart sound present and S2 normal heart sound present GI Other: Abdomen is soft, nontender, nondistended Inspection: Yes normal to inspection Skin General skin exam: no rashes or lesions noted Trauma: no lacerations or abrasions Wounds: no wounds Neuro General: patient oriented x3 and moves all extremities Cranial nerves: Yes Equal, round and reactive pupils present Extrem Other: No calf tenderness General: Yes normal to inspection Right upper extremity: normal to inspection Left upper extremity: normal to inspection Right lower extremity: normal to inspection Left lower extremity: normal to inspection Medications Administered Discontinued Medications Generic Name Dose Route Start Last Admin Trade Name Freq PRN Reason Stop Dose Admin Acetaminophen 650 mg 06/10/24 09:06 06/10/24 09:17 Acetaminophen 325 Mg Tablet PO 06/10/24 09:07 650 mg ONCE ONE Administration Medical Decision Making Medical Decision Making [facility] Narrative: This is a 53-year-old female, with a history of hypertension, hyperlipidemia, asthma, IBS, who presents emergency department with concerns for cough, body aches, subjective fevers and chills and facial pain for the last 3 days. On arrival, patient mildly hypertensive at 135/93, all other vital signs within normal limits. She is speaking in full sentences under no acute distress. She does endorse chest tightness, comes and goes, improves with medications. She states that the chest tightness occurs when she is having worsening pain in her head, and with cough. Repeat vitals show patient is hypertensive at 169/97, tachycardic at 111. Patient did test positive for influenza a, chest x-ray unremarkable for pneumonia. I stressed the importance of patient staying for EKG, and blood work as I am unable to rule out any cardiac etiology although this is less likely. She has been in the emergency room for approximately 4 hours without being seen, and is wishing to leave without further workup. She understands the risk and consequences of leaving without being fully evaluated with these diagnostic modalities. Stressed the importance of following up with emergency services should chest pain, shortness for breath worsened. She understands and agrees with this plan. Differential Diagnosis Differential Diagnoses: The differential diagnosis associated with the presentation includes Influenza, pneumonia, URI, sinusitis, ACS-unlikely. Admission/Observation Consideration of admission/observation: Escalation of care including admission/observation considered Lab Data MDM Lab Attestation statement: I reviewed the patient's lab results. Influenza a positive Labs: Lab Results 06/10/24 Range/Units 06:34 Influenza Type A (PCR) POSITIVE A (Negative) Influenza Type B (PCR) NEGATIVE (Negative) RSV RNA Qual (PCR) NEGATIVE (Negative) SARS-CoV-2 RNA (RT-PCR) NEGATIVE (Negative) Radiology Impression Discussion of test interpretation with radiology: I have reviewed the radiologist's reading. Radiologist Impression: EXAMINATION: XR CHEST CLINICAL INFORMATION: cough, fever,chest pain COMPARISON: None available. TECHNIQUE: 2 views of the chest were obtained. FINDINGS: No significant abnormality is noted involving the heart, lungs, mediastinum, bony thorax or soft tissues. XR/XR chest 2V IMPRESSION: Unremarkable chest examination. Electronically signed by: Herman Bradshaw MD 06/10/2024 07:19 AM EST Dictated By: Herman Bradshaw MD Signed By: <Electronically signed by Herman Bradshaw MD in OV> 06/10/24 0719 DD/ 0635 TD/TT: 06/10/24 0645 Communications Designer: JANEEN Discharge Plan Discharge Clinical Impression: Influenza A Patient Disposition: Home, Self-Care Instructions: Influenza (ED) Additional Instructions: You were seen in the emergency department today and tested positive for influenza A. Drink plenty of fluids get plenty of rest. Tamiflu is medication that you can treat to help with symptoms, induration of flu. Please be advised that there are side effects with taking this medication. Alternate between ibuprofen and or Tylenol as needed for pain and symptoms. Your chest x-ray does not show a pneumonia. If any new or worsening symptoms occur including but not limited to worsening chest pain, shortness of breath, please seek emergent care. Prescriptions: No Action (DME) blood sugar diagnostic Strip See Rx Instructions .ROUTE .MEDSUPPLY Qty: 100 0RF Rx Instructions: As directed check BS QD (DME) nebulizers [Aeroneb Go Nebulizer] Misc See Rx Instructions .Route Qty: 1 0RF Rx Instructions: As directed pravastatin 20 mg tablet 20 mg PO DAILY Qty: 90 2RF sennosides [senna] 8.6 mg tablet 17.2 mg PO BEDTIME Qty: 60 6RF (DME) blood pressure monitor [Blood Pressure Kit] Kit See Rx Instructions .ROUTE .MEDSUPPLY Qty: 1 0RF Rx Instructions: As directed (DME) Dexcom G7 Supervisor Smoke Control Misc See Rx Instructions .Route Qty: 1 0RF Rx Instructions: As directed (DME) Dexcom G7 Sensor Device See Rx Instructions .Route Qty: 9 3RF Rx Instructions: every 10 days dextrose [Dex4 Glucose] 15 gram/33 gram gel in packet 33 g PO .every 15 minutes PRN (Reason: BG<70) Qty: 198 3RF pantoprazole 20 mg tablet,delayed release (DR/EC) 40 mg PO DAILY Qty: 180 2RF lorazepam 1 mg tablet 1 mg PO DAILY 30 Days Qty: 30 1RF cetirizine 10 mg tablet 10 mg PO DAILY Qty: 90 0RF cyclobenzaprine 10 mg tablet 10 mg PO BID Qty: 90 0RF cefuroxime axetil 250 mg tablet 250 mg PO BID 7 Days Qty: 14 0RF (DME) lancets 28 gauge misc See Rx Instructions topical .MEDSUPPLY Qty: 100 Rx Instructions: As directed (DME) blood-glucose meter Kit See Rx Instructions .ROUTE DAILY Qty: 1 Rx Instructions: As directed (DME) Shower Chair Misc See Rx Instructions .Route Qty: 1 0RF Rx Instructions: As directed albuterol sulfate 90 mcg/actuation HFA aerosol inhaler 2 puff inhalation Q6H PRN (Reason: shortness of breath or wheezing) Qty: 6.7 0RF fluticasone propionate [Flonase Allergy Relief] 50 mcg/actuation spray,suspension 1 spray intranasal DAILY Qty: 9.9 1RF Rx Instructions: administer into each nostril albuterol sulfate 5 mg/mL solution for nebulization 2.5 mg inhalation Q6H PRN (Reason: shortness of breath or wheezing) Qty: 20 0RF escitalopram oxalate [Lexapro] 5 mg tablet 5 mg PO DAILY Rx Instructions: Dr. Rollins meclizine 25 mg tablet 25 mg PO BID PRN Rx Instructions: Marianela juarez trazodone 50 mg tablet 25 mg PO DAILY aspirin [Adult Low Dose Aspirin] 81 mg tablet,delayed release (DR/EC) 81 mg PO DAILY (DME) FreeStyle Fortunato 14 Day Sensor Kit See Rx Instructions miscellaneous .MEDSUPPLY Qty: 1 0RF Rx Instructions: interiano patient - (DME) FreeStyle Fortunato 3 [place] Misc See Rx Instructions .Route Qty: 1 0RF Rx Instructions: As directed (DME) FreeStyle Fortunato 3 Sensor Device See Rx Instructions .Route Qty: 6 3RF Rx Instructions: every 14 days Print Language: Greek
--- OUTSIDE RECORDS SUMMARY | 2024-06-10 09:34 | XMS_ITS | Clinical Summary ---
Author Organization [employer] [facility] ity Address [address] [place] [address] Care Team Providers Care Fur Repairer Name Role Phone Coreen Hernandez MD Primary Care Provider [phone] Social History Tobacco Use Types Packs/Day Years Used Date Smoking Tobacco: Never Assessed Sex and Gender Information Value Date Recorded Sex Assigned at Not on file Gender Identity Not on file Sexual Orientation Not on file Plan of Treatment Health Maintenance Due Date Last Done Comments Breast Cancer Screening 1968 Pneumococcal Vaccine: Pediat rics (0 to 5 Years) and At-Risk Patients (6 to 64 Years) (1 of 2 - PCV) 1974 Hepatitis A Vaccines (1 of 2 - Risk 2-dose series) 08/06/1987 Hepatitis B Vaccines (1 of 3 - 19+ 3-dose series) 08/06/1987 Cervical Cancer Screening: P ap Smear 1989 Zoster Vaccines (1 of 2) 2018 Cholesterol Screening (Lipid Panel) 04/22/2022 Colorectal Cancer Screening: Colonoscopy 04/22/2022 Depression Screening 04/22/2022 HIV Screening 04/22/2022 Hepatitis C Screening 04/22/2022 Social Influencers of Health Screening 04/22/2022 Hypertension/CHF/CAD Annual BMP Blood Test 05/01/2022 COVID-19 Vaccine ( - 2023-2 5 season) 2024 Influenza Vaccine (#1) 2024 DTaP,Tdap,and Td Vaccines (2 - Td or Tdap) 06/07/2024 06/07/2014 MMR Vaccines Aged Out 04/20/2011 No longer eligi ble based on patient's age to complete this topic HIB Vaccines Aged Out No longer eligi ble based on patient's age to complete this topic HPV Vaccines Aged Out No longer eligi ble based on patient's age to complete this topic IPV Vaccines Aged Out No longer eligi ble based on patient's age to complete this topic Meningococcal ACWY Vaccine Aged Out N o longer eligible based on patient's age to complete this topic RSV Immunization Patients Un roxi 20 months Aged Out No longer eligible b ased on patient's age to complete this topic Varicella Vaccines Aged Out No longer eligible based on patient's age to complete this topic Care Teams Fur Repairer Relationship Specialty Start Date End Date Coreen Hernandez MD [address] [place] [address] Dr [address] [facility] [place] [address] PCP - General Internal Medicine 01/04/14
[2024-06-10 10:19] VITALS: BP 148/85; PULSE 99; RESP 18; TEMP 36.5; O2SAT 97
== END 2024-06-10 10:19 | disposition home or self-care (01) ==
PROVIDERS: Emergency Provider Emergency Medicine; PCP Internal Medicine
DX: J10.1 Influenza due to other identified influenza virus with other respiratory manifestations (principal); R50.9 Fever, unspecified; R07.89 Other chest pain; R05.9 Cough, unspecified; M79.10 Myalgia, unspecified site; I10 Essential (primary) hypertension; Z03.818 Encounter for observation for suspected exposure to other biological agents ruled out
CPT/HCPCS: 0241U; 71046; 99283

== ENCOUNTER → 2024-06-10 06:35 | Outpatient (BNV) | payer OTHER, SELFPAY | PROVIDERS: PCP Internal Medicine; Visit Provider Radiology Diagnostic Radiology | DX: R07.9 Chest pain, unspecified (principal); R05.9 Cough, unspecified; R50.9 Fever, unspecified | CPT/HCPCS: 71046 ==

== ENCOUNTER 2024-06-15 10:37 | Outpatient (REF) | payer OTHER, SELFPAY ==
--- NOTE | ~2024-06-15 | XR_ITS ---
EXAMINATION: XR CHEST 2 VIEWS HISTORY: R05.9 - Cough, unspecified COMPARISON: Comparison is made with the prior examination dated 06/10/2024. FINDINGS: PA and lateral views of the chest are submitted. The lungs are expanded and clear. There is no pleural effusion, pneumothorax, or pulmonary vascular congestion. The heart is normal in size. The bones are intact. XR/XR chest 2V IMPRESSION: No acute cardiopulmonary abnormality. Electronically signed by: Miki Liz MD 06/15/2024 12:24 PM DAI
--- OUTSIDE RECORDS SUMMARY | 2024-06-15 16:21 | XMS_ITS | Clinical Summary ---
Author Organization [facility] [employer] [facility] ity Address [address] [place] [address] Care Team Providers Care Computer Systems Administrator Name Role Phone Coreen Hernandez MD Primary Care Provider [phone] Social History Tobacco Use Types Packs/Day Years [...] age to complete this topic Care Teams Computer Systems Administrator Relationship Specialty Start Date End Date Coreen Hernandez MD [address] [place] [address] [address] [facility] [place] [address] PCP - General Internal Medicine 01/04/14
== END 2024-06-15 10:38 | disposition home or self-care (01) ==
LOC: HO.XRAY 10:37
PROVIDERS: PCP Internal Medicine; Visit Provider Physician Assistant Medical
DX: R05.9 Cough, unspecified (principal); J45.20 Mild intermittent asthma, uncomplicated
CPT/HCPCS: 71046; 96127; 99212

== ENCOUNTER 2024-06-15 10:37 | Outpatient (AMB) | payer OTHER, SELFPAY ==
[2024-06-15 11:03] VITALS: BP 124/72; PULSE 84; RESP 16; TEMP 36.1; O2SAT 99; BMI 34.5
--- NOTE | 2024-06-15 11:03 | A.OFFPC_ITS ---
Vital Signs 06/15/24 11:03 Height 5 ft 1 in Weight 182 lb 6 oz BMI 34.5 BP 124/72 Blood Pressure Location Lt brachial Position Sitting Respiration 16 Pulse 84 Pulse Source Pulse Oximeter Temp 96.9 F Temp Source Temporal Artery Scan Pulse Oximetry (%) 99 Oxygen Delivery Method Room Air Intake Visit Reasons: Chest Congestion Intake Note: Pt presents with left ear pain and chest tightness following a positive influenza A diagnosis last weekend. Treatment is ongoing, with the final dose scheduled for today. Sexual Assault Social Worker Required: No Accompanied by: Self / Same As Patient Allergies oxycodone [From PERCOCET] Allergy (Intermediate, Verified 06/15/24 11:26) VOMITING, N/V codeine [Codeine] Allergy (Mild, Verified 06/15/24 11:26) HIVES atorvastatin Allergy (Unknown, Verified 06/15/24 11:26) Headaches bupropion [From WELLBUTRIN] Allergy (Unknown, Verified 06/15/24 11:26) PALPITATIONS morphine [MORPHINE] Allergy (Unknown, Verified 06/15/24 11:26) NIGHTMARES naproxen [NAPROXEN] Allergy (Unknown, Verified 06/15/24 11:26) RASH sertraline Allergy (Unknown, Verified 06/15/24 11:26) Unknown simvastatin Allergy (Unknown, Verified 06/15/24 11:26) Unknown zolpidem [ZOLPIDEM] Allergy (Unknown, Verified 06/15/24 11:26) PALPITATIONS Medication List - Last Reconciled 06/15/24 by Laura Valenzuela PA-C albuterol sulfate 90 mcg/actuation 2 puffs inhalation Q6H PRN albuterol sulfate 2.5 mg (0.5 mL) inhalation Q6H PRN amoxicillin-pot clavulanate 875-125 mg 1 tab PO BID 10 days aspirin (Adult Low Dose Aspirin) 81 mg PO DAILY blood pressure monitor (Blood Pressure Kit) As directed blood sugar diagnostic As directed check BS QD blood-glucose meter As directed cefuroxime axetil 250 mg PO BID 7 days cetirizine 10 mg PO DAILY cyclobenzaprine 10 mg PO BID Dex4 Glucose (dextrose) 33 grams PO .every 15 minutes PRN NS Dexcom G7 Client Support Administrator (blood-glucose meter,continuous) As directed NS Dexcom G7 Sensor (blood-glucose sensor) every 10 days NS escitalopram oxalate (Lexapro) 5 mg PO DAILY flash glucose sensor (FreeStyle Fortunato 14 Day Sensor kit) interiano patient - fluticasone propionate 50 mcg/actuation (Flonase Allergy Relief) 1 spray intranasal DAILY FreeStyle Fortunato 3 [place] (blood-glucose meter,continuous) As directed NS FreeStyle Fortunato 3 Sensor (blood-glucose sensor) every 14 days NS lancets As directed loratadine-pseudoephedrine 5-120 mg ER (Claritin-D 12 Hour) 1 tab PO Q12H lorazepam 1 mg PO DAILY 30 days meclizine 25 mg PO BID PRN nebulizers (Aeroneb Go Nebulizer) As directed nebulizers (AeroEclipse II Nebulizer) As directed oseltamivir (Tamiflu) 75 mg PO BID 5 days pantoprazole 40 mg (2 x 20 mg) PO DAILY pravastatin 20 mg PO DAILY sennosides (senna) 17.2 mg (2 x 8.6 mg) PO BEDTIME Shower Chair As directed trazodone 25 mg PO DAILY Tobacco use date assessed: 06/15/24 Dental Screening Dental Screen Date: 06/15/24 Did you have a dental visit in the last 12 months?: No Did you have a dental problem in the last 6 months where you did not have access to dental care?: Yes Was dental information given to patient?: Patient has dentist [facility] Medical History Hypertension Vertigo Dysuria Upper respiratory tract infection Nausea and vomiting Abdominal pain Fall Otitis media IBS (irritable bowel syndrome) Uterine cancer History of gestational diabetes Genital herpes Hypercholesterolemia Obstructive sleep apnea Vitamin D deficiency Lumbar degenerative disc disease Hypertension Insomnia Fatty liver GERD (gastroesophageal reflux disease) Asthma Obesity (BMI 30-39.9) NAFLD (nonalcoholic fatty liver disease) Surgical History History of esophagogastroduodenoscopy (EGD) History of lumbar surgery History of total abdominal hysterectomy and bilateral salpingo-oophorectomy History of tubal ligation Hx of endoscopy History of colonoscopy Family History Father Hx of colon cancer, stage III Stomach cancer Mother Hx of heat stroke Acute CVA (cerebrovascular accident) Hypertension Diabetes Maternal Grandmother Breast cancer Stroke Maternal Grandfather CVD (cardiovascular disease) Myocardial infarction Son In good health Sister No problems noted. Sister No problems noted. Sister No problems noted. Brother No problems noted. Brother No problems noted. Social History Housing: Apartment Alcohol intake: never Patient Tobacco Use Status: Former Tobacco user Tobacco use type: Cigarette Years Smoked: 2002 quit CBD oil e-Cigarette/Vaping Use: Never Used Second Hand Smoke Exposure: No service: No Current occupational status: disabled Current occupational exposures/hazards: No Cognitive needs: No Hearing needs: No Vision needs: No Questionnaire PHQ-9 Over the last 2 weeks, how often have you been bothered by any of the following problems? 1. Little interest or pleasure in doing things: nearly every day 2. Feeling down, depressed, or hopeless: nearly every day 3. Trouble falling or staying asleep, or sleeping too much: nearly every day 4. Feeling tired or having little energy: nearly every day 5. Poor appetite or overeating: nearly every day 6. Feeling bad about yourself - or that you are a failure or have let yourself or your family down: several days 7. Trouble concentrating on things, such as reading the newspaper or watching television: not at all 8. Moving or speaking so slowly that other people could have noticed. Or the opposite - being so fidgety or restless that you have been moving around a lot more than usual: several days 9. Thoughts that you would be better off or of hurting yourself in some w ay: not at all Total score: 17 Depression Screening Interpretation: Positive Depression Screening Done: Yes Source: Developed by Drs. Miki Koo, Monica Childers, Chris Watt and colleagues, with an educational adrien from [employer]. Thrive Questionnaire Date Thrive assessed: 06/15/24 I am a: Patient What is your living situation today?: I have a steady place to live Within the past 12 months, did the food you bought not last and you didn't have the money to get more?: Never true Within the past 12 months, did you worry whether your food would run out before you got money to buy more?: Never true Do you have trouble paying for medicines?: No Do you have trouble getting transportation to medical appointments?: No Do you have trouble paying your heating and electricity bill?: No Do you have trouble taking care of your child, family member or friend?: No Do you have trouble with day-to-day activities such as bathing, preparing meals, shopping, managing finances, etc.?: No Are you currently unemployed and looking for a job?: No Are you interested in more education?: No Please select the resources that you would like help with: None Currently or been in a relationship where the following occur: No concerns reported THRIVE Score: 0 AUDIT C Alcohol Use Questionnaire (AUDIT-C) 1. How often do you have a drink containing alcohol?: Never 3. How often do you have six or more drinks on one occasion?: Never Total Score: 0 Score Reviewed/Action Taken: Yes ELDA-7 AMB Questionnaire ELDA-7 Date ELDA - 7 assessed: 06/15/24 Feeling nervous, anxious, or on edge: 0 = Not at all Not being able to stop or control worryin = Not at all Worrying too much about different things: 0 = Not at all Trouble relaxin = Not at all Being so restless that it is hard to sit still: 0 = Not at all Becoming easily annoyed or irritable: 0 = Not at all Feeling afraid as if something awful might happen: 0 = Not at all Total ELDA-7 score (0-4 normal; 5-9 mild; 10-14 moderate; 15-21 severe): 0 Source: Developed by Drs. Miki Koo, Monica Childers, Chris Watt and colleagues, with an educational adrien from [employer]. ELDA-7 Assessment Billing ELDA-7 Assessment Tool: ELDA-7 Assessment 33490 Physical exam (Primary Care) Vital Signs: Last Vital Signs Temp 96.9 F 06/15/24 11:03 Pulse 84 06/15/24 11:03 Resp 16 06/15/24 11:03 BP 124/72 06/15/24 11:03 Pulse Ox 99 06/15/24 11:03 Oxygen Delivery Method Room Air 06/15/24 11:03 Care Plan Goal for BP management: BP at Goal BMI result Body Mass Index 34.5 BMI Assessment/Plan discussion: High BMI High, discussed plan: lifestyle, weight reduction, dietary, physical activity and alcohol moderation Tobacco/Smoking Status: Tobacco use Status Tobacco use date assessed 06/15/24 06/15/24 11:11 Patient Tobacco Use Status Former Tobacco user 06/15/24 11:06 Tobacco use type Cigarette 06/15/24 11:06 e-Cigarette/Vaping Use Never Used 06/15/24 11:06 PHQ-9: PHQ-9 Score PHQ-9: Total score 17 06/15/24 11:11 Depression Screening Interpretation: Positive Thrive Assessment: Date of Thrive Assessment Date Thrive assessed 06/15/24 06/15/24 11:11 Currently or been in a relationship where the following occur: No concerns reported Coding Level of Care Code Est Pt Level 4 (97312) Diagnoses Cough R05.9 Mild intermittent asthma without complication J45.20 Asthma complication type: uncomplicated Asthma persistence: intermittent Asthma severity: mild Additional Codes ELDA-7 Assessment Billing - ELDA-7 Assessment Tool: ELDA-7 Assessment 27309 ([id number]) Assessment & Plan Assessment & Plan (1) Cough: Code(s): R05.9 - Cough, unspecified Category: Medical Plan: Patient most likely upper respiratory infection/sinusitis/bronchitis. Will obtain chest x-ray. Patient will be started on Augmentin, albuterol inhaler and Claritin D with instructions return in 1 week for re-evaluation. (2) Asthma: Code(s): J45.909 - Unspecified asthma, uncomplicated Category: Medical Qualifiers: Asthma complication type: uncomplicated Asthma persistence: intermittent Asthma severity: mild Qualified Code(s): J45.20 - Mild intermittent asthma, uncomplicated Plan: See above for treatment plan Plan Plan - Prescribe Augmentin for sinusitis to address potential secondary bacterial infection. - Prescribe Prednisone to reduce inflammation associated with asthma exacerbation. - Recommend the use of Claritin-D for added relief of nasal congestion, restricting use to three days. - Order chest X-ray to ensure no development of a new issue since last reviewed. - Reinstate patient's nebulizer treatment with a new nebulizer if needed, coordi nating with a medical supply store. Orders: Orders XR chest 2V Today R05.9 - Cough, unspecified Medications: New amoxicillin-pot clavulanate 875-125 mg 1 tab PO BID 20 tabs 0RF 10 days loratadine-pseudoephedrine 5-120 mg ER (Claritin-D 12 Hour) 1 tab PO Q12H 30 tabs 1RF nebulizers (AeroEclipse II Nebulizer) As directed 1 ea 0RF J45.20 - Mild intermittent asthma, uncomplicated, R05.9 - Cough, unspecified nebulizers (AeroEclipse II Nebulizer) As directed 1 ea 0RF J45.20 - Mild intermittent asthma, uncomplicated, R05.9 - Cough, unspecified Refilled albuterol sulfate 90 mcg/actuation 2 puffs inhalation Q6H PRN 6.7 grams 0RF shortness of breath or wheezing albuterol sulfate 2.5 mg (0.5 mL) inhalation Q6H PRN 20 mL 0RF shortness of breath or wheezing Patient Instructions: Patient Instructions - Start Augmentin as prescribed for your sinusitis. - Use Prednisone as directed to manage inflammation associated with asthma. - Take Claritin-D only for three days, one tablet every 12 hours. - Drink plenty of fluids to stay hydrated. - Attend chest X-ray appointment and ensure results are reviewed. - Obtain a new nebulizer if unable to locate your current machine. - Follow up in a week to evaluate improvement of symptoms. Scribe Plan - Not visible on output: History of Present Illness The patient is a 53-year-old female presenting with flu-like symptoms and congestion. She reported having a fever as high as 103.6?F on , Saturday, and Saturday. She visited the Emergency Room at 1:00 AM, where she tested positive for influenza and was prescribed Tamiflu. This treatment was completed the night before this visit. Despite the flu treatment, the patient is experiencing persistent nasal congestion and ear discomfort, particularly in the right ear, suggestive of sinusitis. The patient's ears have fluid, but there is no active ear infection. The patient's throat was observed to be slightly red. Current symptoms include a lack of productive cough, indicating clear airway passages. A chest X-ray was previously performed and returned negative for pneumonia. She reports episodic asthma exacerbations that occur only during illness, otherwise denying a history of chronic obstructive pulmonary disease (COPD). Current asthma symptoms have been managed with an albuterol inhaler, although the patient cannot find her nebulizer machine. The patient reported using Claritin-D for congestion relief but was advised to limit its use. Review of Systems - Respiratory: Reports episodic asthma exacerbations. - Ears: Reports right ear discomfort. - Nose: Reports congestion. - General: Denies current fever. Physical Exam Appearance: Alert. Oriented X3. No acute distress. Head: Normal external exam. Normocephalic. Atraumatic. Eyes: Pupils are equal, round, and reactive to light. Extraocular movements intact. Conjunctiva and sclera normal. Eyelids normal. Ears: External auditory canal normal. Tympanic membranes normal. Some fluid present. No mastoid tenderness is noted. Normal hearing. Throat: Pharynx slightly red. Uvula midline. Moist mucous membranes. Neck: Normal inspection. Neck supple. Full range of motion. No adenopathy. Thyroid Normal. No meningeal signs. No neck mass noted. Cardiovascular: Normal heart rate and rhythm. Heart sound normal. No murmurs noted. Pulses normal throughout. Respiratory: No respiratory distress. Painless inspiration. Breath sounds slightly coarse. No wheezes/rales/rhonchi noted. Chest nontender. No accessory muscle usage noted or decreased air movement noted. Back: Full range of motion noted. Skin: Skin warm and dry. Normal skin color. Normal skin turgor. No rashes/lesions/lacerations noted. Extremities: No lower extremity edema. Extremities exhibit normal range of motion. Extremities nontender. Neuro: Oriented X 3. No motor deficit. No sensory deficit. Reflexes normal. Results - Tests: Previous chest X-ray negative. Plan - Prescribe Augmentin for sinusitis to address potential secondary bacterial infection. - Prescribe Prednisone to reduce inflammation associated with asthma exacerbation. - Recommend the use of Claritin-D for added relief of nasal congestion, restricting use to three days. - Order chest X-ray to ensure no development of a new issue since last reviewed. - Reinstate patient's nebulizer treatment with a new nebulizer if needed, coordinating with a medical supply store. Patient was informed and verbally consented to the use of an ambient scribe for clinic note documentation during this visit. Discussion Notes I discussed with the patient the persistence of her symptoms despite the completion of the Tamiflu course. I explained the likelihood of sinusitis as a consequence of her recent influenza, with accompanying right ear fluid indicating sinus congestion rather than an acute infection. I emphasized that Augmentin should target any bacterial involvement in her sinusitis. Regarding the Prednisone, we deliberated its benefits for reducing airway inflammation due to asthma exacerbations, acknowledging the patient's preference to avoid it when possible. I advised the patient on the judicious use of Claritin-D, limiting it to three days to prevent excessive dryness. I scheduled a follow-up to review the chest X-ray results and assess the progress of her symptoms, ensuring effective resolution of her current condition. Patient Instructions - Start Augmentin as prescribed for your sinusitis. - Use Prednisone as directed to manage inflammation associated with asthma. - Take Claritin-D only for three days, one tablet every 12 hours. - Drink plenty of fluids to stay hydrated. - Attend chest X-ray appointment and ensure results are reviewed. - Obtain a new nebulizer if unable to locate your current machine. - Follow up in a week to evaluate improvement of symptoms.
--- OUTSIDE RECORDS SUMMARY | 2024-06-15 15:23 | XMS_ITS | Clinical Summary ---
Author Organization [employer] [facility] ity Address [address] [place] [address] Care Team Providers Care Drilling Supervisor Name Role Phone Coreen Hernandez MD Primary Care Provider [phone] Social History Tobacco Use Types Packs/Day Years [...] age to complete this topic Care Teams Drilling Supervisor Relationship Specialty Start Date End Date Coreen Hernandez MD [address] [place] [address] Dr [address] [facility] [place] [address] PCP - General Internal Medicine 01/04/14
== END 2024-06-15 12:03 | disposition home or self-care (01) ==
PROVIDERS: PCP Internal Medicine; Visit Provider Physician Assistant Medical
DX: R05.9 Cough, unspecified (principal); J45.20 Mild intermittent asthma, uncomplicated

== ENCOUNTER → 2024-06-15 11:34 | Outpatient (BNV) | payer OTHER, SELFPAY | PROVIDERS: PCP Internal Medicine; Visit Provider Radiology Diagnostic Radiology | DX: R05.9 Cough, unspecified (principal) | CPT/HCPCS: 71046 ==

== ENCOUNTER 2024-06-25 10:43 | Outpatient (REF) | payer OTHER, SELFPAY ==
--- OUTSIDE RECORDS SUMMARY | 2024-06-25 11:33 | XMS_ITS | Clinical Summary ---
Author Organization [employer] [facility] ity Address [address] [place] [address] Care Team Providers Care Date Night Caregiver Name Role Phone Coreen Hernandez MD Primary Care Provider [phone] Social History Tobacco Use Types Packs/Day Years [...] age to complete this topic Care Teams Date Night Caregiver Relationship Specialty Start Date End Date Coreen Hernandez MD [address] [place] [address] [address] [facility] [place] [address] PCP - General Internal Medicine 01/04/14
[2024-06-25 11:47] LABS: MANUAL DIFF FLAG NO
[2024-06-25 11:51] LABS: Basophils Absolute Auto 0.1 X10*3/uL (0.0-0.2); Basophils Percent Auto 0.5 % (0-2); Eosinophils Absolute Auto 0.2 X10*3/uL (0.0-0.4); Eosinophils Percent Auto 2.6 % (0-4); Hematocrit 42.2 % (37.0-47.0); Hemoglobin 13.7 g/dl (12.0-16.0); Imm Gran Abs Auto 0.03 X10*3/uL (0.00-0.03); Imm Gran Pct Auto 0.3 % (0.0-0.4); Lymphocytes Absolute Auto 2.8 X10*3/uL (1.2-4.9); Lymphocytes Percent Auto 30.7 % (20-40); Mean Corpuscular HGB Conc 32.5 g/dl (31.0-35.0); Mean Corpuscular Hemoglobin 26.5 pg (27.0-33.0); Mean Corpuscular Volume 81.6 fL (80.0-98.0); Mean Platelet Volume 8.9 fL (9.4-12.3); Monocytes Absolute Auto 0.8 X10*3/uL (0.1-1.2); Monocytes Percent Auto 8.4 % (2-11); Neutrophils Absolute Auto 5.3 x10*3/uL (2.0-8.3); Neutrophils Percent Auto 57.5 % (45-73); Platelet Count 374 X10*3/uL (160-400); Red Blood Count 5.17 X10*6/uL (4.20-5.50); Red Cell Distribution Width 14.6 % (11.0-16.0); White Blood Count 9.2 X10*3/uL (4.8-10.8)
[2024-06-25 11:58] LABS: Estimated Average Glucose 126 mg/dL; Hemoglobin A1C 149.3323 umol/L; Total Hemoglobin (HGBA1C) 3566.0083 umol/L
[2024-06-25 12:06] LABS: Appearance Urine Clear; Color Urine Yellow; Glucose Urine UA Negative (Negative); Leukocyte Esterase Urine Negative (Negative); Nitrite Urine Negative (Negative); PH 5.5 (5.0-9.0); Urine Blood Negative (Negative); Urine Ketones Negative (Negative); Urine Protein Negative (Neg-Trace)
[2024-06-25 12:24] LABS: Alanine Aminotransferase 67 U/L (0-31); Albumin Level 4.1 g/dL (3.5-5.0); Alkaline Phosphatase 81 U/L (39-117); Anion Gap 13 (12-20); Aspartate Amino Transferase 50 U/L (5-31); Bilirubin Total 0.5 mg/dL (0.0-1.0); Blood Urea Nitrogen 13 mg/dL (9-16); Calcium 9.8 mg/dL (8.4-10.2); Carbon Dioxide 25 mmol/L (22-29); Chloride 106 mmol/L (96-108); Cholesterol 171 mg/dL (<200); Estimated Glomerular Filt Rate > 60; Glucose Random 104 mg/dL (60-115); HDL Cholesterol 38 mg/dL (>40); LDL Cholesterol Calculated 93 mg/dL (<100); Potassium 4.3 mmol/L (3.3-5.1); Sodium 140 mmol/L (135-145); Triglycerides 203 mg/dL (<150)
[2024-06-25 12:36] LABS: Free T4 (Free Thyroxine) 0.86 ng/dL (0.71-1.85); Vitamin D 25-OH Total 38.3 ng/mL (>30)
[2024-06-25 12:40] LABS: Insulin 28 uU/mL (2-29); Thyroid Stimulating Hormone 1.49 uIU/mL (0.32-4.0)
[2024-06-25 12:50] LABS: Folate 14.4 ng/mL (> or = 4.0); Vitamin B12 435 pg/mL (200-900)
[2024-06-26 19:39] LABS: C Peptide 4.82 ng/mL (0.80-3.85)
[2024-07-01 23:43] LABS: Proinsulin 23.7 pmol/L (< OR = 18.8)
== END 2024-06-25 10:44 | disposition home or self-care (01) ==
LOC: HO.LAB 10:43
PROVIDERS: Internal Medicine; Absent Provider Internal Medicine; PCP Internal Medicine; Visit Provider Physician Assistant Medical
DX: R05.9 Cough, unspecified (principal); H66.92 Otitis media, unspecified, left ear; H93.8X3 Other specified disorders of ear, bilateral; R09.81 Nasal congestion; J06.9 Acute upper respiratory infection, unspecified; E16.2 Hypoglycemia, unspecified; E78.00 Pure hypercholesterolemia, unspecified; Z00.00 Encounter for general adult medical examination without abnormal findings
CPT/HCPCS: 36415; 80053; 80061; 81003; 82306; 82607; 82746; 83036; 83525; 84206; 84439; 84443; 84681; 85025; 99212

== ENCOUNTER 2024-08-18 11:11 | Outpatient (REF) | payer OTHER, SELFPAY ==
--- NOTE | ~2024-08-18 | US_ITS ---
EXAMINATION: US KIDNEY BILATERAL HISTORY: N20.0 - Calculus of kidney TECHNIQUE: Real-time grayscale ultrasound imaging of the kidneys was performed and images were reviewed. COMPARISON: Comparison is made with the prior examination dated 02/20/2024. FINDINGS: Right kidney: The right kidney measures 10.2 x 3.8 x 5.4 cm. Renal parenchymal echotexture and thickness are normal. There are no masses. There is no hydronephrosis or renal calculi. Left Kidney: The left kidney measures 10.0 x 5.2 x 5.3 cm. Renal parenchymal echotexture and thickness are normal. There are no masses. There is no hydronephrosis or renal calculi. US/US renal BI IMPRESSION: Unremarkable renal ultrasound. Electronically signed by: Miki Liz MD 08/18/2024 01:12 PM EDT
[2024-08-18 11:09] LABS: MANUAL DIFF FLAG NO
[2024-08-18 11:55] LABS: Basophils Absolute Auto 0.1 X10*3/uL (0.0-0.2); Basophils Percent Auto 0.7 % (0-2); Eosinophils Absolute Auto 0.2 X10*3/uL (0.0-0.4); Eosinophils Percent Auto 2.6 % (0-4); Hematocrit 44.6 % (37.0-47.0); Hemoglobin 14.6 g/dl (12.0-16.0); Imm Gran Abs Auto 0.03 X10*3/uL (0.00-0.03); Imm Gran Pct Auto 0.3 % (0.0-0.4); Lymphocytes Absolute Auto 3.1 X10*3/uL (1.2-4.9); Lymphocytes Percent Auto 35.1 % (20-40); Mean Corpuscular HGB Conc 32.7 g/dl (31.0-35.0); Mean Corpuscular Hemoglobin 26.8 pg (27.0-33.0); Mean Corpuscular Volume 81.8 fL (80.0-98.0); Mean Platelet Volume 9.2 fL (9.4-12.3); Monocytes Absolute Auto 0.7 X10*3/uL (0.1-1.2); Monocytes Percent Auto 7.7 % (2-11); Neutrophils Absolute Auto 4.7 x10*3/uL (2.0-8.3); Neutrophils Percent Auto 53.6 % (45-73); Platelet Count 402 X10*3/uL (160-400); Red Blood Count 5.45 X10*6/uL (4.20-5.50); Red Cell Distribution Width 14.7 % (11.0-16.0); White Blood Count 8.7 X10*3/uL (4.8-10.8)
[2024-08-18 12:28] LABS: Alanine Aminotransferase 80 U/L (0-31); Albumin Level 4.4 g/dL (3.5-5.0); Alkaline Phosphatase 87 U/L (39-117); Anion Gap 10 (12-20); Aspartate Amino Transferase 56 U/L (5-31); Bilirubin Direct 0.2 mg/dL (0.0-0.5); Bilirubin Total 0.5 mg/dL (0.0-1.0); Blood Urea Nitrogen 15 mg/dL (9-16); Calcium 9.9 mg/dL (8.4-10.2); Carbon Dioxide 27 mmol/L (22-29); Chloride 108 mmol/L (96-108); Estimated Glomerular Filt Rate > 60; Glucose Random 114 mg/dL (60-115); Potassium 3.8 mmol/L (3.3-5.1); Sodium 141 mmol/L (135-145); Total Protein 7.9 g/dL (6.5-8.0)
--- OUTSIDE RECORDS SUMMARY | 2024-08-18 13:29 | XMS_ITS | Clinical Summary ---
Author Organization [facility] Address [address] [place] [address] Care Team Providers Care Packaging Specialist Name Role Phone Coreen Hernandez MD Primary Care Provider [phone] Social History Tobacco Use Types Packs/Day Years Used Date Smoking Tobacco: Never Assessed Comments Unknown Sex and Gender Information Value Date Recorded Sex Assigned at Not on file Legal Sex Female 3:01 AM EST Gender Identity Not on file Sexual Orientation Not on file Plan of Treatment Health Maintenance Due Date Last Done Comments Breast Cancer Screening 1970 Hepatitis A Vaccines (1 of 2 - Risk 2-dose series) 08/06/1987 Hepatitis B Vaccines (1 of 3 - 19+ 3-dose series) 08/06/1987 Pneumococcal Vaccine: 50+ Ye ars (1 of 2 - PCV) 08/06/1987 Pneumococcal Vaccine: Pediat rics (0 to 5 Years) and At-Risk Patients (6 to 64 Years) (1 of 2 - PCV) 08/06/1987 Cervical Cancer Screening: P ap Smear 1989 Zoster Vaccines (1 of 2) 2018 Cholesterol Screening (Lipid Panel) 04/22/2022 Colorectal Cancer Screening: Colonoscopy 04/22/2022 Depression Screening 04/22/2022 HIV Screening 04/22/2022 Hepatitis C Screening 04/22/2022 Social Influencers of Health Screening 04/22/2022 Hypertension/CHF/CAD Annual BMP Blood Test 05/01/2022 COVID-19 Vaccine (1 - 2023-2 5 season) 2024 Influenza Vaccine [...] patient's age to complete this topic Meningococcal B Vacine Aged Out No lo nger eligible based on patient's age to complete this topic RSV Immunization Patients Un roxi 20 months Aged Out No longer eligible b ased on patient's age to complete this topic Varicella Vaccines Aged Out No longer eligible based on patient's age to complete this topic Care Teams Packaging Specialist Relationship Specialty Start Date End Date Coreen Hernandez MD [address] [place] [address] [address] [facility] [place] [address] PCP - General Internal Medicine 01/04/14
== END 2024-08-18 11:12 | disposition home or self-care (01) ==
LOC: HO.US 11:11
PROVIDERS: Absent Provider Internal Medicine; PCP Internal Medicine; Visit Provider Urology
DX: N20.0 Calculus of kidney (principal); R73.01 Impaired fasting glucose; R79.89 Other specified abnormal findings of blood chemistry
CPT/HCPCS: 36415; 76775; 80053; 82248; 85025

== ENCOUNTER → 2024-08-18 11:12 | Outpatient (BNV) | payer OTHER, SELFPAY | PROVIDERS: Absent Provider Internal Medicine; PCP Internal Medicine; Visit Provider Radiology Diagnostic Radiology | DX: N20.0 Calculus of kidney (principal) | CPT/HCPCS: 76775 ==

== ENCOUNTER 2024-08-20 10:05 | Outpatient (AMB) | payer OTHER, SELFPAY ==
[2024-08-20 10:10] VITALS: BP 130/72; PULSE 79; O2SAT 98; BMI 33.8
--- NOTE | 2024-08-20 10:10 | MHC.PC.OV ---
Vital Signs 08/20/24 10:10 Height 5 ft 1 in Weight 179 lb BMI 33.8 BP 130/72 Blood Pressure Location Lt brachial Position Sitting Pulse 79 Pulse Source Pulse Oximeter Pulse Oximetry (%) 98 Oxygen Delivery Method Room Air Intake Visit Reasons: annual exam Allergies oxycodone [From PERCOCET] Allergy (Intermediate, Verified 08/20/24 10:11) VOMITING, N/V codeine [Codeine] Allergy (Mild, Verified 08/20/24 10:11) HIVES atorvastatin Allergy (Unknown, Verified 08/20/24 10:11) Headaches bupropion [From WELLBUTRIN] Allergy (Unknown, Verified 08/20/24 10:11) PALPITATIONS morphine [MORPHINE] Allergy (Unknown, Verified 08/20/24 10:11) NIGHTMARES naproxen [NAPROXEN] Allergy (Unknown, Verified 08/20/24 10:11) RASH sertraline Allergy (Unknown, Verified 08/20/24 10:11) Unknown simvastatin Allergy (Unknown, Verified 08/20/24 10:11) Unknown zolpidem [ZOLPIDEM] Allergy (Unknown, Verified 08/20/24 10:11) PALPITATIONS Medication List - Last Reconciled 08/20/24 by Coreen Hernandez MD albuterol sulfate 2.5 mg (0.5 mL) inhalation Q6H PRN albuterol sulfate 90 mcg/actuation 2 puffs PO Q6H PRN aspirin (Adult Low Dose Aspirin) 81 mg PO DAILY blood pressure monitor (Blood Pressure Kit) As directed blood sugar diagnostic As directed check BS QD blood-glucose meter As directed cetirizine 10 mg PO DAILY cyclobenzaprine 10 mg PO BID Dex4 Glucose (dextrose) 33 grams PO .every 15 minutes PRN NS Dexcom G7 Jewelry Manager (blood-glucose,instructional technology director,cont) As directed NS Dexcom G7 Sensor (blood-glucose sensor) every 10 days NS flash glucose sensor (FreeStyle Fortunato 14 Day Sensor kit) interiano patient - fluticasone propionate 50 mcg/actuation (Flonase Allergy Relief) 1 spray intranasal DAILY FreeStyle Fortunato 3 [place] (blood-glucose,instructional technology director,cont) As directed NS FreeStyle Fortunato 3 Sensor (blood-glucose sensor) every 14 days NS lancets As directed lorazepam 1 mg PO DAILY 30 days nebulizers (Aeroneb Go Nebulizer) As directed nebulizers (AeroEclipse II Nebulizer) As directed pantoprazole 40 mg (2 x 20 mg) PO DAILY pravastatin 20 mg PO DAILY sennosides (senna) 17.2 mg (2 x 8.6 mg) PO BEDTIME Shower Chair As directed Tobacco use date assessed: 06/15/24 Dental Screening Dental Screen Date: 06/15/24 [facility] Medical History General medical exam Hypertension Vertigo Dysuria Upper respiratory tract infection Nausea and vomiting Abdominal pain Fall Otitis media IBS (irritable bowel syndrome) Uterine cancer History of gestational diabetes Genital herpes Hypercholesterolemia Obstructive sleep apnea Vitamin D deficiency Lumbar degenerative disc disease Hypertension Insomnia Fatty liver GERD (gastroesophageal reflux disease) Asthma Obesity (BMI 30-39.9) NAFLD (nonalcoholic fatty liver disease) Surgical History History of esophagogastroduodenoscopy (EGD) History of lumbar surgery History of total abdominal hysterectomy and bilateral salpingo-oophorectomy History of tubal ligation Hx of endoscopy History of colonoscopy Family History (Updated 08/20/24 @ 10:58 by Coreen Hernandez MD) Father Hx of colon cancer, stage III Mother Hx of heat stroke Acute CVA (cerebrovascular accident) Hypertension Diabetes Maternal Grandmother Breast cancer Stroke Stomach cancer Maternal Grandfather CVD (cardiovascular disease) Myocardial infarction Son In good health Sister No problems noted. Sister No problems noted. Sister No problems noted. Brother No problems noted. Brother No problems noted. Social History Housing: Apartment Alcohol intake: never Patient Tobacco Use Status: Former Tobacco user Tobacco use type: Cigarette Years Smoked: 2002 quit CBD oil e-Cigarette/Vaping Use: Never Used Second Hand Smoke Exposure: No service: No Current occupational status: disabled Current occupational exposures/hazards: No Cognitive needs: No Hearing needs: No Vision needs: No Questionnaire PHQ-9 Over the last 2 weeks, how often have you been bothered by any of the following problems? 1. Little interest or pleasure in doing things: not at all 2. Feeling down, depressed, or hopeless: not at all 3. Trouble falling or staying asleep, or sleeping too much: not at all 4. Feeling tired or having little energy: nearly every day 5. Poor appetite or overeating: nearly every day 6. Feeling bad about yourself - or that you are a failure or have let yourself or your family down: not at all 7. Trouble concentrating on things, such as reading the newspaper or watching television: not at all 8. Moving or speaking so slowly that other people could have noticed. Or the opposite - being so fidgety or restless that you have been moving around a lot more than usual: not at all 9. Thoughts that you would be better off or of hurting yourself in some way: not at all Total score: 6 Depression Screening Interpretation: Positive Depression Screening Done: Yes 12025 - PHQ-9 Billing: Yes Source: Developed by Drs. Miki Koo, Monica Childers, Chris Watt and colleagues, with an educational adrien from [employer] Thrive Questionnaire Date Thrive assessed: 06/15/24 I am a: Patient What is your living situation today?: I choose not to answer this question Within the past 12 months, did the food you bought not last and you didn't have the money to get more?: I choose not to answer this question Within the past 12 months, did you worry whether your food would run out before you got money to buy more?: I choose not to answer this question Do you have trouble paying for medicines?: I choose not to answer this question Do you have trouble getting transportation to medical appointments?: I choose not to answer this question Do you have trouble paying your heating and electricity bill?: I choose not to answer this question Do you have trouble taking care of your child, family member or friend?: I choose not to answer this question Do you have trouble with day-to-day activities such as bathing, preparing meals, shopping, managing finances, etc.?: I choose not to answer this question Are you currently unemployed and looking for a job?: I choose not to answer this question Are you interested in more education?: I choose not to answer this question Please select the resources that you would like help with: Transportation and None Currently or been in a relationship where the following occur: I choose not to answer THRIVE Score: 0 AUDIT C Alcohol Use Questionnaire (AUDIT-C) 1. How often do you have a drink containing alcohol?: Never Total Score: 0 ELDA-7 AMB Questionnaire ELDA-7 Date ELDA - 7 assessed: 08/20/24 Feeling nervous, anxious, or on edge: 0 = Not at all Not being able to stop or control worryin = Nearly every day Worrying too much about different things: 0 = Not at all Trouble relaxin = Nearly every day Being so restless that it is hard to sit still: 0 = Not at all Becoming easily annoyed or irritable: 3 = Nearly every day Feeling afraid as if something awful might happen: 3 = Nearly every day Total ELDA-7 score (0-4 normal; 5-9 mild; 10-14 moderate; 15-21 severe): 12 Source: Developed by Drs. Miki Koo, Monica Childers, Chris Watt and colleagues, with an educational adrien from [employer]). ELDA-7 Assessment Billing ELDA-7 Assessment Tool: ELDA-7 Assessment 12358 Review of Systems Const Denies poor appetite and Denies weakness Eyes Denies no additional complaints ENT Reports Normal hearing present, Denies dizziness, Denies nasal congestion, Denies tinnitus and Denies sore throat Card Denies chest pain, Denies syncope, Denies rapid heart rate and Denies dyspnea Resp Denies cough and Denies dyspnea GI Denies change in stool character, Reports constipation, Denies diarrhea, Denies nausea and Denies vomiting Denies urinary frequency, Denies difficulty voiding and Denies dysuria Neuro Reports Normal hearing present, Denies confusion, Denies dizziness, Denies syncope and Denies weakness Psych Denies confusion Physical exam (Primary Care) Vital Signs: Last Vital Signs Pulse 79 08/20/24 10:10 BP 130/72 08/20/24 10:10 Pulse Ox 98 08/20/24 10:10 Oxygen Delivery Method Room Air 08/20/24 10:10 BMI result Body Mass Index 33.8 Tobacco/Smoking Status: Tobacco use Status Tobacco use date assessed 06/15/24 08/20/24 10:14 Patient Tobacco Use Status Former Tobacco user 08/20/24 10:14 Tobacco use type Cigarette 08/20/24 10:14 e-Cigarette/Vaping Use Never Used 04/03/25 10:14 PHQ-9: PHQ-9 Score PHQ-9: Total score 6 08/20/24 10:51 Depression Screening Interpretation: Positive Thrive Assessment: Date of Thrive Assessment Date Thrive assessed 06/15/24 08/20/24 10:14 Currently or been in a relationship where the following occur: I choose not to answer Const General: No confusion Orientation/consciousness: No confusion HENMT Head: Yes normocephalic Ears: external ears normal and TM's normal bilaterally Face and sinus: Yes normal facial exam Mouth: moist mucous membranes Throat: Yes tonsils normal Eyes Conjunctivae: conjunctivae normal Pupils: Equal, round and reactive pupils present and Pupil accommodation reflex normal Direct Ophthalmoscopy: normal light reflex Neck Neck: No lymphadenopathy Thyroid: Thyroid normal Chest Chest palpation & inspection: normal inspection of the chest Resp Effort & Inspection: normal respiratory effort and no audible wheezes Auscultation: clear to auscultation bilaterally, no crackles, no wheezes and lung sounds not diminished Cardio Rate: regular rate Rhythm: regular rhythm Peripheral pulses: radial pulses present and dorsalis pedis present GI Palpation (GI): no masses Auscultation: normal bowel sounds and normoactive bowel sounds Rectal Exam - Female: deferred Skin General skin exam: no rashes or lesions noted Rashes: no rashes Neuro General: No confusion Cranial nerves: Yes Equal, round and reactive pupils present and Yes Normal hearing present Cognition (Neuro): normal cognition Gait exam (Neuro): Normal gait present Motor exam (neuro): 5/5 motor strength present throughout Deep tendon reflexes (DTR's): Right brachioradialis reflex intensity grade: 2+, Left brachioradialis reflex intensity grade: 2+, Right patellar reflex intensity grade: 2+ and Left patellar reflex intensity grade: 2+ Extrem General: No edema Coding Level of Care Code Est Pt Prev Care 40-64y(79603) Diagnoses Annual physical exam Z00.00 Obesity (BMI 30-39.9) E66.9 NAFLD (nonalcoholic fatty liver disease) K76.0 Mild intermittent asthma without complication J45.20 Asthma complication type: uncomplicated Asthma persistence: intermittent Asthma severity: mild Gastroesophageal reflux disease without esophagitis K21.9 Esophagitis presence: without esophagitis Obstructive sleep apnea G47.33 Hypercholesterolemia E78.00 Impaired fasting glucose R73.01 Generalized anxiety disorder F41.1 Left foot pain M79.672 Low back pain M54.50 Skin tag L91.8 Additional Codes ELDA-7 Assessment Billing - ELDA-7 Assessment Tool: ELDA-7 Assessment 67762 ([id number]) PHQ-9 - 99657 - PHQ-9 Billing: Yes ([id number]) Assessment & Plan Assessment & Plan (1) Annual physical exam: Code(s): Z00.00 - Encounter for general adult medical examination without abnormal findings Category: Medical Plan: Patient is advised to eat healthy, keep well hydrated, keep active and have adequate sleep. (2) Obesity (BMI 30-39.9): Code(s): E66.9 - Obesity, unspecified Category: Medical Plan: Diet and exercise (3) NAFLD (nonalcoholic fatty liver disease): Comment: avoid weight gain, good cholesterol and glucose control Code(s): K76.0 - Fatty (change of) liver, not elsewhere classified Category: Medical Plan: Low-fat diet and exercise (4) Asthma: Code(s): J45.909 - Unspecified asthma, uncomplicated Category: Medical Qualifiers: Asthma complication type: uncomplicated Asthma persistence: intermittent Asthma severity: mild Qualified Code(s): J45.20 - Mild intermittent asthma, uncomplicated Plan: Patient on albuterol inhaler (5) GERD (gastroesophageal reflux disease): Comment: Pantoprazole 40 mg QAM- avoid culprits, dietary modification give trial to sucralfate Code(s): K21.9 - Gastro-esophageal reflux disease without esophagitis Category: Medical Qualifiers: Esophagitis presence: without esophagitis Qualified Code(s): K21.9 - Gastro-esophageal reflux disease without esophagitis Plan: Avoid the foods that causes that usually spicy foods, tomato products, juices, coffee, soda and foods that your sensitive to. After eating do not lie down, allow 3-4 hours before in lie down. And keep the head of bed above 30 degrees to avoid the acid from going up. (6) Obstructive sleep apnea: Comment: cannot tolerate CPAP 06/2021 Code(s): G47.33 - Obstructive sleep apnea (adult) (pediatric) Category: Medical Plan: Patient is not able to tolerate the CPAP continue with losing weight (7) Hypercholesterolemia: Code(s): E78.00 - Pure hypercholesterolemia, unspecified Category: Medical Plan: Avoid fried foods, chicken skin, eggs, butter margarine, pastries and meat. Be it pork or beef they have a lot of cholesterol LDL goal of less than 130 and triglyceride of less than 150 (8) Impaired fasting glucose: Code(s): R73.01 - Impaired fasting glucose Category: Medical Plan: Decrease the amount of carbohydrate intake, pasta, bread, rice and potatoes are all sugar and that is aside from all the sweet stuff, remember that fruits are good but they are Sweet also. (9) Generalized anxiety disorder: Comment: conselling RIver Garfield every Saturday (01/2022) Garfield Florez 2024 Code(s): F41.1 - Generalized anxiety disorder Category: Medical Plan: Continue with counseling and therapy (10) Left foot pain: Code(s): M79.672 - Pain in left foot Category: Medical (11) Low back pain: Code(s): M54.50 - Low back pain, unspecified Category: Medical (12) Skin tag: Comment: neck, L axilla, abdomen Code(s): L91.8 - Other hypertrophic disorders of the skin Category: Medical Plan History of Present Illness The patient is a 54-year-old female presenting for an annual physical examination as well as evaluation and management of multiple chronic conditions. The patient has a significant medical history, including obesity and fatty liver disease, and has demonstrated a notable weight loss of 7 pounds since June. The patient has asthma, for which she uses an albuterol inhaler, and has ongoing gastroesophageal reflux disease, currently managed with pantoprazole. Hypertension is well-controlled, and the patient experiences obstructive sleep apnea but is intolerant of CPAP therapy. Hypercholesterolemia is present, with current triglycerides elevated at 203. Lumbar degenerative disc disease results in back pain, particularly exacerbated by a fall on ice in June. History of nephrolithiasis exists, with ongoing urology follow-up after a negative ultrasound. The patient reported episodes of hypoglycemia and follows up with endocrinology for monitoring her blood glucose levels. Irritable bowel syndrome and generalized anxiety disorder are current concerns, with management through dietary measures and bi-weekly therapy sessions, respectively. Diagnostic evaluations, including a recent chest X-ray, were negative, and blood work in August showed normal counts with mild thrombocytosis and an elevated blood sugar of 114. Health Maintenance - Completed colonoscopy in April 2023 - Mammogram completed in May 2024 - Ultrasound in August was negative - Hemoglobin A1c last measured in June at 6.0 - Liver enzymes indicate fatty liver condition - Elevated triglycerides at 203 with a goal to reduce to below 150 - Patient follows a low-fat diet and engages in regular exercise - Hypoglycemia incidents managed with endocrinology consultation - Bi-weekly therapy sessions for anxiety management - No smoking or alcohol consumption reported since 2002 - Vaccination status: recent shingles vaccine, Tetatus shot in 2018 Social History - Family history of colon cancer in father, breast, and stomach cancer in maternal grandmother - Exercise: Regular, unspecified routines as per wellness plan - Diet: Low-fat diet recommended - Tobacco use: Quit in 2002 - Alcohol use: None reported - Mental health: Engages in bi-weekly therapy sessions - Support system: [employer] assisting with daily tasks and showering - Recent housing concerns related to voucher issues Review of Systems - General: Denies nausea and vomiting; Reports unintentional weight loss of 7 pounds since June. - Respiratory: Reports dryness at night; denies chest pain. - Gastrointestinal: Reports frequent urination at night; denies issues with swallowing. - Musculoskeletal: Reports back pain following a fall on ice and difficulty standing for long durations. Physical Exam General: Cooperative, healthy appearing, comfortable, no acute distress and well developed Orientation: Patient oriented x3 Limitations: No limitations Head: Normal to inspection Ears: Hearing grossly normal bilaterally Nose: Normal external nose present Face and sinus: Normal facial exam Eyes: Appearance normal, both eyes and all related structures Neck: Normal visual inspection and Yes full ROM Respiratory: Normal respiratory effort and able to speak in complete sentences. Clear to auscultation bilaterally Cardiovascular: Regular rate and rhythm. Normal S1 and S2 GI: Normal to inspection. Soft to palpation and nontender Skin: No rashes or lesions noted Neuro: Patient oriented x3 Extremities: Normal to inspection, patient reports being back on a brace due to a fall on ice. Results - Labs: Normal blood count with mild thrombocytosis; blood sugar elevated at 114; liver enzymes elevated. - Imaging: Chest X-ray in May was negative. - Screening: Colonoscopy in April 2023; Mammogram in May 2024. Plan The management plan includes focusing on lifestyle interventions to address obesity with continued emphasis on a low-fat diet and physical activity. Asthma control through the use of an albuterol inhaler remains unchanged. GERD management will continue with pantoprazole treatment. Elevated cholesterol levels are to be managed by emphasizing dietary changes, targeting a reduction in triglycerides, with future follow-ups to assess lipid levels and liver enzyme function. The patient declined further imaging for thoracic to lumbar back pain, opting instead for physical therapy, while foot care screening will continue with podiatry due to a referral placed. An additional dermatology consult has been facilitated to address skin tags. Follow-ups at both endocrinology and urology clinics will persist to monitor glucose levels and renal health respectively. The patient will maintain bi-weekly therapy sessions for anxiety management. Further evaluation of chronic health issues will be coordinated through regular follow-up visits. Patient was informed and verbally consented to the use of an ambient scribe for clinic note documentation during this visit. Discussion Notes During the visit, I discussed the patient's chronic conditions, emphasizing the importance of lifestyle modifications in managing obesity and triglycerides. I highlighted the need for ongoing collaboration with endocrinology to manage the hypoglycemia episodes and follow-up appointments with urology for kidney evaluations. We covered her preference for physical therapy to manage lumbar degenerative disc disease over imaging while considering referrals for podiatry care. I also addressed her ongoing health care administrator and advised continued dietary control for managing liver health, urging repeat testing for triglyceride and glucose levels in future visits. Consent was obtained for continuing the current traffic line painter and podiatry referrals for her skin tags. I advised periodic wellness checks and vaccinations, emphasizing adherence to her therapeutic regimen. Return precautions included monitoring any acute changes in health status such as chest pain, severe back pain, or significant fluctuations in glucose levels. Patient Instructions - Continue low-fat diet and regular exercise to promote weight loss. - Use albuterol inhaler as needed for asthma symptoms. - Continue pantoprazole therapy for GERD management. - Implement strategies to decrease triglycerides, including dietary modifications. - Regularly monitor blood sugar levels for signs of hypoglycemia. - Attend follow-up appointments with endocrinology and urology specialists. - Follow up with a physical therapist for lumbar degenerative disc pain. - Schedule appointments with podiatry and dermatology concerning foot care and skin tag removal. - Maintain bi-weekly psychotherapy sessions for managing anxiety. - Ensure all recommended vaccinations are current, with particular attention to shingles and tetanus. - Seek immediate care if experiencing severe symptoms like chest pain, breathing difficulty, or drastic changes in mental state. Orders: Orders PT Evaluation and Treatment Today M79.672 - Pain in left foot Referrals Podiatry Referral M79.672 - Pain in left foot Dermatology Referral L91.8 - Other hypertrophic disorders of the skin
--- OUTSIDE RECORDS SUMMARY | 2024-08-20 10:52 | XMS_ITS | Clinical Summary ---
Author Organization [facility] ity Address [address] [place] [address] Care Team Providers Care Brand Executive Name Role Phone Coreen Hernandez MD Primary Care Provider [phone] Social History Tobacco Use Types Packs/Day Years [...] age to complete this topic Care Teams Brand Executive Relationship Specialty Start Date End Date Coreen Hernandez MD [address] [place] [address] [address] [facility] [place] [address] PCP - General Internal Medicine 01/04/14
== END 2024-08-20 11:13 | disposition home or self-care (01) ==
LOC: HO.HMCH 10:06
PROVIDERS: PCP Internal Medicine; Visit Provider Internal Medicine
DX: Z00.00 Encounter for general adult medical examination without abnormal findings (principal); E66.9 Obesity, unspecified; Z68.33 Body mass index [BMI] 33.0-33.9, adult; K76.0 Fatty (change of) liver, not elsewhere classified; J45.20 Mild intermittent asthma, uncomplicated; K21.9 Gastro-esophageal reflux disease without esophagitis; G47.33 Obstructive sleep apnea (adult) (pediatric); E78.00 Pure hypercholesterolemia, unspecified; R73.01 Impaired fasting glucose; F41.1 Generalized anxiety disorder; M79.672 Pain in left foot; M54.50 Low back pain, unspecified

== ENCOUNTER → 2024-08-20 10:05 | Outpatient (BNVA) | payer OTHER, SELFPAY | PROVIDERS: PCP Internal Medicine; Visit Provider Internal Medicine | DX: Z00.01 Encounter for general adult medical examination with abnormal findings (principal); E66.9 Obesity, unspecified; K76.0 Fatty (change of) liver, not elsewhere classified; J45.20 Mild intermittent asthma, uncomplicated; K21.9 Gastro-esophageal reflux disease without esophagitis; G47.33 Obstructive sleep apnea (adult) (pediatric); E78.00 Pure hypercholesterolemia, unspecified; R73.01 Impaired fasting glucose; F41.1 Generalized anxiety disorder; M79.672 Pain in left foot; M54.50 Low back pain, unspecified; L91.8 Other hypertrophic disorders of the skin; Z68.33 Body mass index [BMI] 33.0-33.9, adult | CPT/HCPCS: 96127; 99396 ==

== ENCOUNTER 2024-08-25 08:44 | Outpatient (AMB) | payer OTHER, SELFPAY ==
--- NOTE | 2024-08-25 08:49 | A.OFFVIS_ITS ---
Intake Visit Reasons: 6m/US(set) Intake Note: Patient presents today for follow up on: nephrolithiasis and ultrasound results Imaging Completed: 08/18/24 Urology Medications: none Blood Thinner: Aspirin Spike Machine Operator Required: No Accompanied by: Self / Same As Patient Allergies oxycodone [From PERCOCET] Allergy (Intermediate, Verified 08/25/24 09:30) VOMITING, N/V codeine [Codeine] Allergy (Mild, Verified 08/25/24 09:30) HIVES atorvastatin Allergy (Unknown, Verified 08/25/24 09:30) Headaches bupropion [From WELLBUTRIN] Allergy (Unknown, Verified 08/25/24 09:30) PALPITATIONS morphine [MORPHINE] Allergy (Unknown, Verified 08/25/24 09:30) NIGHTMARES naproxen [NAPROXEN] Allergy (Unknown, Verified 08/25/24 09:30) RASH sertraline Allergy (Unknown, Verified 08/25/24 09:30) Unknown simvastatin Allergy (Unknown, Verified 08/25/24 09:30) Unknown zolpidem [ZOLPIDEM] Allergy (Unknown, Verified 08/25/24 09:30) PALPITATIONS HPI Comments Details: Shante is a very pleasant 54-year-old female patient of Dr. Hernandez. She has a past medical history of hypertension, vertigo, IBS, uterine cancer follows with Dr. White, hypercholesteremia, obstructive sleep apnea can not tolerate CPAP, vitamin-D deficiency, lumbar degenerative disc disease, insomnia, fatty liver, GERD, asthma, and obesity. She presents to the office today for follow- up of her nephrolithiasis. In discussion with the patient today she denies having had any bothersome urinary issues or concerns since her last office visit here. Recent renal imaging results reviewed with the patient today 09/11 bilateral kidneys normal in echotexture and thickness. There are no renal masses, renal calculi, or hydronephrosis noted bilaterally. Unremarkable renal ultrasound. She denies any previous history surgical history for nephrolithiasis. She reports initial event of nephrolithiasis was the middle of last year when she was in [place]. She has not had any other episodes. She also discussed previously following up with a urologist many years ago for recurrent urinary tract infections after her hysterectomy. She currently denies any bothersome urinary issues. She does report episodes of nocturia. We discussed diagnosis of sleep apnea in relation to nocturia. She denies urinary urgency, urinary frequency, incontinence, nocturia, hematuria, dysuria, foul smelling urine, changes to urinary stream, flank pain, fever, and or chills. She is happy with her current voiding parameters. In office urinalysis results reviewed with the patient today. We discussed potential causes of nocturia as well as nephrolithiasis. She does endorse to be drinking plenty of water daily. She otherwise offers no other issues or concerns at this time. Plan We plan to conduct another renal ultrasound in six months to ensure no recurrence of nephrolithiasis, considering the patient's recent clear imaging. The emphasis will remain on hydration to prevent stone formation. Due to the patient's inability to secure a CPAP machine from her insurance provider for obstructive sleep apnea, alternative solutions were discussed. Continual assessment of her urinary patterns is necessary due to nocturia likely resulting from unmanaged sleep apnea. The patient's intentional weight loss progress is promising, serving as a potential secondary means to alleviate apnea symptoms. Further discussions will be entertained to explore viable strategies for overcoming insurance barriers and securing necessary equipment for sleep apnea management. The patient understands and agrees with this follow-up plan. Patient was informed and verbally consented to the use of an ambient scribe for clinic note documentation during this visit. Discussion Notes During the consultation, I reviewed the patient's renal ultrasound results indicating no current kidney stones. I explained the potential causes of her past nephrolithiasis, emphasizing the need for regular hydration and preventive measures. Given the impact of obstructive sleep apnea on her nocturia, I highlighted the importance of managing apnea effectively and the challenges faced due to insurance issues blocking CPAP provision. Although the patient has achieved a notable decline in weight, I underscored its relevance to her apnea management. We discussed forthcoming test schedules and surveillance to ensure renal health significantly, obtaining consent for future imaging. Alternative methods for CPAP access were briefly considered, pending further inquiry into overcoming insurance limitations. The patient was encouraged to maintain fluid intake and follow sleep hygiene practices to curb her nocturia. [facility] Medical History General medical exam Hypertension Vertigo Dysuria Upper respiratory tract infection Nausea and vomiting Abdominal pain Fall Otitis media IBS (irritable bowel syndrome) Uterine cancer History of gestational diabetes Genital herpes Hypercholesterolemia Obstructive sleep apnea Vitamin D deficiency Lumbar degenerative disc disease Hypertension Insomnia Fatty liver GERD (gastroesophageal reflux disease) Asthma Obesity (BMI 30-39.9) NAFLD (nonalcoholic fatty liver disease) Surgical History History of esophagogastroduodenoscopy (EGD) History of lumbar surgery History of total abdominal hysterectomy and bilateral salpingo-oophorectomy History of tubal ligation Hx of endoscopy History of colonoscopy Family History Father Hx of colon cancer, stage III Mother Hx of heat stroke Acute CVA (cerebrovascular accident) Hypertension Diabetes Maternal Grandmother Breast cancer Stroke Stomach cancer Maternal Grandfather CVD (cardiovascular disease) Myocardial infarction Son In good health Sister No problems noted. Sister No problems noted. Sister No problems noted. Brother No problems noted. Brother No problems noted. Social History Housing: Apartment Alcohol intake: never Patient Tobacco Use Status: Former Tobacco user Tobacco use type: Cigarette Years Smoked: 2002 quit CBD oil e-Cigarette/Vaping Use: Never Used Second Hand Smoke Exposure: No service: No Current occupational status: disabled Current occupational exposures/hazards: No Cognitive needs: No Hearing needs: No Vision needs: No Review of Systems Const All systems reviewed & are unremarkable except as noted in HPI and below Physical Exam Const General: cooperative, healthy appearing, comfortable, no acute distress, well developed, alert and awake Nutritional Appearance: overweight Orientation/consciousness: patient oriented x3 Limitations: no limitations HEENT Head: Yes normal to inspection, Yes normocephalic and Yes atraumatic Ears: hearing grossly normal bilaterally Eyes General: appearance normal, both eyes and all related structures Neck Neck: Yes normal visual inspection and Yes trachea midline Chest Chest palpation & inspection: normal inspection of the chest Resp Effort & Inspection: normal respiratory effort and able to speak in complete sentences Cardio Rate: regular rate GI Inspection: Yes normal to inspection General: Yes no CVA tenderness Back/Spine/Pelvis Back: no CVA tenderness Skin General skin exam: no rashes or lesions noted Neuro General: patient oriented x3 Extrem General: Yes normal to inspection Psych Appearance: grossly normal and well kempt Mental Status: mental status grossly normal Speech and movement: Normal speech and movement present and Clear speech present Affect: normal affect Attitude: cooperative Thought process: Normal thought process present Thought content: Normal thought content present Insight: Fair insight present (Psych) Judgement: Fair judgement present (Psych) Results AMB Urinalysis, Automated UA Leukoctes 15 Clifford/uL Last Edit by [employer] Alexanderflower on 08/25/24 09:32 UA Nitrite Last Edit by Mamta Alexanderflower on 08/25/24 09:32 UA Urobilinogen 0.2 mg/dL Last Edit by [employer]anth[employer] Alexanderflower on 08/25/24 09:32 UA Protein 15 mg/dL Last Edit by [employer] Catherineflower on 08/25/24 09:32 UA pH 5.5 Last Edit by Mamta Alexanderflower on 08/25/24 09:32 UA Blood 80 Adams/uL Last Edit by [employer] Alexanderflower on 08/25/24 09:32 UA Specific [place] 1.030 Last Edit by Lionanthonydeon Alexanderflower on 08/25/24 09:32 UA Ketone Last Edit by [employer] Catherineflower on 08/25/24 09:32 UA Bilirubin 0 mg/dL Last Edit by [employer] Catherineflower on 08/25/24 09:32 UA Glucose 0 mg/dL Last Edit by [employer] Catherineflower on 08/25/24 09:32 Results Reviewed Results Reviewed: Laboratory Last Values Urine pH (Auto) 5.5 08/25/24 09:31 Specific [place] (Auto) 1.030 08/25/24 09:31 Urine Protein (Auto) 15 mg/dL 08/25/24 09:31 Glucose (UA)(Auto) 0 mg/dL 08/25/24 09:31 Urine Blood (Auto) 80 Adams/uL 08/25/24 09:31 Urine Bilirubin (Auto) 0 mg/dL 08/25/24 09:31 Urine Urobilinogen (Auto) 0.2 mg/dL 08/25/24 09:31 Leukocyte Esterase (Auto) 15 Clifford/uL 08/25/24 09:31 Date of Service: 08/18/24 Procedure(s): US renal BI FINDINGS: Right kidney: The right kidney measures 10.2 x 3.8 x 5.4 cm. Renal parenchymal echotexture and thickness are normal. There are no masses. There is no hydronephrosis or renal calculi. Left Kidney: The left kidney measures 10.0 x 5.2 x 5.3 cm. Renal parenchymal echotexture and thickness are normal. There are no masses. There is no hydronephrosis or renal calculi. IMPRESSION: Unremarkable renal ultrasound. Assessment & Plan Assessment & Plan (1) Nocturia: Code(s): R35.1 - Nocturia Category: Medical (2) Nephrolithiasis: Code(s): N20.0 - Calculus of kidney Category: Medical Plan In office urinalysis results reviewed with the patient today; as noted above. Recent renal imaging results reviewed with the patient today; as noted above. We discussed at length potential causes of nocturia as well as nephrolithiasis. Discussed, educated, and stressed the importance of adequate hydration relation to nephrolithiasis as well as overall health and well-being. Discussed adding 1 oz of lemon juice to water daily. Will continue with surveillance monitoring. Continue follow-up with neurology for upcoming in-lab sleep study Patient currently denies any bothersome urinary issues. She reports be happy with current voiding parameters. Follow-up in 6 months with imaging to be completed prior; or sooner with any issues, concerns, and or questions. Orders: Orders AMB Urinalysis Automated Today Z13.9 - Encounter for screening, unspecified US renal BI 6 Months N20.0 - Calculus of kidney Patient Instructions: The patient had an opportunity to ask questions regarding the treatment plan. All questions were answered. Physical exam, labs, and imaging were discussed and reviewed in detail. As well as risks, benefits, and discussion of treatment choices. No major barriers to understanding were identified. The patient expressed understanding and agreement with the above treatment plan. The patient was made aware they should contact our office by phone for worsening of their current condition, the appearance of new symptoms, or with any questions or concerns. Compliance is encouraged with any medications and follow up testing that is ordered. It is a privilege to be allowed the opportunity to participate in? your urological care.? Again, if you have any questions or concerns If you have any questions or concerns please do not hesitate to contact me. The office is [phone]. This note is constructed using voice recognition software. While every effort has been made to ensure accuracy grocery checker errors may have been included. Yours sincerely, JD Longoria Coding Level of Care Code Est Pt Level 3 (37955) Diagnoses Nocturia R35.1 Nephrolithiasis N20.0
--- OUTSIDE RECORDS SUMMARY | 2024-08-25 09:14 | XMS_ITS | Clinical Summary ---
Author Organization [facility] ity Address [address] [place] [address] Care Team Providers Care Automobile Bumper Straightener Name Role Phone Coreen Hernandez MD Primary Care Provider [phone] Social History Tobacco Use Types Packs/Day Years [...] age to complete this topic Meningococcal B Vaccine Aged Out No l onger eligible based on patient's age to complete this topic RSV Immunization Patients Un roxi 20 months Aged Out No longer eligible b ased on patient's age to complete this topic Varicella Vaccines Aged Out No longer eligible based on patient's age to complete this topic Care Teams Automobile Bumper Straightener Relationship Specialty Start Date End Date Coreen Hernandez MD [address] [place] [address] [address] [facility] [place] [address] PCP - General Internal Medicine 01/04/14
== END 2024-08-25 09:25 | disposition home or self-care (01) ==
LOC: HO.HUSH 08:44
PROVIDERS: PCP Internal Medicine; Visit Provider Nurse Practitioner Family
DX: R35.1 Nocturia (principal); N20.0 Calculus of kidney; Z13.9 Encounter for screening, unspecified
CPT/HCPCS: 99213

== ENCOUNTER → 2024-08-25 08:44 | Outpatient (BNVA) | payer OTHER, SELFPAY | PROVIDERS: PCP Internal Medicine; Visit Provider Nurse Practitioner Family | DX: R35.1 Nocturia (principal); N20.0 Calculus of kidney | CPT/HCPCS: 81003; 99212 ==

== ENCOUNTER 2024-10-10 16:20 | Emergency (ER) | payer OTHER, SELFPAY ==
--- NOTE | ~2024-10-10 | XR_ITS ---
CLINICAL HISTORY: fever, cough 2 view chest x-ray Comparison: 06/15/2024 Findings: Lungs are clear without acute infiltrates. No pneumothorax. Heart size normal. No acute bony abnormalities. Impression: No acute processes This document has been electronically signed by: Dov Waters MD on 10/10/2024 17:28:34
[2024-10-10 16:30] VITALS: BP 140/94; PULSE 121; RESP 18; TEMP 37.8; O2SAT 98; BMI 31.0
--- NOTE | 2024-10-10 16:32 | ED_ITS ---
HPI - General Adult General Chief complaint: Upper Respiratory Symptoms Stated complaint: sinus pain Time Seen by Provider: 10/10/24 18:11 Source: patient Limitations: no limitations History of Present Illness ED Provider: Michelle Flores PA-C HPI narrative: 54-year-old female with a history of asthma, GERD, hyperlipidemia, hypertension, fatty liver disease, obesity, anxiety who presents with cough and cold symptoms x2 days. Associated sinus pain and pressure with nasal congestion, sore throat, headache, generalized malaise, nausea vomiting diarrhea and fevers. No one sick with similar symptoms. Related Data Home Medications ?Medication ?Instructions ?Recorded ?Confirmed lancets 28 gauge #100 ea 05/05/20 08/20/24 blood-glucose meter #1 ea 06/13/20 08/20/24 aspirin 81 mg tablet,delayed 81 mg PO DAILY 01/23/24 08/20/24 release (Adult Low Dose Aspirin) Previous Rx's ?Medication ?Instructions ?Recorded blood sugar diagnostic #100 ea 06/13/20 Shower Chair #1 ea 07/03/21 fluticasone propionate 50 1 spray intranasal DAILY #9.9 mL 01/18/23 mcg/actuation nasal spray,suspension (Flonase Allergy Relief) nebulizers (Aeroneb Go Nebulizer) #1 ea 04/30/23 blood pressure monitor (Blood #1 ea 10/09/23 Pressure Kit) FreeStyle Fortunato 3 [place] #1 ea 01/16/24 (blood-glucose,folder inspector,cont) FreeStyle [place] 3 Sensor #6 ea 01/16/24 (blood-glucose sensor) Dexcom G7 Manager Simulation #1 ea 01/23/24 (blood-glucose,folder inspector,cont) Dexcom G7 Sensor (blood-glucose #9 ea 01/23/24 sensor) Dex4 Glucose 15 gram/33 gram oral 33 g PO .every 15 minutes PRN 01/31/24 gel packet (dextrose) BG<70 #198 grams flash glucose sensor (FreeStyle #1 ea 02/25/24 Fortunato 14 Day Sensor kit) pantoprazole 20 mg tablet,delayed 40 mg (2 x 20 mg) PO DAILY #180 03/18/24 release tabs albuterol sulfate 5 mg/mL(0.5 %) 2.5 mg (0.5 mL) inhalation Q6H PRN 06/15/24 solution for nebulization shortness of breath or wheezing #20 mL nebulizers (AeroEclipse II #1 ea 06/15/24 Nebulizer) cyclobenzaprine 10 mg tablet 10 mg PO BID #90 tabs 06/22/24 sennosides 8.6 mg tablet (senna) 17.2 mg (2 x 8.6 mg) PO BEDTIME 06/24/24 for constipation #60 tabs cetirizine 10 mg tablet 10 mg PO DAILY #90 tabs 06/25/24 albuterol sulfate 90 mcg/actuation 2 puff PO Q6H PRN for wheezing 08/07/24 aerosol inhaler #6.7 grams pravastatin 20 mg tablet 20 mg PO DAILY #90 tabs 08/28/24 lorazepam 1 mg tablet 1 mg PO DAILY 30 days #30 tabs 10/05/24 ondansetron HCl 4 mg tablet 4 mg PO Q8H PRN nausea and 10/10/24 vomiting #10 tabs Allergies Allergy/AdvReac Type Severity Reaction Status Date / Time oxycodone [From PERCOCET] Allergy Intermediate VOMITING, Verified 10/10/24 16:32 N/V codeine [Codeine] Allergy Mild HIVES Verified 10/10/24 16:32 atorvastatin Allergy Unknown Headaches Verified 10/10/24 16:32 bupropion [From WELLBUTRIN] Allergy Unknown PALPITATION Verified 10/10/24 16:32 S morphine [MORPHINE] Allergy Unknown NIGHTMARES Verified 10/10/24 16:32 naproxen [NAPROXEN] Allergy Unknown RASH Verified 10/10/24 16:32 sertraline Allergy Unknown Unknown Verified 10/10/24 16:32 simvastatin Allergy Unknown Unknown Verified 10/10/24 16:32 zolpidem [ZOLPIDEM] Allergy Unknown PALPITATION Verified 10/10/24 16:32 S Review of Systems 2 Review of Systems: Yes all other systems are reviewed and are negative Constitutional: Constitutional: Reports fatigue, Reports fever(s), Reports headache(s) and Reports malaise ENT: Reports headache(s), Reports nasal congestion and Reports sore throat Cardiovascular: Cardiovascular: Denies chest pain and Denies dyspnea Respiratory: Respiratory: Denies chest congestion, Reports cough, Denies dyspnea and Denies wheezing Gastrointestinal: Gastrointestinal: Denies abdominal pain, Reports diarrhea, Reports nausea and Reports vomiting Musculoskeletal: Musculoskeletal: Reports myalgias Neurologic: Reports headache(s) Endocrine: Endocrine: Reports fatigue Allergic/Immunologic: Allergic/Immunologic: Denies wheezing PMFSH Past Medical History Attestation statement: The following information was validated with the patient. Medical History General medical exam Hypertension Vertigo Dysuria Upper respiratory tract infection Nausea and vomiting Abdominal pain Fall Otitis media IBS (irritable bowel syndrome) Uterine cancer History of gestational diabetes Genital herpes Hypercholesterolemia Obstructive sleep apnea Vitamin D deficiency Lumbar degenerative disc disease Hypertension Insomnia Fatty liver GERD (gastroesophageal reflux disease) Asthma Obesity (BMI 30-39.9) NAFLD (nonalcoholic fatty liver disease) Surgical History History of esophagogastroduodenoscopy (EGD) History of lumbar surgery History of total abdominal hysterectomy and bilateral salpingo-oophorectomy History of tubal ligation Hx of endoscopy History of colonoscopy Family History Family History Father Hx of colon cancer, stage III Mother Hx of heat stroke Acute CVA (cerebrovascular accident) Hypertension Diabetes Maternal Grandmother Breast cancer Stroke Stomach cancer Maternal Grandfather CVD (cardiovascular disease) Myocardial infarction Son In good health Sister No problems noted. Sister No problems noted. Sister No problems noted. Brother No problems noted. Brother No problems noted. Social History Social History Housing: Apartment Alcohol intake: never Patient Tobacco Use Status: Former Tobacco user Tobacco use type: Cigarette Years Smoked: 2002 quit CBD oil e-Cigarette/Vaping Use: Never Used Second Hand Smoke Exposure: No Advance Directives: No Advance Directives Information Provided: No Do you have a plan to hurt others: No Plan service: No Current occupational status: disabled Current occupational exposures/hazards: No Cognitive needs: No Hearing needs: No Vision needs: No Physical Exam ED Vital Signs: Vital Signs - 24 hr 10/10/24 16:30 10/10/24 18:04 Temperature 100.1 F 99.9 F Pulse Rate 121 H 113 H Respiratory Rate 18 20 Blood Pressure 140/94 H 149/90 H Pulse Oximetry 98 99 Oxygen Delivery Method Room Air Room Air BMI result Body Mass Index 31.0 Const Other: Alert well-appearing Orientation/consciousness: patient oriented x3 Resp Other: Nonlabored respirations, lungs clear to auscultation no wheezing Cardio Other: Normal peripheral perfusion Skin Other: Warm dry no rash Neuro General: patient oriented x3, gait normal, no focal motor deficits and CN's II- XI intact bilaterally Psych Other: Calm cooperative Course Course Course Narrative: RME, this is a rapid medical exam performed by Alex Jj please refer to primary provider for complete H&P- 54 year old female presents for evaluation of fever, body aches, facial pain. She reports a negative flu and COVID test at home. She just returned from [place]. Plan for labs, viral swabs, strep testing and chest x-ray. Medical Decision Making Medical Decision Making [facility] Narrative: 54-year-old female with a history of asthma, GERD, hyperlipidemia, hypertension, fatty liver disease, obesity, anxiety who presents with cough and cold symptoms x2 days. Associated sinus pain and pressure with nasal congestion, sore throat, headache, generalized malaise, nausea vomiting diarrhea and fevers. No one sick with similar symptoms. No relevant chronic issues History: Per patient I have considered the following differential diagnoses: Viral syndrome, strep pharyngitis, acute intra-abdominal pathology, viral gastroenteritis Plan: Screening labs including a viral panel, strep screen and chest x-ray were obtained from triage, the patient has COVID. Everything else was negative. She has no complaint of abdominal pain, imaging not warranted. We will send with home care instructions. I have independently reviewed the following tests: Labs: Slight leukocytosis, not anemic, no electrolyte abnormality, viral panel positive for COVID, negative for strep Chest x-ray:Findings: Lungs are clear without acute infiltrates. No pneumothorax. Heart size normal. No acute bony abnormalities. Impression: No acute processes Lab Data 10/10/24 16:55 10/10/24 16:55 Labs: Lab Results 10/10/24 10/10/24 Range/Units 16:55 17:03 WBC 11.3 H (4.8-10.8) X10*3/uL RBC 5.37 (4.20-5.50) X10*6/uL Hgb 14.4 (12.0-16.0) g/dl Hct 42.9 (37.0-47.0) % MCV 79.9 L (80.0-98.0) fL MCH 26.8 L (27.0-33.0) pg MCHC 33.6 (31.0-35.0) g/dl RDW 14.5 (11.0-16.0) % Plt Count 359 (160-400) X10*3/uL MPV 9.1 L (9.4-12.3) fL Immature Gran % (Auto) 0.4 (0.0-0.4) % Neut % (Auto) 68.2 (45-73) % Lymph % (Auto) 19.5 L (20-40) % [place] % (Auto) 10.6 (2-11) % Eos % (Auto) 0.9 (0-4) % Baso % (Auto) 0.4 (0-2) % Lymph # (Auto) 2.2 (1.2-4.9) X10*3/uL [place] # (Auto) 1.2 (0.1-1.2) X10*3/uL Eos # (Auto) 0.1 (0.0-0.4) X10*3/uL Baso # (Auto) 0.1 (0.0-0.2) X10*3/uL Abs Immat Gran (auto) 0.05 H (0.00-0.03) X10*3/uL Absolute Neuts (auto) 7.7 (2.0-8.3) x10*3/uL Absolute Nucleated RBC 0.000 (0.0-0.012) X10*3/uL Nucleated RBC % (auto) 0.0 (0.0-0.2) /100WBC Sodium 138 (135-145) mmol/L Potassium 3.8 (3.3-5.1) mmol/L Chloride 105 (96-108) mmol/L Carbon Dioxide 21 L (22-29) mmol/L Anion Gap 16 (12-20) BUN 10 (9-16) mg/dL Creatinine 0.85 (0.5-1.4) mg/dL Estim Creat Clear Calc 68.2 Estimated GFR > 60 Random Glucose 143 H (60-115) mg/dL Calcium 9.9 (8.4-10.2) mg/dL Total Bilirubin 0.6 (0.0-1.0) mg/dL AST 67 H (5-31) U/L ALT 83 H (0-31) U/L Alkaline Phosphatase 83 (39-117) U/L Total Protein 8.3 H (6.5-8.0) g/dL Albumin 4.5 (3.5-5.0) g/dL Lipase 20 (8-78) U/L Urine Color Yellow Urine Appearance Clear Urine pH 6.0 (5.0-9.0) Ur Specific [place] 1.010 (1.005-1.025) Urine Protein Negative (Neg-Trace) mg/dL Urine Glucose (UA) Negative (Negative) mg/dL Urine Ketones Negative (Negative) mg/dL Urine Blood Small (1+) H (Negative) Urine Nitrite Negative (Negative) Ur Leukocyte Esterase Trace H (Negative) Urine RBC 0-2 (0-2) /HPF Urine WBC 0-5 (0-5) /HPF Ur Squamous Epith Cells 0-2 (0-2) /HPF Urine Bacteria None Seen (None Seen) Hyaline Casts 0-2 (0-2) /LPF Influenza Type A (PCR) NEGATIVE (Negative) Influenza Type B (PCR) NEGATIVE (Negative) RSV RNA Qual (PCR) NEGATIVE (Negative) SARS-CoV-2 RNA (RT-PCR) POSITIVE A (Negative) S. pyogenes GrpA LAKISHA Negative (Negative) Discharge Plan Discharge Clinical Impression: COVID-19 Patient Disposition: Home, Self-Care Instructions: COVID-19 (Coronavirus Disease 2019) (ED), Social Distancing Guidelines for COVID-19 (ED) Additional Instructions: You were found to have COVID. See home care instructions. You should self isolate for 5 days. For your headache body ache and fever, you can alternate between [id number] Tylenol 1000 mg taken every 8 hours, with vhci-sbi-wuorxnh ibuprofen 600 mg taken every 6 hours with food. Use your nasal sprays for nasal congestion, continue to take your Joan. You could also use uiku-pom-onvrsft nasal saline spray, to further alleviate your congestion. [id number] Mucinex is also beneficial to help with the nasal congestion it will thin your secretions. Uses Zofran as needed for nausea. Follow up with your primary care provider as needed. Be sure to rest and increase your fluid intake, including consuming electrolyte based fluids. Prescriptions: New ondansetron HCl 4 mg tablet 4 mg PO Q8H PRN (Reason: nausea and vomiting) Qty: 10 0RF No Action (DME) blood sugar diagnostic Strip See Rx Instructions .ROUTE .MEDSUPPLY Qty: 100 0RF Rx Instructions: As directed check BS QD (DME) nebulizers [Aeroneb Go Nebulizer] Misc See Rx Instructions .Route Qty: 1 0RF Rx Instructions: As directed (DME) blood pressure monitor [Blood Pressure Kit] Kit See Rx Instructions .ROUTE .MEDSUPPLY Qty: 1 0RF Rx Instructions: As directed (DME) Dexcom G7 Manager Simulation Misc See Rx Instructions .Route Qty: 1 0RF Rx Instructions: As directed (DME) Dexcom G7 Sensor Device See Rx Instructions .Route Qty: 9 3RF Rx Instructions: every 10 days dextrose [Dex4 Glucose] 15 gram/33 gram gel in packet 33 g PO .every 15 minutes PRN (Reason: BG<70) Qty: 198 3RF pantoprazole 20 mg tablet,delayed release (DR/EC) 40 mg PO DAILY Qty: 180 2RF cyclobenzaprine 10 mg tablet 10 mg PO BID Qty: 90 1RF sennosides [senna] 8.6 mg tablet 17.2 mg PO BEDTIME Qty: 60 6RF albuterol sulfate 90 mcg/actuation HFA aerosol inhaler 2 puff PO Q6H PRN (Reason: for wheezing) Qty: 6.7 3RF pravastatin 20 mg tablet 20 mg PO DAILY Qty: 90 2RF lorazepam 1 mg tablet 1 mg PO DAILY 30 Days Qty: 30 0RF (DME) lancets 28 gauge misc See Rx Instructions topical .MEDSUPPLY Qty: 100 Rx Instructions: As directed (DME) blood-glucose meter Kit See Rx Instructions .ROUTE DAILY Qty: 1 Rx Instructions: As directed (DME) Shower Chair Misc See Rx Instructions .Route Qty: 1 0RF Rx Instructions: As directed fluticasone propionate [Flonase Allergy Relief] 50 mcg/actuation spray,suspension 1 spray intranasal DAILY Qty: 9.9 1RF Rx Instructions: administer into each nostril aspirin [Adult Low Dose Aspirin] 81 mg tablet,delayed release (DR/EC) 81 mg PO DAILY (DME) FreeStyle Fortunato 14 Day Sensor Kit See Rx Instructions miscellaneous .MEDSUPPLY Qty: 1 0RF Rx Instructions: interiano patient - albuterol sulfate 5 mg/mL solution for nebulization 2.5 mg inhalation Q6H PRN (Reason: shortness of breath or wheezing) Qty: 20 0RF (DME) nebulizers [AeroEclipse II Nebulizer] Misc See Rx Instructions .Route Qty: 1 0RF Rx Instructions: As directed cetirizine 10 mg tablet 10 mg PO DAILY Qty: 90 0RF (DME) FreeStyle Fortunato 3 [place] Misc See Rx Instructions .Route Qty: 1 0RF Rx Instructions: As directed (DME) FreeStyle Fortunato 3 Sensor Device See Rx Instructions .Route Qty: 6 3RF Rx Instructions: every 14 days Print Language: Belarusian
[2024-10-10 17:00] LABS: MANUAL DIFF FLAG NO
[2024-10-10 17:06] LABS: Basophils Absolute Auto 0.1 X10*3/uL (0.0-0.2); Basophils Percent Auto 0.4 % (0-2); Eosinophils Absolute Auto 0.1 X10*3/uL (0.0-0.4); Eosinophils Percent Auto 0.9 % (0-4); Hematocrit 42.9 % (37.0-47.0); Hemoglobin 14.4 g/dl (12.0-16.0); Imm Gran Abs Auto 0.05 X10*3/uL (0.00-0.03); Imm Gran Pct Auto 0.4 % (0.0-0.4); Lymphocytes Absolute Auto 2.2 X10*3/uL (1.2-4.9); Lymphocytes Percent Auto 19.5 % (20-40); Mean Corpuscular HGB Conc 33.6 g/dl (31.0-35.0); Mean Corpuscular Hemoglobin 26.8 pg (27.0-33.0); Mean Corpuscular Volume 79.9 fL (80.0-98.0); Mean Platelet Volume 9.1 fL (9.4-12.3); Monocytes Absolute Auto 1.2 X10*3/uL (0.1-1.2); Monocytes Percent Auto 10.6 % (2-11); Neutrophils Absolute Auto 7.7 x10*3/uL (2.0-8.3); Neutrophils Percent Auto 68.2 % (45-73); Platelet Count 359 X10*3/uL (160-400); Red Blood Count 5.37 X10*6/uL (4.20-5.50); Red Cell Distribution Width 14.5 % (11.0-16.0); White Blood Count 11.3 X10*3/uL (4.8-10.8)
[2024-10-10 17:14] LABS: Appearance Urine Clear; Color Urine Yellow; Glucose Urine UA Negative (Negative); Leukocyte Esterase Urine Trace (Negative); Nitrite Urine Negative (Negative); UMIC TRIGGER UACC YES; Urine Blood Small (1+) (Negative); Urine Ketones Negative (Negative); Urine Protein Negative (Neg-Trace)
[2024-10-10 17:21] LABS: IDNOW Serial# 6674DD1D; Strep A Nucleic Acid Negative (Negative)
[2024-10-10 17:30] LABS: Alanine Aminotransferase 83 U/L (0-31); Albumin Level 4.5 g/dL (3.5-5.0); Alkaline Phosphatase 83 U/L (39-117); Anion Gap 16 (12-20); Aspartate Amino Transferase 67 U/L (5-31); Bilirubin Total 0.6 mg/dL (0.0-1.0); Blood Urea Nitrogen 10 mg/dL (9-16); Calcium 9.9 mg/dL (8.4-10.2); Carbon Dioxide 21 mmol/L (22-29); Chloride 105 mmol/L (96-108); Creatinine Clr Calc Pharmacy 68.2; Estimated Glomerular Filt Rate > 60; Glucose Random 143 mg/dL (60-115); Lipase 20 U/L (8-78); Potassium 3.8 mmol/L (3.3-5.1); Sodium 138 mmol/L (135-145); Total Protein 8.3 g/dL (6.5-8.0)
[2024-10-10 17:43] LABS: Bacteria Urine None Seen (None Seen); Hyaline Casts Urine 0-2 /LPF (0-2); RBC Urine 0-2 /HPF (0-2); Squamous Epithelial Cell Urine 0-2 /HPF (0-2); WBC Urine 0-5 /HPF (0-5)
[2024-10-10 17:44] LABS: Influenza A PCR NEGATIVE (Negative); Influenza B PCR NEGATIVE (Negative); Resp Syncy Virus RNA Qual PCR NEGATIVE (Negative); SARS COV2 PCR INHOUSE POSITIVE (Negative)
[2024-10-10 18:04] VITALS: BP 149/90; PULSE 113; RESP 20; TEMP 37.7; O2SAT 99
[2024-10-10 19:13] VITALS: BP 131/93; PULSE 104; RESP 20; TEMP 37.7; O2SAT 98
[2024-10-10 19:15] VITALS: BP 131/93; PULSE 104; RESP 20; TEMP 37.7; O2SAT 98
== END 2024-10-10 19:16 | disposition home or self-care (01) ==
PROVIDERS: Physician Assistant; Emergency Provider Emergency Medicine; PCP Internal Medicine
DX: U07.1 COVID-19 (principal); R50.9 Fever, unspecified; R05.9 Cough, unspecified; Z79.899 Other long term (current) drug therapy
CPT/HCPCS: 0241U; 71046; 80053; 81001; 83690; 85025; 87651; 99283

== ENCOUNTER → 2024-10-10 16:33 | Outpatient (BNV) | payer OTHER, SELFPAY | PROVIDERS: PCP Internal Medicine; Visit Provider Radiology Diagnostic Radiology | DX: R05.9 Cough, unspecified (principal); R50.9 Fever, unspecified | CPT/HCPCS: 71046 ==

== ENCOUNTER 2024-12-15 08:37 | Outpatient (REF) | payer OTHER, SELFPAY ==
[2024-12-15 09:25] LABS: MANUAL DIFF FLAG NO
[2024-12-15 09:40] LABS: Hematocrit 42.9 % (37.0-47.0); Hemoglobin 13.9 g/dl (12.0-16.0); Imm Gran Abs Auto 0.02 X10*3/uL (0.00-0.03); Imm Gran Pct Auto 0.2 % (0.0-0.4); Lymphocytes Absolute Auto 3.1 X10*3/uL (1.2-4.9); Mean Corpuscular HGB Conc 32.4 g/dl (31.0-35.0); Mean Corpuscular Hemoglobin 26.6 pg (27.0-33.0); Mean Corpuscular Volume 82.2 fL (80.0-98.0); NRBC Abs Auto 0.000 X10*3/uL (0.0-0.012); NRBC Pct Auto 0.0 /100WBC (0.0-0.2); Platelet Count 352 X10*3/uL (160-400); Red Blood Count 5.22 X10*6/uL (4.20-5.50); White Blood Count 8.1 X10*3/uL (4.8-10.8)
[2024-12-15 10:18] LABS: Hemoglobin A1C 147.8199 umol/L; Total Hemoglobin (HGBA1C) 3657.8118 umol/L
[2024-12-15 10:40] LABS: Alanine Aminotransferase 45 U/L (0-31); Albumin Level 4.4 g/dL (3.5-5.0); Alkaline Phosphatase 83 U/L (39-117); Anion Gap 12 (12-20); Aspartate Amino Transferase 42 U/L (5-31); Blood Urea Nitrogen 14 mg/dL (9-16); Calcium 9.6 mg/dL (8.4-10.2); Carbon Dioxide 27 mmol/L (22-29); Chloride 109 mmol/L (96-108); Cholesterol 195 mg/dL (<200); Estimated Glomerular Filt Rate 54; HDL Cholesterol 42 mg/dL (>40); Potassium 4.4 mmol/L (3.3-5.1); Sodium 144 mmol/L (135-145); Total Protein 7.6 g/dL (6.5-8.0); Triglycerides 172 mg/dL (<150)
[2024-12-15 10:50] LABS: Free T4 (Free Thyroxine) 0.94 ng/dL (0.71-1.85); Thyroid Stimulating Hormone 3.00 uIU/mL (0.32-4.0)
[2024-12-15 11:09] LABS: Folate 11.1 ng/mL (> or = 4.0); Vitamin B12 335 pg/mL (200-900)
[2024-12-15 11:19] LABS: Appearance Urine Clear; Glucose Urine UA Negative (Negative); PH 5.5 (5.0-9.0); Specific Gravity - Urine 1.020 (1.005-1.025); UMIC TRIGGER UACC YES
== END 2024-12-15 08:38 | disposition home or self-care (01) ==
LOC: HO.LAB 08:37
PROVIDERS: PCP Internal Medicine; Visit Provider Internal Medicine
DX: E78.00 Pure hypercholesterolemia, unspecified (principal); R73.01 Impaired fasting glucose; E66.9 Obesity, unspecified; Z68.33 Body mass index [BMI] 33.0-33.9, adult; K21.9 Gastro-esophageal reflux disease without esophagitis; K76.0 Fatty (change of) liver, not elsewhere classified; N20.0 Calculus of kidney; M51.369 Other intervertebral disc degeneration, lumbar region without mention of lumbar back pain or lower extremity pain; J45.20 Mild intermittent asthma, uncomplicated; R30.0 Dysuria; Z79.899 Other long term (current) drug therapy; Z13.31 Encounter for screening for depression
CPT/HCPCS: 36415; 80053; 80061; 81001; 81003; 82306; 82607; 82746; 83036; 84439; 84443; 85025; 96127; 99212

== ENCOUNTER 2024-12-15 08:37 | Outpatient (AMB) | payer OTHER, SELFPAY ==
[2024-12-15 08:41] VITALS: BP 112/82; PULSE 84; RESP 18; TEMP 36.3; O2SAT 98; BMI 33.3
--- NOTE | 2024-12-15 08:41 | A.OFFPC_ITS ---
Vital Signs 12/15/24 08:41 Height 5 ft 1 in Weight 176 lb 2 oz BMI 33.3 BP 112/82 Blood Pressure Location Lt brachial Position Sitting Respiration 18 Pulse 84 Pulse Source Pulse Oximeter Temp 97.3 F Temp Source Temporal Artery Scan Pulse Oximetry (%) 98 Oxygen Delivery Method Room Air Intake Visit Reasons: low back pain, IGT Allergies oxycodone (From PERCOCET) Allergy (Intermediate, Verified 12/15/24 08:44) VOMITING, N/V codeine (Codeine) Allergy (Mild, Verified 12/15/24 08:44) HIVES atorvastatin Allergy (Unknown, Verified 12/15/24 08:44) Headaches bupropion (From WELLBUTRIN) Allergy (Unknown, Verified 12/15/24 08:44) PALPITATIONS morphine (MORPHINE) Allergy (Unknown, Verified 12/15/24 08:44) NIGHTMARES naproxen (NAPROXEN) Allergy (Unknown, Verified 12/15/24 08:44) RASH sertraline Allergy (Unknown, Verified 12/15/24 08:44) Unknown simvastatin Allergy (Unknown, Verified 12/15/24 08:44) Unknown zolpidem (ZOLPIDEM) Allergy (Unknown, Verified 12/15/24 08:44) PALPITATIONS Tobacco use date assessed: 12/15/24 Dental Screening Dental Screen Date: 12/15/24 Did you have a dental visit in the last 12 months?: Yes Did you have a dental problem in the last 6 months where you did not have access to dental care?: No Was dental information given to patient?: Patient has dentist [facility] Medical History General medical exam Hypertension Vertigo Dysuria Upper respiratory tract infection Nausea and vomiting Abdominal pain Fall Otitis media IBS (irritable bowel syndrome) Uterine cancer History of gestational diabetes Genital herpes Hypercholesterolemia Obstructive sleep apnea Vitamin D deficiency Lumbar degenerative disc disease Hypertension Insomnia Fatty liver GERD (gastroesophageal reflux disease) Asthma Obesity (BMI 30-39.9) NAFLD (nonalcoholic fatty liver disease) Surgical History History of esophagogastroduodenoscopy (EGD) History of lumbar surgery History of total abdominal hysterectomy and bilateral salpingo-oophorectomy History of tubal ligation Hx of endoscopy History of colonoscopy Family History Father Hx of colon cancer, stage III Mother Hx of heat stroke Acute CVA (cerebrovascular accident) Hypertension Diabetes Maternal Grandmother Breast cancer Stroke Stomach cancer Maternal Grandfather CVD (cardiovascular disease) Myocardial infarction Son In good health Sister No problems noted. Sister No problems noted. Sister No problems noted. Brother No problems noted. Brother No problems noted. Social History Housing: Apartment Alcohol intake: never Patient Tobacco Use Status: Former Tobacco user Tobacco use type: Cigarette Years Smoked: 2002 quit CBD oil e-Cigarette/Vaping Use: Never Used Second Hand Smoke Exposure: No service: No Current occupational status: disabled Current occupational exposures/hazards: No Cognitive needs: No Hearing needs: No Vision needs: No Questionnaire PHQ-9 Over the last 2 weeks, how often have you been bothered by any of the following problems? 1. Little interest or pleasure in doing things: not at all 2. Feeling down, depressed, or hopeless: not at all 3. Trouble falling or staying asleep, or sleeping too much: not at all 4. Feeling tired or having little energy: nearly every day 5. Poor appetite or overeating: nearly every day 6. Feeling bad about yourself - or that you are a failure or have let yourself or your family down: not at all 7. Trouble concentrating on things, such as reading the newspaper or watching television: not at all 8. Moving or speaking so slowly that other people could have noticed. Or the opposite - being so fidgety or restless that you have been moving around a lot more than usual: not at all 9. Thoughts that you would be better off or of hurting yourself in some way: not at all Total score: 6 Depression Screening Interpretation: Positive Depression Screening Done: Yes Source: Developed by Drs. Miki Koo, Monica Childers, Chris Watt and colleagues, with an educational adrien from [employer]. Thrive Questionnaire Date Thrive assessed: 08/20/24 I am a: Patient What is your living situation today?: I choose not to answer this question Within the past 12 months, did the food you bought not last and you didn't have the money to get more?: I choose not to answer this question Within the past 12 months, did you worry whether your food would run out before you got money to buy more?: I choose not to answer this question Do you have trouble paying for medicines?: I choose not to answer this question Do you have trouble getting transportation to medical appointments?: I choose not to answer this question Do you have trouble paying your heating and electricity bill?: I choose not to answer this question Do you have trouble taking care of your child, family member or friend?: I choose not to answer this question Do you have trouble with day-to-day activities such as bathing, preparing meals, shopping, managing finances, etc.?: I choose not to answer this question Are you currently unemployed and looking for a job?: I choose not to answer this question Are you interested in more education?: I choose not to answer this question Currently or been in a relationship where the following occur: I choose not to answer THRIVE Score: 0 AUDIT C Alcohol Use Questionnaire (AUDIT-C) 1. How often do you have a drink containing alcohol?: Never 3. How often do you have six or more drinks on one occasion?: Never Total Score: 0 ELDA-7 AMB Questionnaire ELDA-7 Date ELDA - 7 assessed: 08/20/24 Feeling nervous, anxious, or on edge: 0 = Not at all Not being able to stop or control worryin = Nearly every day Worrying too much about different things: 0 = Not at all Trouble relaxin = Nearly every day Being so restless that it is hard to sit still: 0 = Not at all Becoming easily annoyed or irritable: 3 = Nearly every day Feeling afraid as if something awful might happen: 3 = Nearly every day Total ELDA-7 score (0-4 normal; 5-9 mild; 10-14 moderate; 15-21 severe): 12 Source: Developed by Drs. Miki Koo, Monica Childers, Chris Watt and colleagues, with an educational adrien from [employer]. Physical exam (Primary Care) Vital Signs: Last Vital Signs Temp 97.3 F 12/15/24 08:41 Pulse 84 12/15/24 08:41 Resp 18 12/15/24 08:41 BP 112/82 12/15/24 08:41 Pulse Ox 98 12/15/24 08:41 Oxygen Delivery Method Room Air 12/15/24 08:41 BMI result Body Mass Index 33.3 Tobacco/Smoking Status: Tobacco use Status Tobacco use date assessed 12/15/24 12/15/24 08:46 Patient Tobacco Use Status Former Tobacco user 12/15/24 08:44 Tobacco use type Cigarette 12/15/24 08:44 e-Cigarette/Vaping Use Never Used 12/15/24 08:44 PHQ-9: PHQ-9 Score PHQ-9: Total score 6 12/15/24 08:46 Depression Screening Interpretation: Positive Thrive Assessment: Date of Thrive Assessment Date Thrive assessed 08/20/24 12/15/24 08:44 Currently or been in a relationship where the following occur: I choose not to answer Const General: alert; No acute distress Eyes Conjunctivae: conjunctivae normal Resp Auscultation: clear to auscultation bilaterally Cardio Rate: regular rate Rhythm: regular rhythm GI Inspection: Yes normal to inspection Extrem General: Yes normal to inspection and No edema Coding Level of Care Code Est Pt Level 4 (81514) Complex EM visit Add On G2211 Diagnoses Hypercholesterolemia E78.00 Impaired fasting glucose R73.01 Obesity (BMI 30-39.9) E66.9 Gastroesophageal reflux disease without esophagitis K21.9 Esophagitis presence: without esophagitis NAFLD (nonalcoholic fatty liver disease) K76.0 Nephrolithiasis N20.0 Lumbar degenerative disc disease M51.36 Mild intermittent asthma without complication J45.20 Asthma severity: mild Asthma persistence: intermittent Asthma complication type: uncomplicated Assessment & Plan Assessment & Plan (1) Hypercholesterolemia: Code(s): E78.00 - Pure hypercholesterolemia, unspecified Category: Medical Plan: Avoid fried foods, chicken skin, eggs, butter margarine, pastries and meat. Be it pork or beef they have a lot of cholesterol LDL goal of less than 130 and triglyceride of less than 150 patient is on pravastatin (2) Impaired fasting glucose: Code(s): R73.01 - Impaired fasting glucose Category: Medical Plan: Decrease the amount of carbohydrate intake, pasta, bread, rice and potatoes are all sugar and that is aside from all the sweet stuff, remember that fruits are good but they are Sweet also. (3) Obesity (BMI 30-39.9): Code(s): E66.9 - Obesity, unspecified Category: Medical Plan: Diet and exercise (4) GERD (gastroesophageal reflux disease): Comment: Pantoprazole 40 mg QAM- avoid culprits, dietary modification give trial to sucralfate Code(s): K21.9 - Gastro-esophageal reflux disease without esophagitis Category: Medical Qualifiers: Esophagitis presence: without esophagitis Qualified Code(s): K21.9 - Gastro-esophageal reflux disease without esophagitis Plan: Avoid the foods that causes that usually spicy foods, tomato products, juices, coffee, soda and foods that your sensitive to. After eating do not lie down, allow 3-4 hours before in lie down. And keep the head of bed above 30 degrees to avoid the acid from going up. (5) NAFLD (nonalcoholic fatty liver disease): Comment: avoid weight gain, good cholesterol and glucose control Code(s): K76.0 - Fatty (change of) liver, not elsewhere classified Category: Medical Plan: Low-fat diet and exercise (6) Nephrolithiasis: Code(s): N20.0 - Calculus of kidney Category: Medical Plan: Patient follows up with urology, keep well hydrated advise lemon water (7) Lumbar degenerative disc disease: Code(s): M51.36 - Other intervertebral disc degeneration, lumbar region Category: Medical Plan: Keep active and exercise (8) Asthma: Code(s): J45.909 - Unspecified asthma, uncomplicated Category: Medical Qualifiers: Asthma severity: mild Asthma persistence: intermittent Asthma complication type: uncomplicated Qualified Code(s): J45.20 - Mild intermittent asthma, uncomplicated Plan: Patient on albuterol inhaler as needed Plan History of Present Illness The patient is a 54-year-old female presenting for a follow-up visit to manage multiple chronic conditions and review recent test results. The patient has a history of hepatic steatosis, asthma, gastroesophageal reflux disease, and hypertension. She also suffers from obstructive sleep apnea, which she cannot tolerate CPAP therapy for, and hypercholesterolemia. Additionally, she has lumbar degenerative disc disease, impaired glucose tolerance, and generalized anxiety disorder. The patient was last seen in August 2024 and has had a colon cancer screening with a stool test and a mammogram in May 2024. She follows up with podiatry for bilateral plantar fasciitis and visited the ER in September 2023 for an upper respiratory tract infection, which was suspected to be COVID-19. In August, she consulted urology for kidney stones, but an ultrasound was negative. Her blood work from October 10 showed mild leukocytosis, normal platelet count, normal electrolytes, and normal renal function. Blood sugar was elevated at 143, and liver function tests remained elevated. Her last cholesterol test in June 2024 showed an LDL of 93 and triglycerides of 203. Health Maintenance - Colon cancer screening with stool test completed - Mammogram completed in May 2024 - Shingles vaccination administered Social History - The patient reports staying home most of the time due to financial constraints and her son's recent job loss. Review of Systems - Respiratory: Reports cough, denies use of albuterol inhaler recently - Neurological: Reports dizziness, denies palpitations - Ear, Nose, Throat: Reports ear pain, denies pain upon pulling - Genitourinary: Reports mild burning sensation during urination, denies presence of kidney stones Physical Exam - Ear Examination: Pain noted in one ear, no pain upon pulling, no palpitations reported Results - Labs: Mild leukocytosis, normal platelet count, normal electrolytes, normal renal function, elevated blood sugar at 143, elevated liver function tests - Cholesterol Test: LDL of 93, triglycerides of 203 - Imaging: Negative ultrasound for kidney stones Plan The patient will continue with her current management plan for hepatic steatosis, asthma, GERD, and hypertension. For obstructive sleep apnea, alternative management strategies will be considered due to intolerance to CPAP therapy. Hypercholesterolemia will be managed with pravastatin, aiming for an LDL goal of less than 130 and triglycerides of less than 150. Impaired glucose tolerance will be addressed with dietary modifications and exercise. The patient is advised to maintain hydration and consider lemon water to prevent kidney stone formation. A urinalysis will be conducted to assess for any urinary issues. Follow-up appointments with podiatry and urology are recommended to monitor plantar fasciitis and kidney health, respectively. Patient was informed and verbally consented to the use of an ambient scribe for clinic note documentation during this visit. Discussion Notes During the visit, I discussed with the patient the management of her chronic con ditions, including hepatic steatosis, asthma, GERD, and hypertension. We reviewed her intolerance to CPAP therapy for obstructive sleep apnea and considered alternative management strategies. I emphasized the importance of managing hypercholesterolemia with pravastatin and maintaining dietary modifications and exercise for impaired glucose tolerance. We also discussed preventative measures for kidney stones, including hydration and lemon water. I recommended follow-up appointments with podiatry and urology to monitor her plantar fasciitis and kidney health. Patient Instructions - Continue current medications for hepatic steatosis, asthma, GERD, and hypertension. - Consider alternative treatments for sleep apnea if CPAP is intolerable. - Take pravastatin as prescribed and aim for LDL less than 130 and triglycerides less than 150. - Follow a low-fat diet and exercise regularly to manage glucose levels. - Stay hydrated and consider lemon water to prevent kidney stones. - Schedule follow-up appointments with podiatry and urology. - Complete urinalysis as discussed. Orders: Orders UA CC w/rflx Micro + Cult Today R30.0 - Dysuria
--- OUTSIDE RECORDS SUMMARY | 2024-12-15 08:56 | XMS_ITS | Clinical Summary ---
Author Organization [facility] ity Address [address] [place] [address] Care Team Providers Care Customer Service Specialist Name Role Phone Coreen Hernandez MD Primary Care Provider Social History Tobacco Use Types Packs/Day Years [...] ars (1 of 2 - PCV) 08/06/1987 Cervical Cancer Screening: P ap Smear 1989 Zoster Vaccines (1 of 2) 2018 Cholesterol Screening (Lipid Panel) 04/22/2022 Colorectal Cancer Screening: Colonoscopy 04/22/2022 HIV Screening 04/22/2022 Hepatitis C Screening 04/22/2022 Social Influencers of Health Screening 04/22/2022 Hypertension/CHF/CAD Annual BMP Blood Test 05/01/2022 COVID-19 Vaccine (1 - 2023-2 5 season) 2024 Depression Screening 05/20/2024 DTaP,Tdap,and Td Vaccines (2 - Td or Tdap) 06/07/2024 06/07/2014 Influenza Vaccine (#1) 2025 MMR Vaccines Aged Out 04/20/2011 No longer [...] age to complete this topic Care Teams Customer Service Specialist Relationship Specialty Start Date End Date Coreen Hernandez MD [address] [place] [address] [address] [facility] [place] [address] PCP - General Internal Medicine 01/04/14
== END 2024-12-15 09:10 | disposition home or self-care (01) ==
LOC: HO.HMCH 08:38
PROVIDERS: PCP Internal Medicine; Visit Provider Internal Medicine
DX: E78.00 Pure hypercholesterolemia, unspecified (principal); R73.01 Impaired fasting glucose; E66.9 Obesity, unspecified; Z68.33 Body mass index [BMI] 33.0-33.9, adult; K21.9 Gastro-esophageal reflux disease without esophagitis; K76.0 Fatty (change of) liver, not elsewhere classified; N20.0 Calculus of kidney; M51.369 Other intervertebral disc degeneration, lumbar region without mention of lumbar back pain or lower extremity pain; J45.20 Mild intermittent asthma, uncomplicated

== ENCOUNTER 2025-01-20 11:42 | Outpatient (AMB) | payer OTHER, SELFPAY ==
[2025-01-20 12:27] VITALS: BP 116/80; PULSE 91; TEMP 36.7; O2SAT 100; BMI 33.3
--- NOTE | 2025-01-20 12:27 | AM.OFFWIN_ITS ---
Intake Vital Signs 01/20/25 12:27 Height 5 ft 1 in Weight 176 lb BMI 33.3 BP 116/80 Blood Pressure Location Lt brachial Position Sitting Pulse 91 Pulse Source Pulse Oximeter Temp 98.0 F Temp Source Oral Pulse Oximetry (%) 100 Oxygen Delivery Method Room Air Intake Visit Reasons: EP-neck pain, dizziness, headaches Intake Note: pt presents with neck pain, dizziness and headaches instantly when flight landed roughly 3 days Patient Tobacco Use Status: Former Tobacco user Allergies oxycodone (From PERCOCET) Allergy (Intermediate, Verified 01/20/25 12:30) VOMITING, N/V codeine (Codeine) Allergy (Mild, Verified 01/20/25 12:30) HIVES atorvastatin Allergy (Unknown, Verified 01/20/25 12:30) Headaches bupropion (From WELLBUTRIN) Allergy (Unknown, Verified 01/20/25 12:30) PALPITATIONS morphine (MORPHINE) Allergy (Unknown, Verified 01/20/25 12:30) NIGHTMARES naproxen (NAPROXEN) Allergy (Unknown, Verified 01/20/25 12:30) RASH sertraline Allergy (Unknown, Verified 01/20/25 12:30) Unknown simvastatin Allergy (Unknown, Verified 01/20/25 12:30) Unknown zolpidem (ZOLPIDEM) Allergy (Unknown, Verified 01/20/25 12:30) PALPITATIONS Do you need a note to return to daycare/school/sports/work: Yes HPI HPI Comments History of Present Illness Details History of Present Illness - The patient is a 54-year-old female pr esenting with neck pain and dizziness following a recent flight. - The patient experienced a rapid descen t during a layover, leading to neck pain and dizziness. - She has a history of spinal fusion and herniated discs at L1 and L2, with recent injections for management. - The neck pain is severe with muscle sp asms and stiffness, particularly in the cervical region. - The pain radiates up to her head and s he has a headache with some dizziness. - The patient uses Excedrin for pain man agement due to a heart condition requiring aspirin, and cyclobenzaprine for muscle spasms prescribed by her PCP. - She has a history of vertigo, managed with meclizine, and prefers physical therapy over medication for long-term management. - She iced her neck last night at home a nd had some relief. - She denies falls, syncope, CP, SOB, ab d pain, nausea, vomiting, or visual changes. - She denies numbness or tingling in the arms or back pain. Physical Exam General: Cooperative, healthy appearing, comfortable, no acute distress and well developed Orientation: Patient oriented x3 Limitations: Limited neck movement, unable to tuck chin to chest due to pain Eyes: Appearance normal, both eyes and all related structures Neck: Normal visual inspection, limited ROM due to pain. Flexion and extension was intact. TTP of the cervical spinous processes and bilateral cervical paraspinous muscles. TTP of the SCM bilaterally and trapezius bilaterally. Respiratory: Normal respiratory effort and able to speak in complete sentences. Clear to auscultation bilaterally Cardiovascular: Regular rate and rhythm. Normal S1 and S2 Skin: No rashes or lesions noted Neuro: Patient oriented x3. Extremities: Normal to inspection. FROM of the shoulders bilaterally. Strength is 5/5 on the UE bilaterally. Patient was informed and verbally consented to the use of an ambient scribe for clinic note documentation during this visit. [facility] Medical History General medical exam Hypertension Vertigo Dysuria Upper respiratory tract infection Nausea and vomiting Abdominal pain Fall Otitis media IBS (irritable bowel syndrome) Uterine cancer History of gestational diabetes Genital herpes Hypercholesterolemia Obstructive sleep apnea Vitamin D deficiency Lumbar degenerative disc disease Hypertension Insomnia Fatty liver GERD (gastroesophageal reflux disease) Asthma Obesity (BMI 30-39.9) NAFLD (nonalcoholic fatty liver disease) Surgical History History of esophagogastroduodenoscopy (EGD) History of lumbar surgery History of total abdominal hysterectomy and bilateral salpingo-oophorectomy History of tubal ligation Hx of endoscopy History of colonoscopy Family History Father Hx of colon cancer, stage III Mother Hx of heat stroke Acute CVA (cerebrovascular accident) Hypertension Diabetes Maternal Grandmother Breast cancer Stroke Stomach cancer Maternal Grandfather CVD (cardiovascular disease) Myocardial infarction Son In good health Sister No problems noted. Sister No problems noted. Sister No problems noted. Brother No problems noted. Brother No problems noted. Social History Housing: Apartment Alcohol intake: never Patient Tobacco Use Status: Former Tobacco user Tobacco use type: Cigarette Years Smoked: 2002 quit CBD oil e-Cigarette/Vaping Use: Never Used Second Hand Smoke Exposure: No service: No Current occupational status: disabled Current occupational exposures/hazards: No Cognitive needs: No Hearing needs: No Vision needs: No Review of Systems Const All systems reviewed & are unremarkable except as noted in HPI and below Physical Exam Vital Signs: Last Vital Signs Temp 98.0 F 01/20/25 12:27 Pulse 91 01/20/25 12:27 BP 116/80 01/20/25 12:27 Pulse Ox 100 01/20/25 12:27 Oxygen Delivery Method Room Air 01/20/25 12:27 BMI result Body Mass Index 33.3 Assessment & Plan Assessment & Plan (1) Neck pain: Code(s): M54.2 - Cervicalgia (2) Dizziness: Code(s): R42 - Dizziness and giddiness Plan Most likely cervical strain vs pinched nerve vs muscle spasm Has improvement after ice last night plan 1. Cervicalgia - Initiate a short course of prednisone for inflammation control. - Continue cyclobenzaprine 10 mg every 8 hours for muscle relaxation. - Use heat and ice therapy as needed for symptom relief. - Activities as tolerated - Consider physical therapy for long-term management once acute symptoms are c ontrolled. 2. Dizziness - Dizziness is likely due to nerve pinching from muscle spasms. - Continue use of meclizine as needed for vertigo management. - Consider physical therapy for vestibular rehabilitation if symptoms persist. Orders: Orders PT Evaluation and Treatment Today M54.2 - Cervicalgia Medications: New prednisone 50 mg PO QAM 5 tabs 0RF Coding Level of Care Code Est Pt Level 4 (72287) Diagnoses Neck pain M54.2 Dizziness R42
--- OUTSIDE RECORDS SUMMARY | 2025-01-20 14:04 | XMS_ITS | Clinical Summary ---
Author Organization [facility] ity Address [address] [place] [address] Care Team Providers Care Railroad Car Cleaner Name Role Phone Coreen Hernandez MD Primary Care Provider [phone] Social History Tobacco Use Types Packs/Day Years [...] 04/22/2022 Hypertension/CHF/CAD Annual BMP Blood Test 05/01/2022 Depression Screening 05/20/2024 DTaP,Tdap,and Td Vaccines (2 - Td or Tdap) 06/07/2024 06/07/2014 COVID-19 Vaccine (2023-2 5 season) 2025 Influenza Vaccine (#1) 2025 MMR Vaccines Aged [...] age to complete this topic Care Teams Railroad Car Cleaner Relationship Specialty Start Date End Date Coreen Hernandez MD [address] [place] [address] [address] [facility] [place] [address] PCP - General Internal Medicine 01/04/14
== END 2025-01-20 13:14 | disposition home or self-care (01) ==
PROVIDERS: PCP Internal Medicine; Visit Provider Physician Assistant Medical
DX: M54.2 Cervicalgia (principal); R42 Dizziness and giddiness

== ENCOUNTER → 2025-01-20 11:42 | Outpatient (BNVA) | payer OTHER, SELFPAY | PROVIDERS: PCP Internal Medicine; Visit Provider Physician Assistant Medical | DX: M54.2 Cervicalgia (principal); R51.9 Headache, unspecified; R42 Dizziness and giddiness | CPT/HCPCS: 99212 ==

== ENCOUNTER 2025-03-10 17:13 | Emergency (ER) | payer OTHER, SELFPAY ==
--- OUTSIDE RECORDS SUMMARY | 2025-03-10 22:19 | XMS_ITS | Clinical Summary ---
Author Organization [facility] ity Address [address] [place] [address] Care Team Providers Care Lock Plater Name Role Phone Coreen Hernandez MD Primary Care Provider [phone] Social History Tobacco Use Types Packs/Day Years Used Date Smoking Tobacco: Never Assessed Comments Unknown Sex and Gender Information Value Date Recorded Sex Assigned at Not on file Legal Sex Female 3:01 AM EST Gender Identity Not on file Sexual Orientation Not on file Plan of Treatment Health Maintenance Due Date Last Done Comments Breast Cancer Screening 1968 Colorectal Cancer Screening: Colonoscopy 1968 Hepatitis A Vaccines (1 of 2 - Risk 2-dose series) 08/06/1987 Hepatitis B Vaccines (1 of 3 - 19+ 3-dose series) 08/06/1987 Pneumococcal Vaccine: 50+ Ye ars (1 of 2 - PCV) 08/06/1987 Cervical Cancer Screening: P ap Smear 1989 RSV Immunization Adult Patie nts (1 - Risk 50-74 years 1-dose series) 2018 Zoster Vaccines (1 of 2) 2018 Cholesterol Screening (Lipid Panel) 04/22/2022 HIV Screening 04/22/2022 Hepatitis C Screening 04/22/2022 Social Influencers of Health Screening 04/22/2022 Hypertension/CHF/CAD Annual BMP Blood Test 05/01/2022 Depression Screening 05/20/2024 DTaP,Tdap,and Td Vaccines (2 - Td or Tdap) 06/07/2024 06/07/2014 COVID-19 Vaccine (1 - 2023-2 5 season) 2025 Influenza Vaccine (#1) 2025 [...] age to complete this topic Care Teams Lock Plater Relationship Specialty Start Date End Date Coreen Hernandez MD [address] [place] [address] Dr [address] [facility] [place] [address] PCP - General Internal Medicine 01/04/14
== END 2025-03-10 18:34 | disposition left against medical advice (07) ==
LOC: HO.ED 18:24
PROVIDERS: Emergency Provider Emergency Medicine; PCP Internal Medicine
DX: H92.03 Otalgia, bilateral (principal); Z53.21 Procedure and treatment not carried out due to patient leaving prior to being seen by health care provider

== ENCOUNTER 2025-03-29 09:18 | Outpatient (REF) | payer OTHER, SELFPAY ==
--- NOTE | ~2025-03-29 | US_ITS ---
CLINICAL HISTORY: N20.0 - Calculus of kidney US Renal Comparison: US/MT/SR - US KIDNEY BILATERAL - 08/18/24 11:32 EDT Findings: Right kidney normal size and echotexture, 10 cm length. Left kidney normal size and echotexture, 9.9 cm length. No collecting system dilatation of either kidney. Normal color Doppler. IMPRESSION: 1. Normal kidneys. This document has been electronically signed by: Charissa Cintron MD on 03/30/2025 09:13:57
--- OUTSIDE RECORDS SUMMARY | 2025-03-29 10:11 | XMS_ITS | Clinical Summary ---
Author Organization [facility]y Address [address] [place] [address] Care Team Providers Care Python Web Developer Name Role Phone Coreen Hernandez MD Primary Care Provider [phone] Social History Tobacco Use Types Packs/Day Years [...] age to complete this topic Care Teams Python Web Developer Relationship Specialty Start Date End Date Coreen Hernandez MD [address] [place] [address] Dr [address] [facility] [place] [address] PCP - General Internal Medicine 01/04/14
== END 2025-03-29 09:19 | disposition home or self-care (01) ==
LOC: HO.US 09:18
PROVIDERS: PCP Internal Medicine; Visit Provider Urology
DX: N20.0 Calculus of kidney (principal)
CPT/HCPCS: 76775

== ENCOUNTER → 2025-03-29 09:20 | Outpatient (BNV) | payer OTHER, SELFPAY | PROVIDERS: PCP Internal Medicine; Visit Provider Radiology Diagnostic Radiology | DX: N20.0 Calculus of kidney (principal) | CPT/HCPCS: 76775 ==

== ENCOUNTER 2025-04-06 07:14 | Outpatient (REF) | payer OTHER, SELFPAY ==
[2025-04-06 07:31] LABS: MANUAL DIFF FLAG NO
[2025-04-06 07:52] LABS: Hematocrit 41.4 % (37.0-47.0); Hemoglobin 13.4 g/dl (12.0-16.0); Imm Gran Abs Auto 0.03 X10*3/uL (0.00-0.03); Imm Gran Pct Auto 0.3 % (0.0-0.4); Lymphocytes Absolute Auto 3.3 X10*3/uL (1.2-4.9); Mean Corpuscular HGB Conc 32.4 g/dl (31.0-35.0); Mean Corpuscular Hemoglobin 26.8 pg (27.0-33.0); Mean Corpuscular Volume 82.8 fL (80.0-98.0); NRBC Abs Auto 0.000 X10*3/uL (0.0-0.012); NRBC Pct Auto 0.0 /100WBC (0.0-0.2); Platelet Count 361 X10*3/uL (160-400); Red Blood Count 5.00 X10*6/uL (4.20-5.50); White Blood Count 8.7 X10*3/uL (4.8-10.8)
[2025-04-06 07:54] LABS: Appearance Urine Clear; Glucose Urine UA Negative (Negative); PH 5.5 (5.0-9.0); Specific Gravity - Urine 1.025 (1.005-1.025); UMIC TRIGGER UACC YES
[2025-04-06 08:21] LABS: Alanine Aminotransferase 35 U/L (0-31); Albumin Level 4.4 g/dL (3.5-5.0); Alkaline Phosphatase 86 U/L (39-117); Anion Gap 12 (12-20); Aspartate Amino Transferase 40 U/L (5-31); Blood Urea Nitrogen 14 mg/dL (9-16); Calcium 9.4 mg/dL (8.4-10.2); Carbon Dioxide 26 mmol/L (22-29); Chloride 107 mmol/L (96-108); Cholesterol 171 mg/dL (<200); Estimated Glomerular Filt Rate > 60; HDL Cholesterol 41 mg/dL (>40); Magnesium 2.0 mg/dL (1.6-2.6); Potassium 3.7 mmol/L (3.3-5.1); Sodium 141 mmol/L (135-145); Total Protein 7.5 g/dL (6.5-8.0); Triglycerides 188 mg/dL (<150)
[2025-04-06 08:37] LABS: Free T4 (Free Thyroxine) 0.97 ng/dL (0.71-1.85); Thyroid Stimulating Hormone 2.50 uIU/mL (0.32-4.0)
[2025-04-06 08:50] LABS: Folate 10.1 ng/mL (> or = 4.0); Vitamin B12 282 pg/mL (200-900)
== END 2025-04-06 07:15 | disposition home or self-care (01) ==
LOC: HO.LAB 07:14
PROVIDERS: PCP Internal Medicine; Visit Provider Internal Medicine
DX: R30.0 Dysuria (principal); R73.01 Impaired fasting glucose; E78.00 Pure hypercholesterolemia, unspecified
CPT/HCPCS: 36415; 80053; 80061; 81001; 82306; 82607; 82746; 83036; 83735; 84439; 84443; 85025

== ENCOUNTER 2025-04-07 08:52 | Outpatient (AMB) | payer OTHER, SELFPAY ==
[2025-04-07 09:03] VITALS: BP 128/76; PULSE 79; O2SAT 98; BMI 32.1
--- NOTE | 2025-04-07 09:03 | A.OFFPC_ITS ---
Vital Signs 04/07/25 09:03 Height 5 ft 1 in Weight 170 lb BMI 32.1 BP 128/76 Blood Pressure Location Lt brachial Position Sitting Pulse 79 Pulse Source Pulse Oximeter Pulse Oximetry (%) 98 Oxygen Delivery Method Room Air Intake Visit Reasons: Follow Up Allergies oxycodone (From PERCOCET) Allergy (Intermediate, Verified 04/07/25 09:03) VOMITING, N/V codeine (Codeine) Allergy (Mild, Verified 04/07/25 09:03) HIVES atorvastatin Allergy (Unknown, Verified 04/07/25 09:03) Headaches bupropion (From WELLBUTRIN) Allergy (Unknown, Verified 04/07/25 09:03) PALPITATIONS morphine (MORPHINE) Allergy (Unknown, Verified 04/07/25 09:03) NIGHTMARES naproxen (NAPROXEN) Allergy (Unknown, Verified 04/07/25 09:03) RASH sertraline Allergy (Unknown, Verified 04/07/25 09:03) Unknown simvastatin Allergy (Unknown, Verified 04/07/25 09:03) Unknown zolpidem (ZOLPIDEM) Allergy (Unknown, Verified 04/07/25 09:03) PALPITATIONS Medication List - Last Reconciled 04/07/25 by Coreen Hernandez MD albuterol sulfate 2.5 mg (0.5 mL) inhalation Q6H PRN albuterol sulfate 90 mcg/actuation 2 puffs PO Q6H PRN aspirin (Adult Low Dose Aspirin) 81 mg PO DAILY blood pressure monitor (Blood Pressure Kit) As directed blood sugar diagnostic As directed check BS QD blood-glucose meter As directed cetirizine 10 mg PO DAILY cyanocobalamin (vitamin B-12) 1,000 mcg PO DAILY cyclobenzaprine 10 mg PO BID Dex4 Glucose (dextrose) 33 grams PO .every 15 minutes PRN NS Dexcom G7 Att[employer] Lodging [employer]ilities (blood-glucose,cloth printing back tender,cont) As directed NS Dexcom G7 Sensor (blood-glucose sensor) every 10 days NS flash glucose sensor (FreeStyle Fortunato 14 Day Sensor kit) interiano patient - fluticasone propionate 50 mcg/actuation (Flonase Allergy Relief) 1 spray intranasal DAILY FreeStyle Fortunato 3 [place] (blood-glucose,cloth printing back tender,cont) As directed NS FreeStyle Fortunato 3 Sensor (blood-glucose sensor) every 14 days NS lancets As directed lorazepam 1 mg PO DAILY 30 days nebulizers (Aeroneb Go Nebulizer) As directed nebulizers (AeroEclipse II Nebulizer) As directed ondansetron HCl 4 mg PO Q8H PRN pantoprazole 40 mg (2 x 20 mg) PO DAILY pravastatin 20 mg PO DAILY sennosides (senna) 17.2 mg (2 x 8.6 mg) PO BEDTIME Shower Chair As directed Tobacco use date assessed: 12/15/24 Dental Screening Dental Screen Date: 12/15/24 HPI HPI Comments History of Present Illness Details History of Present Illness The patient is a 54-year-old obese female presenting for a follow-up visit for management of multiple chronic conditions. She has noted a 6-pound weight loss and has a history of fatty liver, asthma, GERD, hypertension, obstructive sleep apnea with CPAP intolerance, hypercholesterolemia, lumbar degenerative disc disease, impaired glucose tolerance, anxiety disorder, and nephrolithiasis. The patient was last seen in November 2024. She visited an urgent care center on January 20 for dizziness and neck pain, was diagnosed with cervical strain, and was treated with steroids and physical therapy. A kidney ultrasound performed by urology in March showed normal kidneys with no evidence of kidney stones. Blood work from April 06 showed a normal blood count without anemia, normal electrolytes, and normal renal function. Her blood sugar was 108, but her hemoglobin A1c improved from 5.8 in November to 5.6. Liver enzymes remain mildly elevated, LDL was 93, triglycerides were 188, and vitamin B12 was low at 282. Regarding her lumbar degenerative disc disease, a CT scan in 2023 revealed disc bulging and mild degenerative changes, particularly at T12-L1 and L1-L2. She has previously received injections for her back pain. The back pain is significant enough that she has required a personal banking representative for chores and has had to use a cane. The patient reports recent onset of dysphagia, with a sensation of choking even with water, and has stopped eating meat. She has an upcoming appointment with gastroenterology. Her last colonoscopy was in April 2023 and her last mammogram was in May 2024. Health Maintenance The patient has not yet received her flu vaccine for the season and is encouraged to do so. Her cancer screenings, including a colonoscopy in April 2023 and a mammogram in May 2024, were noted. Social History - Functional Status: The patient has a p ersonal senior care assistant ([employer]) who helps with sweeping and mopping due to her back pain. - She experiences dizziness associated w ith her pain. - She lives on the first floor, but her bathroom is on the second floor; a prescription for a commode was provided to reduce fall risk. - Nutrition: The patient reports having lost 6 pounds. - She has stopped eating meat due to a c hoking sensation and nausea. Results - Labs (April 06): - Complete Blood Count: Normal, no anemi a. - Comprehensive Metabolic Panel: Normal electrolytes and renal function. - Blood sugar was 108. - Liver enzymes were noted to be mildly elevated. - Lipid Panel: LDL was 93 mg/dL and trig lycerides were 188 mg/dL. - Hemoglobin A1c: 5.6%. - Vitamin B12: Low at 282. - Vitamin D, Folic acid, and Thyroid fun ction: Normal. - Imaging: - Kidney Ultrasound (March 29): Emy l kidneys with no kidney stones. - CT Scan (2023): Showed lumbar disc bul ging and mild degenerative changes, particularly at T12-L1 and L1-L2. [facility] Medical History General medical exam Hypertension Vertigo Dysuria Upper respiratory tract infection Nausea and vomiting Abdominal pain Fall Otitis media IBS (irritable bowel syndrome) Uterine cancer History of gestational diabetes Genital herpes Hypercholesterolemia Obstructive sleep apnea Vitamin D deficiency Lumbar degenerative disc disease Hypertension Insomnia Fatty liver GERD (gastroesophageal reflux disease) Asthma Obesity (BMI 30-39.9) NAFLD (nonalcoholic fatty liver disease) Surgical History History of esophagogastroduodenoscopy (EGD) History of lumbar surgery History of total abdominal hysterectomy and bilateral salpingo-oophorectomy History of tubal ligation Hx of endoscopy History of colonoscopy Family History Father Hx of colon cancer, stage III Mother Hx of heat stroke Acute CVA (cerebrovascular accident) Hypertension Diabetes Maternal Grandmother Breast cancer Stroke Stomach cancer Maternal Grandfather CVD (cardiovascular disease) Myocardial infarction Son In good health Sister No problems noted. Sister No problems noted. Sister No problems noted. Brother No problems noted. Brother No problems noted. Social History Housing: Apartment Alcohol intake: never Patient Tobacco Use Status: Former Tobacco user Tobacco use type: Cigarette Years Smoked: 2002 quit CBD oil e-Cigarette/Vaping Use: Never Used Second Hand Smoke Exposure: No service: No Current occupational status: disabled Current occupational exposures/hazards: No Cognitive needs: No Hearing needs: No Vision needs: No Questionnaire Thrive Questionnaire Date Thrive assessed: 08/20/24 I am a: Patient What is your living situation today?: I choose not to answer this question Within the past 12 months, did the food you bought not last and you didn't have the money to get more?: I choose not to answer this question Within the past 12 months, did you worry whether your food would run out before you got money to buy more?: I choose not to answer this question Do you have trouble paying for medicines?: I choose not to answer this question Do you have trouble getting transportation to medical appointments?: I choose not to answer this question Do you have trouble paying your heating and electricity bill?: I choose not to answer this question Do you have trouble taking care of your child, family member or friend?: I choose not to answer this question Do you have trouble with day-to-day activities such as bathing, preparing meals, shopping, managing finances, etc.?: I choose not to answer this question Are you currently unemployed and looking for a job?: I choose not to answer this question Are you interested in more education?: I choose not to answer this question Currently or been in a relationship where the following occur: I choose not to answer THRIVE Score: 0 ELDA-7 AMB Questionnaire ELDA-7 Date ELDA - 7 assessed: 08/20/24 Source: Developed by Drs. Miki Koo, Monica Childers, Chris Watt and colleagues, with an educational adrien from [employer]. Review of Systems Narrative Review of Systems - General: Reports a 6-pound weight loss. - ENT: Reports ear popping with sneezing. - Denies ear pain. - Reports dysphagia and choking sensation, even with water. - Musculoskeletal: Reports significant back pain. - Neurological: Reports a history of dizziness. - Gastrointestinal: Reports nausea after eating chicken. Physical exam (Primary Care) Vital Signs: Last Vital Signs Pulse 79 04/07/25 09:03 BP 128/76 04/07/25 09:03 Pulse Ox 98 04/07/25 09:03 Oxygen Delivery Method Room Air 04/07/25 09:03 BMI result Body Mass Index 32.1 Tobacco/Smoking Status: Tobacco use Status Tobacco use date assessed 12/15/24 04/07/25 09:04 Patient Tobacco Use Status Former Tobacco user 04/07/25 09:04 Tobacco use type Cigarette 04/07/25 09:04 e-Cigarette/Vaping Use Never Used 04/07/25 09:04 Thrive Assessment: Date of Thrive Assessment Date Thrive assessed 08/20/24 04/07/25 09:04 Currently or been in a relationship where the following occur: I choose not to answer Narrative Physical Exam - Ears: No tenderness to palpation of the tragus or with traction of the pinna bilaterally. - Oropharynx: Mucosa appears normal without acute inflammation. Const General: alert; No acute distress Eyes Conjunctivae: conjunctivae normal Resp Auscultation: clear to auscultation bilaterally Cardio Rate: regular rate Rhythm: regular rhythm GI Inspection: Yes normal to inspection Extrem General: Yes normal to inspection and No edema Coding Level of Care Code Est Pt Level 4 (45288) Complex EM visit Add On G2211 Diagnoses Essential hypertension I10 Hypertension type: essential hypertension Hypercholesterolemia E78.00 Impaired fasting glucose R73.01 Obesity (BMI 30-39.9) E66.9 Gastroesophageal reflux disease without esophagitis K21.9 Esophagitis presence: without esophagitis NAFLD (nonalcoholic fatty liver disease) K76.0 Nephrolithiasis N20.0 Dysphagia R13.10 Assessment & Plan Assessment & Plan (1) Hypertension: Comment: Echocardiogram normal 65-70% January 2019 Code(s): I10 - Essential (primary) hypertension Category: Medical Qualifiers: Hypertension type: essential hypertension Qualified Code(s): I10 - Essential (primary) hypertension Plan: Patient's blood pressure has been good without any blood pressure medication (2) Hypercholesterolemia: Code(s): E78.00 - Pure hypercholesterolemia, unspecified Category: Medical Plan: Avoid fried foods, chicken skin, eggs, butter margarine, pastries and meat. Be it pork or beef they have a lot of cholesterol on pravastatin 20 mg once a day (3) Impaired fasting glucose: Code(s): R73.01 - Impaired fasting glucose Category: Medical Plan: Decrease the amount of carbohydrate intake, pasta, bread, rice and potatoes are all sugar and that is aside from all the sweet stuff, remember that fruits are good but they are Sweet also. (4) Obesity (BMI 30-39.9): Code(s): E66.9 - Obesity, unspecified Category: Medical Plan: Diet and exercise (5) GERD (gastroesophageal reflux disease): Comment: Pantoprazole 40 mg QAM- avoid culprits, dietary modification give trial to sucralfate Code(s): K21.9 - Gastro-esophageal reflux disease without esophagitis Category: Medical Qualifiers: Esophagitis presence: without esophagitis Qualified Code(s): K21.9 - Gastro-esophageal reflux disease without esophagitis Plan: Avoid the foods that causes that usually spicy foods, tomato products, juices, coffee, soda and foods that your sensitive to. After eating do not lie down, allow 3-4 hours before in lie down. And keep the head of bed above 30 degrees to avoid the acid from going up. (6) NAFLD (nonalcoholic fatty liver disease): Comment: avoid weight gain, good cholesterol and glucose control Code(s): K76.0 - Fatty (change of) liver, not elsewhere classified Category: Medical Plan: Low-fat diet and exercise (7) Nephrolithiasis: Code(s): N20.0 - Calculus of kidney Category: Medical Plan: Recent ultrasound negative. Keep well hydrated (8) Dysphagia: Code(s): R13.10 - Dysphagia, unspecified Category: Medical Plan Plan Patient was informed and verbally consented to the use of an ambient scribe for clinic note documentation during this visit. 1. Vitamin B12 Deficiency The patient's B12 level is low at 282. A prescription for B12 supplementation will be sent to the pharmacy. The patient was instructed to take it daily for the first month and then can transition to every other day or weekly thereafter. 2. Impaired Glucose Tolerance The patient's Hemoglobin A1c has improved to 5.6 from 5.8, which is a good trend. The plan is to continue management with diet and exercise. 3. Hypercholesterolemia The patient's LDL is 93, which is below the goal of 100. Triglycerides are mildly elevated at 188, but not high enough to warrant additional medication at this time. Continue current dose of pravastatin 20 mg. 4. Lumbar Degenerative Disc Disease The patient has a history of chronic back pain and degenerative changes on imaging. To improve safety and reduce fall risk, particularly given her assoc iated dizziness, a prescription for a bedside commode will be provided. 5. Dysphagia The patient reports a new onset of choking sensation with liquids and solids. She has a scheduled appointment with gastroenterology for further evaluation, which is appropriate. In the meantime, she is advised to cut her food into small pieces and chew thoroughly. 6. Non-Alcoholic Fatty Liver Disease (Nafld) The patient's liver enzymes remain persistently and mildly elevated. The plan is to await her scheduled gastroenterology evaluation. 7. Hypertension The patient reports that her blood pressure has been well-controlled without medication. The plan is to continue monitoring. Discussion Notes I reviewed the recent lab results from March with the patient. I highlighted the positive trend in her hemoglobin A1c, which has decreased to 5.6, and her LDL cholesterol, which is at goal at 93. I also discussed the low B12 level and informed her I would be sending a prescription for supplementation, explaining the initial daily dosing followed by a maintenance schedule. We discussed her ongoing back pain and her report of dizziness. To mitigate fall risk, I explained the benefit of a bedside commode and provided a prescription for one. Regarding her ear popping, I explained that this is a normal physiological process and reassured her. We also discussed her new symptom of dysphagia, and I advised her to continue with her scheduled gastroenterology appointment for a thorough evaluation. In the interim, I advised her to cut food into small pieces to prevent choking. Patient Instructions - I have sent a prescription for Vitamin B12 to your pharmacy. - Please take it every day for the first month, and after that, you can take it every other day or once a week. - Continue taking your pravastatin for cholesterol as prescribed. - Continue to focus on diet and exercise to keep your blood sugar under control. - To help with your difficulty walking and to prevent falls, I have provided a prescription for a bedside commode. - Be sure to cut your food into small pieces and chew well to help with your swallowing problems. - It is important that you go to your scheduled appointment with the senior backup administrator (stomach doctor) to check on your swallowing problems and liver. - Please get your annual flu shot. Medications: New cyanocobalamin (vitamin B-12) 1,000 mcg PO DAILY 30 caps 3RF E53.8 - Deficiency of other specified B group vitamins [bedside commode] As directed 1 ea 0RF M51.36 - Other intervertebral disc degeneration, lumbar region [Gloves medium] As directed 1 ea 12RF M51.36 - Other intervertebral disc degeneration, lumbar region
--- OUTSIDE RECORDS SUMMARY | 2025-04-07 16:31 | XMS_ITS | Clinical Summary ---
Author Organization [facility] ity Address [address] [place] [address] Care Team Providers Care Pulmonary Nurse Practitioner Name Role Phone Coreen Hernandez MD Primary Care Provider [phone] Social History Tobacco Use Types Packs/Day Years [...] Tdap) 06/07/2024 06/07/2014 COVID-19 Vaccine (1 - 2024-2 6 season) 2025 Influenza Vaccine (#1) 2025 MMR [...] age to complete this topic Care Teams Pulmonary Nurse Practitioner Relationship Specialty Start Date End Date Coreen Hernandez MD [address] [place] [address] Dr [address] [facility] [place] [address] PCP - General Internal Medicine 01/04/14
== END 2025-04-07 10:03 | disposition home or self-care (01) ==
LOC: HO.HMCH 08:53
PROVIDERS: PCP Internal Medicine; Visit Provider Internal Medicine
DX: I10 Essential (primary) hypertension (principal); E78.00 Pure hypercholesterolemia, unspecified; E66.9 Obesity, unspecified; Z68.32 Body mass index [BMI] 32.0-32.9, adult; R73.01 Impaired fasting glucose; K21.9 Gastro-esophageal reflux disease without esophagitis; N20.0 Calculus of kidney; K76.0 Fatty (change of) liver, not elsewhere classified; R13.10 Dysphagia, unspecified

== ENCOUNTER → 2025-04-07 08:52 | Outpatient (BNVA) | payer OTHER, SELFPAY | PROVIDERS: PCP Internal Medicine; Visit Provider Internal Medicine | DX: I10 Essential (primary) hypertension (principal); E78.00 Pure hypercholesterolemia, unspecified; R73.01 Impaired fasting glucose; E66.9 Obesity, unspecified; K21.9 Gastro-esophageal reflux disease without esophagitis; K76.0 Fatty (change of) liver, not elsewhere classified; N20.0 Calculus of kidney; R13.10 Dysphagia, unspecified; Z68.32 Body mass index [BMI] 32.0-32.9, adult | CPT/HCPCS: 99212 ==

== ENCOUNTER 2025-04-21 10:16 | Outpatient (AMB) | payer OTHER, SELFPAY ==
--- NOTE | 2025-04-21 10:22 | MHC.OFFVIS ---
Intake Visit Reasons: 6m/US/UA Intake Note: Patient is present for 6M/US/UA Urology Medication:NONE Antibiotic Allergy:NONE Blood Thinner:ASPIRIN Credit Review Analyst Required: No Allergies oxycodone (From PERCOCET) Allergy (Intermediate, Verified 04/21/25 10:49) VOMITING, N/V codeine (Codeine) Allergy (Mild, Verified 04/21/25 10:49) HIVES atorvastatin Allergy (Unknown, Verified 04/21/25 10:49) Headaches bupropion (From WELLBUTRIN) Allergy (Unknown, Verified 04/21/25 10:49) PALPITATIONS morphine (MORPHINE) Allergy (Unknown, Verified 04/21/25 10:49) NIGHTMARES naproxen (NAPROXEN) Allergy (Unknown, Verified 04/21/25 10:49) RASH sertraline Allergy (Unknown, Verified 04/21/25 10:49) Unknown simvastatin Allergy (Unknown, Verified 04/21/25 10:49) Unknown zolpidem (ZOLPIDEM) Allergy (Unknown, Verified 04/21/25 10:49) PALPITATIONS Medication List - Last Reconciled 04/21/25 by MARILYN Longoria- albuterol sulfate 2.5 mg (0.5 mL) inhalation Q6H PRN albuterol sulfate 90 mcg/actuation 2 puffs PO Q6H PRN aspirin (Adult Low Dose Aspirin) 81 mg PO DAILY [bedside commode As directed] blood pressure monitor (Blood Pressure Kit) As directed blood sugar diagnostic As directed check BS QD blood-glucose meter As directed cetirizine 10 mg PO DAILY cyanocobalamin (vitamin B-12) 1,000 mcg PO DAILY cyclobenzaprine 10 mg PO BID Dex4 Glucose (dextrose) 33 grams PO .every 15 minutes PRN NS Dexcom G7 Curbing Stonecutter (blood-glucose,radial router operator,cont) As directed NS Dexcom G7 Sensor (blood-glucose sensor) every 10 days NS flash glucose sensor (FreeStyle Fortunato 14 Day Sensor kit) interiano patient - fluticasone propionate 50 mcg/actuation (Flonase Allergy Relief) 1 spray intranasal DAILY FreeStyle Fortunato 3 [place] (blood-glucose,radial router operator,cont) As directed NS FreeStyle Fortunato 3 Sensor (blood-glucose sensor) every 14 days NS [Gloves medium As directed] lancets As directed lorazepam 1 mg PO DAILY 30 days nebulizers (Aeroneb Go Nebulizer) As directed nebulizers (AeroEclipse II Nebulizer) As directed ondansetron HCl 4 mg PO Q8H PRN pantoprazole 40 mg (2 x 20 mg) PO DAILY pravastatin 20 mg PO DAILY sennosides (senna) 17.2 mg (2 x 8.6 mg) PO BEDTIME Shower Chair As directed HPI Comments Details: Shante is a very pleasant 54-year-old female patient of Dr. Hernandez. She has a past medical history of hypertension, vertigo, IBS, uterine cancer follows with Dr. White, hypercholesteremia, obstructive sleep apnea can not tolerate CPAP, vitamin-D deficiency, lumbar degenerative disc disease, insomnia, fatty liver, GERD, asthma, and obesity. She presents to the office today for follow-up of her nephrolithiasis. In discussion with the patient today she denies having had any bothersome urinary issues or concerns since her last office visit here. Recent renal imaging results reviewed with the patient today 04/13 bilateral kidneys are normal in size and echotexture. No collecting system dilatation or renal calculi noted bilaterally per radiology report. She denies urinary urgency, urinary frequency, incontinence, nocturia, hematuria, dysuria, foul smelling urine, changes to urinary stream, flank pain, fever, and or chills. She is happy with her current voiding parameters. In office urinalysis results reviewed with the patient today. She does endorse to be drinking plenty of water daily. She discusses her recent intentional loss of approximately 6 lb as well as the gift of a new car that her son has given her for [place]. She otherwise offers no other issues or concerns at this time. [facility] Medical History General medical exam Hypertension Vertigo Dysuria Upper respiratory tract infection Nausea and vomiting Abdominal pain Fall Otitis media IBS (irritable bowel syndrome) Uterine cancer History of gestational diabetes Genital herpes Hypercholesterolemia Obstructive sleep apnea Vitamin D deficiency Lumbar degenerative disc disease Hypertension Insomnia Fatty liver GERD (gastroesophageal reflux disease) Asthma Obesity (BMI 30-39.9) NAFLD (nonalcoholic fatty liver disease) Surgical History History of esophagogastroduodenoscopy (EGD) History of lumbar surgery History of total abdominal hysterectomy and bilateral salpingo-oophorectomy History of tubal ligation Hx of endoscopy History of colonoscopy Family History Father Hx of colon cancer, stage III Mother Hx of heat stroke Acute CVA (cerebrovascular accident) Hypertension Diabetes Maternal Grandmother Breast cancer Stroke Stomach cancer Maternal Grandfather CVD (cardiovascular disease) Myocardial infarction Son In good health Sister No problems noted. Sister No problems noted. Sister No problems noted. Brother No problems noted. Brother No problems noted. Social History Housing: Apartment Alcohol intake: never Patient Tobacco Use Status: Former Tobacco user Tobacco use type: Cigarette Years Smoked: 2002 quit CBD oil e-Cigarette/Vaping Use: Never Used Second Hand Smoke Exposure: No service: No Current occupational status: disabled Current occupational exposures/hazards: No Cognitive needs: No Hearing needs: No Vision needs: No Review of Systems Const All systems reviewed & are unremarkable except as noted in HPI and below Physical Exam Const General: cooperative, healthy appearing, comfortable, no acute distress, well developed, alert and awake Nutritional Appearance: overweight Orientation/consciousness: patient oriented x3 Limitations: no limitations HEENT Head: Yes normal to inspection, Yes normocephalic and Yes atraumatic Ears: hearing grossly normal bilaterally Eyes General: appearance normal, both eyes and all related structures Neck Neck: Yes normal visual inspection and Yes trachea midline Chest Chest palpation & inspection: normal inspection of the chest Resp Effort & Inspection: normal respiratory effort and able to speak in complete sentences Cardio Rate: regular rate GI Inspection: Yes normal to inspection General: Yes no CVA tenderness Back/Spine/Pelvis Back: no CVA tenderness Skin General skin exam: no rashes or lesions noted Neuro General: patient oriented x3 Extrem General: Yes normal to inspection Psych Appearance: grossly normal and well kempt Mental Status: mental status grossly normal Speech and movement: Normal speech and movement present and Clear speech present Affect: normal affect Attitude: cooperative Thought process: Normal thought process present Thought content: Normal thought content present Insight: Fair insight present (Psych) Judgement: Fair judgement present (Psych) Results AMB Urinalysis, Automated UA Leukoctes 0 Clifford/uL Last Edit by BRUNA Cuevas on 04/21/25 10:35 UA Nitrite Negative Last Edit by Corazon Pineda [facility] on 04/21/25 10:35 UA Urobilinogen 0.2 mg/dL Last Edit by Corazon Pineda [facility] on 04/21/25 10:35 UA Protein 15 mg/dL Last Edit by Corazon Pineda [facility] on 04/21/25 10:35 UA pH 5.5 Last Edit by Corazon Pineda [facility] on 04/21/25 10:35 UA Blood 0 Adams/uL Last Edit by Corazon Pineda [facility] on 04/21/25 10:35 UA Specific Chemult 1.030 Last Edit [facility]on [facility] on 04/21/25 10:35 UA Ketone Negative Last Edit by Corazon Pineda [facility] on 04/21/25 10:35 UA Bilirubin 0 mg/dL Last Edit by Corazon Pineda [facility] on 04/21/25 10:35 UA Glucose 0 mg/dL Last Edit by Corazon Pineda [facility] on 04/21/25 10:35 Results Reviewed Results Reviewed: Date of Service: 03/29/25 Procedure(s): US renal BI Findings: Right kidney normal size and echotexture, 10 cm length. Left kidney normal size and echotexture, 9.9 cm length. No collecting system dilatation of either kidney. Normal color Doppler. IMPRESSION: 1. Normal kidneys. Assessment & Plan Assessment & Plan (1) Nephrolithiasis: Code(s): N20.0 - Calculus of kidney Category: Medical Plan In office urinalysis results reviewed with the patient today; as noted above. Most recent renal imaging results reviewed with the patient today; as noted above. She currently denies any bothersome urinary issues or concerns. She reports be happy with current voiding parameters. We discussed continuation of surveillance monitoring. We also discussed the importance of continuing with adequate hydration relation to nephrolithiasis as well as overall health and well-being. Will obtain renal ultrasound in 1 year. Follow-up in 1 year with imaging; or sooner with any issues, concerns, and or questions. Orders: Orders AMB Urinalysis Automated Today Z13.9 - Encounter for screening, unspecified Patient Instructions: The patient had an opportunity to ask questions regarding the treatment plan. All questions were answered. Physical exam, labs, and imaging were discussed and reviewed in detail. As well as risks, benefits, and discussion of treatment choices. No major barriers to understanding were identified. The patient expressed understanding and agreement with the above treatment plan. The patient was made aware they should contact our office by phone for worsening of their current condition, the appearance of new symptoms, or with any questions or concerns. Compliance is encouraged with any medications and follow up testing that is ordered. It is a privilege to be allowed the opportunity to participate in? your urological care.? Again, if you have any questions or concerns If you have any questions or concerns please do not hesitate to contact me. The office is [phone]. This note is constructed using voice recognition software. While every effort has been made to ensure accuracy operator helper errors may have been included. Yours sincerely, JD Longoria Coding Level of Care Code Est Pt Level 3 (78877) Diagnoses Nephrolithiasis N20.0
--- OUTSIDE RECORDS SUMMARY | 2025-04-21 11:43 | XMS_ITS | Clinical Summary ---
[facility] Address [address] [place] [address] Care Team Providers Care Youth Worker Name Role Phone Coreen Hernandez MD Primary Care Provider [phone] Social History Tobacco Use Types Packs/Day Years [...] age to complete this topic Care Teams Youth Worker Relationship Specialty Start Date End Date Coreen Hernandez MD [address] [place] [address] [address] [facility] [place] [address] PCP - General Internal Medicine 01/04/14
== END 2025-04-21 10:52 | disposition home or self-care (01) ==
LOC: HO.HUSH 10:16
PROVIDERS: PCP Internal Medicine; Visit Provider Nurse Practitioner Family
DX: Z13.9 Encounter for screening, unspecified (principal); N20.0 Calculus of kidney
CPT/HCPCS: 99213

== ENCOUNTER → 2025-04-21 10:16 | Outpatient (BNVA) | payer OTHER, SELFPAY | PROVIDERS: PCP Internal Medicine; Visit Provider Nurse Practitioner Family | DX: N20.0 Calculus of kidney (principal) | CPT/HCPCS: 81003; 99212 ==

== ENCOUNTER 2025-05-19 12:29 | Emergency (ER) | payer OTHER, SELFPAY ==
[2025-05-19] VITALS (7 sets, daily range): BP systolic 130–145; BP diastolic 80–91; PULSE 63–98; RESP 14–18; TEMP 36.2–36.6; O2SAT 93–98; BMI 33.7
--- NOTE | 2025-05-19 | ECG_ITS ---
Test Reason : DIZZINESS Blood Pressure : */* mmHG Vent. Rate : 70 BPM Atrial Rate : 70 BPM P-R Int : 156 ms QRS Dur : 74 ms QT Int : 394 ms P-R-T Axes : 37 -7 16 degrees QTcB Int : 425 ms Normal sinus rhythm cannot exclude old Inferior infarct , age undetermined ; could be related to body habitus and lead placement Borderline ECG When compared with ECG of 23-Sep-2023 21:34, No significant change was found Referred By: Generic ED Physician Electronically Signed By: VIVIANA ARELLANO
[2025-05-19 13:08] LABS: MANUAL DIFF FLAG NO
[2025-05-19 13:10] LABS: Hematocrit 40.4 % (37.0-47.0); Hemoglobin 12.9 g/dl (12.0-16.0); Imm Gran Abs Auto 0.03 X10*3/uL (0.00-0.03); Imm Gran Pct Auto 0.3 % (0.0-0.4); Lymphocytes Absolute Auto 1.8 X10*3/uL (1.2-4.9); Mean Corpuscular HGB Conc 31.9 g/dl (31.0-35.0); Mean Corpuscular Hemoglobin 26.5 pg (27.0-33.0); Mean Corpuscular Volume 83.0 fL (80.0-98.0); NRBC Abs Auto 0.000 X10*3/uL (0.0-0.012); NRBC Pct Auto 0.0 /100WBC (0.0-0.2); Platelet Count 311 X10*3/uL (160-400); Red Blood Count 4.87 X10*6/uL (4.20-5.50); White Blood Count 8.7 X10*3/uL (4.8-10.8)
[2025-05-19 13:23] LABS: Anion Gap 12 (12-20); Blood Urea Nitrogen 18 mg/dL (9-16); Calcium 9.6 mg/dL (8.4-10.2); Carbon Dioxide 26 mmol/L (22-29); Chloride 109 mmol/L (96-108); Creatinine Clr Calc Pharmacy 84.0; Estimated Glomerular Filt Rate > 60; Potassium 3.8 mmol/L (3.3-5.1); Sodium 143 mmol/L (135-145)
--- NOTE | 2025-05-19 13:38 | ED_ITS ---
HPI - General Adult General Chief complaint: Dizziness Stated complaint: Dizziness, weakness Time Seen by Provider: 05/19/25 13:18 Source: patient, EMS, RN notes reviewed and old records reviewed Mode of arrival: EMS Limitations: no limitations History of Present Illness ED Provider: CHRISTIAN Fisher HPI narrative: 54-year-old female with medical history of HTN, GERD, asthma, NAFLD, HLD, JACK, IBS, lumbar degenerative disc disease, vertigo presents to the ED due to dizziness, cold sweats, and occipital headache. Patient states she was awoken from sleep with an occipital headache and when she got out of bed was extremely dizzy and felt the room was spinning around her which prompted cold sweats and an episode of nausea. Patient states the headache is throbbing in nature, dizziness and headache are intermittent and seem to worsen with positional changes and head movement. She also endorses a superficial burning pain at the R side waistline. Denies fevers, chest pain, shortness of breath, difficulty breathing, visual changes, vomiting, abdominal pain, diarrhea, urinary symptoms MD complaint: dizziness, headache, superficial burning pain of waistline Related Data Home Medications ?Medication ?Instructions ?Recorded ?Confirmed lancets 28 gauge #100 ea 05/05/20 04/21/25 blood-glucose meter #1 ea 06/13/20 04/21/25 aspirin 81 mg tablet,delayed 81 mg PO DAILY 01/23/24 1 06/22/24 release (Adult Low Dose Aspirin) Previous Rx's ?Medication ?Instructions ?Recorded blood sugar diagnostic #100 ea 06/13/20 Shower Chair #1 ea 07/03/21 fluticasone propionate 50 1 spray intranasal DAILY #9. 9 mL 01/18/23 mcg/actuation nasal spray,suspension (Flonase Allergy Relief) nebulizers (Aeroneb Go Nebulizer) #1 ea 04/30/23 blood pressure monitor (Blood #1 ea 10/09/23 Pressure Kit) FreeStyle Fortunato 3 Axtell #1 ea 01/16/24 (blood-glucose,machine repairer maintenance,cont) FreeStyle Fortunato 3 Sensor #6 ea 01/16/24 (blood-glucose sensor) Dexcom G7 Line Fisher #1 ea 01/23/24 (blood-glucose,machine repairer maintenance,cont) Dexcom G7 Sensor (blood-glucose #9 ea 09/05/24 sensor) Dex4 Glucose 15 gram/33 gram oral 33 g PO .every 15 mi nutes PRN 01/31/24 gel packet (dextrose) BG<70 #198 grams flash glucose sensor (FreeStyle #1 ea 02/25/24 Fortunato 14 Day Sensor kit) albuterol sulfate 5 mg/mL(0.5 %) 2.5 mg (0.5 mL) inhal ation Q6H PRN 06/15/24 solution for nebulization shortness of breath or wheez ing #20 mL nebulizers (AeroEclipse II #1 ea 06/15/24 Nebulizer) albuterol sulfate 90 mcg/actuation 2 puff PO Q6H PRN f or wheezing 08/07/24 aerosol inhaler #6.7 grams pravastatin 20 mg tablet 20 mg PO DAILY #90 tabs 08/18 06/13 ondansetron HCl 4 mg tablet 4 mg PO Q8H PRN nausea and 10/10/24 vomiting #10 tabs pantoprazole 20 mg tablet,delayed 40 mg (2 x 20 mg) PO DAILY #180 12/31/24 release tabs cetirizine 10 mg tablet 10 mg PO DAILY #90 tabs 12/18 10/11 sennosides 8.6 mg tablet (senna) 17.2 mg (2 x 8.6 mg) PO BEDTIME 01/28/25 for constipation #60 tabs Gloves medium #1 ea 04/07/25 bedside commode #1 ea 04/07/25 cyanocobalamin (vitamin B-12) 1,000 mcg PO DAILY #30 c aps 04/07/25 1,000 mcg capsule cyclobenzaprine 10 mg tablet 10 mg PO BID #90 tabs lorazepam 1 mg tablet 1 mg PO DAILY 30 days #30 ta bs 04/29/25 meclizine 25 mg tablet (Dramamine 25 mg PO DAILY PRN d izziness #15 05/19/25 (meclizine)) tabs Allergies Allergy/AdvReac Type Severity Reaction Status Date / Time oxycodone (From PERCOCET) Allergy Intermediate VOMITING, Verified 05/19/25 12:46 N/V codeine (Codeine) Allergy Mild HIVES Verified 05/19/25 12:46 atorvastatin Allergy Unknown Headaches Verified 05/19/25 12:46 bupropion (From WELLBUTRIN) Allergy Unknown PALPITATION Verified 05/19/25 12:46 S morphine (MORPHINE) Allergy Unknown NIGHTMARES Verified 05/19/25 12:46 naproxen (NAPROXEN) Allergy Unknown RASH Verified 05/19/25 12:46 sertraline Allergy Unknown Unknown Verified 05/19/25 12:46 simvastatin Allergy Unknown Unknown Verified 05/19/25 12:46 zolpidem (ZOLPIDEM) Allergy Unknown PALPITATION Verified 05/19/25 12:46 S Review of Systems 2 Review of Systems: Yes all other systems are reviewed and are negative REPLACED BY [facility] Past Medical History Source: old records reviewed and nursing notes reviewed Medical History General medical exam Hypertension Vertigo Dysuria Upper respiratory tract infection Nausea and vomiting Abdominal pain Fall Otitis media IBS (irritable bowel syndrome) Uterine cancer History of gestational diabetes Genital herpes Hypercholesterolemia Obstructive sleep apnea Vitamin D deficiency Lumbar degenerative disc disease Hypertension Insomnia Fatty liver GERD (gastroesophageal reflux disease) Asthma Obesity (BMI 30-39.9) NAFLD (nonalcoholic fatty liver disease) Surgical History History of esophagogastroduodenoscopy (EGD) History of lumbar surgery History of total abdominal hysterectomy and bilateral salpingo-oophorectomy History of tubal ligation Hx of endoscopy History of colonoscopy Family History Family History Father Hx of colon cancer, stage III Mother Hx of heat stroke Acute CVA (cerebrovascular accident) Hypertension Diabetes Maternal Grandmother Breast cancer Stroke Stomach cancer Maternal Grandfather CVD (cardiovascular disease) Myocardial infarction Son In good health Sister No problems noted. Sister No problems noted. Sister No problems noted. Brother No problems noted. Brother No problems noted. Social History Social History Housing: Apartment Alcohol intake: never Patient Tobacco Use Status: Former Tobacco user Tobacco use type: Cigarette Years Smoked: 2002 quit CBD oil Smoked in Last 30 Days: No e-Cigarette/Vaping Use: Never Used Second Hand Smoke Exposure: No Use of substances other than those prescribed or required for medical reasons: No Advance Directives: No Advance Directives Information Provided: Yes Do you have a plan to hurt others: No Plan Patient : No service: No Current occupational status: disabled Current occupational exposures/hazards: No Cognitive needs: No Hearing needs: No Vision needs: No Physical Exam ED Vital Signs: Vital Signs - 24 hr 05/19/25 12:43 05/19/25 14:42 05/19/25 16:37 Temperature 97.9 F 97.1 F 97.8 F Pulse Rate 77 67 76 Respiratory Rate 18 16 14 Blood Pressure 141/91 H 145/82 H 134/86 Pulse Oximetry 93 97 95 Oxygen Delivery Method Room Air Room Air Room Air 05/19/25 17:45 05/19/25 17:47 05/19/25 17:50 Temperature Pulse Rate 63 66 68 Respiratory Rate Blood Pressure 130/81 142/89 H 137/84 Pulse Oximetry Oxygen Delivery Method BMI result Body Mass Index 33.7 GENERAL APPEARANCE: ?AxOx4, generally well-appearing, no acute distress. HEENT: ?NC, AT. MMM. EOMI, clear conjunctiva, no nystagmus present but does reproduce dizziness with eye movement, oropharynx clear, ear canals clear without evidence of cerumen, tympanic membranes with appropriate light reflex NECK: ?Supple without lymphadenopathy.? No stiffness or restricted ROM. HEART:? Normal rate and regular rhythm, normal S1/S2, no m/r/g LUNGS:? CTAB, moving air well. No crackles or wheezes are heard. ABDOMEN: ?Soft, nontender, nondistended, patient does have superficial burning pain when lightly touching the skin of the R waistline, there are no lesions or rashes present BACK: No CVAT, no obvious deformity. EXTREMITIES: ?Without cyanosis, clubbing or edema. NEUROLOGICAL: ?Grossly nonfocal. Alert and oriented, moving all 4 extremities. Skin: ?Warm and dry without any rash. NIH Stroke Scale Internal: Initial- Upon Arrival Level of Consciousness: Alert Level of Consciousness Questions: Answers both questions correctly Level of Consciousness Commands: Performs both tasks correctly Best Gaze: Normal Visual: No visual loss Facial Palsy: Normal Motor Arm (Right): No drift Motor Arm (Left): No drift Motor Leg (Right): No drift Motor Leg (Left): No drift Limb Ataxia: Absent Sensory: Normal Best Language: No aphasia Dysarthia: Normal Extinction and Inattention: No abnormality Score: 0 Medications Administered Discontinued Medications Generic Name Dose Route Start Last Admin Trade Name Jacqui PRN Reason Stop Dose Admin Diphenhydramine HCl 25 mg 05/19/25 14:15 05/19/25 14:32 Diphenhydramine Hcl 50 Mg/Ml Vial IVPUSH 05/19/25 14:16 25 mg ONCE ONE Administration Acetaminophen 1,000 mg in 100 mls @ 400 mls/hr 05/19/25 14:15 05/19/25 14:47 Ofirmev IV 05/19/25 14:29 Infused ONCE ONE Infusion Lactated Ringer's 1,000 mls @ 999 mls/hr 05/19/25 14:54 05/19/25 16:01 Lr IV 05/19/25 15:54 Infused .Q1H1M ONE Infusion Metoclopramide HCl 10 mg 05/19/25 14:15 05/19/25 14:32 Metoclopramide Hcl 10 Mg/2 Ml Vial IVPUSH 05/19/25 14:16 10 mg ONCE ONE Administration Medical Decision Making Medical Decision Making MDM Narrative: 54-year-old female with medical history of HTN, GERD, asthma, NAFLD, HLD, JACK, IBS, lumbar degenerative disc disease, vertigo presents to the ED due to dizziness, cold sweats, and occipital headache. Patient states she was awoken from sleep with an occipital headache and when she got out of bed was extremely dizzy and felt the room was spinning around her which prompted cold sweats and an episode of nausea. Patient states the headache is throbbing in nature, dizziness and headache are intermittent and seem to worsen with positional changes and head movement. She also endorses a superficial burning pain at the R side waistline. patient denies any prodrome of infection or recent illness. VS on initial observation - BP 141/91, pulse rate of 77, respiratory rate of 18, afebrile with oral temp of 97.9?, O2 saturation 93% on room air. On physical exam patient is well-appearing, in no acute distress however is tearful due to dizziness HEENT exam reveals normocephalic atraumatic head, EOMI, pupils reactive to accommodation and consensual light reflex, no pain with extraocular movements, no nystagmus however eye movement does reproduce dizziness, external ear canal clear, tympanic membranes without evidence of bulge, perforation or infection, lungs clear to auscultation bilaterally without wheeze or rhonchi, cardiac exam reveals normal rate and rhythm without murmurs/rubs / gallops, abdomen is soft, no rigidity, no guarding, nontender however does have some burning pain when lightly brushing over the skin of the right waistline, there are no rashes in this area, or overlying skin changes. EKG reveals NSR without ST-elevation/depression, dysrhythmia, lengthened QT, initial troponin undetectable at <2.7, patients symptoms less likely to be cardiac related. Labs without leukocytosis/leukopenia, no left shift, no evidence of anemia, no electrolyte abnormalities orthostatic vitals negative Patient was medicated with 1 L IV fluids, 10 mg Reglan, 25 mg Benadryl, 1 g Tylenol with complete resolution of her symptoms. On chart review patient saw her primary care doctor on 01/20/2025 for dizziness and was diagnosed with vertigo and discharged with meclizine. When discussing this with the patient she seemed to have forgotten that she was evaluated for dizziness and states that she has not been taking her meclizine for dizziness. Patient's workup today was reassuring as there was no leukocytosis, evidence of anemia, patient's dizziness is elicited with eye movement, positional head changes, and dizziness and headache are intermittent Without visual changes. Patient with a NIHSS of 0, no neurological deficits seen on physical exam. With patient's symptoms resolving after medication, and is able to sit up, ambulate, is tolerating p.o. I believe that this is BPPV and less concerned for a central cause of her symptoms. Reguarding nerve pain, patient has history of lumbar degenerative disease and states she had 2 injections recently that may be the cause of her pain as she has no true abdominal tenderness to palpation, and only experiencing a burning pain when I lightly brush my fingers over the waistline however there are no rashes present I do not believe this is shingles, patient states she has had shingles vaccine. I have instructed patient to follow up with her primary care doctor, and take her meclizine as instructed, I have placed referral for Neurology for her to follow up with. Patient well enough to go home for self-care today. Patient is in agreement with the plan VS on re-evaluation- BP 137/84, pulse rate of 68, respiratory rate of 14, afebrile with oral temp of 97.8?, O2 saturation 95% on room air. Differential Diagnosis Differential Diagnoses: The differential diagnosis associated with the presentation includes Meniere's disease Labyrinthitis BPPV Electrolyte abnormality Dysrhythmia Admission/Observation Consideration of admission/observation: Escalation of care including admission/observation considered Lab Data MDM Lab Attestation statement: I reviewed the patient's lab results. 05/19/25 13:03 05/19/25 13:03 Labs: Lab Results 05/19/25 Range/Units 13:03 WBC 8.7 (4.8-10.8) X10*3/uL RBC 4.87 (4.20-5.50) X10*6/uL Hgb 12.9 (12.0-16.0) g/dl Hct 40.4 (37.0-47.0) % MCV 83.0 (80.0-98.0) fL MCH 26.5 L (27.0-33.0) pg MCHC 31.9 (31.0-35.0) g/dl RDW 14.4 (11.0-16.0) % Plt Count 311 (160-400) X10*3/uL MPV 8.8 L (9.4-12.3) fL Immature Gran % (Auto) 0.3 (0.0-0.4) % Neut % (Auto) 70.2 (45-73) % Lymph % (Auto) 20.4 (20-40) % Baldwin % (Auto) 7.4 (2-11) % Eos % (Auto) 1.2 (0-4) % Baso % (Auto) 0.5 (0-2) % Lymph # (Auto) 1.8 (1.2-4.9) X10*3/uL Baldwin # (Auto) 0.6 (0.1-1.2) X10*3/uL Eos # (Auto) 0.1 (0.0-0.4) X10*3/uL Baso # (Auto) 0.0 (0.0-0.2) X10*3/uL Abs Immat Gran (auto) 0.03 (0.00-0.03) X10*3/uL Absolute Neuts (auto) 6.1 (2.0-8.3) x10*3/uL Absolute Nucleated RBC 0.000 (0.0-0.012) X10*3/uL Nucleated RBC % (auto) 0.0 (0.0-0.2) /100WBC Sodium 143 (135-145) mmol/L Potassium 3.8 (3.3-5.1) mmol/L Chloride 109 H (96-108) mmol/L Carbon Dioxide 26 (22-29) mmol/L Anion Gap 12 (12-20) BUN 18 H (9-16) mg/dL Creatinine 0.72 (0.5-1.4) mg/dL Estim Creat Clear Calc 84.0 Estimated GFR > 60 Random Glucose 103 (60-115) mg/dL Calcium 9.6 (8.4-10.2) mg/dL Troponin I High Sens < 2.7 (<3.5-17.0) ng/L Influenza Type A (PCR) NEGATIVE (Negative) Influenza Type B (PCR) NEGATIVE (Negative) RSV RNA Qual (PCR) NEGATIVE (Negative) SARS-CoV-2 RNA (RT-PCR) NEGATIVE (Negative) Independent Interpretation I performed an independent interpretation of an: EKG Interpretation: I personally interpreted the EKG which shows normal sinus rhythm without ST- elevation /depression, dysrhythmia, QT prolongation Vent. Rate : 70 BPM Atrial Rate : 70 BPM P-R Int : 156 ms QRS Dur : 74 ms QT Int : 394 ms P-R-T Axes : 37 -7 16 degrees QTcB Int : 425 ms Normal sinus rhythm Inferior infarct , age undetermined Abnormal ECG When compared with ECG of 23-Sep-2023 21:34, No significant change was found External Record Review External record reviewed: Inpatient record, Office record, Outpatient record and Prior outpatient labs Chronic Conditions Patient?s care impacted by: Hypertension and Other (HTN, GERD, asthma, NAFLD, HLD, JACK, IBS, lumbar degenerative disc disease, vertigo ) Discharge Plan Discharge Clinical Impression: Dizziness Patient Disposition: Home, Self-Care Additional Instructions: You were evaluated today for dizziness. Your symptoms resolved after treatment with IV fluids, meclizine, Benadryl, and Tylenol. Your evaluation was reassuring , including a normal EKG, negative troponin, and negative orthostatic vital signs, with no evidence of a cardiac emergency at this time. Medications: * Take meclizine as prescribed if dizziness returns. * Avoid alcohol or other sedating medications while taking meclizine or Benadryl. * Use caution with driving or operating machinery, as these medications may cause drowsiness. Hydration & Activity: * Drink plenty of fluids to stay well hydrated. * Change positions slowly (lying ? sitting ? standing) to help prevent recurrence. * Resume normal activities as tolerated. Follow-Up: * Follow up with your primary care provider (PCP) for continued evaluation and management. * A referral to Neurology has been placed for further outpatient evaluation. Please keep this appointment. Return to the Emergency Department immediately if you experience: * Return or worsening of dizziness not relieved with medication * New weakness, numbness, trouble speaking, facial droop, or vision changes * Chest pain, shortness of breath, palpitations, or fainting * Severe headache, confusion, or difficulty walking * Persistent vomiting or inability to keep fluids down Prescriptions: New meclizine [Dramamine (meclizine)] 25 mg tablet 25 mg PO DAILY PRN (Reason: dizziness) Qty: 15 0RF No Action (DME) blood sugar diagnostic Strip See Rx Instructions .ROUTE .MEDSUPPLY Qty: 100 0RF Rx Instructions: As directed check BS QD (DME) nebulizers [Aeroneb Go Nebulizer] Misc See Rx Instructions .Route Qty: 1 0RF Rx Instructions: As directed (DME) blood pressure monitor [Blood Pressure Kit] Kit See Rx Instructions .ROUTE .MEDSUPPLY Qty: 1 0RF Rx Instructions: As directed (DME) Dexcom G7 Line Fisher Misc See Rx Instructions .Route Qty: 1 0RF Rx Instructions: As directed (DME) Dexcom G7 Sensor Device See Rx Instructions .Route Qty: 9 3RF Rx Instructions: every 10 days dextrose [Dex4 Glucose] 15 gram/33 gram gel in packet 33 g PO .every 15 minutes PRN (Reason: BG<70) Qty: 198 3RF albuterol sulfate 90 mcg/actuation HFA aerosol inhaler 2 puff PO Q6H PRN (Reason: for wheezing) Qty: 6.7 3RF pravastatin 20 mg tablet 20 mg PO DAILY Qty: 90 2RF pantoprazole 20 mg tablet,delayed release (DR/EC) 40 mg PO DAILY Qty: 180 2RF cetirizine 10 mg tablet 10 mg PO DAILY Qty: 90 2RF sennosides [senna] 8.6 mg tablet 17.2 mg PO BEDTIME Qty: 60 6RF cyclobenzaprine 10 mg tablet 10 mg PO BID Qty: 90 1RF lorazepam 1 mg tablet 1 mg PO DAILY 30 Days Qty: 30 0RF ondansetron HCl 4 mg tablet 4 mg PO Q8H PRN (Reason: nausea and vomiting) Qty: 10 0RF (DME) lancets 28 gauge misc See Rx Instructions topical .MEDSUPPLY Qty: 100 Rx Instructions: As directed (DME) blood-glucose meter Kit See Rx Instructions .ROUTE DAILY Qty: 1 Rx Instructions: As directed (DME) Shower Chair Misc See Rx Instructions .Route Qty: 1 0RF Rx Instructions: As directed fluticasone propionate [Flonase Allergy Relief] 50 mcg/actuation spray,suspension 1 spray intranasal DAILY Qty: 9.9 1RF Rx Instructions: administer into each nostril aspirin [Adult Low Dose Aspirin] 81 mg tablet,delayed release (DR/EC) 81 mg PO DAILY (DME) FreeStyle Fortunato 14 Day Sensor Kit See Rx Instructions miscellaneous .MEDSUPPLY Qty: 1 0RF Rx Instructions: interiano patient - albuterol sulfate 5 mg/mL solution for nebulization 2.5 mg inhalation Q6H PRN (Reason: shortness of breath or wheezing) Qty: 20 0RF (DME) nebulizers [AeroEclipse II Nebulizer] Mis See Rx Instructions .Route Qty: 1 0RF Rx Instructions: As directed (DME) FreeStyle Fortunato 3 Axtell Misc See Rx Instructions .Route Qty: 1 0RF Rx Instructions: As directed (DME) FreeStyle Fortunato 3 Sensor Device See Rx Instructions .Route Qty: 6 3RF Rx Instructions: every 14 days cyanocobalamin (vitamin B-12) 1,000 mcg capsule 1,000 mcg PO DAILY Qty: 30 3RF (DME) bedside commode See Rx Instructions .Route .MEDSUPPLY Qty: 1 0RF Rx Instructions: As directed (DME) Gloves medium See Rx Instructions .Route .MEDSUPPLY Qty: 1 12RF Rx Instructions: As directed Print Language: Tongan
[2025-05-19 14:11] LABS: Resp Syncy Virus RNA Qual PCR NEGATIVE (Negative); SARS COV2 PCR INHOUSE NEGATIVE (Negative)
--- OUTSIDE RECORDS SUMMARY | 2025-05-19 14:25 | XMS_ITS | Clinical Summary ---
Author Organization [facility] ity Address [address] [place] [address] Care Team Providers Care Service Inspector Name Role Phone Coreen Hernandez MD Primary Care Provider [phone] Social History Tobacco Use Types Packs/Day Years [...] age to complete this topic Care Teams Service Inspector Relationship Specialty Start Date End Date Coreen Hernandez MD [address] [place] [address] Dr [address] [facility] [place] [address] PCP - General Internal Medicine 01/04/14
--- NOTE | 2025-05-19 14:40 | PC.NURSE ---
patient a&ox3, iv inserted, labs previously drawn, vss, pt medicated per order for 8 headache and nausea, call singleton within reach, plan of care ongoing
[2025-05-19 14:53] LABS: Troponin-I High Sensitivity < 2.7 ng/L (<3.5-17.0)
[2025-05-19] MEDS: Lactated Ringers 1,000 ML 999 ML IV (15:00)
== END 2025-05-19 18:17 | disposition home or self-care (01) ==
PROVIDERS: Emergency Provider Emergency Medicine Emergency Medical Services; PCP Internal Medicine
DX: R42 Dizziness and giddiness (principal); R53.1 Weakness; I10 Essential (primary) hypertension; M51.369 Other intervertebral disc degeneration, lumbar region without mention of lumbar back pain or lower extremity pain; Z87.19 Personal history of other diseases of the digestive system; Z79.899 Other long term (current) drug therapy; Z03.818 Encounter for observation for suspected exposure to other biological agents ruled out
CPT/HCPCS: 36415; 80048; 84484; 85025; 87637; 93005; 96361; 96374; 96375; 99284; 99285; J0131; J1200; J2765; J7120

== ENCOUNTER → 2025-05-19 12:55 | Outpatient (BNV) | payer OTHER, SELFPAY | PROVIDERS: Emergency Provider Emergency Medicine Emergency Medical Services; PCP Internal Medicine; Visit Provider Internal Medicine | DX: R42 Dizziness and giddiness (principal) | CPT/HCPCS: 93010 ==